=== PATIENT | female | born 1935 | race Caucasian/White ===

== ENCOUNTER → 2020-07-12 14:34 | Outpatient (BNVA) | payer MEDICARE, SELFPAY | PROVIDERS: PCP Internal Medicine; Visit Provider Internal Medicine Cardiovascular Disease | DX: I25.10 Atherosclerotic heart disease of native coronary artery without angina pectoris (principal); I10 Essential (primary) hypertension | CPT/HCPCS: 93005; 99212 ==

== ENCOUNTER 2020-07-19 11:39 | Outpatient (REF) | payer MEDICARE, SELFPAY ==
[2020-07-19 14:01] LABS: MANUAL DIFF FLAG NO
[2020-07-19 14:13] LABS: Basophils Absolute Auto 0.1 X10*3/uL (0.0-0.2); Eosinophils Absolute Auto 0.2 X10*3/uL (0.0-0.4); Eosinophils Percent Auto 1.7 % (0-4); Hematocrit 40.7 % (37-47); Hemoglobin 13.5 g/dl (12.0-16.0); Imm Gran Abs Auto 0.04 X10*3/uL (0.00-0.03); Imm Gran Pct Auto 0.4 % (0.0-0.4); Lymphocytes Absolute Auto 1.4 X10*3/uL (1.2-4.9); Lymphocytes Percent Auto 13.2 % (20-40); Mean Corpuscular HGB Conc 33.2 g/dl (31.0-35.0); Mean Corpuscular Hemoglobin 30.5 pg (27.0-33.0); Mean Corpuscular Volume 91.9 fL (80-98); Mean Platelet Volume 11.9 fL (9.4-12.3); Monocytes Absolute Auto 0.7 X10*3/uL (0.1-1.2); Monocytes Percent Auto 6.7 % (2-11); Platelet Count 185 X10*3/uL (160-400); Red Blood Count 4.43 X10*6/uL (4.20-5.50); White Blood Count 10.4 X10*3/uL (4.8-10.8)
[2020-07-19 14:36] LABS: Alanine Aminotransferase 18 U/L (0-31); Albumin Level 4.4 g/dL (3.5-5.0); Alkaline Phosphatase 71 U/L (39-117); Anion Gap 13 (12-20); Aspartate Amino Transferase 22 U/L (5-31); Blood Urea Nitrogen 21 mg/dL (9-16); Calcium 9.2 mg/dL (8.4-10.2); Carbon Dioxide 28 mmol/L (22-29); Chloride 104 mmol/L (96-108); Cholesterol 111 mg/dL; Estimated Glomerular Filt Rate > 60; Glucose Fasting 76 mg/dL (60-99); HDL Cholesterol 41 mg/dL; LDL Cholesterol Calculated 55 mg/dl; Sodium 141 mmol/L (135-145); Total Protein 6.7 g/dL (6.5-8.0); Triglycerides 77 mg/dL
[2020-07-19 14:59] LABS: Thyroid Stimulating Hormone 1.79 uIU/mL (0.32-4.0)
[2020-07-20 19:03] LABS: Vitamin B12 209 pg/mL (200-900)
== END 2020-07-19 11:40 | disposition home or self-care (01) ==
LOC: HO.HMGCLDS 11:39
PROVIDERS: PCP Internal Medicine; Visit Provider Internal Medicine
DX: Z00.01 Encounter for general adult medical examination with abnormal findings (principal); I12.9 Hypertensive chronic kidney disease with stage 1 through stage 4 chronic kidney disease, or unspecified chronic kidney disease; N18.9 Chronic kidney disease, unspecified; I25.84 Coronary atherosclerosis due to calcified coronary lesion; M17.0 Bilateral primary osteoarthritis of knee
CPT/HCPCS: 36415; 80053; 80061; 82607; 84443; 85025

== ENCOUNTER 2020-08-30 15:32 | Outpatient (REF) | payer MEDICARE, SELFPAY ==
--- NOTE | ~2020-08-30 | MM_ITS ---
EXAMINATION: MM DIAGNOSTIC DIGITAL BREAST TOMOSYNTHESIS, BILATERAL US DIAGNOSTIC ULTRASOUND BREAST, LEFT CLINICAL INFORMATION: 84-year-old with palpable fullness anterior left breast. Prior mammography used ago, suspected purged. COMPARISON: None (current exam represents new baseline). TECHNIQUE: Digital breast tomosynthesis is performed in both the craniocaudal and mediolateral oblique views along with computer-aided detection (CAD). Synthesized 2D images are generated from the tomosynthesis. Ultrasound left breast is targeted to the anterior breasts. Additional imaging also performed left axilla. Grayscale imaging and color Doppler are performed. FINDINGS: There are scattered areas of fibroglandular density (ACR BI-RADS breast composition Category b). The left breast has an irregular spiculated mass retroareolar region approximately 2 cm in size with associated nipple retraction. There are a few coarse and fine calcifications in the lesion. There is no lymphadenopathy. The remainder the left breast is unremarkable. The right breast shows no significant mass or architectural abnormality or abnormal calcifications. The axilla and skin contours are unremarkable. Ultrasound left breast demonstrates a strongly hypoechoic irregular shaped mass retroareolar region measuring approximately 2.2 cm in size. There is posterior acoustic shadowing. This corresponds to the lesion on mammography. Additional imaging left axilla demonstrates no lymphadenopathy. Results are discussed with the patient at time of visit. Ultrasound-guided core sampling left breast lesion is recommended. Results and recommendation are called to medical review specialist (Shelli) for Dr. Loving, on 08/30/2020. MM/MM tomosynthesis diagnostic BI IMPRESSION: 1. Left: Irregular retroareolar mass approximately 2 cm. 2. Right: No mammographic evidence of malignancy. ASSESSMENT: BI-RADS 5: Highly Suggestive of Malignancy RECOMMENDATION: Ultrasound-guided core biopsy left breast. This patient's information was entered into a reminder system with a target due date for their next mammogram.
== END 2020-08-30 15:33 | disposition home or self-care (01) ==
LOC: HO.MAMMO 15:32
PROVIDERS: Visit Provider Internal Medicine
DX: N63.42 Unspecified lump in left breast, subareolar (principal)
CPT/HCPCS: 76642; 77062; 77066

== ENCOUNTER → 2020-09-05 10:38 | Outpatient (BNVA) | payer MEDICARE, SELFPAY | PROVIDERS: PCP Internal Medicine; Visit Provider Surgery | DX: N63.20 Unspecified lump in the left breast, unspecified quadrant (principal) | CPT/HCPCS: 99202 ==

== ENCOUNTER 2020-09-06 07:52 | Outpatient (REF) | payer MEDICARE, SELFPAY ==
--- NOTE | ~2020-09-06 | MM_ITS ---
EXAMINATION: ULTRASOUND GUIDED CORE BIOPSY BREAST, LEFT POST PROCEDURE DIGITAL MAMMOGRAM, LEFT CLINICAL INFORMATION: 84-year-old with suspicious irregular hypoechoic mass with shadowing retroareolar left breast. COMPARISON: Mammography and left breast ultrasound 08/30/2020. FINDINGS: Proper informed consent is obtained from the patient after discussion of the procedure, potential risks and complications, and alternatives. Patient was given an opportunity for questions. The patient appeared to understand. The patient consented to the procedure and signed the consent form. GUIDANCE: Ultrasound-guided; aseptic technique. LESION: Irregular spiculated mass with posterior shadowing, retroareolar left breast 2.2 cm. APPROACH: Oblique lateral medial. ANESTHESIA: 19 mL 1% lidocaine. DERMATOTOMY: Single skin flaquita dermatotomy performed. NEEDLE: 14-gauge Achieve core biopsy device with 13.5-gauge co-axial guide needle. CORES: 6. CLIP: HydroMARK; shape: open coil. POST PROCEDURE UNILATERAL DIGITAL MAMMOGRAM: The post biopsy mammogram is performed in separate room using separate digital mammography equipment from the biopsy procedure. CC and ML views are obtained. There are scattered areas of fibroglandular density (breast composition category: b). The clip marker is in position. No gross hematoma. The patient tolerated the procedure well. No immediate complications. Home instructions reviewed with the patient. Final pathology results are pending. MM/MM diagnostic mammo unilat LT IMPRESSION: 1. Status post ultrasound-guided core biopsy left breast. 2. Clip placed: HydroMARK; shape: open coil. 3. Pathology pending. An addendum report will be issued.
== END 2020-09-06 07:53 | disposition home or self-care (01) ==
LOC: HO.MAMMO 07:52
PROVIDERS: Visit Provider Surgery
DX: N63.20 Unspecified lump in the left breast, unspecified quadrant (principal); R92.8 Other abnormal and inconclusive findings on diagnostic imaging of breast
CPT/HCPCS: 19083; 77065; 88305; 88341; 88342; 88360

== ENCOUNTER → 2020-09-12 09:46 | Outpatient (BNVA) | payer MEDICARE, SELFPAY | PROVIDERS: PCP Internal Medicine; Visit Provider Surgery | DX: C50.912 Malignant neoplasm of unspecified site of left female breast (principal) | CPT/HCPCS: 99212 ==

== ENCOUNTER 2020-10-02 07:00 | Day surgery (SDC) | payer MEDICARE, SELFPAY ==
--- NOTE | 2020-09-28 11:53 | P.CONAN_ITS ---
Documented by User: Belinda Ricardo 09/28/20 12:12 HPI - Anesthesia Eval Consult details Narrative: 84yo F for Left Breast Lumpectomy, Needle Loc, Sentinal Node Per routine cardiol OV 06/2020, stable CAD. OK to discontinue plavix, but pt requested to remain on it. Will hold for surgery. PMFSH Active Problems Active Problems: All Active Problems (Updated 09/26/20 @ 15:29 by Ilsa Hernandez) Abnormal ultrasound of breast (Acute) Breast mass, left (Acute) Carcinoma of left breast (Acute) Coronary artery disease (Acute) Hypertension (Acute) Past Medical History Medical History (Updated 10/02/20 @ 08:53 by Lorie Naylor) Arthritis Coronary artery disease COVID-19 vaccine administered Elevated cholesterol Hypertension Increased bilirubin level On anticoagulant therapy Pectus carinatum Surgical History Surgical History H/O colonoscopy History of right cataract surgery Hx of cardiac catheterization Social History Social History Are you a primary early breastfeeding care specialist to a significant other at home: No Do you presently have visiting nurse or other home services: No Alcohol intake: never Smoking Status: Never smoker Use of substances other than those prescribed or required for medical reasons: No Have you been hit, kicked, punched, or otherwise hurt by someone within the past year? If so, by whom?: No Are you DNR?: No Advance Directives Information Provided: No Recently lost weight without trying: No Eating poorly because of decreased appetite: No Nutrition Risks: Surgical patient >75years Poor oral hygiene: No Meds Allergies Allergy/AdvReac Type Severity Reaction Status Date / Time No Known Allergies Allergy Unverified 02/10/20 15:48 [No Known Allergies*] Home Medications Medication Instructions Recorded Confirmed Last Taken Type aspirin 81 mg tablet,delayed 81 mg PO DAILY 07/12/20 10/02/20 09/29/20 History release isosorbide mononitrate 60 mg 60 mg PO DAILY 07/12/20 10/02/20 10/02/20 History tablet,extended release 24 hr metoprolol succinate 25 mg 25 mg PO DAILY 07/12/20 10/02/20 10/02/20 History tablet,extended release 24 hr Exam Exam Date and Time: September 28, 2020 1153 Height,Weight and Vital Signs: Height 5 ft 5 in Weight 54.431 kg Pertinent Lab Results Pertinent Lab Results: Laboratory Tests 07/19/20 07/19/20 11:45 11:45 WBC 10.4 Hgb 13.5 Hct 40.7 Plt Count 185 Sodium 141 Potassium 4.0 Chloride 104 Carbon Dioxide 28 BUN 21 H Creatinine 0.87 Narrative Narrative: EKG 06/2020 Sinus bradycardia 54/min, nonspecific ST T changes, QTc 426 msec. Assessment and Plan Assessment Anesthesia Assessment: Chart Reviewed Documented by User: Lorie Naylor 10/02/20 08:54 [facility] Past Medical History Medical History (Updated 10/02/20 @ 08:53 by Lorie Naylor) Arthritis Coronary artery disease COVID-19 vaccine administered Elevated cholesterol Hypertension Increased bilirubin level On anticoagulant therapy Pectus carinatum Family History Family history of problems with anesthesia: No Surgical History Surgical History H/O colonoscopy History of right cataract surgery Hx of cardiac catheterization History of Problems with Anesthesia: No Social History Social History Are you a primary early breastfeeding care specialist to a significant other at home: No Do you presently have visiting nurse or other home services: No Alcohol intake: never Smoking Status: Never smoker Use of substances other than those prescribed or required for medical reasons: No Have you been hit, kicked, punched, or otherwise hurt by someone within the past year? If so, by whom?: No Are you DNR?: No Advance Directives Information Provided: No Recently lost weight without trying: No Eating poorly because of decreased appetite: No Nutrition Risks: Surgical patient >75years Poor oral hygiene: No Meds Allergies Allergy/AdvReac Type Severity Reaction Status Date / Time No Known Allergies Allergy Unverified 02/10/20 15:48 [No Known Allergies*] Home Medications Medication Instructions Recorded Confirmed Last Taken Type aspirin 81 mg tablet,delayed 81 mg PO DAILY 07/12/20 10/02/20 09/29/20 History release isosorbide mononitrate 60 mg 60 mg PO DAILY 07/12/20 10/02/20 10/02/20 History tablet,extended release 24 hr metoprolol succinate 25 mg 25 mg PO DAILY 07/12/20 10/02/20 10/02/20 History tablet,extended release 24 hr Exam Height,Weight and Vital Signs: Vital Signs Temp Pulse Resp BP Pulse Ox 10/02/20 07:37 97.8 F 57 16 153/62 H 97 Airway Mallampati Class: II TM Dist: >3cm Neck ROM: Full Heart: RRR Lungs: CTAB Assessment and Plan Assessment Anesthesia Assessment: Anesthesia Plan Discussed and Chart Reviewed Final Anesthetic Review NPO: Yes ASA Class: III Final Preanesthetic Review: No Changes in Pt Med Stat, Meds/Allgs Chart Reviewed, Consent Obtained/Reviewed and Anes Risks/Benef Reviewed Patient Risk: Intermediate Procedure Risk: Low Assessment/Block/Sedation in SS: Assess/Block/Sedation-SS Anesthetic Plan Anesthetic Plan: GA Disposition: Standard PACU
[2020-10-02] VITALS (9 sets, daily range): BP systolic 109–153; BP diastolic 42–89; PULSE 47–57; RESP 12–18; TEMP 36.3–36.6; O2SAT 95–97
--- NOTE | ~2020-10-02 | MM_ITS ---
EXAMINATION: MM MAMMOGRAM GUIDED NEEDLE LOCALIZATION BREAST, LEFT MM NEEDLE LOCALIZATION SPECIMEN FROM THE LEFT BREAST CLINICAL INFORMATION: Recent diagnosis metaplastic carcinoma anterior left breast. COMPARISON: 08/30/2020, 09/06/2020; ultrasound left breast for 12/12/2020, ultrasound-guided core biopsy 09/06/2020. TECHNIQUE NEEDLE LOC: Proper informed consent is obtained from the patient after discussion of the procedure, potential risks and complications, and alternatives including declining the procedure today. Patient was given an opportunity for questions. The patient appeared to understand. The patient consented to the procedure and signed the consent form. GUIDANCE: Digital mammography. APPROACH: Mediolateral. Bracket lesion superior, inferior, and posterior as discussed with surgeon last week. Total 3 needles from medial approach. TARGET: Mass anterior left breast with biopsy clip marker. ANESTHESIA: lidocaine 1%: 15 mL (divided among 3 sites). LOCALIZATION MARKER: Watson MammaLok x 3, each 7.5 cm length. The skin is prepped and local anesthesia administered. The needles are positioned and position assessed with mammography. The wires are hooked into position. Huddy needle protector placed. The patient tolerated the procedure well and had no immediate complication. Following the procedure, 4% lidocaine ointment was administered to the left areola and covered with Tegaderm in anticipation of nuclear lymphoscintigraphy injection for sentinel lymph node mapping. Post procedure findings discussed with chief medical technologist (Belinda) for Dr. Yan and also discussed with licensed nuclear operator (Estelle Gilbert) on 10/02/2020. TECHNIQUE SPECIMEN RADIOGRAPH: Imaging of the excised specimen is performed using digital mammography in 2 views. FINDINGS SPECIMEN RADIOGRAPH: The specimen shows the distal 3 needles and hook wires are delivered intact. Proximal needles sectioned in the OR. The biopsy clip marker and the spiculated mass is seen in the specimen. There is a nodular density at the periphery of the specimen consistent with the excised nipple. Results were called to Dr. Garrett Yan in the operating room at the time of imaging. MM/MM needle loc LT IMPRESSION: 1. Status post left breast needle localization with wire hooked into position. 2. Post operative specimen radiograph obtained.
--- NOTE | ~2020-10-02 | NM_ITS ---
EXAMINATION: NM LYMPH SCINTIGRAPHY CLINICAL INFORMATION: Carcinoma left breast. COMPARISON: None TECHNIQUE: Following explaining left breast sentinel node procedure, benefits and risk, a written consent was obtained by Dr. Castro. 4% lidocaine cream was applied around the left breast areola for half an hour. The area was then cleaned with gauze and subsequently with alcohol prep. 0.5 mCi of 99m technetium Lymphoseek was injected in 4 quadrants around the left breast areola, and imaging was obtained approximately 30 minutes later. FINDINGS: There is adequate amount of isotope activity seen surrounding the left breast areola. There is punctate activity seen in the left anterior axilla and left lateral breast on the lateral view suspicious for 2 small lymph nodes. NM/NM sentinel node w imaging IMPRESSION: Solitary lymph node in the left anterior axilla and solid lymph node in the left lateral breast or lateral thoracic wall on left breast lymphoscintigraphy.
[2020-10-02] MEDS: Lactated Ringers 1,000 ML 100 ML IVCONT (07:51)
--- NOTE | 2020-10-02 11:35 | MHC.SHP ---
Pre-Procedural Eval Section A The patient is an INPATIENT: No Changes since office visit: Yes Patient answered all questions; No Cold of Flu in the past 2 weeks, No New Medical Problems and No Changes in Medication The History & Physical has been completed within 30 days and I have reviewed it.: Yes Section B Chief Complaint: Carcinoma of left breast Allergies: Allergies Allergy/AdvReac Type Severity Reaction Status Date / Time No Known Allergies Allergy Unverified 02/10/20 15:48 [No Known Allergies*] Plan Diagnosis/Plan: Unchanged I have reviewed the history and physical and performed a pertinent physical examination on my patient. No changes have occurred unless specified.
--- NOTE | 2020-10-02 13:58 | P.OP_ITS ---
Operative Note Operative Note Date of Service: 10/02/20 Narrative: Preoperative diagnosis: Metaplastic carcinoma left breast Postoperative diagnosis: Same Procedure: Left breast lumpectomy with sentinel node biopsy left axilla Surgeon: Garrett Yan MD [employer] Superintendent: PAIGE Moctezuma Anesthesia: General LMA Indications for procedure: 84-year-old female patient presenting with a palpable mass noted in the breast in April increasing in size over the next several months. Patient underwent her 1st mammogram which indicated a spiculated mass suggestive of a left breast carcinoma. On examination, patient patient has a palpable mass in the subareolar location with invasion of the underlying skin of the nipple measuring approximately 5 cm. Subsequent core biopsy sound guidance revealed a metaplastic carcinoma of the left breast Operative findings: Mass left breast including left nipple, single sentinel node, several slightly enlarged lymph nodes all removed. Specimen: 1. Left breast lump 2. Left sentinel node 3. Additional axillary contents 4. Posterior margin Estimated blood loss: 10 mls Complications: None Procedure details: Patient was brought to the OR placed in a supine position. After administering general anesthesia the patient's left breast was prepped with ChloraPrep and draped in a sterile fashion. A surgical time-out was called and consent confirmed. Patient received preoperative antibiotics and Venodyne boots were in place. Local anesthesia consisting of 0.25% Sensorcaine with epinephrine was then infiltrated around the left nipple cyst. An elliptical incision was then created with a scalpel to include the nipple-areolar complex. This was carried out through subcutaneous tissue. Superior inferior skin flaps were then created. Using the previously placed localizing needles as a guide of the posterior superior and inferior margins a core of tissue was then next excised to include localizing needle. The specimen sent to pathology for further examination. Posterior margin was felt to be close therefore an ad ditional core of tissue in the posterior margin to include the dural fascia was mood in the specimen. Attention was then directed to the axilla. The gamma probe was used to identify the area of increased counts. A curvilinear incision was then made directly over this area. Dissection was continued down past the clavipectoral fascia into the axillary and apartment. Using the gamma probe to direct dissection a enlarged node was removed. This was found to have 740 counts.. This was sent as sentinel node 1. Several-in all palpable lymph nodes were removed. No other radioactive nodes could be identified. These nodes were sent as additional axillary contents. Both incisions were irrigated with saline solution and suctioned dry. Wounds were checked for hemostasis. Deep breast tissue and pectoral fascia was reapproximated using interrupted 3-0 Polysorb sutures. Superficial breast tissue and dermis were then reapproximated using interrupted 3-0 Polysorb sutures. Skin was then closed using a running subcuticular 4-0 Polysorb suture. Deep clavipectoral fascia was closed using interrupted 3-0 Polysorb sutures. Dermis was reapproximated using interrupted 3-0 Polysorb sutures and axillary skin was closed using a running subcuticular 4 0 Polysorb suture. Steri-Strips 4 x 4 gauze and Tegaderm were then applied. The patient tolerated the procedure well. Sponge, instrument, needle counts reported as correct. Patient was transferred to PACU in stable condition.
== END 2020-10-02 16:04 | disposition home or self-care (01) ==
PROVIDERS: PCP Internal Medicine; Visit Provider Surgery
PROC: (CPT 19301; principal; 2020-10-02 11:00)
PROC: (CPT 19301; 2020-10-02 11:00)
PROC: (CPT 19301; 2020-10-02 11:00)
DX: C50.912 Malignant neoplasm of unspecified site of left female breast (principal); I10 Essential (primary) hypertension; E80.7 Disorder of bilirubin metabolism, unspecified; I25.10 Atherosclerotic heart disease of native coronary artery without angina pectoris; Z79.82 Long term (current) use of aspirin; Z79.899 Other long term (current) drug therapy; Z79.01 Long term (current) use of anticoagulants
CPT/HCPCS: 19301; 38525; 19281; 78195; 88305; 88307; 88329; 88341; 88342; 88360; A4648; A9520; J0690; J2405; J3010

== ENCOUNTER → 2020-10-10 14:27 | Outpatient (BNVA) | payer MEDICARE, SELFPAY | PROVIDERS: PCP Internal Medicine; Visit Provider Surgery | DX: C50.919 Malignant neoplasm of unspecified site of unspecified female breast (principal) | CPT/HCPCS: 99212 ==

== ENCOUNTER → 2020-11-03 14:18 | Outpatient (BNV) | payer MEDICARE, SELFPAY | PROVIDERS: PCP Internal Medicine; Referring Provider Internal Medicine Medical Oncology; Visit Provider Internal Medicine | DX: C50.912 Malignant neoplasm of unspecified site of left female breast (principal); J90 Pleural effusion, not elsewhere classified; R59.0 Localized enlarged lymph nodes | CPT/HCPCS: 99204; 99212; 99213; 99214 ==

== ENCOUNTER → 2020-11-09 14:12 | Outpatient (BNVA) | payer MEDICARE, SELFPAY | PROVIDERS: PCP Internal Medicine; Visit Provider Surgery | DX: C50.919 Malignant neoplasm of unspecified site of unspecified female breast (principal) | CPT/HCPCS: 99212 ==

== ENCOUNTER 2020-11-20 13:30 | Emergency (ER) | payer MEDICARE, SELFPAY ==
--- NOTE | ~2020-11-20 | CT_ITS ---
EXAMINATION: CT HEAD WITHOUT CONTRAST CLINICAL INFORMATION: Fall. COMPARISON: None. TECHNIQUE: Contiguous axial imaging was performed from the skull base to vertex without intravenous administration of contrast. This CT examination was performed using dose optimization techniques as appropriate, variously including the following: *Automated exposure control *Adjustment of mA and/or kV according to patient size (this includes techniques or standardized protocols for targeted exams where dose is matched to indication/reason for exam; i.e. extremities or head) *Use of iterative reconstruction technique DLP: 690 mGy-cm. FINDINGS: There is no evidence of an extra-axial collection. There is no evidence of intra-axial or extra-axial hemorrhage. There is age-related prominence of the ventricles and extra-axial CSF spaces. There is mild nonspecific periventricular white matter disease. There are old bilateral basal ganglia lacunar infarcts. No mass, mass effect or acute infarct is seen. No skull fracture is seen. The visualized paranasal sinuses, mastoid air cells and middle ears are clear. There are degenerative changes at the left temporomandibular joint. CT/CT head/brain wo con IMPRESSION: No acute findings.
--- NOTE | ~2020-11-20 | CT_ITS ---
EXAMINATION: CT CERVICAL SPINE WITHOUT CONTRAST CLINICAL INFORMATION: Fall. COMPARISON: None. TECHNIQUE: Axial images through the cervical spine without contrast. Sagittal and coronal reconstructions on the technologist workstation were performed. Patient dose 244 mGy-cm. This CT examination was performed using dose optimization techniques as appropriate, variously including the following: *Automated exposure control *Adjustment of mA and/or kV according to patient size (this includes techniques or standardized protocols for targeted exams where dose is matched to indication/reason for exam; i.e. extremities or head) *Use of iterative reconstruction technique DLP: 244 mGy-cm. FINDINGS: Bone alignment is normal. No fracture or dislocation is seen. There is multilevel degenerative spondylosis and degenerative disc disease, greatest at C5-C6 and C6-C7. There is bilateral multilevel facet arthritis, greatest at C3-C4 and C4-C5 on the left. There are degenerative changes at the C1 dens articulation. Prevertebral soft tissues are normal. The lung apices are clear. CT/CT cervical spine wo con IMPRESSION: Degenerative changes. No fracture or dislocation seen.
--- NOTE | ~2020-11-20 | CT_ITS ---
EXAMINATION: CT FACIAL BONES WITHOUT CONTRAST CLINICAL INFORMATION: Fall. No separation. COMPARISON: Head CT obtained the day TECHNIQUE: Axial images through the facial bones without contrast. Sagittal and coronal reconstructions on the technologist workstation were performed. This CT examination was performed using dose optimization techniques as appropriate, variously including the following: *Automated exposure control *Adjustment of mA and/or kV according to patient size (this includes techniques or standardized protocols for targeted exams where dose is matched to indication/reason for exam; i.e. extremities or head) *Use of iterative reconstruction technique DLP: 244 mGy-cm FINDINGS: No fracture or dislocation is seen. Paranasal sinuses are well aerated and clear. Mastoid air cells are well aerated and clear. There is arthritis at the left temporomandibular joint. The right temporal joint is normal appearing. The orbits are normal appearing. There is bilateral carotid calcification. CT/CT facial bones wo con IMPRESSION: No facial bone fracture.
[2020-11-20 13:47] VITALS: BP 130/60; BP 84/51; PULSE 60; PULSE 96; RESP 18; TEMP 36.7; O2SAT 96; O2SAT 98
--- NOTE | 2020-11-20 14:25 | ED_ITS ---
HPI - General Adult General Chief complaint: Fall Stated complaint: FALL W/ABRASSION TO FACE,ON THINNERS Time Seen by Provider: 11/20/20 16:06 Source: patient Mode of arrival: ambulatory Limitations: no limitations History of Present Illness HPI narrative: patient brought to the ED for fall. Patient states she was walking in her house and she tripped over her cat small playhouse/condo and fell onto her face. Patient denies having any headache, dizziness, chest pain, shortness of breath, or abdominal pain before falling. Once again patient states she fell because she tripped over her cat small playhouse/chondral. Patient denies any loss of consciousness. Patient is on and blood thinners. Patient's 1st chemo began this month. Patient denies pain in extremities, chest, abdomen, hips, neck, or head. Patient states slight facial discomfort. Related Data Home Medications Medication Instructions Recorded Confirmed aspirin 81 mg tablet,delayed 81 mg PO DAILY 07/12/20 11/09/20 release isosorbide mononitrate 60 mg 60 mg PO DAILY 07/12/20 11/09/20 tablet,extended release 24 hr metoprolol succinate 25 mg 25 mg PO DAILY 07/12/20 11/09/20 tablet,extended release 24 hr Previous Rx's Medication Instructions Recorded atorvastatin 80 mg tablet 80 mg PO BEDTIME #90 tab 07/05/20 amlodipine 10 mg tablet 10 mg PO DAILY #90 tab 09/14/20 cholecalciferol (vitamin D3) 50 50 mcg PO DAILY #90 cap 09/15/20 mcg (2,000 unit) capsule clopidogrel 75 mg tablet 75 mg PO DAILY #90 tab 09/27/20 dexamethasone 2 mg PO BID #30 tab 11/07/20 ondansetron HCl [Zofran] 4 mg PO Q6H #30 tab 11/08/20 Allergies Allergy/AdvReac Type Severity Reaction Status Date / Time No Known Allergies Allergy Unverified 02/10/20 15:48 [No Known Allergies*] Review of Systems Review of Systems: Yes all other systems are reviewed and are negative Constitutional: Constitutional: Reports as per HPI and Reports no additional constitutional complaints Eyes: Eyes: Reports as per HPI and Reports no additional eye complaints ENT: Reports system reviewed and no additional complaints, except as documented, Reports as per HPI and Reports nose pain ( Abrasion on bridge of nose) Cardiovascular: Cardiovascular: Reports as per HPI and Reports no additional cardiovascular complaints Respiratory: Respiratory: Reports as per HPI and Reports no additional respiratory complaints Gastrointestinal: Gastrointestinal: Reports as per HPI and Reports no additional gastrointestinal complaints Genitourinary: Genitourinary: Reports no additional female genitourinary complaints and Reports as per HPI Musculoskeletal: Musculoskeletal: Reports no additional musculoskeletal complaints and Reports as per HPI Neurologic: Reports system reviewed and no additional complaints, except as documented and Reports as per HPI Psychiatric: Psychiatric: Reports no additional psychiatric complaints and Reports as per HPI [facility] Past Medical History Medical History (Updated 11/20/20 @ 18:04 by NUSRAT Hills) Arthritis Coronary artery disease COVID-19 vaccine administered Elevated cholesterol Hypertension Increased bilirubin level On anticoagulant therapy Pectus carinatum Surgical History (Updated 11/03/20 @ 15:20 by Mily Urbina MD) H/O colonoscopy History of lumpectomy of left breast History of right cataract surgery Hx of cardiac catheterization Social History Social History (Updated 11/03/20 @ 14:41 by Darline Paula) Are you a primary physician locums urgent care to a significant other at home: No Do you presently have visiting nurse or other home services: No Alcohol intake: never Patient Tobacco Use Status: Never used Tobacco Use of substances other than those prescribed or required for medical reasons: No Advance Directives: No Advance Directives Information Provided: No Physical Exam Vital Signs: Vital Signs: Last Vital Signs Temp 97.0 F 11/20/20 17:47 Pulse 84 11/20/20 17:47 Resp 18 11/20/20 17:47 BP 131/63 11/20/20 17:47 Pulse Ox 96 11/20/20 17:47 Body Mass Index 20.0 Const: General: cooperative, healthy appearing, comfortable, no acute distress, well developed, alert, awake and Physically active Orientation/consciousness: patient oriented x3 HENMT: Other: nares negative for deformity or tenderness. Negative for bleeding from nares. Head: Yes normal to inspection, Yes No palpable skull fracture present, Yes normocephalic and Yes abrasion (nasal bridge) Eyes: General: appearance normal, both eyes and all related structures Neck: Neck: Yes normal visual inspection, Yes full ROM, Yes no lymphadenopathy, Yes no meningeal signs, Yes trachea midline, Yes supple and No tender Chest: Chest palpation & inspection: normal inspection of the chest and normal palpation of entire chest wall Resp: Effort & Inspection: normal respiratory effort and able to speak in complete sentences Auscultation: clear to auscultation bilaterally Cardio: Jugular venous distension: no JVD Heart sounds: S1 normal heart sound present and S2 normal heart sound present GI: Inspection: Yes normal to inspection and No abdominal wall ecchymosis Palpation (GI): Soft to palpation, not firm, nontender, no guarding and not rigid : General: No CVA tenderness and Yes no CVA tenderness Back/Spine/Pelvis: Back: no CVA tenderness, No CVA tenderness and No back tenderness Skin: General skin exam: no rashes or lesions noted and elasticity normal Neuro: General: patient oriented x3, gait normal, no meningeal signs and CN's II-XI intact bilaterally Extrem: Other: Patient has complete range of motion of all extremities. Negative for any hip tenderness General: Yes normal to inspection and Yes full ROM Psych: Appearance: grossly normal, well kempt and not disheveled Course Course Course Narrative: history physical exam indicate mechanical fall. No need for labs. Patient initial blood pressure was low. Patient is very skinny and initial cough was too big. Will get repeat blood pressure Reevaluation(s) Reevaluation #1: Vital signs improved. Images negative for any fractures. Tdap ordered. SPOKE WITH PATIENT AND HER SON WHO REQUESTS AT LEAST IV FLUIDS. PATIENT'S & SON STATES SHE RECENTLY HAD CHEMO AND FEEL TIRED AND WOULD JUST LIKE SOME IV FLUIDS TO MAKE HER FEEL BETTER. NO LABS INDICATED Time: 16:24 Reevaluation #2: PATIENT RE-EVALUATED AND FEELS BETTER AFTER IV FLUIDS. Time: 17:59 Medical Decision Making [facility] Narrative Medical decision making narrative: FALL Discharge Plan Discharge Clinical Impression: Abrasion, Head injury Patient Disposition: Home, Self-Care Instructions: Head Injury (ED), Abrasion (ED) Additional Instructions: RETURN TO THE ED IMMEDIATELY FOR ANY DIZZINESS, SEVERE HEADACHE, VOMITING, CHEST PAIN, SHORTNESS OF BREATH, BLOODY URINE, BLOOD IN STOOL, NECK PAIN, OR ANY OTHER CONCERNING SYMPTOMS. Prescriptions: No Action atorvastatin 80 mg tablet 80 mg PO BEDTIME Qty: 90 RF: 0 amlodipine 10 mg tablet 10 mg PO DAILY Qty: 90 RF: 3 cholecalciferol (vitamin D3) 50 mcg (2,000 unit) capsule 50 mcg PO DAILY Qty: 90 RF: 3 clopidogrel 75 mg tablet 75 mg PO DAILY Qty: 90 RF: 1 dexamethasone 2 mg Tablet 2 mg PO BID Qty: 30 RF: 1 ondansetron HCl [Zofran] 4 mg Tablet 4 mg PO Q6H Qty: 30 RF: 3 aspirin 81 mg tablet,delayed release (DR/EC) 81 mg PO DAILY RF: 0 metoprolol succinate 25 mg tablet extended release 24 hr 25 mg PO DAILY RF: 0 isosorbide mononitrate 60 mg tablet extended release 24 hr 60 mg PO DAILY RF: 0 Referrals: Gale Loving MD [Primary Care Provider] - 2 days ( MECHANICAL FALL. NO FRACTURES) Interventions: ED Discharge Assessment Last Done: 11/20/20 18:32 Discharge Date/Time: 11/20/20 18:35 Print Language: [place]
[2020-11-20 15:01] VITALS: BP 109/52
[2020-11-20 15:52] VITALS: BP 109/52; PULSE 78
[2020-11-20] MEDS: Diphth,Pertus(ACell),Tet Adult 0.5 ML SYRINGE IM (17:01)
[2020-11-20] MEDS: 0.9 % Sodium Chloride 1,000 ML 999 ML IV (17:03)
[2020-11-20 17:47] VITALS: BP 131/63; PULSE 84; RESP 18; TEMP 36.1; O2SAT 96
== END 2020-11-20 18:35 | disposition home or self-care (01) ==
PROVIDERS: Emergency Provider Internal Medicine; PCP Internal Medicine
DX: S00.81XA Abrasion of other part of head, initial encounter (principal); I10 Essential (primary) hypertension; I25.10 Atherosclerotic heart disease of native coronary artery without angina pectoris; Z79.01 Long term (current) use of anticoagulants; Z79.82 Long term (current) use of aspirin; Z79.899 Other long term (current) drug therapy; W01.0XXA Fall on same level from slipping, tripping and stumbling without subsequent striking against object, initial encounter; Y93.01 Activity, walking, marching and hiking; Y92.099 Unspecified place in other non-institutional residence as the place of occurrence of the external cause; Y99.9 Unspecified external cause status
CPT/HCPCS: 70450; 70486; 72125; 90471; 90715; 96360; 99284

== ENCOUNTER 2020-11-28 15:19 | Emergency (ER) | payer MEDICARE, SELFPAY ==
[2020-11-28] VITALS (13 sets, daily range): BP systolic 86–130; BP diastolic 39–80; PULSE 61–99; RESP 16–22; TEMP 36.4–36.6; O2SAT 94–100
--- NOTE | ~2020-11-28 | XR_ITS ---
EXAMINATION: XR CHEST CLINICAL INFORMATION: Hypotension COMPARISON: Chest x-ray December 21, 2018 TECHNIQUE: Frontal portable view of the chest was obtained. 3:57 PM FINDINGS: Asymmetric elevation of right diaphragm above the left. This is chronic unchanged since prior chest x-ray 2019. There is no acute abnormality of the chest. Lungs are clear. No pulmonary vascular congestion. There is no pleural effusion. The heart size is normal. The cardiac and mediastinal contours are normal. There are calcifications of the thoracic aorta. There are multilevel degenerative changes of dorsal spine. XR/XR chest 1V IMPRESSION: No acute abnormality of chest.
--- NOTE | ~2020-11-28 | CT_ITS ---
EXAMINATION: CT ANGIOGRAM ABDOMEN AND PELVIS WITH AND WITHOUT CONTRAST CLINICAL INFORMATION: GI bleeding, active COMPARISON: None TECHNIQUE: Multiple axial images were obtained through the abdomen and pelvis before and after the administration of 100 mL of Omnipaque 350 intravenous contrast. Multiplanar reformatted images in coronal and sagittal orientations were submitted. This CT examination was performed using dose optimization techniques as appropriate, variously including the following: *Automated exposure control *Adjustment of mA and/or kV according to patient size (this includes techniques or standardized protocols for targeted exams where dose is matched to indication/reason for exam; i.e. extremities or head) *Use of iterative reconstruction technique DLP: 1373 mGy-cm FINDINGS: Vascular: The contrast bolus is relatively dilute within the systemic arterial system, limiting assessment for stenoses. Marked atherosclerotic disease is present in the abdominal aorta without significant aneurysmal dilatation. Moderate to severe stenoses are suspected at the origins of the celiac axis and SMA due to mixed calcific and fibrofatty atheromatous disease. No appreciable vessel occlusion. There is significant atherosclerotic disease within the splenic artery. [place] is patent. There is marked atherosclerotic disease in the common iliac arteries without appreciable flow limiting stenoses. Iliac arteries and proximal femoral arteries are patent. The portal venous system is patent. Nonvascular: LUNG BASES: Minimal dependent atelectasis. There is nonuniform wall thickening in the distal esophagus which is of uncertain etiology. A 1.2 cm mural nodule is possible, best seen on image 10/89 series 5. There is a small hiatal hernia. LIVER, GALLBLADDER, BILIARY TREE: The liver is normal in size, shape, and attenuation. There is mild dilatation of the common bile duct (1 cm). No appreciable intrahepatic biliary ductal dilatation The gallbladder is unremarkable with no evidence of radiopaque gallstones, gallbladder wall thickening, or obvious pericholecystic inflammatory changes. PANCREAS: There is mild fat stranding around the pancreatic head. The remainder of the pancreas is normal appearance without significant central canal stranding or abnormal pancreatic attenuation. SPLEEN: Unremarkable. ADRENAL GLANDS: Normal. KIDNEYS AND URETERS: There is mild atrophy of the right kidney with cortical thinning at the upper pole anterior cortex. A fused calculi are present in the right lower pole, largest of which measures 6 mm in diameter with a density of 600 Hounsfield units, situated 5.8 cm deep to the skin surface at the right posterior mid axillary line. The left kidney is normal in size and contour without nephrolithiasis or hydronephrosis. Ureters are normal in course and caliber. BLADDER: Normal. GASTROINTESTINAL TRACT: As noted above, there is a small hiatal hernia. Stomach, small bowel, and colon are normal in caliber. Subtle fat stranding is seen and pancreatic head. There is a small 1.1 cm duodenal diverticulum near the ampulla of Vater at the second portion of the duodenum. This contains small radiodense foci, possibly foci of contrast material. Oral contrast material is present within the stomach. There is wall thickening and mucosal hyperemia in the distal descending, sigmoid colon, and rectum with surrounding fat stranding. Marked diverticulosis is also present in this region. Some changes appear most pronounced around a large 2 cm diverticulum at the sigmoid colon as seen on image 66/92 of series 6. No sites of active bleeding are identified. There is mild generalized haziness of the mesenteric fat, suggesting a degree of generalized mesenteric edema. Appendix is normal ABDOMINAL WALL: No significant hernia is appreciated. LYMPHOVASCULAR STRUCTURES: Multiple enlarged retroperitoneal lymph nodes are identified, most notably in the aortocaval and periaortic positions, such as the 1 cm (short axis) aortocaval node on image 38/92 of series 9 and the. 1 cm periaortic nodes at the level of the left renal hilum (image 33/92 of series 9) and the 9 mm para-aortic node just proximal to the bifurcation on image 44/92 of series 9. Multiple smaller intrapelvic lymph nodes are identified. PELVIC VISCERA: The uterus and adnexa are unremarkable. OSSEOUS STRUCTURES: There is sigmoid curvature in the lumbar spine with marked degenerative disc disease at the left half at the L1-L2 and L2-L3 levels. Marked facet arthropathy is present in the lower lumbar spine. No acute fracture CT/CT angio abdomen pelvis IMPRESSION: 1. No site of active contrast extravasation is identified on these images. 2. Inflammatory fat stranding in the distal descending colon, sigmoid colon, and rectum, most pronounced around a diverticulum, potentially due to diverticulitis with extensive surrounding colonic inflammation or, alternatively, other causes of inflammatory/infectious proctocolitis. No evidence of perforation or abscess. 3. Extensive atherosclerotic disease in the abdominal aorta and its branch vessels with significant stenoses at the SMA and celiac axis. Arterial assessment is somewhat limited on these images due to bolus timing. 4. Mild retroperitoneal adenopathy, likely reactive in nature. 5. Subtle fat stranding around the duodenum and pancreatic head. This may be related to the generalized mesenteric edema, though correlation with serum amylase lipase is advised to exclude mild pancreatitis. 6. Nodular wall thickening in the distal esophagus. Consider follow-up endoscopy or barium swallow on a nonemergent basis to exclude a mural lesion. Small hiatal hernia is also noted. 7. Mild right renal atrophy with nonobstructing right lower pole calculi.
--- NOTE | 2020-11-28 15:42 | ED.GIBLEED ---
HPI - GI Bleed General Chief complaint: GI Bleed Stated complaint: SEE STATED Time Seen by Provider: 11/28/20 15:28 Source: patient and family ( son) Mode of arrival: wheelchair Limitations: no limitations History of Present Illness HPI Narrative: 85-year-old female came in from the Oncology Department for massive GI bleed and syncopal episode with hypotension. Patient was transferred from the oncology department, patient initially had 2 coats of nonbloody watery diarrhea then patient had syncopal episode witnessed by the staff up in the Oncology Department, then the diarrhea started to turn into bright red blood and blood clots. Patient was transferred to the emergency department for resuscitation. Patient initially looking pale, hypotensive, with massive right red blood and blood clots in the rectal area, patient had 3 IV axis inserted with IV fluid, 2 units of type O negative was ordered. The case was discussed with Dr. Child from GI who recommended to send the patient to [facility] for intervention immobilization. the case was discussed with from intervention Radiology at [facility] who recommended CT CT angiogram of the abdomen and pelvis to determine if the patient still bleeding or not. Patient has been accepted by to intermediate care unit. Related Data Home Medications Medication Instructions Recorded Confirmed aspirin 81 mg tablet,delayed 81 mg PO DAILY 07/12/20 11/28/20 release isosorbide mononitrate 60 mg 60 mg PO DAILY 07/12/20 11/28/20 tablet,extended release 24 hr metoprolol succinate 25 mg 25 mg PO DAILY 07/12/20 11/28/20 tablet,extended release 24 hr ondansetron HCl [Zofran] 4 mg PO Q6H PRN 11/28/20 11/28/20 Previous Rx's Medication Instructions Recorded atorvastatin 80 mg tablet 80 mg PO BEDTIME #90 tab 07/05/20 amlodipine 10 mg tablet 10 mg PO DAILY #90 tab 09/14/20 cholecalciferol (vitamin D3) 50 50 mcg PO DAILY #90 cap 09/15/20 mcg (2,000 unit) capsule clopidogrel 75 mg tablet 75 mg PO DAILY #90 tab 09/27/20 Allergies Allergy/AdvReac Type Severity Reaction Status Date / Time No Known Allergies Allergy Unverified 02/10/20 15:48 [No Known Allergies*] Review of Systems Review of Systems: All other systems are reviewed and are negative Constitutional: Reports as per HPI and Reports no additional constitutional complaints Eyes: Reports as per HPI and Reports no additional eye complaints Reports system reviewed and no additional complaints, except as documented Cardiovascular: Reports as per HPI and Reports no additional cardiovascular complaints Respiratory: Reports as per HPI and Reports no additional respiratory complaints Gastrointestinal: Reports as per HPI and Reports no additional gastrointestinal complaints Genitourinary: Reports no additional female genitourinary complaints Musculoskeletal: Reports no additional musculoskeletal complaints Skin/Breast: Reports system reviewed and no additional complaints, except as docu Psychiatric: Reports no additional psychiatric complaints Endocrine: Reports no additional endocrine complaints Hematologic/Lymphatic: Reports no additional hematologic/lymphatic complaints Allergic/Immunologic: Reports no additional allergic/immunologic complaints Reports system reviewed and no additional complaints, except as documented and Reports Abnormal speech present [facility] Past Medical History Medical History Arthritis Coronary artery disease COVID-19 vaccine administered Elevated cholesterol Hypertension Increased bilirubin level On anticoagulant therapy Pectus carinatum Surgical History H/O colonoscopy History of lumpectomy of left breast History of right cataract surgery Hx of cardiac catheterization Social History Social History Are you a primary rn homecare to a significant other at home: No Do you presently have visiting nurse or other home services: No Alcohol intake: never Patient Tobacco Use Status: Never used Tobacco Advance Directives: No Advance Directives Information Provided: No Physical Exam Vital Signs: Vital Signs: Last Vital Signs Temp 97.8 F 11/28/20 16:56 Pulse 61 11/28/20 16:56 Resp 16 11/28/20 16:56 BP 110/53 L 11/28/20 16:56 Pulse Ox 99 11/28/20 16:56 Body Mass Index 20.0 vital signs have been reviewed as appeared to be correct. Blood pressure Is low. Heart rate normal. Respiration rate normal. Temperature normal. Oxygen saturation normal. Appearance: Alert., oriented appear pale. Head: Normal external exam. Normocephalic. Atraumatic. No Graham signs noted. No raccoon eyes noted Eyes: PERRLA. EOMI. Conjunctiva and sclera normal. Eyelids normal. ENT: TM's Normal. Pharynx normal. Uvula midline. Moist mucous membranes. No trismus noted. No drooling noted. No muffled voice noted. Neck: Normal inspection. Neck supple. FROM. No adenopathy. Thyroid Normal. No meningeal signs. No neck mass noted. CVS: Normal heart rate and rhythm. Heart sound normal. No murmurs noted. Pulses normal throughout. Respiratory: No respiratory distress. Painless inspiration. Breath sounds normal. No wheezes/rales/rhonchi noted. Chest nontender. No accessory muscle usage noted or decreased air movement noted. Abdomen: Soft and nontender. Bowel sounds normal in all 4 quadrants. No distention noted. No organomegaly noted. No visible injury noted. Rectal exam: Bright red blood/ blood clots pouring out the rectum. Back: No CVA tenderness. Full range of motion noted. Skin: Skin warm and dry. Normal skin color. Normal skin turgor. No rashes/lesions/lacerations noted. Extremities: No lower extremity edema. Extremities exhibit normal range of motion. Extremities nontender. Neuro: Oriented X 3. No motor deficit. No sensory deficit. Reflexes normal. Course Course Course Narrative: Assessment and plan. 85-year-old female came in from the oncology unit for hypotension, syncope, active GI bleed. 1. Case discussed with Dr. cisneros from GI patient to be transferred to [facility] for vascular immobilization. 2. Patient required total of 4 units of RBCs ( 2 units of type O-negative, and 2 units of patient crossmatch ). 3. will get CT angio of the abdomen and pelvis before transferring to [facility]. MDM - GI Bleed Lab Data Result diagrams: 11/28/20 15:39 11/28/20 15:39 Labs: Lab Results 11/28/20 11/28/20 11/28/20 Range/Units 15:39 15:39 15:39 WBC 20.8 H (4.8-10.8) X10*3/uL RBC 2.86 L D (4.20-5.50) X10*6/uL Hgb 8.7 L D (12.0-16.0) g/dl Hct 25.7 L D (37-47) % MCV 89.9 (80-98) fL MCH 30.4 (27.0-33.0) pg MCHC 33.9 (31.0-35.0) g/dl RDW 13.5 (11.0-16.0) % Plt Count 222 (160-400) X10*3/uL MPV 11.1 (9.4-12.3) fL Immature Gran % (Auto) 3.1 H (0.0-0.4) % Neut % (Auto) 82.9 H (45-73) % Lymph % (Auto) 5.7 L (20-40) % Gregory % (Auto) 7.9 (2-11) % Eos % (Auto) 0.0 (0-4) % Baso % (Auto) 0.4 (0-2) % Lymph # (Auto) 1.2 (1.2-4.9) X10*3/uL Gregory # (Auto) 1.7 H (0.1-1.2) X10*3/uL Eos # (Auto) 0.0 (0.0-0.4) X10*3/uL Baso # (Auto) 0.1 (0.0-0.2) X10*3/uL Abs Immat Gran (auto) 0.64 H (0.00-0.03) X10*3/uL Absolute Neuts (auto) 17.3 H (2.0-8.3) X10*3/uL Absolute Nucleated RBC 0.000 (0.0-0.012) X10*3/uL Nucleated RBC % (auto) 0.0 (0.0-0.2) /100WBC Smear Tech's Comments VERIFIED PT (9.9-13.0) SEC INR (0.9-1.1) APTT (24.1-38.0) SEC Sodium 137 (135-145) mmol/L Potassium 2.9 L (3.3-5.1) mmol/L Chloride 97 (96-108) mmol/L Carbon Dioxide 30 H (22-29) mmol/L Anion Gap 13 (12-20) BUN 11 (9-16) mg/dL Creatinine 0.83 (0.5-1.4) mg/dL Estim Creat Clear Calc 44.1 Estimated GFR > 60 Random Glucose 137 H (60-115) mg/dL Calcium 7.3 L D (8.4-10.2) mg/dL Total Bilirubin 1.7 H (0.0-1.0) mg/dL Direct Bilirubin 1.0 H (0.0-0.5) mg/dL AST 21 (5-31) U/L ALT 9 (0-31) U/L Alkaline Phosphatase 61 (39-117) U/L B-Natriuretic Peptide (<100) pg/mL Total Protein 4.0 L D (6.5-8.0) g/dL Albumin 2.4 L (3.5-5.0) g/dL Lipase 12 (8-78) U/L COVID-19 (DEE) (Negative) COVID-19 Clin Com Blood Type O Positive Antibody Screen NEGATIVE Crossmatch See Detail 11/28/20 11/28/20 11/28/20 Range/Units 15:39 15:39 15:39 WBC (4.8-10.8) X10*3/uL RBC (4.20-5.50) X10*6/uL Hgb (12.0-16.0) g/dl Hct (37-47) % MCV (80-98) fL MCH (27.0-33.0) pg MCHC (31.0-35.0) g/dl RDW (11.0-16.0) % Plt Count (160-400) X10*3/uL MPV (9.4-12.3) fL Immature Gran % (Auto) (0.0-0.4) % Neut % (Auto) (45-73) % Lymph % (Auto) (20-40) % Gregory % (Auto) (2-11) % Eos % (Auto) (0-4) % Baso % (Auto) (0-2) % Lymph # (Auto) (1.2-4.9) X10*3/uL Gregory # (Auto) (0.1-1.2) X10*3/uL Eos # (Auto) (0.0-0.4) X10*3/uL Baso # (Auto) (0.0-0.2) X10*3/uL Abs Immat Gran (auto) (0.00-0.03) X10*3/uL Absolute Neuts (auto) (2.0-8.3) X10*3/uL Absolute Nucleated RBC (0.0-0.012) X10*3/uL Nucleated RBC % (auto) (0.0-0.2) /100WBC Smear Tech's Comments PT 19.4 H (9.9-13.0) SEC INR 1.7 H (0.9-1.1) APTT 28.6 (24.1-38.0) SEC Sodium (135-145) mmol/L Potassium (3.3-5.1) mmol/L Chloride (96-108) mmol/L Carbon Dioxide (22-29) mmol/L Anion Gap (12-20) BUN (9-16) mg/dL Creatinine (0.5-1.4) mg/dL Estim Creat Clear Calc Estimated GFR Random Glucose (60-115) mg/dL Calcium (8.4-10.2) mg/dL Total Bilirubin (0.0-1.0) mg/dL Direct Bilirubin (0.0-0.5) mg/dL AST (5-31) U/L ALT (0-31) U/L Alkaline Phosphatase (39-117) U/L B-Natriuretic Peptide 325 H (<100) pg/mL Total Protein (6.5-8.0) g/dL Albumin (3.5-5.0) g/dL Lipase (8-78) U/L COVID-19 (DEE) Negative (Negative) COVID-19 Clin Com See Note Blood Type Antibody Screen Crossmatch Critical Care Time Critical Care Time Critical Care Time: Yes Total Critical Care Time: 60 Attestation: I spent 60 minutes providing critical care service to the patient, this including time spent at the bedside to evaluate the patient, reassess the patient, monitoring vital signs, review labs, and radiographic studies, counseling the patient/family, discussing the case with consultants, and transfer the patient. Discharge Plan Discharge Clinical Impression: Acute GI bleeding Hypotension Qualifiers: Hypotension type: unspecified hypotension type Qualified Code(s): I95.9 - Hypotension, unspecified Patient Disposition: [facility] Transfer Details: intermediate unit Prescriptions: No Action atorvastatin 80 mg tablet 80 mg PO BEDTIME Qty: 90 RF: 0 amlodipine 10 mg tablet 10 mg PO DAILY Qty: 90 RF: 3 cholecalciferol (vitamin D3) 50 mcg (2,000 unit) capsule 50 mcg PO DAILY Qty: 90 RF: 3 clopidogrel 75 mg tablet 75 mg PO DAILY Qty: 90 RF: 1 ondansetron HCl [Zofran] 4 mg tablet 4 mg PO Q6H PRN (Reason: Nausea And Vomiting) RF: 0 aspirin 81 mg tablet,delayed release (DR/EC) 81 mg PO DAILY RF: 0 metoprolol succinate 25 mg tablet extended release 24 hr 25 mg PO DAILY RF: 0 isosorbide mononitrate 60 mg tablet extended release 24 hr 60 mg PO DAILY RF: 0 Interventions: Acute Care Transfer Worksheet (ED) Last Done: 11/28/20 17:30 Discharge Date/Time: 11/28/20 16:59
[2020-11-28 15:53] LABS: INTERNATIONAL NORM RATIO 1.7 (0.9-1.1); Prothrombin Time 19.4 SEC (9.9-13.0)
[2020-11-28 15:54] LABS: Basophils Absolute Auto 0.1 X10*3/uL (0.0-0.2); Basophils Percent Auto 0.4 % (0-2); Hematocrit 25.7 % (37-47); Hemoglobin 8.7 g/dl (12.0-16.0); Imm Gran Abs Auto 0.64 X10*3/uL (0.00-0.03); Imm Gran Pct Auto 3.1 % (0.0-0.4); Lymphocytes Absolute Auto 1.2 X10*3/uL (1.2-4.9); Lymphocytes Percent Auto 5.7 % (20-40); MANUAL DIFF FLAG SCAN; Mean Corpuscular HGB Conc 33.9 g/dl (31.0-35.0); Mean Corpuscular Hemoglobin 30.4 pg (27.0-33.0); Mean Corpuscular Volume 89.9 fL (80-98); Mean Platelet Volume 11.1 fL (9.4-12.3); Monocytes Absolute Auto 1.7 X10*3/uL (0.1-1.2); Monocytes Percent Auto 7.9 % (2-11); Neutrophils Absolute Auto 17.3 X10*3/uL (2.0-8.3); Neutrophils Percent Auto 82.9 % (45-73); Platelet Count 222 X10*3/uL (160-400); Red Blood Count 2.86 X10*6/uL (4.20-5.50); Red Cell Distribution Width 13.5 % (11.0-16.0); SCAN SMEAR FLAG 1; White Blood Count 20.8 X10*3/uL (4.8-10.8)
[2020-11-28 15:55] LABS: Partial Thromboplastin Time 28.6 SEC (24.1-38.0)
[2020-11-28] MEDS: 0.9 % Sodium Chloride 1,000 ML 999 ML IV (16:00)
[2020-11-28] MEDS: 0.9 % Sodium Chloride 1,000 ML 999 ML IVCONT (16:00)
--- NOTE | 2020-11-28 16:00 | PC.NURSE ---
Patient presents to ED from oncology. Patient went in for blood work. Found to have K 2.5, given 20MEQ in oncology. Bloody diarrhea started apprx 1 hr ago in oncology Bleeding uncontrolled, constant diarrhea. Denies abdominal pain, nausea, vomiting. On arrival to ED, patient pale, nuero intact, ao4, profuse bleeding from rectum. IV in right forearm 22guage placed by oncology.1 IV placed by ER staff 18 gauge left A/C, another 20 gauge in left hand. 1 Normal saline bag given @1538, finished infusing at 1610. 2 units of uncrossed unmatched blood hung per MD order. Bp stabilizing after administration of 1 unit RBC, 110/51. 2nd unit finished at 1615. 2nd bolus started at 1616. Patient on cardiac catheterization technologist, BP circulating every 5 mins. Patient denies pain, n/v.
[2020-11-28 16:13] LABS: B Type Natriuretic Peptide 325 pg/mL (<100)
[2020-11-28 16:16] LABS: COVID-19 Test Negative (Negative); IDNOW Serial# 9DD0AD1C
[2020-11-28 16:18] LABS: Alanine Aminotransferase 9 U/L (0-31); Albumin Level 2.4 g/dL (3.5-5.0); Alkaline Phosphatase 61 U/L (39-117); Anion Gap 13 (12-20); Aspartate Amino Transferase 21 U/L (5-31); Bilirubin Total 1.7 mg/dL (0.0-1.0); Blood Urea Nitrogen 11 mg/dL (9-16); Calcium 7.3 mg/dL (8.4-10.2); Carbon Dioxide 30 mmol/L (22-29); Chloride 97 mmol/L (96-108); Creatinine Clr Calc Pharmacy 44.1; Estimated Glomerular Filt Rate > 60; Glucose Random 137 mg/dL (60-115); Lipase 12 U/L (8-78); Potassium 2.9 mmol/L (3.3-5.1); Sodium 137 mmol/L (135-145)
--- NOTE | 2020-11-28 16:31 | PC.NURSE ---
pt accepted [facility] daily 6b room 88b nurse-nurse [phone]
--- NOTE | 2020-11-28 16:32 | PHA.MEDREC ---
Pharmacy Consult ? Medication Reconciliation Pharmacy has completed the medication reconciliation based on the med list with patient.
[2020-11-28 16:38] LABS: SLIDE REVIEW VERIFIED
[2020-11-28] MEDS: iohexoL 350 MG/ML 100 ML INFUS..BTL IV (16:52)
--- NOTE | 2020-11-28 16:59 | PC.NURSE ---
Report given to EMS, care transffered
--- NOTE | 2020-11-29 15:03 | PC.NURSE ---
blood infusing upon transfer to [facility]
== END 2020-11-28 16:59 | disposition short-term general hospital (02) ==
PROVIDERS: Emergency Provider Emergency Medicine; PCP Internal Medicine
DX: K92.2 Gastrointestinal hemorrhage, unspecified (principal); I95.9 Hypotension, unspecified; I10 Essential (primary) hypertension; I25.10 Atherosclerotic heart disease of native coronary artery without angina pectoris; Z79.82 Long term (current) use of aspirin; Z79.899 Other long term (current) drug therapy; Z20.822 Contact with and (suspected) exposure to COVID-19
CPT/HCPCS: 36415; 36430; 71045; 74174; 80048; 80076; 83690; 83880; 85025; 85610; 85730; 86850; 86900; 86901; 86920; 86923; 87635; 93005; 96360; 96361; 99285; 99291; P9016; Q9967

== ENCOUNTER → 2020-12-26 14:15 | Outpatient (BNVA) | payer MEDICARE, SELFPAY | PROVIDERS: PCP Internal Medicine; Visit Provider Nurse Practitioner Family | DX: I25.10 Atherosclerotic heart disease of native coronary artery without angina pectoris (principal); I10 Essential (primary) hypertension | CPT/HCPCS: 99212 ==

== ENCOUNTER → 2021-02-01 14:14 | Outpatient (BNVA) | payer MEDICARE, SELFPAY | PROVIDERS: PCP Internal Medicine; Referring Provider Internal Medicine; Visit Provider Surgery | DX: C50.919 Malignant neoplasm of unspecified site of unspecified female breast (principal) | CPT/HCPCS: 99212 ==

== ENCOUNTER → 2021-04-04 13:20 | Outpatient (BNVA) | payer MEDICARE, SELFPAY | PROVIDERS: PCP Internal Medicine; Visit Provider Internal Medicine Cardiovascular Disease | DX: I25.10 Atherosclerotic heart disease of native coronary artery without angina pectoris (principal); I10 Essential (primary) hypertension | CPT/HCPCS: 99212 ==

== ENCOUNTER 2021-05-01 11:48 | Outpatient (REF) | payer MEDICARE, OTHER, SELFPAY ==
[2021-05-01 13:41] LABS: MANUAL DIFF FLAG NO
[2021-05-01 13:50] LABS: Basophils Absolute Auto 0.1 X10*3/uL (0.0-0.2); Basophils Percent Auto 1.2 % (0-2); Eosinophils Absolute Auto 0.1 X10*3/uL (0.0-0.4); Eosinophils Percent Auto 1.4 % (0-4); Hematocrit 39.9 % (37.0-47.0); Hemoglobin 12.9 g/dl (12.0-16.0); Imm Gran Abs Auto 0.02 X10*3/uL (0.00-0.03); Imm Gran Pct Auto 0.5 % (0.0-0.4); Lymphocytes Absolute Auto 0.8 X10*3/uL (1.2-4.9); Lymphocytes Percent Auto 18.3 % (20-40); Mean Corpuscular HGB Conc 32.3 g/dl (31.0-35.0); Mean Corpuscular Hemoglobin 29.8 pg (27.0-33.0); Mean Corpuscular Volume 92.1 fL (80.0-98.0); Mean Platelet Volume 11.6 fL (9.4-12.3); Monocytes Absolute Auto 0.4 X10*3/uL (0.1-1.2); Monocytes Percent Auto 8.3 % (2-11); Neutrophils Percent Auto 70.3 % (45-73); Platelet Count 154 X10*3/uL (160-400); Red Blood Count 4.33 X10*6/uL (4.20-5.50); Red Cell Distribution Width 15.8 % (11.0-16.0); White Blood Count 4.3 X10*3/uL (4.8-10.8)
[2021-05-01 14:24] LABS: Alanine Aminotransferase 17 U/L (0-31); Albumin Level 4.2 g/dL (3.5-5.0); Alkaline Phosphatase 55 U/L (39-117); Anion Gap 13 (12-20); Aspartate Amino Transferase 20 U/L (5-31); Bilirubin Total 2.1 mg/dL (0.0-1.0); Blood Urea Nitrogen 21 mg/dL (9-16); Calcium 9.6 mg/dL (8.4-10.2); Carbon Dioxide 26 mmol/L (22-29); Chloride 107 mmol/L (96-108); Cholesterol 105 mg/dL; Estimated Glomerular Filt Rate > 60; Glucose Fasting 90 mg/dL (60-99); HDL Cholesterol 33 mg/dL; LDL Cholesterol Calculated 57 mg/dl; Potassium 4.2 mmol/L (3.3-5.1); Sodium 142 mmol/L (135-145); Total Protein 6.3 g/dL (6.5-8.0); Triglycerides 78 mg/dL
[2021-05-01 14:51] LABS: Thyroid Stimulating Hormone 1.32 uIU/mL (0.32-4.0)
== END 2021-05-01 11:49 | disposition home or self-care (01) ==
LOC: HO.10HDL 11:48
PROVIDERS: Visit Provider Internal Medicine
DX: I12.9 Hypertensive chronic kidney disease with stage 1 through stage 4 chronic kidney disease, or unspecified chronic kidney disease (principal); N18.9 Chronic kidney disease, unspecified; I25.84 Coronary atherosclerosis due to calcified coronary lesion; K62.5 Hemorrhage of anus and rectum; R63.4 Abnormal weight loss
CPT/HCPCS: 36415; 80053; 80061; 84443; 85025

== ENCOUNTER → 2021-05-03 12:45 | Outpatient (BNVA) | payer MEDICARE, SELFPAY | PROVIDERS: PCP Internal Medicine; Visit Provider Surgery | DX: Z48.817 Encounter for surgical aftercare following surgery on the skin and subcutaneous tissue (principal); C50.912 Malignant neoplasm of unspecified site of left female breast; Z92.3 Personal history of irradiation | CPT/HCPCS: 99212 ==

== ENCOUNTER 2021-08-31 12:54 | Outpatient (REF) | payer MEDICARE, SELFPAY ==
--- NOTE | ~2021-08-31 | US_ITS ---
EXAMINATION: US SOFT TISSUE NECK CLINICAL INFORMATION: Posterior neck palpable abnormality. COMPARISON: None TECHNIQUE: The patient directs the piece meat trimmer to the left mid to lower neck region. FINDINGS: The piece meat trimmer outlines a wider than tall structure measuring 6 x 5 x 2 mm. This could represent a lymph node. If so, it is not pathologically enlarged. There is no suspicious fluid collection. No other finding in the region. US/US soft tiss head and/or neck IMPRESSION: Palpable abnormality may well represent a nonpathologically enlarged lymph node but other etiology of course cannot be excluded. There is no internal vascularity of this structure which is fairly well-circumscribed. Benign-appearing Correlation recommended clinically. If further evaluation is warranted, recommend postcontrast CT of the neck.
== END 2021-08-31 12:55 | disposition home or self-care (01) ==
LOC: HO.HMGCX 12:54
PROVIDERS: Visit Provider Internal Medicine
DX: R59.1 Generalized enlarged lymph nodes (principal); C50.919 Malignant neoplasm of unspecified site of unspecified female breast
CPT/HCPCS: 76536

== ENCOUNTER 2021-09-05 14:35 | Outpatient (REF) | payer MEDICARE, SELFPAY ==
--- NOTE | ~2021-09-05 | MM_ITS ---
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 COMPARISON: Mammography: 10/02/2020, 09/06/2020, 08/30/2020, ultrasound left breast 08/30/2020. TECHNIQUE: Digital breast tomosynthesis is performed in both the craniocaudal and mediolateral oblique views along with computer-aided detection (CAD). Synthesized 2D images are generated from the tomosynthesis. Additional views are provided: Right MLO, magnification left CC, magnification left ML. FINDINGS: There are scattered areas of fibroglandular density (ACR BI-RADS breast composition Category b). Left breast post therapy changes are present with reduced breast size, mild scarring, and diffuse smooth skin thickening with mild coarsening of the stromal markings. The right breast parenchymal pattern is similar to new baseline exam 08/30/2020. There is no interval mass or architectural abnormality or abnormal calcifications. The right axilla and skin contours are unremarkable. Results are provided to the patient at time of visit by the technologist. MM/MM tomosynthesis diagnostic BI IMPRESSION: -No mammographic evidence of malignancy. -Post therapy changes left breast. ASSESSMENT: BI-RADS 2: Benign RECOMMENDATION: Annual bilateral mammography. This patient's information was entered into a reminder system with a target due date for their next mammogram.
== END 2021-09-05 14:36 | disposition home or self-care (01) ==
LOC: HO.MAMMO 14:35
PROVIDERS: Visit Provider Surgery
DX: Z85.3 Personal history of malignant neoplasm of breast (principal)
CPT/HCPCS: 77062; 77066

== ENCOUNTER → 2021-11-20 11:07 | Outpatient (BNVA) | payer MEDICARE, SELFPAY | PROVIDERS: PCP Internal Medicine; Visit Provider Surgery | DX: C50.919 Malignant neoplasm of unspecified site of unspecified female breast (principal) | CPT/HCPCS: 99212 ==

== ENCOUNTER 2022-01-16 13:17 | Outpatient (REF) | payer MEDICARE, OTHER, SELFPAY ==
[2022-01-16 14:14] LABS: MANUAL DIFF FLAG NO
[2022-01-16 14:24] LABS: Basophils Absolute Auto 0.1 X10*3/uL (0.0-0.2); Basophils Percent Auto 1.2 % (0-2); Eosinophils Absolute Auto 0.1 X10*3/uL (0.0-0.4); Eosinophils Percent Auto 2.4 % (0-4); Hematocrit 44.5 % (37.0-47.0); Hemoglobin 14.8 g/dl (12.0-16.0); Imm Gran Abs Auto 0.01 X10*3/uL (0.00-0.03); Imm Gran Pct Auto 0.2 % (0.0-0.4); Lymphocytes Absolute Auto 0.8 X10*3/uL (1.2-4.9); Lymphocytes Percent Auto 16.3 % (20-40); Mean Corpuscular HGB Conc 33.3 g/dl (31.0-35.0); Mean Corpuscular Hemoglobin 31.5 pg (27.0-33.0); Mean Corpuscular Volume 94.7 fL (80.0-98.0); Monocytes Absolute Auto 0.5 X10*3/uL (0.1-1.2); Monocytes Percent Auto 9.7 % (2-11); Neutrophils Absolute Auto 3.5 x10*3/uL (2.0-8.3); Neutrophils Percent Auto 70.2 % (45-73); Platelet Count 126 X10*3/uL (160-400)
[2022-01-16 14:46] LABS: Alanine Aminotransferase 23 U/L (0-31); Albumin Level 4.1 g/dL (3.5-5.0); Alkaline Phosphatase 68 U/L (39-117); Anion Gap 14 (12-20); Aspartate Amino Transferase 24 U/L (5-31); Bilirubin Total 1.9 mg/dL (0.0-1.0); Blood Urea Nitrogen 28 mg/dL (9-16); Calcium 9.1 mg/dL (8.4-10.2); Carbon Dioxide 28 mmol/L (22-29); Chloride 107 mmol/L (96-108); Estimated Glomerular Filt Rate > 60; Glucose Random 68 mg/dL (60-115); Potassium 4.2 mmol/L (3.3-5.1); Sodium 145 mmol/L (135-145); Total Protein 6.3 g/dL (6.5-8.0)
== END 2022-01-16 13:18 | disposition home or self-care (01) ==
LOC: HO.10HDL 13:17
PROVIDERS: Visit Provider Internal Medicine
DX: Z00.00 Encounter for general adult medical examination without abnormal findings (principal); D69.49 Other primary thrombocytopenia; E78.00 Pure hypercholesterolemia, unspecified; I10 Essential (primary) hypertension; Z85.3 Personal history of malignant neoplasm of breast
CPT/HCPCS: 36415; 80053; 85025

== ENCOUNTER → 2022-06-13 11:38 | Outpatient (BNVA) | payer MEDICARE, SELFPAY | PROVIDERS: PCP Internal Medicine; Visit Provider Surgery | DX: C50.919 Malignant neoplasm of unspecified site of unspecified female breast (principal) | CPT/HCPCS: 99212 ==

== ENCOUNTER → 2022-07-03 13:14 | Outpatient (BNVA) | payer MEDICARE, SELFPAY | PROVIDERS: PCP Internal Medicine; Referring Provider Internal Medicine; Visit Provider Internal Medicine Cardiovascular Disease | DX: I25.10 Atherosclerotic heart disease of native coronary artery without angina pectoris (principal); I10 Essential (primary) hypertension | CPT/HCPCS: 93005; 99212 ==

== ENCOUNTER 2022-08-19 12:02 | Outpatient (REF) | payer MEDICARE, SELFPAY ==
[2022-08-19 13:40] LABS: MANUAL DIFF FLAG NO
[2022-08-19 14:01] LABS: Basophils Absolute Auto 0.1 X10*3/uL (0.0-0.2); Basophils Percent Auto 0.9 % (0-2); Eosinophils Absolute Auto 0.1 X10*3/uL (0.0-0.4); Eosinophils Percent Auto 1.7 % (0-4); Hematocrit 44.1 % (37.0-47.0); Hemoglobin 14.7 g/dl (12.0-16.0); Imm Gran Abs Auto 0.02 X10*3/uL (0.00-0.03); Imm Gran Pct Auto 0.4 % (0.0-0.4); Lymphocytes Absolute Auto 0.6 X10*3/uL (1.2-4.9); Lymphocytes Percent Auto 11.7 % (20-40); Mean Corpuscular HGB Conc 33.3 g/dl (31.0-35.0); Mean Corpuscular Hemoglobin 32.1 pg (27.0-33.0); Mean Corpuscular Volume 96.3 fL (80.0-98.0); Mean Platelet Volume 11.8 fL (9.4-12.3); Monocytes Absolute Auto 0.5 X10*3/uL (0.1-1.2); Neutrophils Absolute Auto 4.2 x10*3/uL (2.0-8.3); Neutrophils Percent Auto 76.3 % (45-73); Platelet Count 122 X10*3/uL (160-400); Red Blood Count 4.58 X10*6/uL (4.20-5.50); Red Cell Distribution Width 12.3 % (11.0-16.0); White Blood Count 5.5 X10*3/uL (4.8-10.8)
[2022-08-19 14:25] LABS: Alanine Aminotransferase 21 U/L (0-31); Alkaline Phosphatase 64 U/L (39-117); Anion Gap 13 (12-20); Aspartate Amino Transferase 26 U/L (5-31); Bilirubin Total 2.3 mg/dL (0.0-1.0); Blood Urea Nitrogen 33 mg/dL (9-16); Calcium 9.1 mg/dL (8.4-10.2); Carbon Dioxide 28 mmol/L (22-29); Chloride 106 mmol/L (96-108); Cholesterol 95 mg/dL; Estimated Glomerular Filt Rate > 60; Glucose Random 93 mg/dL (60-115); HDL Cholesterol 35 mg/dL; LDL Cholesterol Calculated 42 mg/dl; Potassium 4.1 mmol/L (3.3-5.1); Sodium 143 mmol/L (135-145); Total Protein 6.1 g/dL (6.5-8.0); Triglycerides 91 mg/dL
[2022-08-19 14:41] LABS: Vitamin D 25-OH Total 64.8 ng/mL (>30)
== END 2022-08-19 12:03 | disposition home or self-care (01) ==
LOC: HO.10HDL 12:02
PROVIDERS: Visit Provider Internal Medicine
DX: D69.6 Thrombocytopenia, unspecified (principal); E78.00 Pure hypercholesterolemia, unspecified; I10 Essential (primary) hypertension; M81.0 Age-related osteoporosis without current pathological fracture; Z85.3 Personal history of malignant neoplasm of breast
CPT/HCPCS: 36415; 80053; 80061; 82306; 84443; 85025

== ENCOUNTER 2022-09-11 12:52 | Outpatient (REF) | payer MEDICARE, SELFPAY ==
--- NOTE | ~2022-09-11 | MM_ITS ---
EXAMINATION: MM DIAGNOSTIC DIGITAL BREAST TOMOSYNTHESIS, BILATERAL CLINICAL INFORMATION: One-year follow up left breast cancer. COMPARISON: Mammography: 09/05/2021 and studies dating back to 08/30/2020. TECHNIQUE: Digital breast tomosynthesis is performed in both the craniocaudal and mediolateral oblique views along with computer-aided detection (CAD). Synthesized 2D images are generated from the tomosynthesis. Additional spot magnification views left breast in craniocaudal and 90 degree mediolateral views performed. FINDINGS: There are scattered areas of fibroglandular density (ACR BI-RADS breast composition Category b). There is a stable parenchymal pattern seen bilaterally. The left breast is smaller with postoperative change as well as skin thickening related to radiation therapy. No new abnormal dominant mass or suspicious grouping of microcalcifications identified. One year follow up examination is suggested. Results are provided to the patient at time of visit by the technologist. MM/MM tomosynthesis diagnostic BI IMPRESSION: There are no significant changes from prior study. ASSESSMENT: BI-RADS 2: Benign. RECOMMENDATION: Diagnostic mammography at time of next annual exam, due in 12 months. This patient's information was entered into a reminder system with a target due date for their next mammogram.
== END 2022-09-11 12:53 | disposition home or self-care (01) ==
LOC: HO.MAMMO 12:52
PROVIDERS: PCP Internal Medicine; Visit Provider Surgery
DX: Z85.3 Personal history of malignant neoplasm of breast (principal)
CPT/HCPCS: 77062; 77066

== ENCOUNTER 2023-01-14 10:43 | Outpatient (AMB) | payer MEDICARE, SELFPAY ==
--- NOTE | 2023-01-14 10:54 | A.OFFVIS_ITS ---
Intake Vital Signs 01/14/23 11:12 Height 5 ft 5 in Weight 116 lb BMI 19.3 BP 130/72 Blood Pressure Location Lt brachial Position Sitting Intake Visit Reasons: Breast exam, 7 month follow up Intake Note: Patient is seen in office for follow up breast exam. Pt c/o: denies any concerns or changes since last visit. Nurse Companion Required: No Tree Trimming Supervisor: Tree Trimming Supervisor Present Accompanied by: Self / Same As Patient Allergies No Known Allergies [No Known Allergies*] Allergy (Verified 01/14/23 10:54) Medication List - Last Reconciled 01/14/23 by Garrett Yan MD aspirin 81 mg PO DAILY 90 days atorvastatin 80 mg PO BEDTIME isosorbide mononitrate ER 60 mg PO QAM metoprolol succinate ER 25 mg PO DAILY 90 days HPI HPI Comments History of Present Illness Details 87-year-old female returning for a breast cancer follow-up examination. She initially presented on 09/05/2020 with a palpable breast mass in the left side noted approximately 1-2 weeks prior.? She denies a previous history of breast problems or breast surgery and never had a mammogram. Bilateral mammogram and ultrasound of left breast on 08/30/2020evealed an irregular left breast retroareolar mass corresponding to the palpable mass measuring approximately 2 cm.? The right breast revealed no mammographic evidence of malignancy.? This was regarded as highly suspicious of malignancy (BI-RADS 5) and ultrasound-guided core biopsy was recommended.? She underwent an ultrasound-guided core biopsy on 09/06/2020 at the [facility].? 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 She initially refused consultation with Medical Oncology therefore subsequently underwent lumpectomy with needle localization and sentinel node biopsy on 10/02/2020.? 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 ?She was evaluated by Dr. Lee and decision made to proceed with chemotherapy.? She underwent 1 cycle of Cytoxan/Taxotere on 11/14/2020 but then developed GI bleeding there for the chemotherapy was stopped. She completed radiation therapy noted a slight skin darkening but generally tolerated it well. She denies any ongoing chest symptoms. Her last mammogram dated 09/11/2022 revealed no significant changes from prior mammogram (BI-RADS 2). She reports feeling well and denies any new breast symptoms. [facility] Medical History Arthritis Coronary artery disease COVID-19 vaccine administered Elevated cholesterol Hypertension Increased bilirubin level On anticoagulant therapy Pectus carinatum Surgical History H/O colonoscopy History of lumpectomy of left breast History of right cataract surgery Hx of cardiac catheterization Family History Mother No problems noted. Father Prostate cancer Social History Household Members: None Housing: Apartment Are you a primary healthcare associate to a significant other at home: No Do you presently have visiting nurse or other home services: No Alcohol intake: never Patient Tobacco Use Status: Never used Tobacco service: No Current occupational status: retired Review of Systems Const Denies chills, Denies fever(s), Denies headache(s) and Denies poor appetite ENT Reports dizziness and Denies headache(s) Card Denies chest pain, Denies rapid heart rate, Denies palpitations and Denies slow heart rate Resp Denies chest congestion, Denies cough, Denies pain on inspiration and Denies wheezing GI Denies abdominal pain, Denies bloating, Denies change in stool character, Denies constipation, Denies diarrhea, Denies nausea, Denies vomiting and Denies hematemesis Denies nipple discharge Musc Reports back pain, Reports arthralgias, Reports joint swelling and Denies numbness Skin/Breast Reports breast swelling, Reports breast skin changes, Denies breast pain, Denies breast mass, Denies change in pigmentation, Denies nipple discharge, Denies erythema and Denies rash Neuro Reports dizziness, Denies headache(s) and Denies numbness Psych Denies anxiety and Denies depression Endo Denies palpitations David/Lymph Denies easy bleeding, Denies easy bruising and Denies lymphadenopathy Aller/Immun Denies wheezing Physical Exam Const General: comfortable and well developed Nutritional Appearance: well nourished Orientation/consciousness: patient oriented x3 Limitations: wheelchair Neck Neck: Yes no lymphadenopathy Chest Other: Left chest with pectus carinatum deformity; Left breast well-healed incision with removal of nipple. No new palpable mass, skin change, or palpable lymph nodes appreciated. No significant erythema identified. Right breast with no skin change, nipple discharge, palpable mass, or enlarged lymph nodes. Resp Effort & Inspection: normal respiratory effort, no cough and no respiratory distress Skin General skin exam: no rashes or lesions noted Neuro General: patient oriented x3 Extrem General: Yes no clubbing, cyanosis or edema Assessment & Plan Assessment & Plan (1) Triple negative malignant neoplasm of breast: Code(s): C50.919 - Malignant neoplasm of unspecified site of unspecified female breast (2) Metaplastic carcinoma of breast: Code(s): C50.919 - Malignant neoplasm of unspecified site of unspecified female breast Plan Patient returns for follow-up breast examination after left breast lumpectomy for a metaplastic carcinoma. Examination today revealed no new suspicious findings in either breast. She is due for a follow-up mammogram on August 2023. She will return approximately 6 months for follow-up examination. She is wel come to call sooner for any new concerns. Coding Level of Care Code Est Pt Level 3 (66997) Diagnoses Triple negative malignant neoplasm of breast C50.919 Metaplastic carcinoma of breast C50.919
[2023-01-14 11:12] VITALS: BP 130/72; BMI 19.3
== END 2023-01-14 11:19 | disposition home or self-care (01) ==
PROVIDERS: PCP Internal Medicine; Visit Provider Surgery
DX: C50.912 Malignant neoplasm of unspecified site of left female breast (principal)
CPT/HCPCS: 99213

== ENCOUNTER → 2023-01-14 10:43 | Outpatient (BNVA) | payer MEDICARE, SELFPAY | PROVIDERS: PCP Internal Medicine; Visit Provider Surgery | DX: C50.912 Malignant neoplasm of unspecified site of left female breast (principal) | CPT/HCPCS: 99212 ==

== ENCOUNTER 2023-06-22 15:28 | Inpatient (IN) | payer MEDICARE, OTHER, SELFPAY ==
[2023-06-22] VITALS (8 sets, daily range): BP systolic 140–164; BP diastolic 80–96; PULSE 90–108; RESP 16–26; TEMP 37.3–37.6; O2SAT 94–97; BMI 20.5
--- NOTE | ~2023-06-22 | CT_ITS ---
EXAMINATION: CT ANGIOGRAM OF THE CHEST WITH AND WITHOUT CONTRAST (CT PULMONARY ANGIOGRAM FOR PE) CLINICAL INFORMATION: Reason for Exam shortness of breath COMPARISON: Chest x-ray 06/22/2023 TECHNIQUE: Prior to contrast administration, noncontrast localization images were obtained. Subsequently, multidetector volumetric imaging was performed from the thoracic inlet to below the diaphragms following the administration of 80 mL Omnipaque 350 intravenous contrast. No contrast reaction reported Sagittal, coronal, and MIP oblique sagittal reformatted images were obtained on the CT workstation, uploaded to PACS, and reviewed. This CT examination was performed using dose optimization techniques as appropriate, variously including the following: *Automated exposure control *Adjustment of mA and/or kV according to patient size (this includes techniques or standardized protocols for targeted exams where dose is matched to indication/reason for exam; i.e. extremities or head) *Use of iterative reconstruction technique Total exam dose-length product 129 mGy-cm FINDINGS: QUALITY OF STUDY/CONTRAST BOLUS: Satisfactory. PULMONARY ARTERIES: No pulmonary emboli. THORACIC AORTA: No aneurysm. LUNG: There is a left lung compressive atelectasis from large left pleural effusion. No airspace disease seen in the left lung. There is moderate size right hilar irregular shaped mass right upper lobe with extension to the right lower lobe superior segment measuring 2.3 x 2.9 x 2.4 cm coronal image 61/8 and axial image 16/6. There is a right parahilar matted mass likely direct extension of the right upper lobe mass along the mediastinum to the hilum and parahilar regions. There is a 1.8 cm nodule right lower lobe and right infrahilar region axial image 27/6. There is 5 mm nodule right lower lobe superior segment adjacent to the major fissure. An irregular shaped 3.8 x 3.8 cm mass or loculated fluid is seen in the lingula axial image 26/6 There is mild lingular atelectasis. PLEURA: Large left pleural effusion is noted. There is mild diffuse thickening of lingular pleura. MEDIASTINUM: Heart size is normal. The great vessels are normal caliber. No pericardial effusion seen. Abnormal subcarinal, right parahilar and infrahilar matted lymphadenopathy or direct extension of tumor. No evidence of septal bowing or right heart strain. CORONARY ARTERY CALCIFICATION: Mild coronary artery calcification seen. CHEST WALL/AXILLA: A large right axillary 3.2 cm lymph node is noted.. OSSEOUS STRUCTURES: No aggressive lytic or sclerotic process seen. UPPER ABDOMEN: Julys liver, spleen appears unremarkable. Suspected upper retroperitoneal adenopathy. No reflux of contrast into the hepatic veins to suggest elevated right heart pressures. CT/CT angio chest PE protocol IMPRESSION: 1. No evidence of PE. 2. No evidence aortic dissection or aneurysm. 3. Large left pleural effusion with compressive atelectasis left lung. 4. There is a right hilar mass with extension to the right lower lobe superior segment. There is right parahilar, subcarinal and infrahilar matted lymphadenopathy or direct extension of tumor. 5. There are multiple nodules in the right lower lobe and right infrahilar region. 6. There is irregular shaped mass or loculated fluid in the lingula. 7. There is right axillary and upper retroperitoneal adenopathy. VTE: negative.
--- NOTE | ~2023-06-22 | US_ITS ---
PROCEDURE: Ultrasound-guided left thoracentesis History: Left pleural effusion Specimen: A sample of pleural fluid was sent for analysis Access: 5 [place] Yueh catheter Medications: 10 mL 1% lidocaine TECHNIQUE/FINDINGS Appropriate preprocedural clinical history and imaging studies were reviewed. The patient was brought to the department and placed in the seated position. Ultrasound images of the left thorax were obtained to localize a large pleural effusion. Permanent ultrasound images were saved. Risks and benefits and possible complications were discussed with the patient and consent form was signed. An area of the patient's left back was prepped and draped in usual sterile fashion. 10 mL of 1% lidocaine was used to obtain local anesthesia of the skin and deeper tissues. A standard small bore needle was introduced to sample pleural fluid and demonstrate a safe access route. A 5 [place] Yueh catheter was then used to access the pleural cavity. 1500 ml of yellow fluid was removed passively. The Catheter was then removed. A dressing was applied. A postprocedure chest x-ray will be performed and will be dictated separately. There were no immediate complications. The procedure was performed by Chad Lr PA-C and supervised by Dr. Humphries US/US thoracentesis Impression: Ultrasound-guided left thoracentesis
--- NOTE | ~2023-06-22 | XR_ITS ---
EXAMINATION: XR CHEST CLINICAL INFORMATION: Shortness of breath COMPARISON: 11/28/2020 TECHNIQUE: Frontal view of the chest was obtained. FINDINGS: Interval development of extensive consolidation of aspiration left base without volume loss. There is a consistent with pneumonia with a large parapneumonic effusion. Right lung clear. No other change. XR/XR chest 1V IMPRESSION: Left lower lobe pneumonia with parapneumonic effusion. Follow-up recommended to ensure complete resolution and to exclude any underlying persistent lesion.
--- NOTE | ~2023-06-22 | XR_ITS ---
EXAMINATION: XR CHEST CLINICAL INFORMATION: Status post left thoracentesis. COMPARISON: Ultrasound thoracentesis of 06/23/2023. CT anterior chest 06/22/2023, chest radiograph 06/22/2023. TECHNIQUE: Frontal view of the chest was obtained. FINDINGS: Patient rotation limits evaluation of the cardiomediastinal silhouette and lungs. Decreased moderate left pleural effusion with left basilar consolidation. No gross pneumothorax appreciated. XR/XR chest 1V IMPRESSION: Decreased moderate left pleural effusion with left basilar consolidation. No gross pneumothorax appreciated.
--- NOTE | 2023-06-22 15:50 | ECG_ITS ---
Test Reason : SOB Blood Pressure : / mmHG Vent. Rate : 097 BPM Atrial Rate : 000 BPM P-R Int : 000 ms QRS Dur : 098 ms QT Int : 344 ms P-R-T Axes : 000 -02 193 degrees QTc Int : [address] & T wave abnormality, consider inferolateral ischemia Abnormal ECG When compared with ECG of 28-NOV-2020 15:48, Atrial fibrillation has replaced Sinus rhythm T wave inversion now evident in Inferior leads T wave inversion now evident in Anterior leads QT has shortened Referred By: Lisette Rosenberg Electronically Signed By:WILFREDO CALDERON MD
--- NOTE | 2023-06-22 15:51 | PC.NURSE ---
Pt awake, alert and oriented. Breathing even but increased WOB noted. Pt able to speak in full sentences but does have some difficulty, pt reports SOB X3 weeks worsens with exertion and laying flat. Pt also reports bilat pedal edema, new 3 weeks ago. No hx of heart failure or afib per pt. LS assessed and are diminished on the left side, crackles noted bilat lower lobes. Pts pupils noted to be uneven, right pupil dilated, left pupil constricted. Pt reports no hx of eye problems, not baseline for her. Pt denies any pain, CP, recent illnesses. No neuro deficits noted.
--- NOTE | 2023-06-22 16:01 | PC.NURSE ---
Pt placed on bedside hospital monitor, atrial fib noted. Provider aware of pts condition at this time.
--- NOTE | 2023-06-22 16:13 | PC.NURSE ---
Son at the bedside, reports pupils are baseline for her.
[2023-06-22 16:14] LABS: MANUAL DIFF FLAG NO
[2023-06-22 16:17] LABS: Basophils Absolute Auto 0.1 X10*3/uL (0.0-0.2); Basophils Percent Auto 0.7 % (0-2); Eosinophils Absolute Auto 0.2 X10*3/uL (0.0-0.4); Eosinophils Percent Auto 1.9 % (0-4); Hematocrit 47.3 % (37.0-47.0); Hemoglobin 15.8 g/dl (12.0-16.0); Imm Gran Abs Auto 0.02 X10*3/uL (0.00-0.03); Imm Gran Pct Auto 0.2 % (0.0-0.4); Lymphocytes Absolute Auto 0.4 X10*3/uL (1.2-4.9); Lymphocytes Percent Auto 4.4 % (20-40); Mean Corpuscular HGB Conc 33.4 g/dl (31.0-35.0); Mean Corpuscular Hemoglobin 29.7 pg (27.0-33.0); Mean Corpuscular Volume 88.9 fL (80.0-98.0); Mean Platelet Volume 9.6 fL (9.4-12.3); Monocytes Absolute Auto 1.2 X10*3/uL (0.1-1.2); Monocytes Percent Auto 12.9 % (2-11); Neutrophils Absolute Auto 7.5 x10*3/uL (2.0-8.3); Neutrophils Percent Auto 79.9 % (45-73); Platelet Count 263 X10*3/uL (160-400); Red Blood Count 5.32 X10*6/uL (4.20-5.50); Red Cell Distribution Width 13.2 % (11.0-16.0); White Blood Count 9.4 X10*3/uL (4.8-10.8)
[2023-06-22 16:32] LABS: COVID-19 Test Negative (Negative); IDNOW Serial# 08D9AD1C
[2023-06-22 16:37] LABS: B Type Natriuretic Peptide 421 pg/mL (<100)
[2023-06-22 16:39] LABS: Troponin-I High Sensitivity 12.9 ng/L (<3.5-17.0)
[2023-06-22 16:42] LABS: Alanine Aminotransferase 17 U/L (0-31); Albumin Level 3.5 g/dL (3.5-5.0); Alkaline Phosphatase 70 U/L (39-117); Anion Gap 20 (12-20); Aspartate Amino Transferase 29 U/L (5-31); Bilirubin Direct 0.6 mg/dL (0.0-0.5); Bilirubin Total 1.5 mg/dL (0.0-1.0); Blood Urea Nitrogen 24 mg/dL (9-16); Calcium 9.7 mg/dL (8.4-10.2); Carbon Dioxide 26 mmol/L (22-29); Chloride 99 mmol/L (96-108); Creatinine Clr Calc Pharmacy 34.5; Estimated Glomerular Filt Rate 50; Glucose Random 98 mg/dL (60-115); Magnesium 2.3 mg/dL (1.6-2.6); Potassium 3.8 mmol/L (3.3-5.1); Sodium 141 mmol/L (135-145); Total Protein 6.5 g/dL (6.5-8.0)
[2023-06-22 16:52] LABS: INTERNATIONAL NORM RATIO 1.3 (0.9-1.1); Prothrombin Time 15.7 SEC (11.1-13.3)
--- NOTE | 2023-06-22 16:57 | ED.GENADULT ---
HPI - General Adult General Chief complaint: Dyspnea Stated complaint: cc of increased dyspnea on exertion x3 weeks Time Seen by Provider: 06/22/23 16:01 Source: patient, family (Patient's son), RN notes reviewed and old records reviewed Mode of arrival: EMS Limitations: no limitations History of Present Illness HPI narrative: 87-year-old female with past medical history significant for hypertension, breast cancer, hyperlipidemia presents for evaluation of shortness of breath Patient reports worsening shortness of breath for the last 3 weeks She also endorses leg swelling which she states she has never had in the past. Denies any history of congestive heart failure or atrial fibrillation She denies any pain anywhere Denies any headaches Related Data Previous Rx's Medication Instructions Recorded aspirin 81 mg tablet,delayed 81 mg PO DAILY 90 days #90 tabs 07/22/22 release atorvastatin 80 mg tablet 80 mg PO BEDTIME #90 tabs 10/15/22 isosorbide mononitrate 60 mg 60 mg PO QAM #90 tabs 01/10/23 tablet,extended release 24 hr metoprolol succinate 25 mg 25 mg PO DAILY 90 days #90 tabs 01/10/23 tablet,extended release 24 hr Allergies Allergy/AdvReac Type Severity Reaction Status Date / Time No Known Allergies Allergy Verified 03/11/23 14:03 [No Known Allergies*] Review of Systems Constitutional: Constitutional: Denies body ache(s), Denies chills and Reports weakness Cardiovascular: Cardiovascular: Denies chest pain, Denies rapid heart rate, Reports leg edema, Denies palpitations and Reports dyspnea Respiratory: Respiratory: Denies cough and Reports dyspnea Gastrointestinal: Gastrointestinal: Denies abdominal pain, Denies nausea and Denies vomiting Musculoskeletal: Musculoskeletal: Denies back pain Integumentary/Breasts: Skin/Breast: Denies rash Neurologic: Reports weakness Endocrine: Endocrine: Denies palpitations PMFSH Past Medical History Medical History Arthritis Coronary artery disease COVID-19 vaccine administered Elevated cholesterol Hypertension Increased bilirubin level On anticoagulant therapy Pectus carinatum Surgical History H/O colonoscopy History of lumpectomy of left breast History of right cataract surgery Hx of cardiac catheterization Family History Family History Mother No problems noted. Father Prostate cancer Social History Social History Household Members: None Housing: Apartment Are you a primary point of care technician to a significant other at home: No Do you presently have visiting nurse or other home services: No Alcohol intake: never Patient Tobacco Use Status: Never used Tobacco Smoked in Last 30 Days: No Use of substances other than those prescribed or required for medical reasons: No Advance Directives: Yes Advance Directives Information Provided: No Advance Directives on File: No service: No Current occupational status: retired Physical Exam ED Vital Signs: Vital Signs - 24 hr 06/22/23 15:40 06/22/23 15:46 06/22/23 17:08 Temperature 99.6 F Pulse Rate 100 104 H 93 Respiratory Rate 26 H 26 H 24 H Blood Pressure 162/96 H 162/96 H 140/86 H Pulse Oximetry 94 94 95 Oxygen Delivery Method Room Air Room Air Room Air 06/22/23 18:23 Temperature Pulse Rate 94 Respiratory Rate 24 H Blood Pressure 141/89 H Pulse Oximetry 94 Oxygen Delivery Method Room Air BMI result Body Mass Index 20.5 Const General: healthy appearing, comfortable, no acute distress, alert and awake Nutritional Appearance: well nourished Orientation/consciousness: patient oriented x3 HENMT Head: Yes normocephalic and Yes atraumatic Neck Neck: Yes full ROM Resp Other: Clear to auscultation but decreased in the left lower lung yi Effort & Inspection: normal respiratory effort, able to speak in complete sentences, no audible wheezes and not labored Auscultation: clear to auscultation bilaterally Cardio Other: One to 2+ bilateral nonpitting edema Rate: abnormal rate Rhythm: abnormal rhythm irregularly irregular GI Inspection: No distended Palpation (GI): Soft to palpation, not firm, nontender, no guarding and not rigid Auscultation: normoactive bowel sounds Skin General skin exam: elasticity normal Neuro General: patient oriented x3 Cranial nerves: Yes CN's II-XII intact bilaterally and Yes Bilaterally intact EOM present Cognition (Neuro): normal cognition Extrem Other: Moving all extremities well without any obvious deformities Course Reevaluation(s) Reevaluation #1: Patient's chest x-ray showed questionable pneumonia. Clinically the patient does not have pneumonia, she has no fever cough or white count. I ordered a CTA to rule out PE and get a better look at the lungs. The chest CT shows it is most likely fluid that has some compressive effect on the left lung. She has a large left pleural effusion. Plan to treat with Lasix. Given the patient's new onset AFib, new onset CHF with large left pleural effusion will discuss with hospitalist for admission and IV diuresis. Time: 19:06 Medications Administered Discontinued Medications Generic Name Dose Route Start Last Admin Trade Name Freq PRN Reason Stop Dose Admin Iohexol 65 ml 06/22/23 18:07 06/22/23 18:07 Iohexol 350 Mg/Ml 100 Ml Infus..Btl IV 06/22/23 18:08 65 ml ONCE ONE Administration Medical Decision Making Medical Decision Making [facility] Narrative: 87-year-old female presents for evaluation of shortness a breath for last 3 weeks. She appears to be in new onset CHF. Of she states that she has not actively undergoing any chemo or radiation treatment for her breast cancer. Plan for labs, chest x-ray, BNP. Consider CT angiography to rule out PE given her history of lung cancer and she is not anticoagulated. EKG shows atrial fibrillation with a rate of 97 beats minute. There are T-wave inversions in aVL and V4 through V6 which are new when compared to an EKG from 07/03/2022 Differential Diagnosis Differential Diagnoses: The differential diagnosis associated with the presentation includes Congestive heart failure Atrial fibrillation Dyspnea COVID-19 PE Pneumonia Admission/Observation Consideration of admission/observation: Escalation of care including admission/observation considered Lab Data [facility] Lab Attestation statement: I reviewed the patient's lab results. No leukocytosis or significant anemia. No significant electrolyte abnormalities. BNP is elevated to 421. Troponin is negative at 12.9. 06/22/23 16:09 06/22/23 16:09 Labs: Lab Results 06/22/23 06/22/23 Range/Units 16:09 18:15 WBC 9.4 (4.8-10.8) X10*3/uL RBC 5.32 (4.20-5.50) X10*6/uL Hgb 15.8 (12.0-16.0) g/dl Hct 47.3 H (37.0-47.0) % MCV 88.9 (80.0-98.0) fL MCH 29.7 (27.0-33.0) pg MCHC 33.4 (31.0-35.0) g/dl RDW 13.2 (11.0-16.0) % Plt Count 263 D (160-400) X10*3/uL MPV 9.6 (9.4-12.3) fL Immature Gran % (Auto) 0.2 (0.0-0.4) % Neut % (Auto) 79.9 H (45-73) % Lymph % (Auto) 4.4 L (20-40) % [place] % (Auto) 12.9 H (2-11) % Eos % (Auto) 1.9 (0-4) % Baso % (Auto) 0.7 (0-2) % Lymph # (Auto) 0.4 L (1.2-4.9) X10*3/uL [place] # (Auto) 1.2 (0.1-1.2) X10*3/uL Eos # (Auto) 0.2 (0.0-0.4) X10*3/uL Baso # (Auto) 0.1 (0.0-0.2) X10*3/uL Abs Immat Gran (auto) 0.02 (0.00-0.03) X10*3/uL Absolute Neuts (auto) 7.5 (2.0-8.3) x10*3/uL Absolute Nucleated RBC 0.000 (0.0-0.012) X10*3/uL Nucleated RBC % (auto) 0.0 (0.0-0.2) /100WBC PT 15.7 H (11.1-13.3) SEC INR 1.3 H (0.9-1.1) Sodium 141 (135-145) mmol/L Potassium 3.8 (3.3-5.1) mmol/L Chloride 99 (96-108) mmol/L Carbon Dioxide 26 (22-29) mmol/L Anion Gap 20 (12-20) BUN 24 H (9-16) mg/dL Creatinine 1.05 (0.5-1.4) mg/dL Estim Creat Clear Calc 34.5 Estimated GFR 50 Random Glucose 98 (60-115) mg/dL Lactic Acid 1.6 (0.5-2.0) mmol/L Calcium 9.7 (8.4-10.2) mg/dL Magnesium 2.3 (1.6-2.6) mg/dL Total Bilirubin 1.5 H (0.0-1.0) mg/dL Direct Bilirubin 0.6 H (0.0-0.5) mg/dL AST 29 (5-31) U/L ALT 17 (0-31) U/L Alkaline Phosphatase 70 (39-117) U/L Troponin I High Sens 12.9 (<3.5-17.0) ng/L B-Natriuretic Peptide 421 H (<100) pg/mL Total Protein 6.5 (6.5-8.0) g/dL Albumin 3.5 (3.5-5.0) g/dL COVID-19 (DEE) Negative (Negative) COVID-19 Clin Com See Note Independent Interpretation I performed an independent interpretation of an: Plain X-Ray (Left lower lobe patchy opacities) and CT Scan (Agree with Radiology interpretation) Radiology Impression Discussion of test interpretation with radiology: I have reviewed the radiologist's reading. (No evidence of PE. Large left pleural effusion) Discharge Plan Discharge Clinical Impression: New onset a-fib, Congestive heart failure Prescriptions: No Action aspirin 81 mg tablet,delayed release (DR/EC) 81 mg PO DAILY 90 Days Qty: 90 3RF atorvastatin 80 mg tablet 80 mg PO BEDTIME Qty: 90 3RF isosorbide mononitrate 60 mg tablet extended release 24 hr 60 mg PO QA Qty: 90 3RF metoprolol succinate 25 mg tablet extended release 24 hr 25 mg PO DAILY 90 Days Qty: 90 3RF
[2023-06-22] MEDS: iohexoL 350 MG/ML 100 ML INFUS..BTL 65 ML IV (18:07)
[2023-06-22 18:44] LABS: Lactic Acid 1.6 mmol/L (0.5-2.0)
--- NOTE | 2023-06-22 19:29 | PM.IMHP ---
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 Patient has a history of CAD with [employer]UFA[employer] of the left circumflex artery, but no history of CHF or heart arrhythmias. 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 Patient was then started on chemotherapy but only received 1 cycle before developing a GI bleed secondary to hemorrhoids and diverticulitis. Patient required multiple transfusions at that time and chemotherapy was stopped. Patient did receive radiation and, according to son who was at bedside, responded well to that therapy. Patient denies any significant pulmonary PMH, lifelong nonsmoker. Patient lives alone and uses a walker at baseline for ambulation. For the past 3 weeks patient has been experiencing increasing shortness of breath that is present at both rest and with exertion. Patient has had significant orthopnea, which is new, and she now has to elevate herself with 2 or more pillows when lying down. Bilateral ankle swelling is also new. Patient denies any pain anywhere, no chest pressure or palpitations. No fever, chills, nausea, vomiting, abdominal pain. In the ED pt was tachycardic up to 104, tachypneic up to 26, hypertensive up to 164/89, slightly elevated temperature of 99.6 degrees, and satting as low as 89% on RA. Labs were significant for BNP 421 otherwise largely unremarkable and around baseline for the patient. No leukocytosis. Stable H&H. Platelets WNL. No electrolyte abnormalities. Creatinine slightly elevated at 1.05. Lactic acid WNL. Total bilirubin chronically elevated at 1.5, at baseline. CTA of chest found no evidence of PE, aortic dissection or aneurysm. Did find large left pleural effusion with compressive atelectasis of the majority of left lung. Also found right hilar mass with extension to the right lower lobe, as well as right perihilar, subcarinal, and infrahilar matted lymphadenopathy or direct extension of the tumor. Also found irregularly shaped mass or loculated fluid in the lingula, multiple nodules in the right lower lobe and right infrahilar region, and right axillary and upper retroperitoneal adenopathy. EKG demonstrated atrial fibrillation with ST and T-wave abnormalities, but no significant ST elevations or depressions. Pt was treated with furosemide 20 mg IV push. Pt will be admitted to the hospital for treatment and further evaluation of acute hypoxic respiratory failure in the setting of large left pleural effusion likely secondary to metastasis to the lung. Review of Systems Review of Systems: Shortness of breath at rest and with exertion Orthopnea Cough Bilateral ankle swelling Denies fever, chills, nausea, vomiting, abdominal pain No chest pain/pressure, palpitations [facility] Medical History (Updated 06/22/23 @ 22:06 by NUSRAT Iqbal) Metaplastic carcinoma of breast Pectus carinatum Increased bilirubin level COVID-19 vaccine administered Arthritis On anticoagulant therapy Elevated cholesterol Hypertension Coronary artery disease Family History Mother No problems noted. Father Prostate cancer Surgical History History of lumpectomy of left breast History of right cataract surgery H/O colonoscopy Hx of cardiac catheterization Social History Household Members: None Housing: Apartment Are you a primary personal carer to a significant other at home: No Do you presently have visiting nurse or other home services: No Alcohol intake: never Patient Tobacco Use Status: Never used Tobacco Smoked in Last 30 Days: No Use of substances other than those prescribed or required for medical reasons: No Advance Directives: Yes Advance Directives Information Provided: No Advance Directives on File: No service: No Current occupational status: retired Meds Allergies Allergy/AdvReac Type Severity Reaction Status Date / Time No Known Allergies Allergy Verified 03/11/23 14:03 [No Known Allergies*] Physical Exam Vital Signs and Narrative: Vital Signs: Last Vital Signs Temp 99.6 F 06/22/23 15:46 Pulse 94 06/22/23 18:23 Resp 24 H 06/22/23 18:23 BP 141/89 H 06/22/23 18:23 Pulse Ox 94 06/22/23 18:23 O2 Del Method Room Air 06/22/23 18:23 BMI result Body Mass Index 20.5 Constitutional: Alert, thin, frail-looking, in no acute distress. Mental Status: Oriented to person, place and time. Eyes: Pupils are equal, round, and reactive to light. Ear, Nose, and Throat: Oropharynx clear, mucous membranes moist. Ears and nose without deformities. Trachea midline. Respiratory: Diminished lung sounds throughout left side, particularly lower lobe. Mild diaphoramic breathing. Cardiovascular: Irregularly irregular rhythm. No murmurs, rubs, or gallops. Gastrointestinal: Abdomen soft, non-tender, non-distended. Normal bowel sounds. Neurologic: Cranial nerves II-XII are grossly intact bilaterally. No focal neurological deficits. Moves all extremities spontaneously. Skin: Warm, dry. Musculoskeletal: No cyanosis or clubbing. Extremities: 1+ bilateral pitting edema of ankles. Psychiatric: Normal mood and affect. Results Labs 06/22/23 16:09 06/22/23 16:09 Labs: Laboratory Results - last 24 hr 06/22/23 06/22/23 16:09 18:15 MCV 88.9 MCH 29.7 MCHC 33.4 RDW 13.2 Plt Count 263 D MPV 9.6 Immature Gran % (Auto) 0.2 Neut % (Auto) 79.9 H Lymph % (Auto) 4.4 L [place] % (Auto) 12.9 H Eos % (Auto) 1.9 Baso % (Auto) 0.7 Lymph # (Auto) 0.4 L [place] # (Auto) 1.2 Eos # (Auto) 0.2 Baso # (Auto) 0.1 Abs Immat Gran (auto) 0.02 Absolute Neuts (auto) 7.5 Absolute Nucleated RBC 0.000 Nucleated RBC % (auto) 0.0 PT 15.7 H INR 1.3 H Anion Gap 20 Estim Creat Clear Calc 34.5 Estimated GFR 50 Random Glucose 98 Lactic Acid 1.6 Calcium 9.7 Magnesium 2.3 Total Bilirubin 1.5 H Direct Bilirubin 0.6 H AST 29 ALT 17 Alkaline Phosphatase 70 B-Natriuretic Peptide 421 H Total Protein 6.5 Albumin 3.5 COVID-19 (DEE) Negative COVID-19 Clin Com See Note Imaging Radiologist's Impressions: Impressions Chest X-Ray 06/22/23 16:26 IMPRESSION: Left lower lobe pneumonia with parapneumonic effusion. Follow-up recommended to ensure complete resolution and to exclude any underlying persistent lesion. Chest CTA 06/22/23 18:13 IMPRESSION: 1. No evidence of PE. 2. No evidence aortic dissection or aneurysm. 3. Large left pleural effusion with compressive atelectasis left lung. 4. There is a right hilar mass with extension to the right lower lobe superior segment. There is right parahilar, subcarinal and infrahilar matted lymphadenopathy or direct extension of tumor. 5. There are multiple nodules in the right lower lobe and right infrahilar region. 6. There is irregular shaped mass or loculated fluid in the lingula. 7. There is right axillary and upper retroperitoneal adenopathy. VTE: negative. 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 Pt will be admitted to the hospital for treatment and further evaluation of acute hypoxic respiratory failure in the setting of large left pleural effusion likely secondary to metastasis to the lung. Left pleural effusion Likely secondary to metastasis to lung, CHF or pneumonia less likely Patient with history of metaplastic left breast cancer s/p mastectomy and radiation in 2020 CTA found right mass with extension to the right lower lobe, right perihilar, subcarinal, and infrahilar matted lymphadenopathy, multiple nodules in the right lower lobe and right infrahilar region, right axillary and right retroperitoneal adenopathy, and irregular shaped mass or loculated fluid in the lingula Will consider thoracocentesis either through IR or thoracic surgery Oncology consult Acute hypoxic respiratory failure In setting of above Patient is satting as low as 88% on RA Titrate supplemental O2>92, wean as tolerated New onset AFib Likely secondary to left pleural effusion Will get echocardiogram Continue metoprolol WIll hold off on starting Eliquis d/t likely thoracocentesis on Friday Cardiology consult Monitor on telemetry Elevated BNP Likely secondary to large left pleural effusion, possibly new onset AFib No hx of CHF Will get echocardiogram Pt received Lasix IV in ED, will hold off on additional diuretics for now CAD/HLD Continue statin, isosorbide mononitrate Hold aspirin d/t likely thoracocentesis HLD Continue metoprolol Full Code Attending:?Dr. Tavera DVT Prophylaxis: Pneumatic boots d/t likely thoracocentesis tomorrow Pt will require a hospitalization of at least two nights for treatment of?acute hypoxic respiratory failure in the setting of left pleural effusion likely secondary to lung metastasis. Patient will require close monitoring of respiratory status, thoracocentesis, and specialist consultation. Quality Stroke Does the patient have a stroke diagnosis?: No VTE Prior VTE?: No VTE Risk Level:: Medical - moderate - high VTE Device Contraindication: N/A - Device Ordered VTE Drug Contraindication: Treatment Not Indicated
[2023-06-22] MEDS: Furosemide 20 MG/2 ML VIAL IVPUSH (19:30)
--- NOTE | 2023-06-22 20:41 | PC.NURSE ---
R. lung sounds cta. L. upper lobe cta, slightly dimished lower lobe. sats 94% on RA. pt able to get to bedside commode +1 assist. purewick provided and educated on use. son at bedside. nad. call campos within reach.
[2023-06-23 05:04] VITALS: BP 160/88; PULSE 95; RESP 19; TEMP 36.6; O2SAT 95
--- NOTE | 2023-06-23 07:00 | CA_ITS ---
Transthoracic Echocardiogram Patient (Last, First, Middle): Clara Jordan C Gender: Female Date of : 1935 Age: 87 Procedure Date: 06/23/2023 Procedure Type: Transthoracic Echocardiogram Location: S3E Height: 165.1 cm Weight: 55.79 kg BSA: 1.61 m2 Heart Rate: bpm BP: 160 / 88 mmHg Mechanical Assembly Technician: LANA Delatorre MD: Power SILVERIO Autos Disassembler: Jesus Epps MD Symptoms: Pleural effusion, ?CHF vs metastasis Study Quality: Fair ECG Rhythm: Atrial Fibrillation Conclusions: - 1. Low normal LV ejection fraction 50-55% 2. Moderately dilated left atrium 3. Frbt-rx-axnxycur mitral regurgitation 4. Upper limits of normal RV systolic pressure 5. Trivial pericardial effusion Findings Left Ventricle Normal left ventricular cavity size. There is mildly increased left ventricular wall thickness. The left ventricular systolic function is low normal. The visually estimated ejection fraction is between 50-55%. Diastolic function is indeterminate on the basis of available data. Atria The left atrium is moderately dilated. Interatrial shunt cannot be excluded. The right atrium is normal in size. Aortic Valve There is mild calcification of the aortic valve. There is mild thickening of the aortic valve. There is no aortic valve stenosis. There is no aortic valve regurgitation. Mitral Valve There is mild anterior and posterior mitral leaflet thickening. There is mild mitral annular calcification. There is mild to moderate mitral valve regurgitation. There is no mitral valve stenosis. Pulmonic Valve The pulmonic valve is likely normal. There is trace pulmonic valve regurgitation. Tricuspid Valve Normal tricuspid valve structure. There is mild tricuspid valve regurgitation. The right ventricular systolic pressure is 35 mmHg. Normal right atrial pressure. There is no evidence of pulmonary hypertension. Great Vessels The pulmonary artery was not well visualized. Venous The inferior vena cava is normal in size and collapses greater than 50% with inspiration. Pericardium/Pleural There is a trivial loculated pericardial effusion overlying the left ventricle. There is a large left sided pleural effusion. Measurements 2D Linear Measurements IVSd: 1.30 0.6-0.9/0.6-1.0 cm LVIDd: 2.87 3.9-5.3/4.2-5.9 cm LVIDd Index: 1.78 2.4-3.2/2.2-3.1 cm/m2 LVIDs: 2.41 2.0-3.6 cm LVPWd: 1.33 0.7-1.1 cm Ao Root: 2.30 2.1-3.5 cm LA Diam: 4.10 2.7-3.8/3.0-4.0 cm LAIDs Index: 2.55 1.5-2.3 cm/m2 LV Mass: 148.44 67-162/88-224 g LV Mass Index: 92.20 43-95/49-115 g/m2 LVOT Diam: 2.10 3.0+(-)1.3 cm Mitral Valve MV Pk E: 0.89 MV Decel Time: 209.00 E'Lateral: 8.27 E'Medial: 7.62 E/E' Med: 11.60 E/E' Lat: 10.70 PHT: 61.00 MVA PHT: 3.61 Decel Peach: 4.24 Aortic Valve AoV Pk Roscoe: 1.66 AoV Mn Roscoe: 1.09 AoV VTI: 0.28 AoV Pk Grad: 11.00 Aov Mn Grad: 6.00 CHIDI Cont.VTI: 2.15 LVOT LVOT Pk Roscoe: 1.09 LVOT Mn Roscoe: 0.77 LVOT VTI: 0.18 LVOT Pk Grad: 5.00 LVOT Mn Grad: 3.00 LVOT Diam: 2.10 LVOT Area: 3.46 Diastolic Function MV Pk E: 0.89 E'Medial: 7.62 E/E' Med: 11.60 E' Laterial: 8.27 E/E' Lat: 10.70 Tricuspid Valve TR Pk Roscoe: 2.81 TR Pk Grad: 32.00 RA Press: 3.00 RVSP: 35.00 Great Vessels Aorta Ao Root-2D: 2.30 2.0-3.7 cm Ao Asc: 3.00 2.1-3.4 cm Updated in Other Vendor System with Status of Final Jseus pEps MD electronically signed on 06/23/2023 12:36:38 PM with status of Final
--- NOTE | 2023-06-23 08:38 | P.CNHO_ITS ---
Subjective - Subjective Chief complaint: Shortness of breath and weakness Patient: known to practice within the last 3 years Consult date: 06/23/23 Primary Care Provider: Gale Loving MD Medical Summary: Diagnosis: Left breast cancer August 2020 Patient presented with palpable left breast mass in August 2020. No previous mammograms, bilateral mammography and ultrasound performed 08/30/2020 revealed irregular left breast retroareolar mass corresponding to palpable mass measuring 2 cm. Mammogram was read as BI-RADS 5 highly suspicious for malignancy. On exam, hard mass with worrisome features including in nipple retraction in fixation to the skin. Patient refused neoadjuvant chemotherapy. 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 Patient underwent lumpectomy with sentinel node biopsy on 10/02/2020, this revealed metaplastic carcinoma, grade 3, 2.8 cm, negative margins. Nipple smooth muscle involved by tumor, no epidermal involvement seen. MSBR Score 3, no lymphovascular invasion, margins negative. Two lymph nodes examined, both negative. Patient got 1 cycle of adjuvant chemotherapy with Taxotere/Cytoxan on 11/14/2020. Two weeks later she developed GI bleeding secondary to hemorrhoids and diverticulitis. At that time she was on aspirin and Plavix. Aspirin subsequently discontinued. HPI - Consult Narrative Reason for consult: Probable metastatic cancer Narrative: Clara Jordan is a 87 year old female known to Oncology because of history of left breast cancer that was diagnosed in 2020. Patient states that for the last several weeks she has been feeling poorly. She developed progressive shortness of breath, weight loss and weakness which prompted her to call for the ambulance. She has been living alone and uses walker for ambulation. In the last several days she has become bed-bound and developed orthopnea as well as swelling in her ankles. She denies any fever or chills. Besides breast cancer, she is history of coronary artery disease and diverticular bleeding. Workup in the emergency department revealed hypoxemia, CT angiogram revealed large left pleural effusion and a right hilar mass. She has been admitted further workup. 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 Father Prostate cancer Surgical History: Surgical History (Last Reviewed 06/23/23 @ 10:11 by Jesus Epps MD) H/O colonoscopy History of lumpectomy of left breast History of right cataract surgery Hx of cardiac catheterization Social History: Social History (Last Reviewed 06/23/23 @ 10:11 by Jesus Epps MD) Living Situation History: Household Members: None Housing: Apartment Are you a primary youth care specialist to a significant other at home: No Do you presently have visiting nurse or other home services: No Tobacco History: Patient Tobacco Use Status: Never used Tobacco Occupation Assessmet: service: No Current occupational status: retired Home Medications and Allergies Current Medications: Current Medications Acetaminophen (Acetaminophen 325 Mg Tablet) 650 mg PO Q6H PRN PRN Reason: Pain, Mild (Pain Scale 1-3) Benzonatate (Benzonatate 100 Mg Capsule) 100 mg PO TID PRN PRN Reason: Cough Docusate Sodium (Docusate Sodium 100 Mg Capsule) 100 mg PO DAILY PRN PRN Reason: Constipation Melatonin (Melatonin 3 Mg Tablet) 6 mg PO BEDTIME PRN PRN Reason: Insomnia Ondansetron HCl (Ondansetron Hcl 4 Mg/2 Ml Vial) 4 mg IVPUSH Q8H PRN PRN Reason: Nausea and Vomiting Sodium Chloride (0.9 % Sodium Chloride Flush 3 Ml Syringe) 3 ml IVFLUSH QSHIFT [facility] Allergies Allergy/AdvReac Type Severity Reaction Status Date / Time No Known Allergies Allergy Verified 03/11/23 14:03 [No Known Allergies*] Physical Exam Vital signs: Vital Signs Temp 97.9 F 06/23/23 05:04 Pulse 95 06/23/23 05:04 Resp 19 06/23/23 05:04 BP 160/88 H 06/23/23 05:04 Pulse Ox 95 06/23/23 05:04 O2 Del Method Room Air 06/23/23 05:04 Intake & Output 06/22/23 06/23/23 06/23/23 18:59 06:59 18:59 Other: Weight 55.9 kg Weight 55.9 kg - Constitutional Present: mild distress, thin, chronically ill appearing - Routine HEENT Exam Head: Present: normal inspection Eye: Absent: scleral icterus - Routine Neck Exam Absent: lymphadenopathy, thyromegaly - Routine Respiratory Exam Present: decreased breath sounds - Routine Cardiovascular Exam Cardiovascular: Present: S1, S2, tachycardia - Routine Abdominal Exam Present: soft - Routine Extremities Exam Absent: calf tenderness Hem/Onc Consult Result - Labs CBC & Chem 7: 06/22/23 16:09 06/22/23 16:09 Labs: Short CBC 06/22/23 Range/Units 16:09 WBC 9.4 (4.8-10.8) X10*3/uL Hgb 15.8 (12.0-16.0) g/dl Hct 47.3 H (37.0-47.0) % Plt Count 263 D (160-400) X10*3/uL BMP 06/22/23 16:09 Sodium 141 Potassium 3.8 Chloride 99 Carbon Dioxide 26 BUN 24 H Creatinine 1.05 Calcium 9.7 Liver Function 06/22/23 Range/Units 16:09 Total Bilirubin 1.5 H (0.0-1.0) mg/dL Direct Bilirubin 0.6 H (0.0-0.5) mg/dL AST 29 (5-31) U/L ALT 17 (0-31) U/L Alkaline Phosphatase 70 (39-117) U/L Albumin 3.5 (3.5-5.0) g/dL Assessment and Plan Patient Active problem list reviewed?: Yes (1) Pleural effusion, left Status: Acute Assessment and plan: 1. This is 87-year-old woman with left breast cancer diagnosed in August 2020. 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 Patient underwent left breast lumpectomy with sentinel node biopsy on 10/02/2020, this revealed metaplastic carcinoma, grade 3, 2.8 cm, negative margins. Nipple smooth muscle involved by tumor, no epidermal involvement, no lymphovascular invasion, margins negative. Two lymph nodes examined, both negative. Patient was unable to tolerate adjuvant chemotherapy. She now presents with large left pleural effusion with compressive atelectasis of left lung. Right hilar mass with extension to right lower lobe, right parahilar, subcarinal and infrahilar matted lymphadenopathy. Right axillary and upper retroperitoneal adenopathy. Possibilities here are primary metastatic lung cancer versus metastatic breast cancer. She will need therapeutic and diagnostic thoracentesis, patient would like to know diagnosis and further management. She has developed new onset atrial fibrillation, Cardiology input awaited. She is rather frail and overall prognosis is guarded. Further recommendations to follow. Thank you for the consult, will follow with you. - Time Spent With Patient Time Spent with Patient (in minutes): 20
[2023-06-23 09:01] LABS: Lactate Dehydrogenase 172 U/L (122-220)
[2023-06-23 09:19] LABS: Carcinoembryonic Antigen < 1.73 ng/mL
[2023-06-23] MEDS: 0.9 % Sodium Chloride Flush 3 ML SYRINGE IVFLUSH ×4 (09:22→20:31)
[2023-06-23 09:56] VITALS: BP 148/88; PULSE 95; RESP 18; TEMP 37.1; O2SAT 93
--- NOTE | 2023-06-23 10:06 | P.CONCA_ITS ---
History of Present Illness History of Present Illness Date of Service: 06/23/23 Consult reason: atrial fibrillation and other (Hypoxic respiratory failure, elevated BNP.) Chief complaint: left pleural effusion Narrative: I was consulted to see Clara in cardiology consultation today for hypoxemic respiratory failure. There is also elevated BNP. Patient has been having progressive shortness of breath over the last 3 weeks along with not able to sleep flat in bed and having ankle edema. She came to the hospital and was noted to be in hypoxemic respiratory failure had left-sided pleural effusion. Subsequent workup shows large left-sided pleural effusion along with a mass in the mediastinum in the right hilar region and the long. She is prior history of breast cancer which is metastatic. Suspicion is that this is malignant pleural effusion. She was given Lasix yesterday due to elevated BNP. She feels better on oxygen therapy. She has no prior history of congestive heart failure. She said she was very anxious when she came in but feels more relaxed now. She was also noted to be in new onset atrial fibrillation with rapid ventricular response. She denies any chest pain. Denies any lightheadedness, syncope. Review of Systems 2 Constitutional: Constitutional: Reports lethargy, Reports weakness and Reports weight loss Eyes: Eyes: Reports no additional eye complaints Cardiovascular: Cardiovascular: Denies chest pain, Reports pedal edema, Denies lightheadedness, Denies Loss of Consciousness, Denies palpitations, Reports dyspnea on exertion and Reports orthopnea Respiratory: Respiratory: Reports dyspnea on exertion Gastrointestinal: Gastrointestinal: Reports no additional gastrointestinal complaints Musculoskeletal: Musculoskeletal: Reports no additional musculoskeletal complaints Neurologic: Reports system reviewed and no additional complaints, except as documented and Reports weakness Psychiatric: Psychiatric: Reports no additional psychiatric complaints Endocrine: Endocrine: Reports no additional endocrine complaints and Denies palpitations PMF Past Medical History Medical History Metaplastic carcinoma of breast Pectus carinatum Increased bilirubin level COVID-19 vaccine administered Arthritis On anticoagulant therapy Elevated cholesterol Hypertension Coronary artery disease Family History Family History Mother No problems noted. Father Prostate cancer Surgical History Surgical History History of lumpectomy of left breast History of right cataract surgery H/O colonoscopy Hx of cardiac catheterization Social History Social History Household Members: None Housing: Apartment Are you a primary career education teacher to a significant other at home: No Do you presently have visiting nurse or other home services: No Alcohol intake: never Patient Tobacco Use Status: Never used Tobacco Smoked in Last 30 Days: No Use of substances other than those prescribed or required for medical reasons: No Advance Directives: Yes Advance Directives Information Provided: No Advance Directives on File: No Nutrition Risks: No Nutritional Risk service: No Current occupational status: retired [employer] Allergies Allergy/AdvReac Type Severity Reaction Status Date / Time No Known Allergies Allergy Verified 03/11/23 14:03 [No Known Allergies*] Active Medications: Current Medications Acetaminophen (Acetaminophen 325 Mg Tablet) 650 mg PO Q6H PRN PRN Reason: Pain, Mild (Pain Scale 1-3) Benzonatate (Benzonatate 100 Mg Capsule) 100 mg PO TID PRN PRN Reason: Cough Docusate Sodium (Docusate Sodium 100 Mg Capsule) 100 mg PO DAILY PRN PRN Reason: Constipation Melatonin (Melatonin 3 Mg Tablet) 6 mg PO BEDTIME PRN PRN Reason: Insomnia Ondansetron HCl (Ondansetron Hcl 4 Mg/2 Ml Vial) 4 mg IVPUSH Q8H PRN PRN Reason: Nausea and Vomiting Sodium Chloride (0.9 % Sodium Chloride Flush 3 Ml Syringe) [facility] Last Admin: 06/23/23 09:23 Dose: 3 ml Physical Exam 2 Vital Signs: Vital Signs: Last Vital Signs Temp 98.7 F 06/23/23 09:56 Pulse 95 06/23/23 09:56 Resp 18 06/23/23 09:56 BP 148/88 H 06/23/23 09:56 Pulse Ox 93 06/23/23 09:56 O2 Del Method Room Air 06/23/23 09:56 BMI result Body Mass Index 20.5 Const: General: cooperative, comfortable, no acute distress, alert, awake and anxious Nutritional Appearance: cachectic Orientation/consciousness: p atient oriented x3 Limitations: no limitations HEENT: Head: Yes normocephalic and Yes atraumatic Neck: Neck: Yes trachea midline, Yes supple and Yes no JVD Resp: Auscultation: no rales, no wheezes and breath sounds absent on th left (2/[address]) Percussion: dullness Mid: left and Lower: left Cardio: Jugular venous distension: no JVD Rhythm: abnormal rhythm irregularly irregular Heart sounds: S1 normal heart sound present, S2 normal heart sound present, no click, no gallops, no murmurs and no rubs GI: Auscultation: normal bowel sounds Skin: General skin exam: no rashes or lesions noted Neuro: General: patient oriented x3 and no focal motor deficits Extrem: General: No clubbing, No cyanosis and Yes pedal edema Objective Labs and Meds 06/22/23 16:09 06/22/23 16:09 Lab results: Laboratory Results - last 24 hr 06/22/23 06/22/23 06/23/23 16:09 18:15 08:21 WBC 9.4 RBC 5.32 Hgb 15.8 Hct 47.3 H MCV 88.9 MCH 29.7 MCHC 33.4 RDW 13.2 Plt Count 263 D MPV 9.6 Immature Gran % (Auto) 0.2 Neut % (Auto) 79.9 H Lymph % (Auto) 4.4 L Starr % (Auto) 12.9 H Eos % (Auto) 1.9 Baso % (Auto) 0.7 Lymph # (Auto) 0.4 L Starr # (Auto) 1.2 Eos # (Auto) 0.2 Baso # (Auto) 0.1 Abs Immat Gran (auto) 0.02 Absolute Neuts (auto) 7.5 Absolute Nucleated RBC 0.000 Nucleated RBC % (auto) 0.0 PT 15.7 H INR 1.3 H Sodium 141 Potassium 3.8 Chloride 99 Carbon Dioxide 26 Anion Gap 20 BUN 24 H Creatinine 1.05 Estim Creat Clear Calc 34.5 Estimated GFR 50 Random Glucose 98 Lactic Acid 1.6 Calcium 9.7 Magnesium 2.3 Total Bilirubin 1.5 H Direct Bilirubin 0.6 H AST 29 ALT 17 Alkaline Phosphatase 70 Lactate Dehydrogenase 172 Troponin I High Sens 12.9 B-Natriuretic Peptide 421 H Total Protein 6.5 Albumin 3.5 Carcinoembryonic Ag < 1.73 COVID-19 (DEE) Negative COVID-19 Clin Com See Note Imaging Radiologist's impression: Impressions Chest X-Ray 06/22/23 16:26 IMPRESSION: Left lower lobe pneumonia with parapneumonic effusion. Follow-up recommended to ensure complete resolution and to exclude any underlying persistent lesion. Chest CTA 06/22/23 18:13 IMPRESSION: 1. No evidence of PE. 2. No evidence aortic dissection or aneurysm. 3. Large left pleural effusion with compressive atelectasis left lung. 4. There is a right hilar mass with extension to the right lower lobe superior segment. There is right parahilar, subcarinal and infrahilar matted lymphadenopathy or direct extension of tumor. 5. There are multiple nodules in the right lower lobe and right infrahilar region. 6. There is irregular shaped mass or loculated fluid in the lingula. 7. There is right axillary and upper retroperitoneal adenopathy. VTE: negative. Assessment and Plan (1) Elevated brain natriuretic peptide (BNP) level: Status: Acute Elevated BNP most likely due to RV strain from significant pleural effusion and hypoxemia. Patient does appear to be in overt heart failure at this point time. Received IV Lasix. Continue to monitor for development of heart failure. Continue treat underlying condition which is a large left pleural effusion which appears to be most likely malignant. If patient has large malignant effusion as well as mediastinal mass consider hospice evaluation and comfort care. I do not think patient requires any overall diuretics at this point time unless she develops more progressive symptoms or signs of heart failure. Continue oxygen supplementation supportive care. (2) New onset a-fib: Status: Acute New onset atrial fibrillation also most likely due to hypoxemic respiratory failure and large pleural effusion. Can consider an echocardiogram to evaluate for cardiac structure and function. Continue metoprolol therapy for better rate control in the 60s to 80s range. Can start Toprol-XL 25 mg daily. In terms of oral anticoagulation therapy will depend on her long-term plan as to hospice care worse in his aggressive medical therapy. If no hospice therapy is planned consider oral anticoagulation with Eliquis. Will sign of the case at this point time. Thank you for allowing me to partake in her care Procedures Date of Service Date of Service: 06/23/23
--- NOTE | 2023-06-23 10:41 | P.PNIM_ITS ---
Subjective Subjective Date of Service: 06/23/23 Interval History: Still sob but better Physical Exam 2 Vital Signs: Vital Signs: Last Vital Signs Temp 98.7 F 06/23/23 09:56 Pulse 95 06/23/23 09:56 Resp 18 06/23/23 09:56 BP 148/88 H 06/23/23 09:56 Pulse Ox 93 06/23/23 09:56 O2 Del Method Room Air 06/23/23 09:56 BMI result Body Mass Index 20.5 Const: Other: Constitutional: Alert, thin, frail-looking, in no acute distress. HEENT: Thrush Respiratory: Diminished lung sounds throughout left side, particularly lower lobe. Mild diaphoramic breathing. Cardiovascular: Irregularly irregular rhythm. No murmurs, rubs, or gallops. Gastrointestinal: Abdomen soft, non-tender, non-distended. Normal bowel sounds. Neurologic: Cranial nerves II-XII are grossly intact bilaterally. No focal neurological deficits. Moves all extremities spontaneously. Skin: Warm, dry. Musculoskeletal: No cyanosis or clubbing. Extremities: 1+ bilateral pitting edema of ankles. Psychiatric: Normal mood and affect. Objective Data Active Medications Acetaminophen (Acetaminophen 325 Mg Tablet) 650 mg PO Q6H PRN PRN Reason: Pain, Mild (Pain Scale 1-3) Benzonatate (Benzonatate 100 Mg Capsule) 100 mg PO TID PRN PRN Reason: Cough Docusate Sodium (Docusate Sodium 100 Mg Capsule) 100 mg PO DAILY PRN PRN Reason: Constipation Melatonin (Melatonin 3 Mg Tablet) 6 mg PO BEDTIME PRN PRN Reason: Insomnia Ondansetron HCl (Ondansetron Hcl 4 Mg/2 Ml Vial) 4 mg IVPUSH Q8H PRN PRN Reason: Nausea and Vomiting Sodium Chloride (0.9 % Sodium Chloride Flush 3 Ml Syringe) 3 ml IVFLUSH QSHIFT [facility] Last Admin: 06/23/23 09:23 Dose: 3 ml Documented By: KERMIT Labs 06/22/23 16:09 06/22/23 16:09 Labs: Laboratory Results - last 24 hr 06/22/23 06/22/23 06/23/23 16:09 18:15 08:21 MCV 88.9 MCH 29.7 MCHC 33.4 RDW 13.2 Plt Count 263 D MPV 9.6 Immature Gran % (Auto) 0.2 Neut % (Auto) 79.9 H Lymph % (Auto) 4.4 L Morgan % (Auto) 12.9 H Eos % (Auto) 1.9 Baso % (Auto) 0.7 Lymph # (Auto) 0.4 L Morgan # (Auto) 1.2 Eos # (Auto) 0.2 Baso # (Auto) 0.1 Abs Immat Gran (auto) 0.02 Absolute Neuts (auto) 7.5 Absolute Nucleated RBC 0.000 Nucleated RBC % (auto) 0.0 PT 15.7 H INR 1.3 H Anion Gap 20 Estim Creat Clear Calc 34.5 Estimated GFR 50 Random Glucose 98 Lactic Acid 1.6 Calcium 9.7 Magnesium 2.3 Total Bilirubin 1.5 H Direct Bilirubin 0.6 H AST 29 ALT 17 Alkaline Phosphatase 70 Lactate Dehydrogenase 172 B-Natriuretic Peptide 421 H Total Protein 6.5 Albumin 3.5 Carcinoembryonic Ag < 1.73 COVID-19 (DEE) Negative COVID-19 Clin Com See Note Assessment and Plan (1) Elevated brain natriuretic peptide (BNP) level: Status: Acute (2) Pleural effusion, left: Status: Acute (3) Lung mass: Status: Acute Plan Pt is an 87-year-old female with a PMH significant for?HTN, metaplastic breast cancer s/p lumpectomy 08/2020, HLD, CAD, and hx of diverticulitis who presents to the ED with?increasing shortness of breath, cough, orthopnea, and swelling in ankles for the past 3 weeks. Pt will be admitted to the hospital for treatment and further evaluation of acute hypoxic respiratory failure in the setting of large left pleural effusion likely secondary to metastasis to the lung. Left pleural effusion, parapneumonic vs malignant effusion. given history of breast CA and pulmonoary mass -Thoracentesis for diagnosis and therapeutic -add Ceftriaxone for parapneumonic effusion Pulmonoary mass--likely malignant could be primary or mets -oncology consult, thoracentesis as above Acute hypoxic respiratory failure--likely related to above Titrate supplemental O2>92, wean as tolerated New onset AFib Likely secondary to left pleural effusion Will get echocardiogram Continue metoprolol WIll hold off anticoagulation until after procedure Cardiology consult Monitor on telemetry Elevated BNP Likely secondary to large left pleural effusion, possibly new onset AFib No hx of CHF Will get echocardiogram Pt received Lasix IV in ED, will hold off on additional diuretics for now CAD/HLD Continue statin, isosorbide mononitrate Hold aspirin d/t likely thoracocentesis HLD Continue metoprolol Mikld protein coloary malnutrition--ensure Thrush--Nystatin Full Code DVT Prophylaxis: Pneumatic boots d/t likely thoracocentesis tomorrow need for inpatient: work up for hypoxia related to pulmonary mass Quality Stroke Does the patient have a stroke diagnosis?: No VTE Prior VTE?: No VTE Risk Level:: Medical - moderate - high VTE Device Contraindication: N/A - Device Ordered VTE Drug Contraindication: Treatment Not Indicated
[2023-06-23 10:42] VITALS: BMI 19.3
--- NOTE | 2023-06-23 10:56 | PHA.MEDREC ---
Pharmacy Consult ? Medication Reconciliation Pharmacy has completed the medication reconciliation.
[2023-06-23 11:09] VITALS: BP 141/69; PULSE 101; RESP 18; TEMP 36.3; O2SAT 92
[2023-06-23] MEDS: Isosorbide Mononitrate 60 MG TAB.ER.24H PO (11:51)
[2023-06-23] MEDS: Metoprolol Succinate ER 25 MG TAB.ER.24H PO (11:52)
--- NOTE | 2023-06-23 12:19 | PC.NURSE ---
IV leaking from ED, attempted x [address], unable, Edu paged to see if she can help assist. made aware.
--- NOTE | 2023-06-23 12:30 | PC.NURSE ---
Will attempt IV US guided from [employer]'s
--- NOTE | 2023-06-23 13:38 | PC.NURSE ---
Plan to go to IR now, IR nurses to attempt to place IV.
--- NOTE | 2023-06-23 14:33 | PC.NURSE ---
Lab Spec collected in IR and sent to the lab.
[2023-06-23] MEDS: cefTRIAXone sodium 1 GM in 0.9 % Sodium Chloride 50 ML IV (14:50)
[2023-06-23] MEDS: Lidocaine HCl 1 % MPF 5 ML VIAL SUBCUT (14:53)
--- NOTE | 2023-06-23 14:54 | HO.WOUND ---
Wound Consult: Initial Attempted 87yr old?F admitted to [facility] on - See progress notes and H&P for detailed history.? Wound consult placed for buttock - arrival to bedside pt was off unit in procedure. Son at bedside reports he lives with his mother and is not aware of a wound but reports she is independent in her personal care. He reports he assists her to the bathroom but she remains independent with her own care. Will attempt consultation at future date and time.
--- NOTE | 2023-06-23 14:56 | PC.NURSE ---
Dressing CDI on Left Back
--- NOTE | 2023-06-23 14:59 | PM.EVENT ---
Event Note Date of Service: 06/23/23 Event Note: Procedure Note: US left thoracentesis Left pleural effusion, breast ca Large left effusion. 1500 ml serous fluid removed and sent for analysis Post CXR with no pneumothorax Chad SILVERIO Interventional Radiology Time Spent With Patient Time: Total time managing care of this patient today ____ minutes.
--- NOTE | 2023-06-23 15:16 | MHC.CM.PN ---
CM MET WITH PT AND SON, LEXII AT BEDSIDE PT LIVES ALONE AND IS INDEPENDENT WITH SELF CARE LEXII VISITS DAILY AND PROVIDES ASSISTANCE PRN PT HAS A WALKER AND ROLLATOR, SHE USES THE ROLLATOR PRIMARILY LEXII PROVIDED A COPY OF PTS HCP WHICH IS NOW ON FILE PCP: IVETTE GUALLPA DELIVERED DCP: HOME NO SERVICES SON TO TRANSPORT
[2023-06-23 15:21] LABS: MN% 93.6 %; PMN% 6.4 %; WBC Pleural Fluid 0.298 X10*3/uL
[2023-06-23 15:22] LABS: RBC Pleural Fluid < 0.002 X10*6/uL
[2023-06-23 15:23] LABS: BF Shift QC OK YES; Man Diluent Bkgrd OK YES
[2023-06-23 15:38] VITALS: BP 128/66; PULSE 78; RESP 16; TEMP 36.1; O2SAT 94
[2023-06-23] MEDS: Nystatin Oral Susp 500,000 UNIT/5 ML ORAL.SUSP 400000 UNIT PO ×2 (16:02→20:25)
[2023-06-23 19:35] VITALS: BP 161/74; PULSE 90; RESP 16; TEMP 36.3; O2SAT 93
[2023-06-23 19:45] LABS: pH Pleural Fluid 7.49
[2023-06-23 20:01] LABS: Albumin Pleural Fluid 2.7 GM/DL; Glucose Pleural Fluid 83 MG/DL; LDH Pleural Fluid 138 U/L; Total Protein Pleural Fluid 3.9 GM/DL
[2023-06-23] MEDS: Atorvastatin Calcium 80 MG TABLET PO (20:26)
[2023-06-23] MEDS: Acetaminophen 325 MG TABLET 650 MG PO (20:26)
[2023-06-24 03:51] VITALS: BP 139/68; PULSE 82; RESP 16; TEMP 36.1; O2SAT 93
[2023-06-24 07:28] VITALS: BP 145/80; PULSE 83; RESP 16; TEMP 36.4; O2SAT 93
[2023-06-24 08:30] LABS: Amylase Pleural Fluid 32
[2023-06-24] MEDS: Metoprolol Succinate ER 25 MG TAB.ER.24H PO (09:01)
[2023-06-24] MEDS: 0.9 % Sodium Chloride Flush 3 ML SYRINGE IVFLUSH ×3 (09:01→20:39)
[2023-06-24] MEDS: Isosorbide Mononitrate 60 MG TAB.ER.24H PO (09:01)
[2023-06-24] MEDS: Nystatin Oral Susp 500,000 UNIT/5 ML ORAL.SUSP 400000 UNIT PO ×4 (09:01→20:38)
--- NOTE | 2023-06-24 09:22 | PM.HEMONCPN ---
Medical Summary - Medical Summary Date of Service: 06/24/23 Chief complaint: Shortness of breath Primary Care Provider: Gale Loving MD Medical Summary: Diagnosis: Left breast cancer August 2020 Patient presented with palpable left breast mass in August 2020. No previous mammograms, bilateral mammography and ultrasound performed 08/30/2020 revealed irregular left breast retroareolar mass corresponding to palpable mass measuring 2 cm. Mammogram was read as BI-RADS 5 highly suspicious for malignancy. On exam, hard mass with worrisome features including in nipple retraction in fixation to the skin. Patient refused neoadjuvant chemotherapy. 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 Patient underwent lumpectomy with sentinel node biopsy on 10/02/2020, this revealed metaplastic carcinoma, grade 3, 2.8 cm, negative margins. Nipple smooth muscle involved by tumor, no epidermal involvement seen. MSBR Score 3, no lymphovascular invasion, margins negative. Two lymph nodes examined, both negative. Patient got 1 cycle of adjuvant chemotherapy with Taxotere/Cytoxan on 11/14/2020. Two weeks later she developed GI bleeding secondary to hemorrhoids and diverticulitis. At that time she was on aspirin and Plavix. Aspirin subsequently discontinued. Interval History Interval history: Clara Jordan is a 87 year old female known to Oncology because of history of left breast cancer that was diagnosed in 2020. Patient states that for the last several weeks she has been feeling poorly. She developed progressive shortness of breath, weight loss and weakness which prompted her to call for the ambulance. She has been living alone and uses walker for ambulation. In the last several days she has become bed-bound and developed orthopnea as well as swelling in her ankles. She denies any fever or chills. Besides breast cancer, she is history of coronary artery disease and diverticular bleeding. Workup in the emergency department revealed hypoxemia, CT angiogram revealed large left pleural effusion and a right hilar mass. She has been admitted further workup. She has had therapeutic and diagnostic thoracentesis yesterday. She feels better today. She offers no new complaints and wants to know when she can start chemotherapy. 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 Father Prostate cancer Surgical History: Surgical History (Last Reviewed 06/24/23 @ 11:40 by Negar Velez, PT) H/O colonoscopy History of lumpectomy of left breast History of right cataract surgery Hx of cardiac catheterization Social History: Social History (Last Reviewed 06/23/23 @ 10:11 by Jesus Epps MD) Living Situation History: Household Members: None Housing: Apartment Are you a primary overnight caregiver to a significant other at home: No Do you presently have visiting nurse or other home services: No Tobacco History: Patient Tobacco Use Status: Never used Tobacco Advance Directives: Advance Directives Date on File: 06/22/23 Occupation Assessmet: service: No Current occupational status: retired Home Medications and Allergies Current Medications: Current Medications Acetaminophen (Acetaminophen 325 Mg Tablet) 650 mg PO Q6H PRN PRN Reason: Pain, Mild (Pain Scale 1-3) Last Admin: 06/23/23 20:26 Dose: 650 mg Atorvastatin Calcium (Atorvastatin Calcium 80 Mg Tablet) 80 mg PO BEDTIME RADHA Last Admin: 06/23/23 20:26 Dose: 80 mg Benzonatate (Benzonatate 100 Mg Capsule) 100 mg PO TID PRN PRN Reason: Cough Docusate Sodium (Docusate Sodium 100 Mg Capsule) 100 mg PO DAILY PRN PRN Reason: Constipation Ceftriaxone Sodium 1 gm/ (Sodium Chloride) 50 mls @ 100 mls/hr IV Q24H RADHA Last Infusion: 06/23/23 15:25 Dose: Infused Isosorbide Mononitrate (Isosorbide Mononitrate 60 Mg Tab.Er.24h) 60 mg PO DAILY RADHA; Protocol Last Admin: 06/24/23 09:01 Dose: 60 mg Melatonin (Melatonin 3 Mg Tablet) 6 mg PO BEDTIME PRN PRN Reason: Insomnia Metoprolol Succinate (Metoprolol Succinate Er 25 Mg Tab.Er.24h) 25 mg PO DAILY RADHA; Protocol Last Admin: 06/24/23 09:01 Dose: 25 mg Nystatin (Nystatin Oral Susp 500,000 Unit/5 Ml Oral.Susp) 400,000 unit PO QID [facility]; Protocol Last Admin: 06/24/23 09:01 Dose: 400,000 unit Ondansetron HCl (Ondansetron Hcl 4 Mg/2 Ml Vial) 4 mg IVPUSH Q8H PRN PRN Reason: Nausea and Vomiting Sodium Chloride (0.9 % Sodium Chloride Flush 3 Ml Syringe) 3 ml IVFLUSH QSHIFT [facility] Last Admin: 06/24/23 09:01 Dose: 3 ml Home Medications Medication Instructions Recorded Confirmed Type acetaminophen 325 mg tablet 325 mg PO DAILY 06/23/23 06/23/23 History acetaminophen 325 mg tablet 650 mg PO BEDTIME 06/23/23 06/23/23 History Allergies Allergy/AdvReac Type Severity Reaction Status Date / Time No Known Allergies Allergy Verified 03/11/23 14:03 [No Known Allergies*] Exam Vital signs: Vital Signs Temp 97.6 F 06/24/23 07:28 Pulse 83 06/24/23 07:28 Resp 16 06/24/23 07:28 BP 145/80 H 06/24/23 07:28 Pulse Ox 93 06/24/23 07:28 O2 Del Method Room Air 06/24/23 07:28 Intake & Output 06/23/23 06/24/23 06/24/23 18:59 06:59 18:59 Intake Total 50 / 630 580 / 630 Balance 50 / 630 580 / 630 Intake: Intake, Oral Amount 580 / 580 Intake, IV Amount 50 / 50 cefTRIAXone sodium 1 gm In 0.9 50 / 50 % Sodium Chloride 50 ml @ 100 mls/hr IV Q24H [facility] Rx#: [id number] Other: Meal Refused No NPO Yes Dinner % Eaten 75% Number of Unmeasured Voids 2 Urine Bathroom Urine Color Yellow Weight 52.7 kg Weight in Grams 19986 Weight 52.7 kg BMI result Body Mass Index 19.3 - Constitutional Present: mild distress, thin, chronically ill appearing - Routine HEENT Exam Head: Present: normal inspection - Routine Respiratory Exam Present: decreased breath sounds - Routine Cardiovascular Exam Cardiovascular: Present: S1, S2, tachycardia - Routine Abdominal Exam Present: soft - Routine Extremities Exam Absent: calf tenderness Data - Labs CBC & Chem 7: 06/22/23 16:09 06/22/23 16:09 Labs: Laboratory Last Values WBC 9.4 X10*3/uL (4.8-10.8) 06/22/23 16:09 RBC 5.32 X10*6/uL (4.20-5.50) 06/22/23 16:09 Hgb 15.8 g/dl (12.0-16.0) 06/22/23 16:09 Hct 47.3 % (37.0-47.0) H 06/22/23 16:09 MCV 88.9 fL (80.0-98.0) 06/22/23 16:09 MCH 29.7 pg (27.0-33.0) 06/22/23 16:09 MCHC 33.4 g/dl (31.0-35.0) 06/22/23 16:09 RDW 13.2 % (11.0-16.0) 06/22/23 16:09 Plt Count 263 X10*3/uL (160-400) D 06/22/23 16:09 MPV 9.6 fL (9.4-12.3) 06/22/23 16:09 Immature Gran % (Auto) 0.2 % (0.0-0.4) 06/22/23 16:09 Neut % (Auto) 79.9 % (45-73) H 06/22/23 16:09 Lymph % (Auto) 4.4 % (20-40) L 06/22/23 16:09 Bates % (Auto) 12.9 % (2-11) H 06/22/23 16:09 Eos % (Auto) 1.9 % (0-4) 06/22/23 16:09 Baso % (Auto) 0.7 % (0-2) 06/22/23 16:09 Lymph # (Auto) 0.4 X10*3/uL (1.2-4.9) L 06/22/23 16:09 Bates # (Auto) 1.2 X10*3/uL (0.1-1.2) 06/22/23 16:09 Eos # (Auto) 0.2 X10*3/uL (0.0-0.4) 06/22/23 16:09 Baso # (Auto) 0.1 X10*3/uL (0.0-0.2) 06/22/23 16:09 Abs Immat Gran (auto) 0.02 X10*3/uL (0.00-0.03) 06/22/23 16:09 Absolute Neuts (auto) 7.5 x10*3/uL (2.0-8.3) 06/22/23 16:09 Absolute Nucleated RBC 0.000 X10*3/uL (0.0-0.012) 06/22/23 16:09 Nucleated RBC % (auto) 0.0 /100WBC (0.0-0.2) 06/22/23 16:09 PT 15.7 SEC (11.1-13.3) H 06/22/23 16:09 INR 1.3 (0.9-1.1) H 06/22/23 16:09 Sodium 141 mmol/L (135-145) 06/22/23 16:09 Potassium 3.8 mmol/L (3.3-5.1) 06/22/23 16:09 Chloride 99 mmol/L (96-108) 06/22/23 16:09 Carbon Dioxide 26 mmol/L (22-29) 06/22/23 16:09 Anion Gap 20 (12-20) 06/22/23 16:09 BUN 24 mg/dL (9-16) H 06/22/23 16:09 Creatinine 1.05 mg/dL (0.5-1.4) 06/22/23 16:09 Estim Creat Clear Calc 34.5 06/22/23 16:09 Estimated GFR 50 06/22/23 16:09 Random Glucose 98 mg/dL (60-115) 06/22/23 16:09 Lactic Acid 1.6 mmol/L (0.5-2.0) 06/22/23 18:15 Calcium 9.7 mg/dL (8.4-10.2) 06/22/23 16:09 Magnesium 2.3 mg/dL (1.6-2.6) 06/22/23 16:09 Total Bilirubin 1.5 mg/dL (0.0-1.0) H 06/22/23 16:09 Direct Bilirubin 0.6 mg/dL (0.0-0.5) H 06/22/23 16:09 AST 29 U/L (5-31) 06/22/23 16:09 ALT 17 U/L (0-31) 06/22/23 16:09 Alkaline Phosphatase 70 U/L (39-117) 06/22/23 16:09 Lactate Dehydrogenase 172 U/L (122-220) 06/23/23 08:21 Troponin I High Sens 12.9 ng/L (<3.5-17.0) 06/22/23 16:09 B-Natriuretic Peptide 421 pg/mL (<100) H 06/22/23 16:09 Total Protein 6.5 g/dL (6.5-8.0) 06/22/23 16:09 Albumin 3.5 g/dL (3.5-5.0) 06/22/23 16:09 Carcinoembryonic Ag < 1.73 ng/mL 06/23/23 08:21 Pleural pH 7.49 06/23/23 14:25 Pleural WBC 0.298 X10*3/uL 06/23/23 14:25 Pleural RBC < 0.002 X10*6/uL 06/23/23 14:25 Pleural Total Protein 3.9 GM/DL 06/23/23 14:25 Pleural Albumin 2.7 GM/DL 06/23/23 14:25 Pleural LDH 138 U/L 06/23/23 14:25 Pleural Glucose 83 MG/DL 06/23/23 14:25 Pleural Amylase 32 06/23/23 14:25 COVID-19 (DEE) Negative (Negative) 06/22/23 16:09 COVID-19 Clin Com See Note 06/22/23 16:09 - Imaging Radiologist's impression: ITS Impressions Chest X-Ray 06/22/23 16:26 IMPRESSION: Left lower lobe pneumonia with parapneumonic effusion. Follow-up recommended to ensure complete resolution and to exclude any underlying persistent lesion. Chest CTA 06/22/23 18:13 IMPRESSION: 1. No evidence of PE. 2. No evidence aortic dissection or aneurysm. 3. Large left pleural effusion with compressive atelectasis left lung. 4. There is a right hilar mass with extension to the right lower lobe superior segment. There is right parahilar, subcarinal and infrahilar matted lymphadenopathy or direct extension of tumor. 5. There are multiple nodules in the right lower lobe and right infrahilar region. 6. There is irregular shaped mass or loculated fluid in the lingula. 7. There is right axillary and upper retroperitoneal adenopathy. VTE: negative. Thoracentesis Ultrasound 06/23/23 14:25 Impression: Ultrasound-guided left thoracentesis Chest X-Ray 06/23/23 14:36 IMPRESSION: Decreased moderate left pleural effusion with left basilar consolidation. No gross pneumothorax appreciated. Assessment and Plan Patient Active problem list reviewed?: Yes (1) Pleural effusion, left Status: Acute Assessment and plan: 1. This is 87-year-old woman with left breast cancer diagnosed in August 2020. 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 Patient underwent left breast lumpectomy with sentinel node biopsy on 10/02/2020, this revealed metaplastic carcinoma, grade 3, 2.8 cm, negative margins. Nipple smooth muscle involved by tumor, no epidermal involvement, no lymphovascular invasion, margins negative. Two lymph nodes examined, both negative. Patient was unable to tolerate adjuvant chemotherapy. She now presents with large left pleural effusion with compressive atelectasis of left lung. Right hilar mass with extension to right lower lobe, right parahilar, subcarinal and infrahilar matted lymphadenopathy. Right axillary and upper retroperitoneal adenopathy. Possibilities here are primary metastatic lung cancer versus metastatic breast cancer. She underwent diagnostic and therapeutic left thoracentesis yesterday. Cytology report awaited. She was advised to follow-up next week in oncology clinic for discussion about further management. Thank you. - Time Spent With Patient Time Spent with Patient (in minutes): 10
--- NOTE | 2023-06-24 10:31 | HO.PM.IMPN ---
Subjective Subjective Date of Service: 06/24/23 <Nicole Joiner - Last Filed: 06/24/23 11:00> 06/24/23 <Antolin Kc MD - Last Filed: 06/24/23 11:21> Interval History: She is doing better today. Reports SOB has improved. Denies CP, fever, chills, abdominal pain. <Nicole Joiner - Last Filed: 06/24/23 11:00> Review of Systems Review of Systems: Yes all other systems are reviewed and are negative <Nicole Joiner - Last Filed: 06/24/23 11:00> Physical Exam Vital Signs: Vital Signs: Last Vital Signs Temp 97.6 F 06/24/23 07:28 Pulse 83 06/24/23 07:28 Resp 16 06/24/23 07:28 BP 145/80 H 06/24/23 07:28 Pulse Ox 93 06/24/23 07:28 O2 Del Method Room Air 06/24/23 07:28 BMI result Body Mass Index 19.3 <Nicole Joiner - Last Filed: 06/24/23 11:00> Constitutional: Alert, thin, frail-looking, in no acute distress. Respiratory: Clear to auscultation bilaterally Cardiovascular: Irregularly irregular rhythm. No murmurs, rubs, or gallops. Gastrointestinal: Abdomen soft, non-tender, non-distended. Normal bowel sounds. Skin: Warm, dry. Extremities: No edema Psychiatric: Normal mood and affect. <Nicole Joiner - Last Filed: 06/24/23 11:00> Objective Data Active Medications Acetaminophen (Acetaminophen 325 Mg Tablet) 650 mg PO Q6H PRN PRN Reason: Pain, Mild (Pain Scale 1-3) Last Admin: 06/23/23 20:26 Dose: 650 mg Documented By: KINGS Atorvastatin Calcium (Atorvastatin Calcium 80 Mg Tablet) 80 mg PO BEDTIME RADHA Last Admin: 06/23/23 20:26 Dose: 80 mg Documented By: KINGS Benzonatate (Benzonatate 100 Mg Capsule) 100 mg PO TID PRN PRN Reason: Cough Docusate Sodium (Docusate Sodium 100 Mg Capsule) 100 mg PO DAILY PRN PRN Reason: Constipation Ceftriaxone Sodium 1 gm/ (Sodium Chloride) 50 mls @ 100 mls/hr IV Q24H [facility] Last Infusion: 06/23/23 15:25 Dose: Infused Documented By: LEVAR Isosorbide Mononitrate (Isosorbide Mononitrate 60 Mg Tab.Er.24h) 60 mg PO DAILY [facility]; Protocol Last Admin: 06/24/23 09:01 Dose: 60 mg Documented By: LEVAR Melatonin (Melatonin 3 Mg Tablet) 6 mg PO BEDTIME PRN PRN Reason: Insomnia Metoprolol Succinate (Metoprolol Succinate Er 25 Mg Tab.Er.24h) 25 mg PO DAILY [facility]; Protocol Last Admin: 06/24/23 09:01 Dose: 25 mg Documented By: LEVAR Nystatin (Nystatin Oral Susp 500,000 Unit/5 Ml Oral.Susp) 400,000 unit PO QID [facility]; Protocol Last Admin: 06/24/23 09:01 Dose: 400,000 unit Documented By: LEVAR Ondansetron HCl (Ondansetron Hcl 4 Mg/2 Ml Vial) 4 mg IVPUSH Q8H PRN PRN Reason: Nausea and Vomiting Sodium Chloride (0.9 % Sodium Chloride Flush 3 Ml Syringe) 3 ml IVFLUSH QSHIFT [facility] Last Admin: 06/24/23 09:01 Dose: 3 ml Documented By: LEVAR <Nicole Joiner - Last Filed: 06/24/23 11:00> Labs CBC & Chem 7: 06/22/23 16:09 06/22/23 16:09 <Nicole Joiner - Last Filed: 06/24/23 11:00> Labs: Laboratory Results - last 24 hr 06/23/23 14:25 Pleural pH 7.49 Pleural WBC 0.298 Pleural RBC < 0.002 Pleural Total Protein 3.9 Pleural Albumin 2.7 Pleural LDH 138 Pleural Glucose 83 Pleural Amylase 32 <Nicole Joiner - Last Filed: 06/24/23 11:00> Microbiology Microbiology Results: Microbiology 06/23/23 14:25 Gram Stain - Final Thoracentesis Fluid 06/22/23 18:17 Blood Culture - Preliminary Blood - Venous No growth after 24 hours. 06/22/23 17:24 Blood Culture - Preliminary Blood - Venous No growth after 24 hours. <Nicole Joiner - Last Filed: 06/24/23 11:00> Assessment and Plan (1) Elevated brain natriuretic peptide (BNP) level: Status: Acute <Nicole Joiner - Last Filed: 06/24/23 11:00> (2) Pleural effusion, left: Status: Acute <Nicole Joiner - Last Filed: 06/24/23 11:00> (3) Lung mass: Status: Acute <Nicole Joiner - Last Filed: 06/24/23 11:00> Assessment and Plan: Pt is an 87-year-old female with a PMH significant for?HTN, metaplastic breast cancer s/p lumpectomy 08/2020, HLD, CAD, and hx of diverticulitis who presents to the ED with?increasing shortness of breath, cough, orthopnea, and swelling in ankles for the past 3 weeks. Pt will be admitted to the hospital for treatment and further evaluation of acute hypoxic respiratory failure in the setting of large left pleural effusion likely secondary to metastasis to the lung s/p thoracentesis performed on 06/24/23. Left pleural effusion, parapneumonic vs malignant effusion given history of breast CA and pulmonoary mass s/p thoracentesis 06/24 - Pleural fluid analysis not infectious; likely due to malignancy as above. - Continue Ceftriaxone for parapneumonic effusion Pulmonoary mass--likely malignant could be primary or mets - Oncology following Acute hypoxic respiratory failure--likely related to above - Patient at 93% on room air today, no acute respiratory distress. New onset AFib - Likely secondary to left pleural effusion - Cardiology recommended metoprolol 25mg QD; recommends against anticoagulation with Eliquis if hospice is planned - Echo showed EF of 50-55%, mild/mod mitral regurgitation, and trivial pericardial effusion - Monitor on telemetry Elevated BNP - Likely secondary to large left pleural effusion, possibly new onset AFib - No acute HF on echocardiogram - Monitor patient for symptoms CAD/HLD - Continue statin, isosorbide mononitrate - Restart aspirin post thoracentesis HLD - Continue metoprolol Mild protein malnutrition - ensure Thrush - Nystatin Full Code DVT Prophylaxis: Begin SC heparin need for inpatient: work up for hypoxia related to pulmonary mass <Nicole Joiner - Last Filed: 06/24/23 11:00> Pt is an 87-year-old female with a PMH significant for?HTN, metaplastic breast cancer s/p lumpectomy 08/2020, HLD, CAD, and hx of diverticulitis who presents to the ED with?increasing shortness of breath, cough, orthopnea, and swelling in ankles for the past 3 weeks. Pt will be admitted to the hospital for treatment and further evaluation of acute hypoxic respiratory failure in the setting of large left pleural effusion likely secondary to metastasis to the lung s/p thoracentesis performed on 06/24/23. Left pleural effusion, parapneumonic vs malignant effusion given history of breast CA and pulmonoary mass s/p thoracentesis 06/23 - Pleural fluid analysis doesn't appear infectious; likely due to malignancy as above. - Continue Ceftriaxone for parapneumonic effusion Pulmonoary mass--likely malignant could be primary or mets from breast ca - Oncology to come up with a management options Acute hypoxic respiratory failure--likely related to above - Patient at 93% on room air today, no acute respiratory distress. New onset AFib - Likely secondary to left pleural effusion - Cardiology recommended metoprolol 25mg QD; recommends against anticoagulation with Eliquis if hospice is planned - Echo showed EF of 50-55%, mild/mod mitral regurgitation, and trivial pericardial effusion - Monitor on telemetry Elevated BNP - Likely secondary to large left pleural effusion, possibly new onset AFib - No acute HF on echocardiogram - Monitor patient for symptoms CAD/HLD - Continue statin, isosorbide mononitrate - Restart aspirin post thoracentesis HLD - Continue metoprolol Mild protein malnutrition - ensure Thrush - Nystatin Full Code DVT Prophylaxis: Begin SC heparin need for inpatient: work up for hypoxia related to pulmonary mass PT eval for disposition <Antolin Kc MD - Last Filed: 06/24/23 11:21> Quality Stroke Does the patient have a stroke diagnosis?: No <Nicole Joiner - Last Filed: 06/24/23 11:00> VTE Prior VTE?: No <Nicole Joiner - Last Filed: 06/24/23 11:00> VTE Risk Level:: Medical - moderate - high <Nicole Joiner - Last Filed: 06/24/23 11:00> VTE Device Contraindication: N/A - Device Ordered <Nicole Joiner - Last Filed: 06/24/23 11:00> VTE Drug Contraindication: Treatment Not Indicated <Nicole Joiner - Last Filed: 06/24/23 11:00>
[2023-06-24] MEDS: Heparin Sodium,Porcine 5,000 UNIT/ML VIAL 5000 UNIT SUBCUT (11:18)
[2023-06-24] MEDS: Aspirin Enteric Coated 81 MG TABLET.DR PO (11:28)
--- NOTE | 2023-06-24 11:37 | HO.WOUND ---
Wound Consult: Initial 87yr old?F admitted to [facility] on 06/22/23 - See progress notes and H&P for detailed history.? Wound consult placed for Buttock wound POA.? Patient agreeable to assessment and photo documentation.? Patient reports she fell asleep in her recliner chair approximately two weeks ago with a hot pack on her abdomen but was sitting on the remote for the electric heating pad and did not realize the pressure until she awoke from her nap. The wound presents with pressure injury indications along with friction and moisture. Of note the patient wears a brief she reports at all times and she was not agreeable to its removal. She was provided education on the brief adding to wound development as she is in bed and moisture and heat trapping - she reports understanding but refused removal. The wound bed is likely partial thickness however there is adherent slough to the wound bed therefore depth can not be appreciated and wound bed tissue observed - tropical dressing will aid in autolytic debridement and inpatient will continue to follow. Sacrum Etiology: ??Unstageable Pressure Injury Present on Admission Measurements: 3.5cm x 1.5cm x 0.2cm Wound Bed: moist adherent yellow pale slough Drainage / Odor: small amount of serosang noted on patient brief Edges: ? irregular and macerated Ashley wound: Bright red, pink, hyperpigmented tissue slow to andrei, macerated and moist - with evidence of friction - ? No Induration, Fluctuance noted Pain: pt reports pain Goals of Treatment: ? Off Load Pressure and Triad to aid in autolytic debridement and foam dressing to protect from moisture and friction Recommendations: 1. Turn and Reposition every 2 hours and as needed for patient comfort.? Use pillows or wedges to support off loading positions. 2. Off Load all bony prominences with use of pillows and heel boots if needed.? Apply Preventative foams where needed. ? 3. Monitor for incontinence and moisture control, use barrier creams when needed for prevention and treatment. 4. Provide adequate and supplemental nutrition.? 5. Order low air loss mattress. 6. When applicable maintain blood glucose levels per Providers order. 7. Sacrum - Discontinue Brief Use - Off Load Pressure with use of pillows - Cleanse with PH balance spray or wipes, pat dry. ?Apply thin layer of Triad to wound bed. Do not remove all of paste between applications as this may cause further skin damage.? Cover with foam dressing to aid in off loading and protection from friction. Change every other day and PRN. Re-consult wound care Nurse for wound deterioration or wound changes.
[2023-06-24 11:39] VITALS: BP 145/80; PULSE 83; O2SAT 93
[2023-06-24] MEDS: cefTRIAXone sodium 1 GM in 0.9 % Sodium Chloride 50 ML IV (14:02)
[2023-06-24 16:00] VITALS: BP 153/82; PULSE 93; RESP 18; TEMP 36.6; O2SAT 100
--- NOTE | 2023-06-24 17:47 | PM.EVENT ---
Event Note Date of Service: 06/24/23 Event Note: The patient wishes to undergo treatment if the pulmonary mass turns out to be malignant. Additionally, we have discussed the risk of stroke with atrial fibrillation (AFib) and the benefit of anticoagulation to reduce the risk of stroke. We further discussed that the bleeding risk will increase with anticoagulation. She stated that she has a history of diverticular bleeding in the past, and notwithstanding that, she wishes to give anticoagulation a trial. She will thus start on Eliquis 2.5 mg twice daily, given her tiny body frame Time Spent With Patient Time: Total time managing care of this patient today ____ minutes.
[2023-06-24 19:39] VITALS: BP 132/75; PULSE 98; RESP 17; TEMP 36.2; O2SAT 95
[2023-06-24] MEDS: Atorvastatin Calcium 80 MG TABLET PO (20:39)
[2023-06-24] MEDS: Apixaban 2.5 MG TABLET PO (20:39)
[2023-06-25 03:28] VITALS: BP 136/85; PULSE 80; RESP 17; TEMP 36.2; O2SAT 93
--- NOTE | 2023-06-25 06:53 | W.MHC.F2F ---
Service Date Service Date: 06/25/23 Encounter Date of encounter: 06/25/23 Reasons for Services Signs and symptoms assessed: weakness from hospialization Reason for physical therapy: home safety and mobility, therapeutic exercises and energy conservation Homebound: Leaving the home is medically contraindicated at this time without the asist of a device and/or another person due th the listed conditions above and below. Reason homebound: unsteady gait / fall risk and fall risk related to blood pressure changes Homebound supporting statement: homebound due to weakness from hospitalization, concern for new cancer and therefore needs the assistance of another person Certification: Based on the above findings, I certify that this patient is confined to the home and needs intermittent senior living care, physical therapy and/or speech therapy, or continues to need occupational therapy. The patient is under my care, and I have initiated the establishment of the plan of care. The patient will be followed by a physician who will periodically review the plan of care. Time Spent With Patient Time: Total time managing care of this patient today ____ minutes.
[2023-06-25 07:43] VITALS: BP 126/66; PULSE 84; RESP 17; TEMP 36.9; O2SAT 92
[2023-06-25] MEDS: Metoprolol Succinate ER 25 MG TAB.ER.24H PO (08:58)
[2023-06-25] MEDS: Apixaban 2.5 MG TABLET PO (08:58)
[2023-06-25] MEDS: Aspirin Enteric Coated 81 MG TABLET.DR PO (08:59)
[2023-06-25] MEDS: Isosorbide Mononitrate 60 MG TAB.ER.24H PO (08:59)
[2023-06-25] MEDS: Nystatin Oral Susp 500,000 UNIT/5 ML ORAL.SUSP 400000 UNIT PO (08:59)
[2023-06-25] MEDS: 0.9 % Sodium Chloride Flush 3 ML SYRINGE IVFLUSH (09:03)
--- NOTE | 2023-06-25 09:54 | P.DS_ITS ---
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 Patient was then started on chemotherapy but only received 1 cycle before developing a GI bleed secondary to hemorrhoids and diverticulitis. Patient required multiple transfusions at that time and chemotherapy was stopped. Patient did receive radiation and, according to son who was at bedside, responded well to that therapy. In the ED pt was tachycardic up to 104, tachypneic up to 26, hypertensive up to 164/89, slightly elevated temperature of 99.6 degrees, and satting as low as 89% on RA. Labs were significant for BNP 421 otherwise largely unremarkable and around baseline for the patient. No leukocytosis. Stable H&H. Platelets WNL. No electrolyte abnormalities. Creatinine slightly elevated at 1.05. Lactic acid WNL. Total bilirubin chronically elevated at 1.5, at baseline. CTA was significant for a large left pleural effusion with compressive atelectasis of the majority of left lung. Also found right hilar mass with extension to the right lower lobe, as well as right perihilar, subcarinal, and infrahilar matted lymphadenopathy or direct extension of the tumor. Also found irregularly shaped mass or loculated fluid in the lingula, multiple nodules in the right lower lobe and right infrahilar region, and right axillary and upper retroperitoneal adenopathy. EKG demonstrated atrial fibrillation with ST and T-wave abnormalities, but no significant ST elevations or depressions. In ED she was treated with furosemide 20 mg IV push and she was admitted to the hospital for treatment and further evaluation of acute hypoxic respiratory failure in the setting of large left pleural effusion likely secondary to metastasis to the lung. On 06/23/23 patient was evaluated by oncology (Dr. Urbina) who agree with pursuing thoracentesis which patient underwent on 06/23/23 by IR. 1500ml of fluid were drained from L. lung space and sent for analysis. She was also started on Ceftriaxone for parapneumonic effusion and post-procedural CXR showed decreased moderate left pleural effusion with left basilar consolidation. No gross pneumothorax appreciated.reinflation. Cardiology (Dr. Epps) evalutated patient on 06/23/23 and concluded elevated BNP was most likely due to RV strain from significant pleural effusion and hypoxemia and that patient did not appear to be in overt HF at time of evaluation without need for overall diuretics. Additionally, Dr. Epps reported that new onset Afib was also most likely due to hypoxemic respiratory failure and large pleural effusion. Her echocardiogram showed a low normal LV ejection fraction 50-55%, a moderately dilated left atri um, [id number] mitral regurgitation, normal RV systolic pressure, and a trivial pericardial effusion. She was recommended to start metoprolol ER 25mg QD for rate control. Ultimately, as patient elects to pursue further management of likely-malignant mass, and notwithstanding her history of diverticular bleeding in the past, patient elected to begin Eliquis 2.5 mg BID for anticoagulation in the setting of Afib on 06/24/23. She was also seen by PT on 06/24/23 who recommend patient be discharged with services. Pt has been scheduled for outpatient evaluation with Dr. Urbina on 06/30/2023. She is found to be stable at this time. She will be discharged today on metoprolol ER 25mg, Eliquis 2.5mg BID, Nystatin oral supsension 400k u QID for 4 additional days (7 days total of anti-candidal treatment) and Ceftin 500mg BID for 4 additional days (7 days total of antibiotic treatment) with plans for home services. CAD/HLD - Continue statin, isosorbide mononitrate - Continue aspirin HLD - Continue metoprolol Mild protein malnutrition - ensure <Nicole Joiner - Last Filed: 06/25/23 10:45> Status at Discharge Functional status at discharge: uses cane/walker <Nicole Joiner - Last Filed: 06/25/23 10:45> Overall status at discharge: patient is back to baseline <Nicole Joiner - Last Filed: 06/25/23 10:45> Time Attestation Discharge coordination time: Greater than 30 minutes <Nicole Joiner - Last Filed: 06/25/23 10:45> Quality: Safe Use of Opioids Does Pt have an Active Cancer Diagnosis on the Problem List?: Yes <Nicole Joiner - Last Filed: 06/25/23 10:45> Opioid Measure Date for CMS Report: 05/26/23 <Nicole Joiner - Last Filed: 06/25/23 10:45> 05/26/23 <Antolin Kc MD - Last Filed: 06/25/23 12:10> Opioid Measure Time for [facility] Report: 10:44 <Nicole Joiner - Last Filed: 06/25/23 10:45> 12:03 <Antolin Kc MD - Last Filed: 06/25/23 12:10> Quality: Stroke Does the patient have a stroke diagnosis?: No <Nicole Joiner - Last Filed: 06/25/23 10:45> Physical Exam Vital Signs: Vital Signs: Last Vital Signs Temp 98.5 F 06/25/23 07:43 Pulse 84 06/25/23 07:43 Resp 17 06/25/23 07:43 BP 126/66 06/25/23 07:43 Pulse Ox 92 06/25/23 07:43 O2 Del Method Room Air 06/25/23 07:43 BMI result Body Mass Index 19.3 <Nicole Joiner - Last Filed: 06/25/23 10:45> Constitutional: Alert, in no acute distress. Respiratory: Clear to auscultation bilaterally Cardiovascular: Irregularly irregular rhythm. No murmurs, rubs, or gallops. Skin: Warm, dry. Extremities: No edema Psychiatric: Normal mood and affect. <Nicole Sandersmandi - Last Filed: 06/25/23 10:45> DS: Data Data Completed and Pending Pending studies at discharge: Pending at discharge 06/23/23 14:25 Cytology [PTH] Stat <Nicole Mcconnellliza - Last Filed: 06/25/23 10:45> Labs on day of discharge: Preliminary micro results at discharge 06/23/23 14:25 Anaerobic Culture - Preliminary Thoracentesis Fluid No growth to date. 06/22/23 18:17 Blood Culture - Preliminary Blood - Venous No growth after 48 hours. 06/22/23 17:24 Blood Culture - Preliminary Blood - Venous No growth after 48 hours. <Nicole Sandersmandi - Last Filed: 06/25/23 10:45> Discharge Plan Discharge Anticipated Discharge Date/Time: 06/25/23 10:37 <Nicole Mcconnellliza - Last Filed: 06/25/23 10:45> Patient Disposition: Home Health Service <Nicole Sandersmandi - Last Filed: 06/25/23 10:45> Discharge Diagnosis: Left pleural effusion with lung mass and new onset atrial fibrillation <Nicole Brewstert Marilynmandi - Last Filed: 06/25/23 10:45> Left pleural effusion with lung mass and new onset atrial fibrillation <Antolin Mlapah, MD - Last Filed: 06/25/23 12:10> Referrals: Gale Loving MD [Primary Care Provider] - 1 Week <Nicole Joiner - Last Filed: 06/25/23 10:45> Discharge Medications: New Eliquis 2.5 mg Tablet 2.5 mg PO BID Qty: 60 0RF cefuroxime axetil 500 mg tablet 500 mg PO BID 7 Days Qty: 8 0RF Continued aspirin 81 mg tablet,delayed release (DR/EC) 81 mg PO DAILY 90 Days Qty: 90 3RF atorvastatin 80 mg tablet 80 mg PO BEDTIME Qty: 90 3RF isosorbide mononitrate 60 mg tablet extended release 24 hr 60 mg PO QAM Qty: 90 3RF metoprolol succinate 25 mg tablet extended release 24 hr 25 mg PO DAILY 90 Days Qty: 90 3RF acetaminophen 325 mg Tablet 650 mg PO BEDTIME acetaminophen 325 mg Tablet 325 mg PO DAILY <Nicole Joiner - Last Filed: 06/25/23 10:45> Discharge Orders: Discharge Order (Routine); Ordered 06/25/23 Ordered By: Antolin Kc <Nicole Joiner - Last Filed: 06/25/23 10:45> Diet: Advance to usual diet <Nicole Joiner - Last Filed: 06/25/23 10:45> Advance to usual diet <Antolin Kc MD - Last Filed: 06/25/23 12:10> Activity on Discharge: As tolerated <Nicole Joiner - Last Filed: 06/25/23 10:45> As tolerated <Antolin Kc MD - Last Filed: 06/25/23 12:10> Stand Alone Forms: Patient Portal Discharge page <Nicole Joiner - Last Filed: 06/25/23 10:45> Care Plan Goals: Recover from respiratory failure from pleural effusion. Follow up with oncologist outpatient for lung mass. Manage new onset atrial fibrillation <Nicole Joiner - Last Filed: 06/25/23 10:45> Health Concerns: Lung mass Atrial fibrillation <Nicole Joiner - Last Filed: 06/25/23 10:45> Plan of Treatment: Follow up with oncologist on outpatient basis for further management of lung mass. Continue metoprolol 25mg daily and Eliquis 2.5mg twice a day for atrial fibrillation. Follow up with your primary care provider in about 1 week. Finish taking antibiotics (Cefuroxime) for possible PNA, 500 mg twice daily for 4 more days <Nicole Joiner - Last Filed: 06/25/23 10:45> Assessment: As above <Nicole Joiner - Last Filed: 06/25/23 10:45>
[2023-06-25 11:59] LABS: CA 27.29 16 U/mL (<38)
--- NOTE | 2023-06-25 12:19 | MHC.CM.PN ---
IMM 06/23/23 Patient is discharged to home. Home services were ordered by . The patient declined the home services offered by [facility]. Her son will provide transportation home.
--- NOTE | 2023-06-25 14:27 | P.CDIM_ITS ---
PROVIDER RESPONSE TEXT: To clarify, the appropriate diagnosis supported by the clinical indicators: Pressure Injury unstageable sacrum QUERY TEXT: PHYSICIAN'S DOCUMENTATION REQUEST Date of Query: 06/25/2023 09:35 AM EST Patient Name: Clara Jordan Admit Date: 06/23/2023 Dear Antolin Kc, A review of the medical record indicates additional documentation may be needed. Please review below and update the documentation accordingly. Clinical Indicators: Wound care notes - Unstageable pressure injury sacrum Fluctuance noted Foam dressing Based on the above, could you please provide further information regarding the ulcer/wound/injury: Pressure Injury unstageable sacrum Other Other (explain) Clinically unable to determine (explain) Thank you, Vesna Davis, CCS, CDIS Use of terms such as suspected, likely, concern for, or probable (associated with a specific diagnosi s that is being evaluated, monitored, or treated as if it exists) are acceptable and can be coded in the inpatient se tting, when documented at the time of discharge. Please use your independent medical judgment in providing your response. THIS QUERY IS PART OF THE PERMANENT MEDICAL RECORD
== END 2023-06-25 14:07 | disposition home health service (06) | DRG 180 ==
LOC: HO.ED 17:11 → HO.EDOVER 21:33 → HO.S3 06-23 09:38
PROVIDERS: Emergency Medicine; Internal Medicine; Physician Assistant; Physician Assistant Surgical; Admitting Provider Student in an Organized Health Care Education/Training Program; Emergency Provider Internal Medicine; PCP Internal Medicine; Visit Provider Internal Medicine
DX: C78.01 Secondary malignant neoplasm of right lung (principal); J96.01 Acute respiratory failure with hypoxia; B37.0 Candidal stomatitis; J98.11 Atelectasis; J91.0 Malignant pleural effusion; E44.1 Mild protein-calorie malnutrition; Z68.1 Body mass index [BMI] 19.9 or less, adult; I25.10 Atherosclerotic heart disease of native coronary artery without angina pectoris; I34.0 Nonrheumatic mitral (valve) insufficiency; I48.91 Unspecified atrial fibrillation; L89.150 Pressure ulcer of sacral region, unstageable; C50.912 Malignant neoplasm of unspecified site of left female breast; E78.5 Hyperlipidemia, unspecified; Z20.822 Contact with and (suspected) exposure to COVID-19; Z79.82 Long term (current) use of aspirin; Z79.899 Other long term (current) drug therapy
CPT/HCPCS: 32555; 36415; 71045; 71275; 80048; 80076; 82042; 82150; 82378; 82945; 83605; 83615; 83735; 83880; 83986; 84157; 84484; 85025; 85610; 86300; 87040; 87070; 87073; 87205; 87635; 88112; 88305; 88342; 89051; 93005; 93306; 97162; 99285; J0696; J1644; J1940; Q9957; Q9967

== ENCOUNTER 2023-06-22 21:23 | Outpatient (BNV) | payer MEDICARE, SELFPAY | END 2023-06-23 07:00 | PROVIDERS: Admitting Provider Student in an Organized Health Care Education/Training Program; Emergency Provider Internal Medicine; PCP Internal Medicine; Visit Provider Internal Medicine Cardiovascular Disease | DX: I48.91 Unspecified atrial fibrillation (principal) | CPT/HCPCS: 93306 ==

== ENCOUNTER 2023-06-22 21:23 | Outpatient (BNV) | payer MEDICARE, SELFPAY | END 2023-06-23 14:05 | PROVIDERS: Admitting Provider Student in an Organized Health Care Education/Training Program; Emergency Provider Internal Medicine; PCP Internal Medicine; Visit Provider Student in an Organized Health Care Education/Training Program | DX: J90 Pleural effusion, not elsewhere classified (principal) | CPT/HCPCS: 32555 ==

== ENCOUNTER → 2023-06-22 21:23 | Outpatient (BNV) | payer MEDICARE, SELFPAY | PROVIDERS: Admitting Provider Student in an Organized Health Care Education/Training Program; Emergency Provider Internal Medicine; PCP Internal Medicine; Visit Provider Internal Medicine Cardiovascular Disease | DX: I48.91 Unspecified atrial fibrillation (principal); R79.89 Other specified abnormal findings of blood chemistry | CPT/HCPCS: 93010; 99222 ==

== ENCOUNTER → 2023-06-22 21:23 | Outpatient (BNV) | payer MEDICARE, SELFPAY | PROVIDERS: Admitting Provider Student in an Organized Health Care Education/Training Program; Emergency Provider Internal Medicine; PCP Internal Medicine; Visit Provider Internal Medicine | DX: J90 Pleural effusion, not elsewhere classified (principal) | CPT/HCPCS: 99222; 99231 ==

== ENCOUNTER → 2023-06-22 21:23 | Outpatient (BNV) | payer MEDICARE, SELFPAY | PROVIDERS: Admitting Provider Student in an Organized Health Care Education/Training Program; Emergency Provider Internal Medicine; PCP Internal Medicine; Visit Provider Internal Medicine | DX: I48.91 Unspecified atrial fibrillation (principal); J96.01 Acute respiratory failure with hypoxia; J90 Pleural effusion, not elsewhere classified; R91.8 Other nonspecific abnormal finding of lung field | CPT/HCPCS: 99223; 99232; 99239; G0180 ==

== ENCOUNTER 2023-07-04 09:06 | Outpatient (REF) | payer MEDICARE, SELFPAY ==
--- NOTE | ~2023-07-04 | US_ITS ---
PROCEDURE: US GUIDED AXILLARY LYMPH NODE BIOPSY, RIGHT SIDE. CLINICAL INFORMATION: Patient has history of left breast CA treated with conservation therapy. Now presenting with bony metastasis to left ribs, pulmonary metastases, and po metastases, presumably from left breast CA. Biopsying right axillary lymph node for confirmation of histology. COMPARISON: Correlation made with CT angiogram chest performed 06/22/2023 PROCEDURAL DETAILS: The details of the procedure, as well as the risks, benefits, and alternatives to the procedure were explained to the patient in detail and all of her questions were answered, after which written informed consent was obtained. Site and side were confirmed. Prior to the procedure, sonography revealed a pathologically enlarged centrally necrotic right axillary lymph node, measuring approximately 2.5 x 3.5 x 3.3 cm, with cortex measuring up to 9 mm thick, and robust vascular flow to the cortex which was not necrotic. A time-out was performed, the lesion intended for biopsy was targeted, and the skin of the right axilla was then marked, prepped and draped in the usual sterile fashion. Using sonographic guidance, sterile technique, and 1% lidocaine without epinephrine for local anesthesia, multiple core biopsies were obtained through the nonnecrotic edge of the node with a 14G spring loaded [employer] (formerly [employer]era core biopsy device. There was real-time confirmation of appropriate needle passage. Sampling was documented. At the completion of tissue sampling, a single butterfly-shaped metallic clip was deposited at the biopsy site. There was no evidence of immediate complication. No evidence of hematoma. No significant bleeding. SPECIMEN: 4 well formed core samples were obtained; one was sent for flow cytometry. DIGITAL POST-PROCEDURE MAMMOGRAPHY: Not performed. US/US biopsy lymph node IMPRESSION: 1. No immediate complication from ultrasound-guided percutaneous biopsy of pathologic partially necrotic right axillary lymph node. 2. Ultrasound was used to localize and guide marker clip placement. 3. Postprocedure mammogram was not performed, due to the location of the biopsied lymph node. Biopsy clip appears well-positioned sonographically. 4. Final pathology results are pending. A separate report with final recommendations will be issued once these results are made available.
--- NOTE | ~2023-07-04 | US_ITS ---
PROCEDURE: US GUIDED AXILLARY LYMPH NODE BIOPSY, RIGHT SIDE. CLINICAL INFORMATION: Patient has history of left breast CA treated with conservation therapy. Now presenting with bony metastasis to left ribs, pulmonary metastases, and po metastases, presumably from left breast CA. Biopsying right axillary lymph node for confirmation of histology. COMPARISON: Correlation made with CT angiogram chest performed 06/22/2023 PROCEDURAL DETAILS: The details of the procedure, as well as the risks, benefits, and alternatives to the procedure were explained to the patient in detail and all of her questions were answered, after which written informed consent was obtained. Site and side were confirmed. Prior to the procedure, sonography revealed a pathologically enlarged centrally necrotic right axillary lymph node, measuring approximately 2.5 x 3.5 x 3.3 cm, with cortex measuring up to 9 mm thick, and robust vascular flow to the cortex which was not necrotic. A time-out was performed, the lesion intended for biopsy was targeted, and the skin of the right axilla was then marked, prepped and draped in the usual sterile fashion. Using sonographic guidance, sterile technique, and 1% lidocaine without epinephrine for local anesthesia, multiple core biopsies were obtained through the nonnecrotic edge of the node with a 14G spring loaded [employer] core biopsy device. There was real-time confirmation of appropriate needle passage. Sampling was documented. At the completion of tissue sampling, a single butterfly-shaped metallic clip was deposited at the biopsy site. There was no evidence of immediate complication. No evidence of hematoma. No significant bleeding. SPECIMEN: 4 well formed core samples were obtained; one was sent for flow cytometry. DIGITAL POST-PROCEDURE MAMMOGRAPHY: Not performed. US/US breast RT limited mamm only IMPRESSION: 1. No immediate complication from ultrasound-guided percutaneous biopsy of pathologic partially necrotic right axillary lymph node. 2. Ultrasound was used to localize and guide marker clip placement. 3. Postprocedure mammogram was not performed, due to the location of the biopsied lymph node. Biopsy clip appears well-positioned sonographically. 4. Final pathology results are pending. A separate report with final recommendations will be issued once these results are made available.
[2023-07-04] MEDS: Sodium Bicarbonate 8.4% 50 MEQ/50 ML VIAL SUBCUT (11:14)
[2023-07-04] MEDS: Lidocaine HCl 1 % 20 ML VIAL 9 ML SUBCUT (11:17)
== END 2023-07-04 09:07 | disposition home or self-care (01) ==
LOC: HO.MAMMO 09:06
PROVIDERS: Radiology Diagnostic Radiology; PCP Internal Medicine; Visit Provider Internal Medicine
DX: C50.912 Malignant neoplasm of unspecified site of left female breast (principal); C77.3 Secondary and unspecified malignant neoplasm of axilla and upper limb lymph nodes
CPT/HCPCS: 36415; 38505; 76642; 76942; 88184; 88185; 88300; 88305; 88341; 88342; 88360; A4648; C1894

== ENCOUNTER → 2023-07-04 09:10 | Outpatient (BNV) | payer MEDICARE, SELFPAY | PROVIDERS: PCP Internal Medicine; Visit Provider Radiology Diagnostic Radiology | DX: R59.0 Localized enlarged lymph nodes (principal); C50.912 Malignant neoplasm of unspecified site of left female breast | CPT/HCPCS: 38505; 76642; 76942 ==

== ENCOUNTER 2023-07-16 19:41 | Inpatient (IN) | payer MEDICARE, SELFPAY ==
--- NOTE | ~2023-07-16 | XR_ITS ---
EXAMINATION: XR BILATERAL HIPS WITH AP PELVIS CLINICAL INFORMATION: Pain. COMPARISON: None available. TECHNIQUE: AP view of the pelvis and single views of each hip were obtained. FINDINGS: The bony structures are osteopenic. The joint spaces are fairly well maintained for patient age. No fracture seen. There is lower lumbar disc degenerative change. The soft tissues are unremarkable. XR/XR hip BI w PEL1V IMPRESSION: Osteopenia. No fracture or dislocation. Lower lumbar disc degenerative change.
--- NOTE | ~2023-07-16 | XR_ITS ---
EXAMINATION: RIGHT TIBIA AND FIBULA AND RIGHT FOOT CLINICAL INFORMATION: Leg gave out COMPARISON: None TECHNIQUE: 2 views right tib-fib, 3 views right foot FINDINGS: There is generalized osteopenia. Degenerative changes are present in the knee joint as well as the visualized ankle joint. Degenerative changes are also present at the metatarsal phalangeal joints and interphalangeal joints. No fractures or bony destructive lesions are seen. XR/XR tibia fibula RT 2V IMPRESSION: Degenerative changes as described above. No evidence of an acute osseous injury.
--- NOTE | ~2023-07-16 | US_ITS ---
History: Breast cancer. Pleural effusion. Dyspnea Procedure performed: Ultrasound-guided left thoracentesis Psychiatric Nurse Practitioner: Nat Francis MD FSIR Anesthesia: 8 mL 1% lidocaine Specimen: 800 mL of serosanguinous fluid from the left chest. Drain: 5 Chinese Yueh catheter Estimated blood loss: Minimal Complications: None Procedure in detail: Informed and written consent was obtained and placed in the chart. Ultrasound of the left chest showed a moderate size loculated effusion. The overlying skin on the left side was prepped and draped. 1% lidocaine was injected under ultrasound guidance to the pleural surface. A small incision was made in the skin with a #11 blade. Through the incision and under ultrasound guidance with permanent recordings and direct visualization of needle entry into the pleural space, a 5 Chinese Yueh catheter was advanced into the left pleural space. The needle was removed. The catheter was connected to suction yielding 600 mL of serosanguinous fluid. We repeated the drainage at a location superolateral to the initial drainage as there was extensive loculation and we wanted to obtain more fluid. An additional 200 mL of serosanguineous fluid was removed. A sterile dressing was applied. Subsequent chest x-ray showed no evidence of a pneumothorax. Summary: Successful ultrasound-guided left thoracentesis. Extensive loculation noted limiting complete drainage.
--- NOTE | ~2023-07-16 | XR_ITS ---
EXAMINATION: LEFT TIB-FIB AND LEFT FOOT CLINICAL INFORMATION: Fall COMPARISON: Left knee 02/03/2020 TECHNIQUE: 2 views left tib-fib, 3 views left foot FINDINGS: There is generalized osteopenia. Severe tricompartmental degenerative changes are seen in the knee, most markedly in the medial compartment with severe narrowing and osteophytes. A definite fracture is not visualized. Degenerative changes are present in the ankle joint. There are flexion deformities present involving the toes. Degenerative changes are present at the interphalangeal joints and the metatarsophalangeal joints. A definite fracture is not seen. XR/XR foot LT 2V IMPRESSION: No evidence of an acute osseous injury. Degenerative changes as described above.
--- NOTE | ~2023-07-16 | XR_ITS ---
EXAMINATION: XR CHEST CLINICAL INFORMATION: post left thoracentesis COMPARISON: Chest x-ray July 16, 2023 TECHNIQUE: Frontal portable view of the chest was obtained. 1415 hours FINDINGS: Continued left dense lung bases due to consolidation/atelectasis and left pleural effusion. There is decreased volume of left pleural effusion and improving aeration at the left lung base compared to prior study. The right lung remains normally aerated. No pulmonary vascular congestion. There is no pneumothorax. XR/XR chest 1V IMPRESSION: Improving aeration at left lung base with decreased volume of left pleural effusion. There is no pneumothorax.
--- NOTE | ~2023-07-16 | XR_ITS ---
EXAMINATION: RIGHT TIBIA AND FIBULA AND RIGHT FOOT CLINICAL INFORMATION: Leg gave out COMPARISON: None TECHNIQUE: 2 views right tib-fib, 3 views right foot FINDINGS: There is generalized osteopenia. Degenerative changes are present in the knee joint as well as the visualized ankle joint. Degenerative changes are also present at the metatarsal phalangeal joints and interphalangeal joints. No fractures or bony destructive lesions are seen. XR/XR foot RT 2V IMPRESSION: Degenerative changes as described above. No evidence of an acute osseous injury.
--- NOTE | ~2023-07-16 | XR_ITS ---
EXAMINATION: LEFT TIB-FIB AND LEFT FOOT CLINICAL INFORMATION: Fall COMPARISON: Left knee 02/03/2020 TECHNIQUE: 2 views left tib-fib, 3 views left foot FINDINGS: There is generalized osteopenia. Severe tricompartmental degenerative changes are seen in the knee, most markedly in the medial compartment with severe narrowing and osteophytes. A definite fracture is not visualized. Degenerative changes are present in the ankle joint. There are flexion deformities present involving the toes. Degenerative changes are present at the interphalangeal joints and the metatarsophalangeal joints. A definite fracture is not seen. XR/XR tibia fibula LT 2V IMPRESSION: No evidence of an acute osseous injury. Degenerative changes as described above.
--- NOTE | ~2023-07-16 | XR_ITS ---
EXAMINATION: XR CHEST CLINICAL INFORMATION: Fluid overload. COMPARISON: 06/23/2023. TECHNIQUE: Frontal view of the chest was obtained. FINDINGS: The patient is rotated. The cardiomediastinal silhouette is grossly stable. There is a left mid to lower lung field opacity with layering component. There is a nodular right perihilar opacity similar to previous. The bony structures are osteopenic. The soft tissues are unremarkable. XR/XR chest 1V IMPRESSION: 1. Left mid to lower lung field opacity with layering component likely representing a combination of pleural effusion and atelectasis. 2. Nodular right perihilar opacity similar to previous.
[2023-07-16 19:50] VITALS: BP 130/80; BP 133/83; PULSE 93; PULSE 95; RESP 16; O2SAT 92; O2SAT 94; BMI 19.2
--- NOTE | 2023-07-16 19:57 | PC.NURSE ---
Patient admitted after falling off chair at home. Patient resting comfortably on stretcher at this time. L eye of patient is almost pin point, with minimally accomodation noted. R eye normal pupil size. Both patient and son state eye has been like that for years
--- NOTE | 2023-07-16 20:06 | ECG_ITS ---
Test Reason : WEAKNESS Blood Pressure : / mmHG Vent. Rate : 086 BPM Atrial Rate : 000 BPM P-R Int : 000 ms QRS Dur : 106 ms QT Int : 376 ms P-R-T Axes : 000 004 172 degrees QTc Int : 449 ms Atrial fibrillation Minimal voltage criteria for LVH, may be normal variant ( [employer] product ) Septal infarct , age undetermined ST & T wave abnormality, consider lateral ischemia Abnormal ECG When compared with ECG of 22-JUN-2023 15:57, Septal infarct is now Present Non-specific change in ST segment in Anterior leads Referred By: Generic ED Physician Electronically Signed By:WILFREDO CALDERON MD
[2023-07-16 20:31] LABS: MANUAL DIFF FLAG NO
[2023-07-16 20:33] LABS: Basophils Absolute Auto 0.1 X10*3/uL (0.0-0.2); Basophils Percent Auto 0.5 % (0-2); Eosinophils Absolute Auto 0.2 X10*3/uL (0.0-0.4); Eosinophils Percent Auto 2.3 % (0-4); Hematocrit 44.8 % (37.0-47.0); Hemoglobin 15.4 g/dl (12.0-16.0); Imm Gran Abs Auto 0.06 X10*3/uL (0.00-0.03); Imm Gran Pct Auto 0.6 % (0.0-0.4); Lymphocytes Absolute Auto 0.4 X10*3/uL (1.2-4.9); Lymphocytes Percent Auto 4.2 % (20-40); Mean Corpuscular HGB Conc 34.4 g/dl (31.0-35.0); Mean Corpuscular Hemoglobin 29.8 pg (27.0-33.0); Mean Corpuscular Volume 86.8 fL (80.0-98.0); Mean Platelet Volume 9.9 fL (9.4-12.3); Monocytes Absolute Auto 1.2 X10*3/uL (0.1-1.2); Monocytes Percent Auto 11.3 % (2-11); Neutrophils Absolute Auto 8.4 x10*3/uL (2.0-8.3); Neutrophils Percent Auto 81.1 % (45-73); Platelet Count 195 X10*3/uL (160-400); Red Blood Count 5.16 X10*6/uL (4.20-5.50); Red Cell Distribution Width 15.3 % (11.0-16.0); White Blood Count 10.4 X10*3/uL (4.8-10.8)
[2023-07-16 21:00] LABS: B Type Natriuretic Peptide 405 pg/mL (<100)
[2023-07-16 21:05] LABS: Alanine Aminotransferase 33 U/L (0-31); Alkaline Phosphatase 88 U/L (39-117); Anion Gap 14 (12-20); Aspartate Amino Transferase 45 U/L (5-31); Bilirubin Total 2.5 mg/dL (0.0-1.0); Blood Urea Nitrogen 22 mg/dL (9-16); Calcium 9.4 mg/dL (8.4-10.2); Carbon Dioxide 32 mmol/L (22-29); Chloride 97 mmol/L (96-108); Creatinine Clr Calc Pharmacy 44.1; Estimated Glomerular Filt Rate > 60; Glucose Random 112 mg/dL (60-115); Magnesium 2.4 mg/dL (1.6-2.6); Potassium 2.9 mmol/L (3.3-5.1); Sodium 140 mmol/L (135-145); Total Protein 5.4 g/dL (6.5-8.0)
[2023-07-16 21:06] LABS: Troponin-I High Sensitivity 12.4 ng/L (<3.5-17.0)
[2023-07-16] MEDS: Potassium Chloride Packet 20 MEQ PACKET 40 MEQ PO (21:16)
[2023-07-16] MEDS: Potassium Chloride/H20 10 MEQ/100 ML PIGGYBACK 100 MEQ IV ×2 (21:33→23:06)
--- NOTE | 2023-07-16 21:38 | PC.NURSE ---
Patient and son informed K level low & replacement had been ordered. IV placed, PO K given, during IV placement patient threw up most of injested liquid, proivder made aware, additional IV and PO K ordered.
--- NOTE | 2023-07-16 21:46 | PC.NURSE ---
C-collar can be removed per provider. Removed with [employer].
[2023-07-16] MEDS: Potassium Chloride Packet 20 MEQ PACKET PO (22:21)
[2023-07-16] MEDS: ondansetron HCL 4 MG/2 ML VIAL IVPUSH (22:21)
[2023-07-16 22:24] VITALS: BP 148/91; PULSE 96; RESP 25; O2SAT 92
[2023-07-16 22:29] VITALS: TEMP 36.9
--- NOTE | 2023-07-16 22:49 | PC.NURSE ---
Patient changed with assistance of Shana Arciniega, Purewick placed, premiedcated with Zofran per mar, small open area on coccyx noted meplex applied.
[2023-07-17] VITALS (10 sets, daily range): BP systolic 114–136; BP diastolic 53–86; PULSE 70–96; RESP 16–26; TEMP 36–36.8; O2SAT 94–100; BMI 18.9
--- NOTE | 2023-07-17 01:29 | ED.GENADULT ---
HPI - General Adult General Chief complaint: Weakness Stated complaint: DIZZINESS WEAKNESS BREAST CA Time Seen by Provider: 07/16/23 20:10 Source: patient Mode of arrival: ambulatory Limitations: no limitations History of Present Illness HPI narrative: 87-year-old female history of left and right breast cancer, hypertension, AFib, heart failure, lung mass, presents to ED for falling episode. Son states he was helping patient get up from wheelchair to her walker and then patient states her leg gave out. Son and patient states patient did not fall to the ground. He gradually brought patient down to sit on her buttock. Patient denies having any chest pain, dizziness, nausea, vomiting before feeling like her legs were given out. Patient denies having any loss of consciousness or hitting head. Son states patient is supposed to start physical therapy next week due to patient's lower extremity being weak due to not walking much. Primary care provider realize patient needed physical therapy. Patient has not started physical therapy. Son states this has happened before. Patient presently is asymptomatic. Patient denies any chest pain, shortness of breath, headache, dizziness, or pain in extremities. Son did states patient is foot and legs were in awkward position when they give out. Related Data Previous Rx's Medication Instructions Recorded atorvastatin 80 mg tablet 80 mg PO BEDTIME #90 tabs 10/15/22 isosorbide mononitrate 60 mg 60 mg PO QAM #90 tabs 01/10/23 tablet,extended release 24 hr metoprolol succinate 25 mg 25 mg PO DAILY 90 days #90 tabs 01/10/23 tablet,extended release 24 hr apixaban 2.5 mg tablet (Eliquis) 2.5 mg PO BID #60 tabs 06/25/23 aspirin 81 mg tablet,delayed 81 mg PO DAILY #90 tabs 07/16/23 release Allergies Allergy/AdvReac Type Severity Reaction Status Date / Time No Known Allergies Allergy Verified 03/11/23 14:03 [No Known Allergies*] Review of Systems Review of Systems: Almost fall. Legs gave out. Yes all other systems are reviewed and are negative [facility] Past Medical History Medical History Metaplastic carcinoma of breast Pectus carinatum Increased bilirubin level COVID-19 vaccine administered Arthritis On anticoagulant therapy Elevated cholesterol Hypertension Coronary artery disease Surgical History History of lumpectomy of left breast History of right cataract surgery H/O colonoscopy Hx of cardiac catheterization Family History Family History Mother No problems noted. Father Prostate cancer Social History Social History Household Members: None Housing: Apartment Are you a primary lpn care manager to a significant other at home: No Do you presently have visiting nurse or other home services: Yes Alcohol intake: never Patient Tobacco Use Status: Never used Tobacco Use of substances other than those prescribed or required for medical reasons: No Have you been hit, kicked, punched, or otherwise hurt by someone within the past year? If so, by whom?: No Do you feel safe in your current relationship?: No Current Relationship Advance Directives Date on File: 06/22/23 Do you have thoughts of harming others: None Do you have a plan to hurt others: No Plan Do you have the means to hurt others: No service: No Current occupational status: retired Physical Exam ED Vital Signs: Vital Signs - 24 hr 07/16/23 19:50 07/16/23 22:24 07/16/23 22:29 Temperature 98.4 F Pulse Rate 95 96 Respiratory Rate 16 25 H Blood Pressure 133/83 148/91 H Pulse Oximetry 94 92 Oxygen Delivery Method Nasal Cannula Room Air 07/17/23 00:24 Temperature Pulse Rate 89 Respiratory Rate 20 Blood Pressure 124/79 Pulse Oximetry 95 Oxygen Delivery Method Room Air BMI result Body Mass Index 19.2 Const General: cooperative, healthy appearing, comfortable, no acute distress, well developed, alert, awake and Physically active Orientation/consciousness: oriented to person, oriented to place, oriented to time and patient oriented x3 HENMT Head: Yes normal to inspection, Yes No palpable skull fracture present, Yes normocephalic, Yes atraumatic and No abrasion Ears: hearing grossly normal bilaterally, external ears normal, TM's normal bilaterally, TM normal on the right, TM normal on the left, mastoids normal and no periauricular adenopathy Eyes General: appearance normal, both eyes and all related structures Visual Yi: normal visual yi by confrontation Alignment and Position: alignment normal Periorbital: periorbital findings normal Conjunctivae: conjunctivae normal Sclerae: sclerae normal Corneas: corneas normal Pupils: Equal, round and reactive pupils present Neck Neck: Yes normal visual inspection, Yes full ROM, Yes no lymphadenopathy, Yes no meningeal signs, Yes trachea midline, Yes supple, No anterior neck swelling and No tender Chest Chest palpation & inspection: normal inspection of the chest and normal palpation of entire chest wall Chest/axillae images: 1. Deformity with patient states she had since . Negative for any tenderness ecchymosis, or erythema. Negative for rash Resp Effort & Inspection: normal respiratory effort and able to speak in complete sentences Cardio Jugular venous distension: no JVD Heart sounds: S1 normal heart sound present and S2 normal heart sound present GI Inspection: Yes normal to inspection Palpation (GI): not firm, nontender, no guarding and not rigid General: Yes no CVA tenderness Back/Spine/Pelvis Back: no CVA tenderness and No back tenderness Skin General skin exam: no rashes or lesions noted, elasticity normal and turgor normal Neuro General: oriented to person, oriented to place, oriented to time, patient oriented x3, tone normal, moves all extremities, Normal light touch and pain sensation, no meningeal signs, no focal motor deficits, CN's II-XI intact bilaterally and normal sensation to monofilament Cranial nerves: Yes Equal, round and reactive pupils present Extrem Other: Negative for lower extremity swelling, calf pain, or tenderness. General: Yes normal to inspection and Yes full ROM Upper/lower leg/hip images: 1. Ecchymosis which son states is chronic. Negative for tenderness on palpation or deformity. Patient has complete range of motion of extremity. Motor neurovascular exam intact 2. Ecchymosis which son states is chronic. Negative for tenderness on palpation or deformity. Patient has complete range of motion of extremity. Motor neurovascular exam intact Psych Appearance: grossly normal, well kempt and not disheveled Medications Administered Discontinued Medications Generic Name Dose Route Start Last Admin Trade Name Freq PRN Reason Stop Dose Admin Acetaminophen 650 mg 07/17/23 02:20 07/18/23 20:56 Acetaminophen 325 Mg Tablet PO 650 mg Q6H PRN Administration Pain, Mild (Pain Scale 1-3) Apixaban 2.5 mg 07/18/23 21:00 07/19/23 08:45 Apixaban 2.5 Mg Tablet PO 2.5 mg BID RADHA Administration Aspirin 81 mg 07/19/23 09:00 07/19/23 08:45 Aspirin Enteric Coated 81 Mg Tablet.Dr PO 81 mg DAILY RADHA Administration Atorvastatin Calcium 80 mg 07/17/23 21:00 07/18/23 20:26 Atorvastatin Calcium 80 Mg Tablet PO 80 mg BEDTIME RADHA Administration Potassium Chloride 10 meq in 100 mls @ 100 mls/hr 07/16/23 21:03 07/16/23 22:54 Potassium Chloride/H20 IV 07/16/23 22:02 Infused ONCE ONE Infusion Potassium Chloride 10 meq in 100 mls @ 100 mls/hr 07/16/23 21:59 07/18/23 06:57 Potassium Chloride/H20 IV 07/16/23 22:58 Infused ONCE ONE Infusion Isosorbide Mononitrate 60 mg 07/17/23 09:00 07/19/23 08:45 Isosorbide Mononitrate 60 Mg Tab.Er.24h PO 60 mg DAILY RADHA Administration Protocol Lidocaine HCl 10 ml 07/17/23 14:09 07/17/23 14:10 Lidocaine Hcl 1 % Mpf 5 Ml Vial SUBCUT 07/17/23 14:10 10 ml ONCE ONE Administration Metoprolol Succinate 25 mg 07/17/23 09:00 07/19/23 08:45 Metoprolol Succinate Er 25 Mg Tab.Er.24h PO 25 mg DAILY [facility] Administration Protocol Ondansetron HCl 4 mg 07/16/23 21:59 07/16/23 22:21 Ondansetron Hcl 4 Mg/2 Ml Vial IVPUSH 07/16/23 22:00 4 mg ONCE ONE Administration Potassium Chloride 40 meq 07/16/23 21:03 07/16/23 21:16 Potassium Chloride Packet 20 Meq Packet PO 07/16/23 21:04 40 meq ONCE ONE Administration Potassium Chloride 20 meq 07/16/23 21:59 07/16/23 22:21 Potassium Chloride Packet 20 Meq Packet PO 07/16/23 22:00 20 meq ONCE ONE Administration Sodium Chloride 3 ml 07/17/23 08:00 07/19/23 08:45 0.9 % Sodium Chloride Flush 3 Ml Syringe IVFLUSH 3 ml QSHIFT RADHA Administration Medical Decision Making Medical Decision Making MDM Narrative: 87-year-old female history of hypertension, breast cancer, and possible lung cancer presents to ED for almost falling. Patient's was being helped by son from wheelchair to the walker patient states her legs gave out. Patient did not fall to the ground. Son was holding her and gradually brought her to sit onto her buttock on the ground. Patient denied having any dizziness, chest pain, shortness of breath, abdominal pain before legs giving out. Son states patient has chronic lower extremity weakness and her primary care provider recommend heard start physical therapy to strengthen her legs. Physical therapy starts next week. Son states this has happened before. Patient presently asymptomatic. Neuro exam intact. Cervical brace removed. Negative for signs of head trauma or cervical spine tenderness. Patient found to be hypokalemic. Patient initially given 40 mEq oral potassium with patient vomited out. So patient was given another potassium 20 oral and 20 IV. Patient's O2 saturation dropped to 92% on room air although patient not any distress. Patient was placed on 2 L were back up to 96. No obvious wheezing and lungs. BNP 400. Lower extremity x-ray is normal. Chest x-ray shows wet read shows worsening pleural effusion from last x-ray. Case discussed with Dr. Tavera HOspitalist for admission for possible Interventional thoracentesis. she will see patient to see if lasix is needed EKG rate control. Repeat troponin and potassium pending. No need for head CT cervical spine CT. No signs of trauma or stroke. 1:51 a, shows shows opacity/pleural effussion. 2 08a,: Case discussed with Dr. Tavera who saw patient who recommends holding Lasix due to patient being hypokalemic. She agreed chest x-ray of pleural effusion is worse and patient should be admitted. Differential Diagnosis Differential Diagnoses: The differential diagnosis associated with the presentation includes (Pneumonia, pleural effusion, CHF, NH, electrolyte abnormality, lower extremity fractures) Admission/Observation Consideration of admission/observation: Escalation of care including admission/observation considered Consult Healthcare Provider Management of the patient was discussed with: Hospitalist (Dr. Tavera) Lab Data MDM Lab Attestation statement: I reviewed the patient's lab results. 07/18/23 08:49 07/18/23 08:49 Labs: Lab Results 07/16/23 07/17/23 Range/Units 20:27 01:53 WBC 10.4 (4.8-10.8) X10*3/uL RBC 5.16 (4.20-5.50) X10*6/uL Hgb 15.4 (12.0-16.0) g/dl Hct 44.8 (37.0-47.0) % MCV 86.8 (80.0-98.0) fL MCH 29.8 (27.0-33.0) pg MCHC 34.4 (31.0-35.0) g/dl RDW 15.3 (11.0-16.0) % Plt Count 195 (160-400) X10*3/uL MPV 9.9 (9.4-12.3) fL Immature Gran % (Auto) 0.6 H (0.0-0.4) % Neut % (Auto) 81.1 H (45-73) % Lymph % (Auto) 4.2 L (20-40) % [place] % (Auto) 11.3 H (2-11) % Eos % (Auto) 2.3 (0-4) % Baso % (Auto) 0.5 (0-2) % Lymph # (Auto) 0.4 L (1.2-4.9) X10*3/uL [place] # (Auto) 1.2 (0.1-1.2) X10*3/uL Eos # (Auto) 0.2 (0.0-0.4) X10*3/uL Baso # (Auto) 0.1 (0.0-0.2) X10*3/uL Abs Immat Gran (auto) 0.06 H (0.00-0.03) X10*3/uL Absolute Neuts (auto) 8.4 H (2.0-8.3) x10*3/uL Absolute Nucleated RBC 0.000 (0.0-0.012) X10*3/uL Nucleated RBC % (auto) 0.0 (0.0-0.2) /100WBC PT 21.6 H D (11.1-13.3) SEC INR 1.8 H (0.9-1.1) APTT 39.4 H (26.0-36.8) SEC Sodium 140 (135-145) mmol/L Potassium 2.9 L* 4.7 D (3.3-5.1) mmol/L Chloride 97 (96-108) mmol/L Carbon Dioxide 32 H (22-29) mmol/L Anion Gap 14 (12-20) BUN 22 H (9-16) mg/dL Creatinine 0.77 (0.5-1.4) mg/dL Estim Creat Clear Calc 44.1 Estimated GFR > 60 Random Glucose 112 (60-115) mg/dL Calcium 9.4 (8.4-10.2) mg/dL Magnesium 2.4 (1.6-2.6) mg/dL Total Bilirubin 2.5 H (0.0-1.0) mg/dL AST 45 H (5-31) U/L ALT 33 H (0-31) U/L Alkaline Phosphatase 88 (39-117) U/L Troponin I High Sens 12.4 8.5 (<3.5-17.0) ng/L B-Natriuretic Peptide 405 H (<100) pg/mL Total Protein 5.4 L (6.5-8.0) g/dL Albumin 3.0 L (3.5-5.0) g/dL Independent Interpretation I performed an independent interpretation of an: EKG (Afib.) and Plain X-Ray Radiology Impression Discussion of test interpretation with radiology: I have reviewed the radiologist's reading. Critical Care Time Critical Care Time Critical Care Time: Yes Total Critical Care Time: 60 Attestation: Hypokalemia, pleural effusion, EKG potassium ordered. Patient placed on oxygen labs x-ray ordered. Lasix held as recommended by hospitalist Discharge Plan Discharge Clinical Impression: Pleural effusion, Acute hypokalemia Patient Disposition: Admitted As Inpatient Interventions: Admission Worksheet (ED) Last Done: 07/17/23 19:46 Discharge Date/Time: 07/17/23 20:27
[2023-07-17 02:05] LABS: INTERNATIONAL NORM RATIO 1.8 (0.9-1.1); Prothrombin Time 21.6 SEC (11.1-13.3)
[2023-07-17 02:08] LABS: Partial Thromboplastin Time 39.4 SEC (26.0-36.8)
[2023-07-17 02:11] LABS: Potassium 4.7 mmol/L (3.3-5.1)
[2023-07-17 02:21] LABS: Troponin-I High Sensitivity 8.5 ng/L (<3.5-17.0)
--- NOTE | 2023-07-17 03:08 | PC.NURSE ---
Assumed care pt at 2315. Pt alert and oriented. k infused and labs redrawn. VSS, IV line intact and patent. Plan is for pt to be admitted. Son at bedside and aware of plan.
--- NOTE | 2023-07-17 05:12 | P.HPHOSP_ITS ---
History of Present Illness Date of Service: 07/17/23 Attending physician on admission: Monster Kiran Chief Complaint: Weakness Nikki Elizabeth is a very pleasant 87 years old woman with past medical history significant for metastatic left breast cancer, right hilar mass atrial fibrillation on Eliquis + aspirin, hyperlipidemia and lung mass presents to the emergency department after falling. HPI was also provided by patient's son who was at bedside. According to son he was helping the patient to stand up and she became weak and a sister heard to sit on the floor. The patient denied significant shortness on breath, however, lately she does have some breathing difficulty with exertion and while talking. She did not report any chest pain, palpitations, dizziness or cough. There is no fever or chills reported. No gastrointestinal or genitourinary symptoms reported. Patient has been scheduled to have her 1st chemotherapy today. Patient follows with Dr. Urbina from Oncology Service. In the ED, she was found to have normal vital signs. She was started on supplemental oxygen via nasal cannula -2 L/min. Blood workup showed no leukocytosis. Potassium was found to be 2.9 and after supplementation increased to 4.7. Renal function is adequate. CO2 and BNP is elevated. CXR showed left mid to lower lung field opacity with layering component likely representing a combination of pleural effusion atelectasis. It also showed nodular right perihilar opacity similar to previous. Hips, legs and foot x-rays showed no fractures. ED tx: KCl 40 mEq p.o., KCl 20 mEq p.o., Zofran 4 mg IV, KCL 20 mEq IV. Review of Systems 2 Review of Systems: All 12 systems were reviewed and normal except as noted in HPI. [facility] Medical History Metaplastic carcinoma of breast Pectus carinatum Increased bilirubin level COVID-19 vaccine administered Arthritis On anticoagulant therapy Elevated cholesterol Hypertension Coronary artery disease Family History Mother No problems noted. Father Prostate cancer Surgical History History of lumpectomy of left breast History of right cataract surgery H/O colonoscopy Hx of cardiac catheterization Social History Household Members: None Housing: Apartment Are you a primary managed care director to a significant other at home: No Do you presently have visiting nurse or other home services: No Alcohol intake: never Patient Tobacco Use Status: Never used Tobacco Smoked in Last 30 Days: No Use of substances other than those prescribed or required for medical reasons: No Advance Directives: Yes Advance Directives on File: Yes Advance Directives Date on File: 06/22/23 service: No Current occupational status: retired Meds Allergies Allergy/AdvReac Type Severity Reaction Status Date / Time No Known Allergies Allergy Verified 03/11/23 14:03 [No Known Allergies*] Active Medications: Current Medications Acetaminophen (Acetaminophen 325 Mg Tablet) 650 mg PO Q6H PRN PRN Reason: Pain, Mild (Pain Scale 1-3) Sodium Chloride (0.9 % Sodium Chloride Flush 3 Ml Syringe) 3 ml IVFLUSH [facility] Home Medications Medication Instructions Recorded Confirmed Last Taken Type acetaminophen 325 mg tablet 650 mg PO BEDTIME 06/23/23 06/30/23 Unknown History Physical Exam 2 Vital Signs and Narrative: Vital Signs: Last Vital Signs Temp 98.0 F 07/17/23 02:15 Pulse 96 07/17/23 02:15 Resp 17 07/17/23 02:15 BP 116/62 07/17/23 02:15 Pulse Ox 97 07/17/23 02:15 O2 Del Method Room Air 07/17/23 02:15 Oxygen Flow Rate 2 07/16/23 19:50 BMI result Body Mass Index 19.2 Constitutional - Awake and Alert, No apparent distress. Chronically ill. HEENT - PERRL, EOMI Heart - S1S2, RRR, No edema Lungs - Normal lung expansion, Normal respiratory effort, No respiratory distress, Tachypnea. Decreased breath sounds at left base. Right lung is clear. Abdomen - NT / ND; +BS; No rebound or guarding - No CVA tenderness Extremities - no calf tenderness bilaterally, no swelling Musculoskeletal - Normal inspection, normal ROM Skin - Warm/Dry Neurological - Alert & oriented x3. No gross focal weakness. Normal speech. Normal behavior. Psychological - Appropriate affect Results Labs 07/16/23 20:27 07/17/23 01:53 Labs: Laboratory Results - last 24 hr 07/16/23 07/17/23 20:27 01:53 MCV 86.8 MCH 29.8 MCHC 34.4 RDW 15.3 Plt Count 195 MPV 9.9 Immature Gran % (Auto) 0.6 H Neut % (Auto) 81.1 H Lymph % (Auto) 4.2 L [place] % (Auto) 11.3 H Eos % (Auto) 2.3 Baso % (Auto) 0.5 Lymph # (Auto) 0.4 L [place] # (Auto) 1.2 Eos # (Auto) 0.2 Baso # (Auto) 0.1 Abs Immat Gran (auto) 0.06 H Absolute Neuts (auto) 8.4 H Absolute Nucleated RBC 0.000 Nucleated RBC % (auto) 0.0 PT 21.6 H D INR 1.8 H APTT 39.4 H Anion Gap 14 Estim Creat Clear Calc 44.1 Estimated GFR > 60 Random Glucose 112 Calcium 9.4 Magnesium 2.4 Total Bilirubin 2.5 H AST 45 H ALT 33 H Alkaline Phosphatase 88 Troponin I High Sens 12.4 8.5 B-Natriuretic Peptide 405 H Total Protein 5.4 L Albumin 3.0 L Imaging Radiologist's Impressions: Impressions Chest X-Ray 07/16/23 23:57 IMPRESSION: 1. Left mid to lower lung field opacity with layering component likely representing a combination of pleural effusion and atelectasis. 2. Nodular right perihilar opacity similar to previous. Foot X-Ray 07/16/23 23:57 IMPRESSION: No evidence of an acute osseous injury. Degenerative changes as described above. Foot X-Ray 07/16/23 23:57 IMPRESSION: Degenerative changes as described above. No evidence of an acute osseous injury. Hip/Pelvis X-Ray 07/16/23 23:57 IMPRESSION: Osteopenia. No fracture or dislocation. Lower lumbar disc degenerative change. Tibia/Fibula X-Ray 07/16/23 23:57 IMPRESSION: No evidence of an acute osseous injury. Degenerative changes as described above. Tibia/Fibula X-Ray 07/16/23 23:57 IMPRESSION: Degenerative changes as described above. No evidence of an acute osseous injury. Assessment and Plan (1) Acute hypokalemia: Status: Acute (2) Pleural effusion: Status: Acute (3) Lung mass: Status: Acute (4) Breast mass, left: Qualifiers: Breast mass location: unspecified quadrant Qualified Code(s): N63.20 - Unspecified lump in the left breast, unspecified quadrant Status: Acute (5) Atrial fibrillation: Qualifiers: Atrial fibrillation type: unspecified chronic Qualified Code(s): I48.20 - Chronic atrial fibrillation, unspecified Status: Acute (6) Hypertension: Qualifiers: Hypertension type: essential hypertension Qualified Code(s): I10 - Essential (primary) hypertension Status: Acute Plan Nikki Elizabeth is a very pleasant 87 years old woman with past medical history significant for metastatic left breast cancer admitted with: * Left pleural effusion, recurrent likely malignant. Admit to hospitalist service. Telemetry. Pulse oximetry. Continue supplemental oxygen to keep oxygen saturation above 90%. IR consult for thoracentesis. Hold aspirin and Eliquis. Oncology consult (pt was scheduled to get her first chemotherapy today. * Hypokalemia likely secondary to elevated CO2. Hypokalemia resolved. Possible chronic respiratory failure, dehydration. Will obtain venous blood gas. Continue to monitor K level. * Right hilar mass. Followed by oncology. * Hyperlipidemia. Continue atorvastatin. * Hypertension. Continue metoprolol. * Protein caloric malnutrition. BMI 19.2 kg/m2. Dietary consult. DVT prophylaxis: On Eliquis and aspirin (on hold for possible procedure), SCDs. Code status: DNR DNI. Patient will need hospitalization for at least 2 midnight for left pleural effusion treatment with supplemental oxygen and thoracentesis by IR service. Quality Stroke Does the patient have a stroke diagnosis?: No VTE Prior VTE?: No VTE Risk Level:: Medical - moderate - high VTE Device Contraindication: N/A - Device Ordered VTE Drug Contraindication: Treatment Not Indicated
--- NOTE | 2023-07-17 05:57 | PC.NURSE ---
Bladder scan 239ml at 05:57am.
--- NOTE | 2023-07-17 06:09 | PC.NURSE ---
PT bladder scan due to limited amount of output. 239ml scanned.
[2023-07-17 08:14] LABS: MANUAL DIFF FLAG NO
[2023-07-17 08:22] LABS: Basophils Absolute Auto 0.1 X10*3/uL (0.0-0.2); Basophils Percent Auto 0.5 % (0-2); Eosinophils Absolute Auto 0.2 X10*3/uL (0.0-0.4); Eosinophils Percent Auto 2.4 % (0-4); Hematocrit 44.5 % (37.0-47.0); Hemoglobin 14.9 g/dl (12.0-16.0); Imm Gran Abs Auto 0.07 X10*3/uL (0.00-0.03); Imm Gran Pct Auto 0.7 % (0.0-0.4); Lymphocytes Absolute Auto 0.5 X10*3/uL (1.2-4.9); Lymphocytes Percent Auto 4.7 % (20-40); Mean Corpuscular HGB Conc 33.5 g/dl (31.0-35.0); Mean Corpuscular Volume 89.7 fL (80.0-98.0); Mean Platelet Volume 9.7 fL (9.4-12.3); Monocytes Absolute Auto 1.2 X10*3/uL (0.1-1.2); Monocytes Percent Auto 11.6 % (2-11); Neutrophils Absolute Auto 8.2 x10*3/uL (2.0-8.3); Neutrophils Percent Auto 80.1 % (45-73); Platelet Count 182 X10*3/uL (160-400); Red Blood Count 4.96 X10*6/uL (4.20-5.50); Red Cell Distribution Width 15.5 % (11.0-16.0); Venous Blood Gas Refer to POC result; White Blood Count 10.2 X10*3/uL (4.8-10.8)
[2023-07-17 08:23] LABS: VBG Base Excess 9.7 mmol/L; VBG HCO3 35 mmol/L (22-26); VBG pCO2 51 mmHg; VBG pH 7.44 (7.32-7.43); VBG pO2 36 mmHg
[2023-07-17 08:31] LABS: Anion Gap 14 (12-20); Blood Urea Nitrogen 19 mg/dL (9-16); Calcium 8.8 mg/dL (8.4-10.2); Carbon Dioxide 30 mmol/L (22-29); Chloride 98 mmol/L (96-108); Creatinine Clr Calc Pharmacy 45.3; Estimated Glomerular Filt Rate > 60; Glucose Random 100 mg/dL (60-115); Potassium 4.1 mmol/L (3.3-5.1); Sodium 138 mmol/L (135-145)
[2023-07-17] MEDS: Isosorbide Mononitrate 60 MG TAB.ER.24H PO (09:14)
--- NOTE | 2023-07-17 09:14 | PHA.MEDREC ---
Pharmacy Consult ? Medication Reconciliation Pharmacy has completed the medication reconciliation.
[2023-07-17] MEDS: Metoprolol Succinate ER 25 MG TAB.ER.24H PO (09:15)
[2023-07-17] MEDS: 0.9 % Sodium Chloride Flush 3 ML SYRINGE IVFLUSH ×3 (09:15→21:17)
--- NOTE | 2023-07-17 09:26 | MHC.CM.PN ---
IMM 07/17/23, Pt lives alone, and said that her son is with her a lot of the time. HCP is on file: Jhony, and confirmed. She does not have home care, but said she has signed up for it. For med equip, she has a walker and is getting a shower bench. She has been a pt of [facility], her son will transport home upon DC. PCP: Gale Loving. CM to follow and assist with DC plan.
--- NOTE | 2023-07-17 12:57 | PM.EVENT ---
Event Note Date of Service: 07/17/23 Event Note: Seen and evaluated this morning Denies any fever or chills pending Thoracentesis wean down O2 as tolerated Time Spent With Patient Time: Total time managing care of this patient today ____ minutes.
--- NOTE | 2023-07-17 13:02 | MHC.CLN ---
NUTRITION CONSULT FOR MALNUTRITION. REVIEW OF WEIGHT HX SHOWS STABLE WEIGHT X ONE YEAR. PATIENT WITH METASTATIC BREAST CANCER. RECOMMEND LIBERALIZE DIET FROM CARDIAC TO REGULAR. LIBERALIZED DIET DUE TO ADVANCED AGE AND TO PROMOTE INTAKE. COMPLETE RISK ASSESSMENT TO FOLLOW UPON ADMISSION TO UNIT.
--- NOTE | 2023-07-17 13:22 | PC.NURSE ---
patient taken to IR for procedure
[2023-07-17] MEDS: Lidocaine HCl 1 % MPF 5 ML VIAL 10 ML SUBCUT (14:10)
--- NOTE | 2023-07-17 16:06 | MHC.EDTECH ---
THIS PCT ASSUMED CARE OF PATIENT AT 1500 ,VITALS TAKEN ,PATIENT BELONINGS LIST DONE ,PATIENT WAS INCONIENT OF URINE ,CARE GIVEN BY THIS PCT AND RN HARSH ,PATIENT REQUESTED TO WEAR HER OWN PULLS UP RN PIYUSH .
--- NOTE | 2023-07-17 17:14 | PC.NURSE ---
family remains at bedside, patient offering no complaints. per IR patient tolerated procedure well. 900cc drained - mostly serosangenous. patient has been placed on 2L nasal cannula, respirations even and unlabored.
--- NOTE | 2023-07-17 17:43 | P.CNHO_ITS ---
Subjective - Subjective Chief complaint: Consult for: 1. History of breast cancer. 2. Pleural effusion. Patient: new to practice Consult date: 07/17/23 Requesting Physician: Consult for: 1. History of breast cancer. 2. Pleural effusion. Primary Care Provider: Gale Loving MD Medical Summary: DIAGNOSIS: 1. BREAST CANCER. 2. PLEURAL EFFUSION. HPI - Consult Narrative Reason for consult: Consult for: 1. Pleural effusion. 2. History of breast cancer. Narrative: Clara Jordan is a 87 year old lady, presents to the ED S/P a fall. According to son he was helping the patient to stand up and she became weak and sat on the floor. She denied significant shortness on breath, however, lately she does have some breathing difficulty with exertion and while talking. She did not report any chest pain, palpitations, dizziness or cough. There is no fever or chills reported. No gastrointestinal or genitourinary symptoms reported. Patient was scheduled to have her 1st chemotherapy today. Patient follows with Dr. Urbina from Oncology Service. In the ED, she was found to have normal vital signs. She was started on supplemental oxygen via nasal cannula -2 L/min. Blood workup showed no leukocytosis. Potassium was found to be 2.9 and after supplementation increased to 4.7. Renal function is adequate. CO2 and BNP is elevated. CXR showed left mid to lower lung field opacity with layering component likely representing a combination of pleural effusion atelectasis. It also showed nodular right perihilar opacity similar to previous. Hips, legs and foot x-rays showed no fractures. ED tx: KCl 40 mEq p.o., KCl 20 mEq p.o., Zofran 4 mg IV, KCL 20 mEq IV. Past medical history significant for: 1. Metastatic left breast cancer, right hilar mass: Patient presented with palpable left breast mass in August 2020. No previous mammograms, bilateral mammography and ultrasound performed 08/30/2020 revealed irregular left breast retroareolar mass corresponding to palpable mass measuring 2 cm. Mammogram was read as BI-RADS 5 highly suspicious for malignancy. On exam, hard mass with worrisome features including in nipple retraction in fixation to the skin. Patient refused neoadjuvant chemotherapy. 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 Patient underwent lumpectomy with sentinel node biopsy on 10/02/2020, this revealed metaplastic carcinoma, grade 3, 2.8 cm, negative margins. Nipple smooth muscle involved by tumor, no epidermal involvement seen. MSBR Score 3, no lymphovascular invasion, margins negative. Two lymph nodes examined, both negative. Patient recieved 1 cycle of adjuvant chemotherapy with Taxotere/Cytoxan on 11/14/2020. Two weeks later she developed GI bleeding secondary to hemorrhoids and diverticulitis. At that time she was on aspirin and Plavix. Aspirin subsequently discontinued. 2. Atrial fibrillation on Eliquis + aspirin, hyperlipidemia and lung mass Review of Systems 2 Review of Systems: All 12 systems were reviewed and normal except as noted in HPI. [facility] Medical History: Metaplastic carcinoma of breast Pectus carinatum Increased bilirubin level COVID-19 vaccine administered Arthritis On anticoagulant therapy Elevated cholesterol Hypertension Coronary artery disease Surgical History: History of lumpectomy of left breast History of right cataract surgery Family History: Mother No problems noted. Father Prostate cancer Review of Systems - Constitutional Reports system reviewed and no additional complaints, except as documented, Reports frequent falls, Reports weakness, Reports weight loss, Denies fever(s), Denies weight gain - Eyes Reports system reviewed and no additional complaints, except as documented - ENT Reports system reviewed and no additional complaints, except as documented - Cardiovascular Reports system reviewed and no additional complaints, except as documented - Respiratory Reports no additional respiratory complaints, Reports dyspnea, Reports dyspnea on exertion - Gastrointestinal Reports system reviewed and no additional complaints, except as documented - Genitourinary Reports no additional female genitourinary complaints - Musculoskeletal Reports system reviewed and no additional complaints, except as documented - Integumentary/Breasts Skin/Breast: Reports no additional skin complaints - Neurologic Reports system reviewed and no additional complaints, except as documented - Psychiatric Reports system reviewed and no additional complaints, except as documented - Endocrine Reports no additional endocrine complaints - Hematologic/Lymphatic Reports system reviewed and no additional complaints, except as documented - Allergic/Immunologic Reports system reviewed and no additional complaints, except as documented Oncology Screenings - ECOG Performance Status ECOG Performance Status: 2 [facility] Medical History: Medical History (Last Reviewed 07/18/23 @ 09:38 by Negar Velez, PT) Arthritis Coronary artery disease COVID-19 vaccine administered Elevated cholesterol Hypertension Increased bilirubin level Metaplastic carcinoma of breast On anticoagulant therapy Pectus carinatum Functional capacity: wheelchair bound Patient : No Family History: Family History (Last Reviewed 06/23/23 @ 10:11 by Jesus Epps MD) Mother No problems noted. Father Prostate cancer Surgical History: Surgical History (Last Reviewed 07/18/23 @ 09:38 by Negar Velez PT) H/O colonoscopy History of lumpectomy of left breast History of right cataract surgery Hx of cardiac catheterization Social History: Social History (Last Reviewed 06/23/23 @ 10:11 by Jesus Epps MD) Living Situation History: Household Members: None Housing: Apartment Are you a primary direct care supervisor to a significant other at home: No Do you presently have visiting nurse or other home services: Yes Alcohol History Details: 1. How often do you have a drink containing alcohol?: a. Never Tobacco History: Patient Tobacco Use Status: Never used Tobacco Substance Use History: Use of substances other than those prescribed or required for medical reasons : No Domestic Abuse History: Have you been hit, kicked, punched, or otherwise hurt by someone within the past year? If so, by whom?: No Do you feel safe in your current relationship?: No Current Relationship Advance Directives: Advance Directives Date on File: 06/22/23 Homicidal Assessment: Do you have thoughts of harming others: None Do you have a plan to hurt others: No Plan Do you have the means to hurt others: No Occupation Assessmet: service: No Current occupational status: retired Home Medications and Allergies Current Medications: Current Medications Acetaminophen (Acetaminophen 325 Mg Tablet) 650 mg PO Q6H PRN PRN Reason: Pain, Mild (Pain Scale 1-3) Atorvastatin Calcium (Atorvastatin Calcium 80 Mg Tablet) 80 mg PO BEDTIME [facility] Isosorbide Mononitrate (Isosorbide Mononitrate 60 Mg Tab.Er.24h) 60 mg PO DAILY [facility]; Protocol Last Admin: 07/17/23 09:14 Dose: 60 mg Metoprolol Succinate (Metoprolol Succinate Er 25 Mg Tab.Er.24h) 25 mg PO DAILY [facility]; Protocol Last Admin: 07/17/23 09:15 Dose: 25 mg Sodium Chloride (0.9 % Sodium Chloride Flush 3 Ml Syringe) 3 ml IVFLUSH QSHIFT RADHA Last Admin: 07/17/23 09:15 Dose: 3 ml Allergies Allergy/AdvReac Type Severity Reaction Status Date / Time No Known Allergies Allergy Verified 03/11/23 14:03 [No Known Allergies*] Physical Exam Vital signs: Vital Signs Temp 97.7 F 07/17/23 15:50 Pulse 85 07/17/23 15:50 Resp 16 07/17/23 15:50 BP 125/73 07/17/23 15:50 Pulse Ox 98 07/17/23 15:50 O2 Del Method Nasal Cannula 07/17/23 15:50 O2 Flow Rate 2 07/17/23 15:50 Intake & Output 07/16/23 07/17/23 07/17/23 18:59 06:59 18:59 Intake Total 100 / 100 Balance 100 / 100 Intake: Intake, IV Amount 100 / 100 Potassium Chloride/H20 10 meq 100 / 100 In 100 ml @ 100 mls/hr IV ONCE ONE Rx#:[id number] Other: Number of Incontinent Voids 1 Weight 52.4 kg Weight 52.4 kg - Routine HEENT Exam Head: Present: normal inspection, normocephalic ENT: Present: mucous membranes moist - Routine Neck Exam Present: supple - Routine Respiratory Exam Present: decreased breath sounds, CTAB - Routine Cardiovascular Exam Cardiovascular: Present: S1, S2 - Routine Abdominal Exam Present: nontender - Routine Extremities Exam Present: nontender - Routine Skin Exam Present: intact - Routine Neurological Exam Present: alert, normal speech - Detailed Neurological Exam: Coma Scale Eye Opening: Spontaneous (4) Verbal Response: Oriented (5) Hem/Onc Consult Result - Labs CBC & Chem 7: 07/18/23 08:49 07/18/23 08:49 Labs: Short CBC 07/16/23 07/17/23 Range/Units 20:27 08:08 WBC 10.4 10.2 (4.8-10.8) X10*3/uL Hgb 15.4 14.9 (12.0-16.0) g/dl Hct 44.8 44.5 (37.0-47.0) % Plt Count 195 182 (160-400) X10*3/uL BMP 07/16/23 07/17/23 07/17/23 20:27 01:53 08:08 Sodium 140 138 Potassium 2.9 L* 4.7 D 4.1 Chloride 97 98 Carbon Dioxide 32 H 30 H BUN 22 H 19 H Creatinine 0.77 0.75 Calcium 9.4 8.8 D Liver Function 07/16/23 Range/Units 20:27 Total Bilirubin 2.5 H (0.0-1.0) mg/dL AST 45 H (5-31) U/L ALT 33 H (0-31) U/L Alkaline Phosphatase 88 (39-117) U/L Albumin 3.0 L (3.5-5.0) g/dL Assessment and Plan Patient Active problem list reviewed?: Yes (1) Carcinoma of left breast Status: Acute Assessment and plan: This is 87-year-old woman with left breast cancer diagnosed in August 2020. Stage pT2 N0 metaplastic carcinoma, ER/TX/HER2 negative. Patient underwent left breast lumpectomy with sentinel node biopsy on 10/02/2020, this revealed metaplastic carcinoma, grade 3, 2.8 cm, negative margins. Nipple smooth muscle involved by tumor, no epidermal involvement seen. Score 3, no lymphovascular invasion, margins negative. Two lymph nodes examined, both negative. Patient received 1 cycle of chemotherapy, Taxotere/Cytoxan on 11/14/2020. Unfortunately 2 weeks after treatment she developed severe lower GI bleeding secondary to diverticular disease and being on aspirin as well as Plavix. Aspirin has since been discontinued. She wanted to defer any further chemotherapy. She completed adjuvant radiation therapy. She recently developed a new left pleural effusion and right hilar mass. [place] [facility] [place] with complaints of shortness of breath. CEA and CA 27-29 not elevated. LDH normal at 172. CT of the chest from 06/22/2023 revealed: 1. No evidence of PE. 2. No evidence aortic dissection or aneurysm. 3. Large left pleural effusion with compressive atelectasis left lung. 4. There is a right hilar mass with extension to the right lower lobe superior segment. There is right parahilar, subcarinal and infrahilar matted lymphadenopathy or direct extension of tumor. 5. There are multiple nodules in the right lower lobe and right infrahilar region. 6. There is irregular shaped mass or loculated fluid in the lingula. 7. There is right axillary and upper retroperitoneal adenopathy. Pleural fluid cytology was negative for malignant cells. Patient wanted to pursue diagnosis and treatment. Ultrasound guided right axillary lymph node biopsy was done on 07/04: This revealed metastatic breast carcinoma. She has triple negative breast cancer. Patient was actually scheduled to begin albumin bound paclitaxel treatment today. However she was admitted today, after a fall with worsening shortness of breath. She was noted to have worsening left pleural effusion. She underwent ultrasound-guided thoracentesis today. Procedure note: The catheter was connected to suction yielding 600 mL of serosanguinous fluid. We repeated the drainage at a location superolateral to the initial drainage as there was extensive loculation and we wanted to obtain more fluid. An additional 200 mL of serosanguineous fluid was removed. The patient did feel more comfortable afterwards. PLAN: To continue to monitor her condition. She will be discharged to home once stable. Will arrange for chemotherapy with Abraxane, as an outpatient next week. Thank you for the consult, CC: Addendum: She was restarted on aspirin and Eliquis as he breathing improved and she was able to ambulate on room air with no dyspnea. . She has Frailty and Physical deconditioning and deemed High risk for falling as she was evaluated by PT. - Time Spent With Patient Time Spent with Patient (in minutes): 30
[2023-07-17 18:44] LABS: Appearance Urine Cloudy; Color Urine Dark Yellow; Glucose Urine UA Negative (Negative); Leukocyte Esterase Urine Trace (Negative); Nitrite Urine Negative (Negative); Specific Gravity - Urine 1.025 (1.005-1.025); UMIC TRIGGER UACC YES; Urine Blood Small (1+) (Negative); Urine Ketones Trace mg/dL (Negative); Urine Protein 300 (3+) mg/dL (Neg-Trace)
[2023-07-17 19:05] LABS: Bacteria Urine Trace (None Seen); WBC Urine 0-5 /HPF (0-5)
[2023-07-17] MEDS: Atorvastatin Calcium 80 MG TABLET PO (21:17)
[2023-07-17] MEDS: Acetaminophen 325 MG TABLET 650 MG PO (22:01)
[2023-07-18] VITALS (8 sets, daily range): BP systolic 120–130; BP diastolic 59–74; PULSE 69–93; RESP 18–20; TEMP 36–36.9; O2SAT 93–98; BMI 18.9
--- NOTE | 2023-07-18 01:54 | HO.SKINPHOTO ---
Location: left buttock Category: pressure injury/skin tear Stage: II Length: Width: Depth: cm
--- NOTE | 2023-07-18 05:45 | PC.NURSE ---
Patient admitted to s4 from the ED in the evening at 20:40 s/p fall at home. Imaging was negative for any acute issues. Pt is A&Ox4 though forgetful and easily distracted, requiring redirection during assessments questions. Afib with BBB on tele 70-80's. Patient denies sob and chest pain. Pt is s/p left chest thoracentesis in the ED earlier today. Bandaids to this site have old dried staining and are dry and intact. Pt's breathing is even and unlabored without distress on 2L nc with active order. Pt has continuous spo2 monitoring in place per order, sats maintained >95%. C/o mild pain in her back related to positioning, for which prn tylenol was given with +effect. Patient has scattered bruising to her extremities that is soft to palpation. Pt also has skin tears vs. open pressure injuries on her left buttock/coccyx region that she and her son report are from her heating pad controller that she was sleeping on at home prior to admission. Patient refused any form of barrier cream as well as refused offered purewick to assist with incontinence-related moisture control and optimal wound healing. Secure wound photo uploaded to pt chart and a wound care consult was placed. In-room camera and high falls safety measures remain in place. Call campos within reach and educated on use.
[2023-07-18] MEDS: 0.9 % Sodium Chloride Flush 3 ML SYRINGE IVFLUSH ×2 (08:25→20:26)
[2023-07-18] MEDS: Metoprolol Succinate ER 25 MG TAB.ER.24H PO (08:25)
[2023-07-18] MEDS: Isosorbide Mononitrate 60 MG TAB.ER.24H PO (08:25)
[2023-07-18 09:22] LABS: Hematocrit 46.3 % (37.0-47.0); Hemoglobin 15.1 g/dl (12.0-16.0); Mean Corpuscular HGB Conc 32.6 g/dl (31.0-35.0); Mean Corpuscular Hemoglobin 29.9 pg (27.0-33.0); Mean Corpuscular Volume 91.7 fL (80.0-98.0); Platelet Count 173 X10*3/uL (160-400); Red Blood Count 5.05 X10*6/uL (4.20-5.50); Red Cell Distribution Width 15.9 % (11.0-16.0); White Blood Count 9.1 X10*3/uL (4.8-10.8)
[2023-07-18 09:35] LABS: Anion Gap 17 (12-20); Blood Urea Nitrogen 19 mg/dL (9-16); Calcium 9.3 mg/dL (8.4-10.2); Carbon Dioxide 28 mmol/L (22-29); Chloride 100 mmol/L (96-108); Creatinine Clr Calc Pharmacy 45.8; Estimated Glomerular Filt Rate > 60; Glucose Random 78 mg/dL (60-115); Potassium 4.5 mmol/L (3.3-5.1); Sodium 140 mmol/L (135-145)
--- NOTE | 2023-07-18 12:20 | MHC.CLN ---
NUTRITION DIET=REGULAR. TAKES ENSURE AT HOME IN SIPS THROUGHOUT THE DAY. ADDING ENSURE MAX PROTEIN BID. PROVIDES 300 KCALS, 60 G PROTEIN. QUALIFIES MODERATELY MALNOURISHED IN THE CONTEXT OF CHRONIC ILLNESS. REGULAR DIET AND SUPPLEMENT APPROPRIATE. SKIN WITH STAGE II TO LEFT BUTTOCKS. PATIENT ATTRIBUTES AREA TO HEATING PAD. REPORTS THAT ATE BREAKFAST TODAY BUT DID NOT EAT LUNCH. FOLLOW FOR PO INTAKE AND SKIN INTEGRITY. SEE CLINICAL NUTRITION ASSESSMENT 07/18/23.
--- NOTE | 2023-07-18 14:33 | HO.PM.IMPN ---
Subjective Subjective Date of Service: 07/18/23 Interval History: Seen and evaluated this morning and afternoon feels better overall potassium corrected participated with PT weaned off O2 Review of Systems Review of Systems: Yes all other systems are reviewed and are negative Physical Exam Vital Signs: Vital Signs: Last Vital Signs Temp 97.0 F 07/18/23 11:54 Pulse 81 07/18/23 12:42 Resp 20 07/18/23 11:54 BP 127/62 07/18/23 12:42 Pulse Ox 96 07/18/23 12:42 O2 Del Method Room Air 07/18/23 11:54 O2 Flow Rate 2 07/18/23 07:58 Oxygen Flow Rate 2 07/16/23 19:50 BMI result Body Mass Index 18.9 Const: Other: Constitutional : Awake, interactive, frail looking, not in distress Neck : Normal inspection, Supple, chest wall mass left side Cardiovascular : RRR, no JVP, no lower extremity edema Respiratory : good bilateral air entry, no crackles, wheezes or rhonchi Gastrointestinal: soft, lax, Normal bowel sounds, Non tender Skin : Warm, Dry Neurological : Alert & oriented x3, No focal deficit Objective Data Active Medications Acetaminophen (Acetaminophen 325 Mg Tablet) 650 mg PO Q6H PRN PRN Reason: Pain, Mild (Pain Scale 1-3) Last Admin: 07/17/23 22:01 Dose: 650 mg Documented By: ABDELRAHMAN Atorvastatin Calcium (Atorvastatin Calcium 80 Mg Tablet) 80 mg PO BEDTIME [facility] Last Admin: 07/17/23 21:17 Dose: 80 mg Documented By: ABDELRAHMAN Isosorbide Mononitrate (Isosorbide Mononitrate 60 Mg Tab.Er.24h) 60 mg PO DAILY [facility]; Protocol Last Admin: 07/18/23 08:25 Dose: 60 mg Documented By: INEZ Metoprolol Succinate (Metoprolol Succinate Er 25 Mg Tab.Er.24h) 25 mg PO DAILY [facility]; Protocol Last Admin: 07/18/23 08:25 Dose: 25 mg Documented By: INEZ Sodium Chloride (0.9 % Sodium Chloride Flush 3 Ml Syringe) [address] [facility] Last Admin: 07/18/23 08:25 Dose: 3 ml Documented By: INEZ Labs 07/18/23 08:49 07/18/23 08:49 Labs: Laboratory Results - last 24 hr 07/17/23 07/18/23 18:37 08:49 MCV 91.7 MCH 29.9 MCHC 32.6 RDW 15.9 Plt Count 173 MPV 10.0 Absolute Nucleated RBC 0.000 Nucleated RBC % (auto) 0.0 Anion Gap 17 Estim Creat Clear Calc 45.8 Estimated GFR > 60 Random Glucose 78 Calcium 9.3 Urine Color Dark Yellow Urine Appearance Cloudy Urine pH 6.0 Ur Specific [place] 1.025 Urine Protein 300 (3+) H Urine Glucose (UA) Negative Urine Ketones Trace Urine Blood Small (1+) H Urine Nitrite Negative Ur Leukocyte Esterase Trace H Urine RBC 3-5 H Urine WBC 0-5 Ur Squamous Epith Cells 11-20 Urine Bacteria Trace Hyaline Casts 6-10 Assessment and Plan (1) Physical deconditioning: Status: Acute (2) Pleural effusion: Status: Acute Plan Nikki Elizabeth is a very pleasant 87 years old woman with past medical history significant for metastatic left breast cancer admitted with: # Left pleural effusion, recurrent likely malignant 2/2 breast CA IR did thoracentesis removing 800ml restart aspirin and Eliquis. Oncology input appreciated, schedule first dose next week # Frailty, Physical deconditioning High risk for falling PT rec STR # Hypokalemia , acute resolved # Right hilar mass. Followed by oncology. # Hyperlipidemia. Continue atorvastatin. # Hypertension. Continue metoprolol. # Protein caloric malnutrition. BMI 19.2 kg/m2. Dietary consult. DVT prophylaxis: On Eliquis and aspirin (on hold for possible procedure), SCDs. Code status: DNR DNI. Patient will need hospitalization overnight pending safe discharge to SNF facility Quality Stroke Does the patient have a stroke diagnosis?: No VTE Prior VTE?: No VTE Risk Level:: Medical - moderate - high VTE Device Contraindication: N/A - Device Ordered VTE Drug Contraindication: Treatment Not Indicated
--- NOTE | 2023-07-18 14:40 | MHC.CM.NN ---
Pt has agreed, after MD spoke with her and her son, to go to STR. referrals out.
--- NOTE | 2023-07-18 16:20 | MHC.CM.PN ---
Pt was accepted at [facility] for STR, and the plan is for her to go on 07/19/23. Pt and family aware and accepting of plan.
[2023-07-18] MEDS: Apixaban 2.5 MG TABLET PO (20:26)
[2023-07-18] MEDS: Atorvastatin Calcium 80 MG TABLET PO (20:26)
[2023-07-18] MEDS: Acetaminophen 325 MG TABLET 650 MG PO (20:56)
[2023-07-19 03:51] VITALS: BP 132/75; PULSE 86; RESP 18; TEMP 36; O2SAT 93
[2023-07-19 07:04] VITALS: BP 122/73; PULSE 82; RESP 18; TEMP 36.1; O2SAT 96
[2023-07-19] MEDS: Metoprolol Succinate ER 25 MG TAB.ER.24H PO (08:45)
[2023-07-19] MEDS: 0.9 % Sodium Chloride Flush 3 ML SYRINGE IVFLUSH (08:45)
[2023-07-19] MEDS: Apixaban 2.5 MG TABLET PO (08:45)
[2023-07-19] MEDS: Aspirin Enteric Coated 81 MG TABLET.DR PO (08:45)
[2023-07-19] MEDS: Isosorbide Mononitrate 60 MG TAB.ER.24H PO (08:45)
--- NOTE | 2023-07-19 09:33 | MHC.CM.PN ---
Addendum entered by Luana Hernandez 07/19/23 11:41: DCS SENT TO [facility] VIA [id number] Original Note: PT IS SET UP TO DC TO [facility] TODAY AT 1200 HOURS VIA [facility]OSE[facility] CHRISTIANSON CM MET WITH PT WHO IS AGREEABLE TO DC TIME AND PLAN SHE REPORTS SHE HAS ALREADY CONTACTED HER SON TO PROVIDE UPDATES
--- NOTE | 2023-07-19 11:13 | PM.DS ---
DS: Providers Provider Date of Service: 07/19/23 Date of admission: 07/17/23 02:20 Primary care physician: Gale Loving MD Consults: 07/17/23 05:19 Consult to Hematology / Oncology Routine Consulting Provider: Corey Barrios Reason for consultation: Breast CA Has provider been notified: No 07/18/23 05:44 Consult to Wound Care Routine Reason for consultation: pressure injury/skin tears to buttocks; see RN note for full details DS: Diagnosis Discharge Diagnosis (1) Physical deconditioning: Status: Acute (2) Pleural effusion: Status: Acute DS: Summary Hospital Course Hospital Course: Admission note HPI Nikki Elizabeth is a very pleasant 87 years old woman with past medical history significant for metastatic left breast cancer, right hilar mass atrial fibrillation on Eliquis + aspirin, hyperlipidemia and lung mass presents to the emergency department after falling. HPI was also provided by patient's son who was at bedside. According to son he was helping the patient to stand up and she became weak and a sister heard to sit on the floor. The patient denied significant shortness on breath, however, lately she does have some breathing difficulty with exertion and while talking. She did not report any chest pain, palpitations, dizziness or cough. There is no fever or chills reported. No gastrointestinal or genitourinary symptoms reported. Patient has been scheduled to have her 1st chemotherapy today. Patient follows with Dr. Urbina from Oncology Service. In the ED, she was found to have normal vital signs. She was started on supplemental oxygen via nasal cannula -2 L/min. Blood workup showed no leukocytosis. Potassium was found to be 2.9 and after supplementation increased to 4.7. Renal function is adequate. CO2 and BNP is elevated. CXR showed left mid to lower lung field opacity with layering component likely representing a combination of pleural effusion atelectasis. It also showed nodular right perihilar opacity similar to previous. Hips, legs and foot x-rays showed no fractures. Hospital course Admitted for difficulties breathing secondary to recurrent Left pleural effusion which is likely malignant related to her history of breast CA. IR did thoracentesis removing 800ml of fluids. She was restarted on aspirin and Eliquis as he breathing improved and she was able to ambulate on room air with no dyspnea. Oncology evaluated the patient and input appreciated as they rescheduled first dose next week. She has Frailty and Physical deconditioning and deemed High risk for falling as she was evaluated by PT. Increase physical activity as tolerated Follow with dr Barrios as outpatient as scheduled Time Attestation Discharge coordination time: Greater than 30 minutes Quality: Safe Use of Opioids Does Pt have an Active Cancer Diagnosis on the Problem List?: No Quality: Stroke Does the patient have a stroke diagnosis?: No Physical Exam Vital Signs: Vital Signs: Last Vital Signs Temp 96.9 F 07/19/23 07:04 Pulse 82 07/19/23 07:04 Resp 18 07/19/23 07:04 BP 122/73 07/19/23 07:04 Pulse Ox 96 07/19/23 07:04 O2 Del Method Room Air 07/19/23 07:04 O2 Flow Rate 2 07/18/23 07:58 Oxygen Flow Rate 2 07/16/23 19:50 BMI result Body Mass Index 18.9 Const: Other: Constitutional : Awake, interactive, frail looking, not in distress Neck : Normal inspection, Supple, chest wall mass left side Cardiovascular : RRR, no JVP, no lower extremity edema Respiratory : good bilateral air entry, no crackles, wheezes or rhonchi Gastrointestinal: soft, lax, Normal bowel sounds, Non tender Skin : Warm, Dry Neurological : Alert & oriented x3, No focal deficit DS: Data Data Completed and Pending Completed studies during hospitalization [Text1]: Procedures Drainage of Left Pleural Cavity, Percutaneous Approach (06/22/23) Imaging Chest x-ray: Radiologist's impression: ITS Impressions Chest X-Ray 07/16/23 23:57 IMPRESSION: 1. Left mid to lower lung field opacity with layering component likely representing a combination of pleural effusion and atelectasis. 2. Nodular right perihilar opacity similar to previous. Foot X-Ray 07/16/23 23:57 IMPRESSION: No evidence of an acute osseous injury. Degenerative changes as described above. Foot X-Ray 07/16/23 23:57 IMPRESSION: Degenerative changes as described above. No evidence of an acute osseous injury. Hip/Pelvis X-Ray 07/16/23 23:57 IMPRESSION: Osteopenia. No fracture or dislocation. Lower lumbar disc degenerative change. Tibia/Fibula X-Ray 07/16/23 23:57 IMPRESSION: No evidence of an acute osseous injury. Degenerative changes as described above. Tibia/Fibula X-Ray 07/16/23 23:57 IMPRESSION: Degenerative changes as described above. No evidence of an acute osseous injury. Discharge Plan Discharge Anticipated Discharge Date/Time: 07/19/23 11:08 Patient Disposition: Xfer SNF Discharge Diagnosis: Pleural effusion Physical deconditioning Referrals: [facility] [Outside] Gale Loving MD [Primary Care Provider] - 1 Week Discharge Medications: Continued atorvastatin 80 mg tablet 80 mg PO BEDTIME Qty: 90 3RF isosorbide mononitrate 60 mg tablet extended release 24 hr 60 mg PO QAM Qty: 90 3RF metoprolol succinate 25 mg tablet extended release 24 hr 25 mg PO DAILY 90 Days Qty: 90 3RF aspirin 81 mg tablet,delayed release (DR/EC) 81 mg PO DAILY Qty: 90 0RF Rx Instructions: PLEASE CALL [phone] TO SCHEDULE AN APPT FOR 2023 SO WE CAN CONTINUE TO REFILL THIS MED. Eliquis 2.5 mg Tablet 2.5 mg PO BID Qty: 60 0RF Discharge Orders: Discharge Order (Routine); Ordered 07/19/23 Ordered By: Sherrie Fernandez Diet: Advance to usual diet Activity on Discharge: As tolerated Stand Alone Forms: Patient Portal Discharge page Care Plan Goals: Read below Health Concerns: Read below Plan of Treatment: Read below Assessment: Increase physical activity as tolerated Follow with dr Barrios as outpatient as scheduled
[2023-07-19 11:14] VITALS: BP 110/67; PULSE 98; RESP 20; TEMP 37.1; O2SAT 93
--- NOTE | 2023-07-21 09:47 | P.CDIM_ITS ---
PROVIDER RESPONSE TEXT: To clarify, the appropriate diagnosis supported by the clinical indicators: Pressure injury left buttock Stage 2 QUERY TEXT: PHYSICIAN'S DOCUMENTATION REQUEST Date of Query: 07/18/2023 08:46 AM EST Patient Name: Clara Jordan Admit Date: 07/17/2023 Dear Sherrie Fernandez, A review of the medical record indicates additional documentation may be needed. Please review below and update the documentation accordingly. Clinical Indicators: Wound care notes - Pressure injury left buttock stage 2 Foam Based on the above, could you please provide further information regarding the ulcer/wound/injury: Pressure injury left buttock Stage 2 Other Other (explain) Clinically unable to determine (explain) Thank you, Vesna Davis, CCS, CDIS Use of terms such as suspected, likely, concern for, or probable (associated with a specific diagnosi s that is being evaluated, monitored, or treated as if it exists) are acceptable and can be coded in the inpatient se tting, when documented at the time of discharge. Please use your independent medical judgment in providing your response. THIS QUERY IS PART OF THE PERMANENT MEDICAL RECORD
--- NOTE | 2023-07-21 09:47 | P.CDIM_ITS ---
PROVIDER RESPONSE TEXT: To clarify, the appropriate diagnosis supported by the clinical indicators: Moderate QUERY TEXT: PHYSICIAN'S DOCUMENTATION REQUEST Date of Query: 07/18/2023 07:55 AM EST Patient Name: Clara Jordan Admit Date: 07/17/2023 Dear Sherrie Fernandez, A review of the medical record indicates additional documentation may be needed. Please review below and update the documentation accordingly. Documentation includes the diagnosis of malnutrition. H&P: Plan: Protein calorie malnutrition BMI 18.9kg/m2 51.6kg If possible, please provide additional specificity regarding the severity of the malnutrition using t he above information: Mild Moderate Severe Other (explain) Clinically unable to determine (explain) Thank you, Vesna Davis, CCS, CDIS Use of terms such as suspected, likely, concern for, or probable (associated with a specific diagnosi s that is being evaluated, monitored, or treated as if it exists) are acceptable and can be coded in the inpatient se tting, when documented at the time of discharge. Please use your independent medical judgment in providing your response. THIS QUERY IS PART OF THE PERMANENT MEDICAL RECORD
--- NOTE | 2023-07-21 09:47 | P.CDIM_ITS ---
PROVIDER RESPONSE TEXT: To clarify, the appropriate diagnosis supported by the clinical indicators: Diastolic: acute on chronic QUERY TEXT: PHYSICIAN'S DOCUMENTATION REQUEST Date of Query: 07/18/2023 12:56 PM EST Patient Name: Clara Jordan Admit Date: 07/17/2023 Dear Sherrie Fernandez, A review of the medical record indicates additional documentation may be needed. Please review below and update the documentation accordingly. Clinical Indicators: PMH: Congestive heart failure Difficulty breathing while talking and with exertion. BNP 405 H History of echo performed Home medication: Metoprolol 25mg PO daily Please provide further specificity regarding the most likely type and acuity of CHF you are evaluatin g, treating, or monitoring. Systolic Please specify if Acute, Chronic, or Acute on chronic, or Unable to determine Diastolic Please specify if Acute, Chronic, or Acute on chronic, or Unable to determine Combined Systolic/Diastolic Please specify if Acute, Chronic, or Acute on chronic, or Unable to determine Other (explain) Clinically unable to determine (explain) Thank you, Vesna Davis, CCS, CDIS Use of terms such as suspected, likely, concern for, or probable (associated with a specific diagnosi s that is being evaluated, monitored, or treated as if it exists) are acceptable and can be coded in the inpatient se tting, when documented at the time of discharge. Please use your independent medical judgment in providing your response. THIS QUERY IS PART OF THE PERMANENT MEDICAL RECORD
== END 2023-07-19 12:23 | disposition skilled nursing facility (03) | DRG 597 ==
LOC: HO.ED 07-17 02:09 → HO.EDOVER 07-17 02:26 → HO.IMC 07-17 19:26
PROVIDERS: Physician Assistant; Admitting Provider Internal Medicine; Emergency Provider Internal Medicine; PCP Internal Medicine; Visit Provider Student in an Organized Health Care Education/Training Program
DX: C50.912 Malignant neoplasm of unspecified site of left female breast (principal); I50.33 Acute on chronic diastolic (congestive) heart failure; E44.0 Moderate protein-calorie malnutrition; Z68.1 Body mass index [BMI] 19.9 or less, adult; I48.20 Chronic atrial fibrillation, unspecified; J91.0 Malignant pleural effusion; J98.11 Atelectasis; Z17.1 Estrogen receptor negative status [ER-]; E87.6 Hypokalemia; Z66 Do not resuscitate; R91.1 Solitary pulmonary nodule; E86.0 Dehydration; I11.0 Hypertensive heart disease with heart failure; Q67.7 Pectus carinatum; E78.5 Hyperlipidemia, unspecified; I25.10 Atherosclerotic heart disease of native coronary artery without angina pectoris; L89.322 Pressure ulcer of left buttock, stage 2; Z79.01 Long term (current) use of anticoagulants; Z79.82 Long term (current) use of aspirin; Z79.899 Other long term (current) drug therapy
CPT/HCPCS: 32555; 36415; 71045; 73521; 73590; 73620; 80048; 80053; 81001; 82803; 83735; 83880; 84132; 84484; 85025; 85027; 85610; 85730; 93005; 97116; 97162; 99285; J2405; J3480

== ENCOUNTER → 2023-07-16 20:06 | Outpatient (BNV) | payer MEDICARE, SELFPAY | PROVIDERS: Admitting Provider Internal Medicine; Emergency Provider Internal Medicine; Visit Provider Internal Medicine Cardiovascular Disease | DX: I48.91 Unspecified atrial fibrillation (principal); R94.31 Abnormal electrocardiogram [ECG] [EKG] | CPT/HCPCS: 93010 ==

== ENCOUNTER 2023-07-17 02:20 | Outpatient (BNV) | payer MEDICARE, SELFPAY | END 2023-07-17 13:00 | PROVIDERS: Admitting Provider Internal Medicine; Emergency Provider Internal Medicine; PCP Internal Medicine; Visit Provider Radiology Vascular & Interventional Radiology | DX: J90 Pleural effusion, not elsewhere classified (principal) | CPT/HCPCS: 32555 ==

== ENCOUNTER → 2023-07-17 02:20 | Outpatient (BNV) | payer MEDICARE, SELFPAY | PROVIDERS: Admitting Provider Internal Medicine; Emergency Provider Internal Medicine; Visit Provider Internal Medicine | DX: J90 Pleural effusion, not elsewhere classified (principal); R53.81 Other malaise; I48.20 Chronic atrial fibrillation, unspecified; N63.20 Unspecified lump in the left breast, unspecified quadrant | CPT/HCPCS: 99223; 99232; 99238; 99499 ==

== ENCOUNTER → 2023-07-17 02:20 | Outpatient (BNV) | payer MEDICARE, SELFPAY | PROVIDERS: Admitting Provider Internal Medicine; Emergency Provider Internal Medicine; PCP Internal Medicine; Visit Provider Internal Medicine Medical Oncology | DX: C50.912 Malignant neoplasm of unspecified site of left female breast (principal); J90 Pleural effusion, not elsewhere classified; R91.8 Other nonspecific abnormal finding of lung field | CPT/HCPCS: 99222 ==

== ENCOUNTER 2023-07-24 15:47 | Inpatient (IN) | payer MEDICARE, SELFPAY ==
--- NOTE | ~2023-07-24 | XR_ITS ---
EXAMINATION: XR CHEST CLINICAL INFORMATION: Shortness of breath. COMPARISON: Chest radiograph dated 07/17/2023 Chest radiograph dated 07/16/2023. TECHNIQUE: 2 views of the chest were obtained. FINDINGS: The trachea is in normal anatomic position. Heart size appears similar to the prior examinations. There is calcific atherosclerotic disease of the aorta. There is a nodular right perihilar opacity, similar to the prior study. There is a left lower lobe opacity with a layering left pleural effusion, similar to that seen on the 07/16/2023 chest radiograph. No acute osseous abnormality. XR/XR chest 2V IMPRESSION: There is a left lower lobe opacity with a layering left pleural effusion, similar to that seen on the 07/16/2023 chest radiograph. Right hilar opacity, similar to the prior studies.
[2023-07-24 16:01] VITALS: BP 116/72; PULSE 98; O2SAT 98
--- NOTE | 2023-07-24 16:06 | ECG_ITS ---
Test Reason : SOB Blood Pressure : / mmHG Vent. Rate : 100 BPM Atrial Rate : 000 BPM P-R Int : 000 ms QRS Dur : 096 ms QT Int : 338 ms P-R-T Axes : 000 015 161 degrees QTc Int : 436 ms Atrial fibrillation Septal infarct (cited on or before 16-JUL-2023) Abnormal ECG When compared with ECG of 16-JUL-2023 20:39, No significant changes seen Referred By: Kimberley Muro Electronically Signed By:DEE DEE PONCE
--- NOTE | 2023-07-24 16:11 | ED_ITS ---
HPI - SOB/Dyspnea General Chief Complaint: Dyspnea Stated Complaint: SOB from SNF Time Seen by Provider: 07/24/23 16:01 Source: patient and EMS Mode of arrival: EMS Limitations: no limitations History of Present Illness HPI Narrative: Patient is an 87-year-old female who presents emergency department via EMS coming from a retirement facility, [facility], for evaluation of shortness of breath. When asked patient states she is here because she ?needs fluid removed from my lung?. When asked she states she has been feeling increasingly more short of breath over the past week. Per EMS O2 saturation was in the low 90s on room air with increased work of breathing, she was placed on 2 L via nasal cannula and reports no significant improvement in breathing. She denies any pain, lower extremity edema, recent cold-like symptoms. Denies abdominal pain, nausea, vomiting, genitourinary symptoms. Reviewed most from facility; do not resuscitate, okay to intubate/transfer to hospital Related Data Home Medications Medication Instructions Recorded Confirmed acetaminophen 325 mg tablet 650 mg PO Q4H PRN pain or fever 07/24/23 07/24/23 aspirin 81 mg chewable tablet 81 mg PO DAILY 07/24/23 07/24/23 bisacodyl 10 mg rectal suppository 10 mg MI DAILY PRN Constipation 07/24/23 07/24/23 magnesium hydroxide 400 mg/5 mL 30 ml PO BEDTIME PRN Constipation 07/24/23 07/24/23 oral suspension (Milk of Magnesia) polyethylene glycol 3350 17 17 g PO DAILY PRN Constipation 07/24/23 07/24/23 gram/dose oral powder (Miralax) sodium phosphates 19 gram-7 118 ml MI DAILY PRN Constipation 07/24/23 07/24/23 gram/118 mL enema (Fleet Enema) Previous Rx's Medication Instructions Recorded atorvastatin 80 mg tablet 80 mg PO BEDTIME #90 tabs 10/15/22 isosorbide mononitrate 60 mg 60 mg PO QAM #90 tabs 01/10/23 tablet,extended release 24 hr metoprolol succinate 25 mg 25 mg PO DAILY 90 days #90 tabs 01/10/23 tablet,extended release 24 hr apixaban 2.5 mg tablet (Eliquis) 2.5 mg PO BID #60 tabs 06/25/23 Allergies Allergy/AdvReac Type Severity Reaction Status Date / Time No Known Allergies Allergy Verified 03/11/23 14:03 [No Known Allergies*] Review of Systems 2 Review of Systems: Yes all other systems are reviewed and are negative [facility] Past Medical History Attestation statement: The following information was validated with the patient. Source: old records reviewed Medical History Metaplastic carcinoma of breast Pectus carinatum Increased bilirubin level COVID-19 vaccine administered Arthritis On anticoagulant therapy Elevated cholesterol Hypertension Coronary artery disease Surgical History History of lumpectomy of left breast History of right cataract surgery H/O colonoscopy Hx of cardiac catheterization Family History Family History Mother No problems noted. Father Prostate cancer Social History Social History Household Members: None Housing: Apartment Are you a primary child care lead teacher to a significant other at home: No Do you presently have visiting nurse or other home services: Yes (once a week) Alcohol intake: never Patient Tobacco Use Status: Never used Tobacco Advance Directives Date on File: 06/26/23 service: No Current occupational status: retired Physical Exam 2 Vital Signs: Vital Signs: Last Vital Signs Temp 99.3 F 07/24/23 23:45 Pulse 108 H 07/24/23 23:45 Resp 20 07/24/23 23:45 BP 111/70 07/24/23 23:45 Pulse Ox 95 07/24/23 23:45 O2 Del Method Room Air 07/24/23 23:45 BMI result Body Mass Index 18.9 Appearance: Alert.?Oriented to person, place and time. No acute distress.?Normal affect. Eyes: Pupils equal, round and reactive to light.? ENT: Pharynx normal.?? Neck: Normal inspection.? Neck supple.?? CVS: Heart sounds normal. Normal heart rate and rhythm.? Pulses normal.?? Respiratory: No respiratory distress.? Lung sounds with rales bilaterally, diminished bases Abdomen: Soft and non-tender. Normoactive bowel sounds. ? Skin: Skin warm and dry.? Normal skin color.? Extremities: No lower extremity edema.? No calf ttp? Neuro: Moves all extremities spontaneously. Sensation intact bilaterally. No focal neuro deficits. Course Reevaluation(s) Reevaluation #1: Patient is COVID-19 positive, influenza/RSV is negative. BNP 836 which is increased when compared to prior levels likely secondary to malignant effusion; personally interpreted chest x-ray which reveals a left pleural effusion which appears increased in size when compared to prior CXR from 07/17/2023. No leukocytosis or anemia. Spoke with hospitalist, Dr. Castle who accepts patient for admission to medicine service Time: 19:12 Medications Administered Generic Name Dose Route Start Last Admin Trade Name Freq PRN Reason Stop Dose Admin Acetaminophen 650 mg 07/24/23 19:34 07/24/23 23:00 Acetaminophen 325 Mg Tablet PO 650 mg Q6H PRN Administration Pain, Mild (Pain Scale 1-3) Atorvastatin Calcium 80 mg 07/24/23 21:00 07/24/23 22:59 Atorvastatin Calcium 80 Mg Tablet PO Not Given BEDTIME RADHA Sodium Chloride 3 ml 07/25/23 00:00 07/25/23 00:30 0.9 % Sodium Chloride Flush 3 Ml Syringe IVFLUSH Not Given QSHIFT [facility] Medical Decision Making Medical Decision Making [facility] Narrative: Patient is an 87-year-old female with past medical history of metastatic left breast cancer, right hilar mass, atrial fibrillation on Eliquis, hypertension, hyperlipidemia, CHF with LVEF 50-55%, recent L thoracentesis 07/17/2023 (800mL serosanguineous fluid). Lungs with Rales bilaterally diminished at the bases. Patient presented initially tachycardic, afebrile with oral temperature, I suspect the tachycardia secondary to increased work of breathing with tachypnea, in the setting of recent CHF exacerbation with pleural effusion requiring thoracentesis anticipate this is most likely the etiology for her symptoms. However, will obtain blood cultures and lactic acid pending remainder of workup. Will obtain CBC to evaluate for leukocytosis/ anemia, CMP and lipase to evaluate for abnormal electrolytes /abnormal renal function/ abnormal hepatic/biliary function, EKG and troponin to evaluate for ischemia/ACS. BNP, Chest x-ray to evaluate for consolidation/ infiltrate/ mass/ pulmonary congestion and Urinalysis. Differential Diagnosis Differential Diagnoses: The differential diagnosis associated with the presentation includes (See narrative above) Admission/Observation Consideration of admission/observation: Escalation of care including admission/observation considered (See course narrative) Consult Healthcare Provider Management of the patient was discussed with: Hospitalist (See course narrative) Lab Data MDM Lab Attestation statement: I reviewed the patient's lab results. (See course narrative) 07/24/23 17:05 07/24/23 17:05 Labs: Lab Results 07/24/23 Range/Units 17:05 WBC 10.1 (4.8-10.8) X10*3/uL RBC 4.30 (4.20-5.50) X10*6/uL Hgb 12.9 (12.0-16.0) g/dl Hct 38.9 (37.0-47.0) % MCV 90.5 (80.0-98.0) fL MCH 30.0 (27.0-33.0) pg MCHC 33.2 (31.0-35.0) g/dl RDW 17.9 H (11.0-16.0) % Plt Count 207 (160-400) X10*3/uL MPV 10.1 (9.4-12.3) fL Immature Gran % (Auto) 0.5 H (0.0-0.4) % Neut % (Auto) 81.5 H (45-73) % Lymph % (Auto) 3.0 L (20-40) % Gooding % (Auto) 14.1 H (2-11) % Eos % (Auto) 0.4 (0-4) % Baso % (Auto) 0.5 (0-2) % Lymph # (Auto) 0.3 L (1.2-4.9) X10*3/uL Gooding # (Auto) 1.4 H (0.1-1.2) X10*3/uL Eos # (Auto) 0.0 (0.0-0.4) X10*3/uL Baso # (Auto) 0.1 (0.0-0.2) X10*3/uL Abs Immat Gran (auto) 0.05 H (0.00-0.03) X10*3/uL Absolute Neuts (auto) 8.2 (2.0-8.3) x10*3/uL Absolute Nucleated RBC 0.000 (0.0-0.012) X10*3/uL Nucleated RBC % (auto) 0.0 (0.0-0.2) /100WBC PT 28.0 H D (11.1-13.3) SEC INR 2.3 H (0.9-1.1) Sodium 143 (135-145) mmol/L Potassium 3.4 D (3.3-5.1) mmol/L Chloride 104 (96-108) mmol/L Carbon Dioxide 29 (22-29) mmol/L Anion Gap 13 (12-20) BUN 32 H (9-16) mg/dL Creatinine 0.68 (0.5-1.4) mg/dL Estim Creat Clear Calc 49.1 Estimated GFR > 60 Random Glucose 119 H (60-115) mg/dL Lactic Acid 1.8 (0.5-2.0) mmol/L Calcium 8.7 D (8.4-10.2) mg/dL Magnesium 2.2 (1.6-2.6) mg/dL Total Bilirubin 3.8 H (0.0-1.0) mg/dL AST 41 H (5-31) U/L ALT 33 H (0-31) U/L Alkaline Phosphatase 92 (39-117) U/L Troponin I High Sens 7.1 (<3.5-17.0) ng/L B-Natriuretic Peptide 836 H (<100) pg/mL Total Protein 5.4 L (6.5-8.0) g/dL Albumin 2.9 L (3.5-5.0) g/dL Influenza Type A (PCR) NEGATIVE (Negative) Influenza Type B (PCR) NEGATIVE (Negative) RSV RNA Qual (PCR) NEGATIVE (Negative) SARS-CoV-2 RNA (RT-PCR) POSITIVE A (Negative) Independent Interpretation I performed an independent interpretation of an: EKG and Plain X-Ray (See course narrative) Radiology Impression Discussion of test interpretation with radiology: I have reviewed the radiologist's reading. Radiologist Impression: XR/XR chest 2V IMPRESSION: There is a left lower lobe opacity with a layering left pleural effusion, similar to that seen on the 07/16/2023 chest radiograph. Right hilar opacity, similar to the prior studies. Independent Historian Clinical information obtained from an independent historian. History obtained from or confirmed by: Other (Son present who confirms history) External Record Review External record reviewed: Inpatient record Critical Care Time Critical Care Time Critical Care Time: Yes Total Critical Care Time: 40 Attestation: I personally attest to this critical care time spent taking care of the patient exclusive of all other billable procedures was approximately 40 minutes including initial evaluation of patient, ordering tests, x-ray interpretation, EKG interpretation, medical consultation, documentation, re-evaluation. Discharge Plan Discharge Clinical Impression: Pleural effusion, COVID-19 Patient Disposition: Admitted As Inpatient Interventions: Admission Worksheet (ED) Last Done: 07/24/23 21:27 Discharge Date/Time: 07/24/23 22:00
[2023-07-24 16:59] VITALS: BP 101/68; PULSE 103; RESP 26; TEMP 37.7; O2SAT 92; BMI 18.9
[2023-07-24 17:17] LABS: MANUAL DIFF FLAG NO
[2023-07-24 17:20] LABS: Basophils Absolute Auto 0.1 X10*3/uL (0.0-0.2); Basophils Percent Auto 0.5 % (0-2); Eosinophils Percent Auto 0.4 % (0-4); Hematocrit 38.9 % (37.0-47.0); Hemoglobin 12.9 g/dl (12.0-16.0); Imm Gran Abs Auto 0.05 X10*3/uL (0.00-0.03); Imm Gran Pct Auto 0.5 % (0.0-0.4); Lymphocytes Absolute Auto 0.3 X10*3/uL (1.2-4.9); Mean Corpuscular HGB Conc 33.2 g/dl (31.0-35.0); Mean Corpuscular Volume 90.5 fL (80.0-98.0); Mean Platelet Volume 10.1 fL (9.4-12.3); Monocytes Absolute Auto 1.4 X10*3/uL (0.1-1.2); Monocytes Percent Auto 14.1 % (2-11); Neutrophils Absolute Auto 8.2 x10*3/uL (2.0-8.3); Neutrophils Percent Auto 81.5 % (45-73); Platelet Count 207 X10*3/uL (160-400); Red Cell Distribution Width 17.9 % (11.0-16.0); White Blood Count 10.1 X10*3/uL (4.8-10.8)
[2023-07-24 17:27] LABS: INTERNATIONAL NORM RATIO 2.3 (0.9-1.1)
[2023-07-24 17:33] LABS: Lactic Acid 1.8 mmol/L (0.5-2.0)
[2023-07-24 17:39] LABS: Alanine Aminotransferase 33 U/L (0-31); Albumin Level 2.9 g/dL (3.5-5.0); Alkaline Phosphatase 92 U/L (39-117); Anion Gap 13 (12-20); Aspartate Amino Transferase 41 U/L (5-31); Bilirubin Total 3.8 mg/dL (0.0-1.0); Blood Urea Nitrogen 32 mg/dL (9-16); Calcium 8.7 mg/dL (8.4-10.2); Carbon Dioxide 29 mmol/L (22-29); Chloride 104 mmol/L (96-108); Creatinine Clr Calc Pharmacy 49.1; Estimated Glomerular Filt Rate > 60; Glucose Random 119 mg/dL (60-115); Magnesium 2.2 mg/dL (1.6-2.6); Potassium 3.4 mmol/L (3.3-5.1); Sodium 143 mmol/L (135-145); Total Protein 5.4 g/dL (6.5-8.0)
[2023-07-24 17:46] LABS: Troponin-I High Sensitivity 7.1 ng/L (<3.5-17.0)
[2023-07-24 17:54] LABS: B Type Natriuretic Peptide 836 pg/mL (<100)
[2023-07-24 18:08] LABS: Influenza A PCR NEGATIVE (Negative); Influenza B PCR NEGATIVE (Negative); Resp Syncy Virus RNA Qual PCR NEGATIVE (Negative); SARS COV2 PCR INHOUSE POSITIVE (Negative)
--- NOTE | 2023-07-24 19:42 | PM.IMHP ---
History of Present Illness Date of Service: 07/24/23 Chief Complaint: Dyspnea This is a 87-year-old female with pertinent history of metastatic left breast carcinoma, atrial fibrillation on Eliquis, mixed hyperlipidemia, essential hypertension who presents to the emergency department for evaluation of dyspnea. Patient is coming from [facility] as she was found to be dyspneic. History also obtained from son at bedside. Patient states she has had difficulty breathing for a couple of days. Also has had dry cough. No fever, chills, chest pain, palpitations, abdominal pain, changes in urinary or bowel habits. Of note, patient was recently admitted on 07/17 with recurrent left pleural effusion and discharged on 07/19/23 after undergoing thoracentesis, 800 cc fluid was removed by IR. Patient states she feels like there is fluid buildup back in her lungs. No orthopnea or paroxysmal nocturnal dyspnea. As per EMS, patient was found to be dyspneic and placed on 2 L supplemental oxygen. In the emergency department, imaging with left-sided pleural effusion. Patient tested positive for COVID-19. She was satting 92 % on room air Review of Systems Constitutional: Constitutional: Reports weakness Cardiovascular: Cardiovascular: Reports dyspnea on exertion Respiratory: Respiratory: Reports cough and Reports dyspnea on exertion Gastrointestinal: Gastrointestinal: Reports no additional gastrointestinal complaints Genitourinary: Genitourinary: Reports no additional female genitourinary complaints Neurologic: Reports weakness [facility] Medical History Metaplastic carcinoma of breast Pectus carinatum Increased bilirubin level COVID-19 vaccine administered Arthritis On anticoagulant therapy Elevated cholesterol Hypertension Coronary artery disease Family History Mother No problems noted. Father Prostate cancer Surgical History History of lumpectomy of left breast History of right cataract surgery H/O colonoscopy Hx of cardiac catheterization Social History Household Members: None Housing: Apartment Are you a primary children's zoo caretaker to a significant other at home: No Do you presently have visiting nurse or other home services: Yes Alcohol intake: never Patient Tobacco Use Status: Never used Tobacco Advance Directives: Yes Advance Directives on File: Yes Advance Directives Date on File: 06/26/23 service: No Current occupational status: retired Meds Allergies Allergy/AdvReac Type Severity Reaction Status Date / Time No Known Allergies Allergy Verified 03/11/23 14:03 [No Known Allergies*] Active Medications: Current Medications Acetaminophen (Acetaminophen 325 Mg Tablet) 650 mg PO Q6H PRN PRN Reason: Pain, Mild (Pain Scale 1-3) Melatonin (Melatonin 3 Mg Tablet) 6 mg PO BEDTIME PRN PRN Reason: Insomnia Ondansetron HCl (Ondansetron Hcl 4 Mg/2 Ml Vial) 4 mg IVPUSH Q8H PRN PRN Reason: Nausea and Vomiting Sodium Chloride (0.9 % Sodium Chloride Flush 3 Ml Syringe) 3 ml [facility]USH [facility] Medications Medication Instructions Recorded Confirmed Last Taken Type acetaminophen 325 mg tablet 650 mg PO Q4H PRN pain or fever 07/24/23 07/24/23 Unknown History aspirin 81 mg chewable tablet 81 mg PO DAILY 07/24/23 07/24/23 Unknown History bisacodyl 10 mg rectal suppository 10 mg [place] DAILY PRN Constipation 07/24/23 07/24/23 Unknown History magnesium hydroxide 400 mg/5 mL 30 ml PO BEDTIME PRN Constipation 07/24/23 07/24/23 Unknown History oral suspension (Milk of Magnesia) polyethylene glycol 3350 17 17 g PO DAILY PRN Constipation 07/24/23 07/24/23 Unknown History gram/dose oral powder (Miralax) sodium phosphates 19 gram-7 118 ml [place] DAILY PRN Constipation 07/24/23 07/24/23 Unknown History gram/118 mL enema (Fleet Enema) Physical Exam Vital Signs and Narrative: Vital Signs: Last Vital Signs Temp 100 F 07/24/23 16:59 Pulse 103 H 07/24/23 16:59 Resp 26 H 07/24/23 16:59 BP 101/68 07/24/23 16:59 Pulse Ox 92 07/24/23 16:59 O2 Del Method Room Air 07/24/23 16:59 BMI result Body Mass Index 18.9 Elderly female lying in bed in mild distress Neck supple, no JVD Irregularly irregular, S1-S2 heard Bilateral crackles with decreased left sounds at bases, tachypnea present Abdomen soft nontender, no guarding, no rigidity Patient is awake, alert and oriented to self, place, time and person ; no focal motor deficit Psych: Normal mood No pedal edema Results Labs 07/24/23 17:05 07/24/23 17:05 Labs: Laboratory Results - last 24 hr 07/24/23 17:05 MCV 90.5 MCH 30.0 MCHC 33.2 RDW 17.9 H Plt Count 207 MPV 10.1 Immature Gran % (Auto) 0.5 H Neut % (Auto) 81.5 H Lymph % (Auto) 3.0 L Borden % (Auto) 14.1 H Eos % (Auto) 0.4 Baso % (Auto) 0.5 Lymph # (Auto) 0.3 L Borden # (Auto) 1.4 H Eos # (Auto) 0.0 Baso # (Auto) 0.1 Abs Immat Gran (auto) 0.05 H Absolute Neuts (auto) 8.2 Absolute Nucleated RBC 0.000 Nucleated RBC % (auto) 0.0 PT 28.0 H D INR 2.3 H Anion Gap 13 Estim Creat Clear Calc 49.1 Estimated GFR > 60 Random Glucose 119 H Lactic Acid 1.8 Calcium 8.7 D Magnesium 2.2 Total Bilirubin 3.8 H AST 41 H ALT 33 H Alkaline Phosphatase 92 Troponin I High Sens 7.1 B-Natriuretic Peptide 836 H Total Protein 5.4 L Albumin 2.9 L Influenza Type A (PCR) NEGATIVE Influenza Type B (PCR) NEGATIVE RSV RNA Qual (PCR) NEGATIVE SARS-CoV-2 RNA (RT-PCR) POSITIVE A Imaging Radiologist's Impressions: Impressions Chest X-Ray 07/24/23 17:46 IMPRESSION: There is a left lower lobe opacity with a layering left pleural effusion, similar to that seen on the 07/16/2023 chest radiograph. Right hilar opacity, similar to the prior studies. Assessment and Plan (1) Recurrent left pleural effusion: Status: Acute Plan This is a 87-year-old female with pertinent history of metastatic left breast carcinoma, atrial fibrillation on Eliquis, mixed hyperlipidemia, essential hypertension who presents to the emergency department for evaluation of dyspnea. #. Acute respiratory distress due to recurrent left-sided pleural effusion, likely malignant in the setting of metastatic left breast carcinoma: Will admit patient and continue to monitor oxygen saturation/respiratory status. Consulting thoracic surgery for recurrent left-sided pleural effusion. Holding aspirin and Eliquis. #. COVID-19 infection: Currently not requiring supplemental oxygen, defer Decadron. Continue isolation precautions. No concern for bacterial superinfection and no indication for antibiotics #. Mixed hyperlipidemia: On statin #. Paroxysmal atrial fibrillation: On beta-jasiel. Hold anticoagulation as above #. Right hilar mass: Outpatient Oncology follow-up #. Essential hypertension: On metoprolol #. Protein calorie malnutrition: Nutrition consult DVT prophylaxis: SCDs. Hold Eliquis for possible thoracentesis Do not resuscitate. MOLST form present on admission Admit as inpatient and will require two night minimum hospital stay for treatment of recurrent left pleural effusion (as above), which is not possible in a lesser acute setting. Specialist consult pending Quality Stroke Does the patient have a stroke diagnosis?: No VTE Prior VTE?: No VTE Risk Level:: Medical - moderate - high VTE Device Contraindication: N/A - Device Ordered VTE Drug Contraindication: Treatment Not Indicated
[2023-07-24 20:23] VITALS: TEMP 37.4
--- NOTE | 2023-07-24 20:29 | PHA.MEDREC ---
Pharmacy Consult ? Medication Reconciliation Pharmacy has completed the medication reconciliation. Confirmed medication with list sent from facilty ([facility])
[2023-07-24 21:22] VITALS: BP 133/70; PULSE 102; RESP 17; O2SAT 95
[2023-07-24 22:16] VITALS: BP 143/67; PULSE 112; RESP 20; TEMP 36.9; O2SAT 90
[2023-07-24] MEDS: Acetaminophen 325 MG TABLET 650 MG PO (23:00)
[2023-07-24] MEDS: 0.9 % Sodium Chloride Flush 3 ML SYRINGE IVFLUSH (23:04)
[2023-07-24 23:45] VITALS: BP 111/70; PULSE 108; RESP 20; TEMP 37.4; O2SAT 95
[2023-07-25] VITALS (7 sets, daily range): BP systolic 96–141; BP diastolic 57–87; PULSE 84–110; RESP 16–20; TEMP 36.4–36.9; O2SAT 93–96; BMI 18.9
[2023-07-25 07:25] LABS: INTERNATIONAL NORM RATIO 2.1 (0.9-1.1); Prothrombin Time 25.8 SEC (11.1-13.3)
[2023-07-25 07:27] LABS: Basophils Absolute Auto 0.1 X10*3/uL (0.0-0.2); Basophils Percent Auto 0.4 % (0-2); Eosinophils Absolute Auto 0.2 X10*3/uL (0.0-0.4); Eosinophils Percent Auto 1.4 % (0-4); Hematocrit 39.9 % (37.0-47.0); Hemoglobin 13.3 g/dl (12.0-16.0); Imm Gran Abs Auto 0.04 X10*3/uL (0.00-0.03); Imm Gran Pct Auto 0.3 % (0.0-0.4); Lymphocytes Absolute Auto 0.4 X10*3/uL (1.2-4.9); Lymphocytes Percent Auto 3.5 % (20-40); MANUAL DIFF FLAG SCAN; Mean Corpuscular HGB Conc 33.3 g/dl (31.0-35.0); Mean Corpuscular Hemoglobin 30.5 pg (27.0-33.0); Mean Corpuscular Volume 91.5 fL (80.0-98.0); Mean Platelet Volume 10.3 fL (9.4-12.3); Monocytes Absolute Auto 1.6 X10*3/uL (0.1-1.2); Neutrophils Absolute Auto 9.2 x10*3/uL (2.0-8.3); Neutrophils Percent Auto 80.4 % (45-73); Platelet Count 188 X10*3/uL (160-400); Red Blood Count 4.36 X10*6/uL (4.20-5.50); Red Cell Distribution Width 17.7 % (11.0-16.0); SCAN SMEAR FLAG 1; White Blood Count 11.5 X10*3/uL (4.8-10.8)
[2023-07-25 07:37] LABS: Anion Gap 16 (12-20); Blood Urea Nitrogen 31 mg/dL (9-16); Calcium 8.8 mg/dL (8.4-10.2); Carbon Dioxide 23 mmol/L (22-29); Chloride 107 mmol/L (96-108); Creatinine Clr Calc Pharmacy 52.2; Estimated Glomerular Filt Rate > 60; Glucose Random 92 mg/dL (60-115); Lactate Dehydrogenase 317 U/L (122-220); Potassium 3.4 mmol/L (3.3-5.1); Sodium 143 mmol/L (135-145)
[2023-07-25 07:46] LABS: SLIDE REVIEW VERIFIED
[2023-07-25] MEDS: 0.9 % Sodium Chloride Flush 3 ML SYRINGE IVFLUSH ×3 (09:12→19:34)
--- NOTE | 2023-07-25 10:45 | HO.THORCONS ---
History of Present Illness Consult details Consult date: 07/25/23 Narrative: Patient is an unfortunate 87-year-old female with plethora of medical problems including metastatic breast cancer who has had respiratory issues from a pleural effusion in the past who now presents with acute respiratory symptoms/recurrence of symptoms and chest x-ray demonstrates a small left pleural effusion and left lung infiltrate but no obvious massive pleural effusion. Chart was reviewed and patient evaluated PMFSH Past Medical History Medical History Metaplastic carcinoma of breast Pectus carinatum Increased bilirubin level COVID-19 vaccine administered Arthritis On anticoagulant therapy Elevated cholesterol Hypertension Coronary artery disease Family History Family History Mother No problems noted. Father Prostate cancer Surgical History Surgical History History of lumpectomy of left breast History of right cataract surgery H/O colonoscopy Hx of cardiac catheterization Social History Social History Household Members: None Housing: Apartment Are you a primary health care marketing specialist to a significant other at home: No Do you presently have visiting nurse or other home services: Yes (once a week) Alcohol intake: never Patient Tobacco Use Status: Never used Tobacco Advance Directives Date on File: 06/26/23 service: No Current occupational status: retired Meds Allergies Allergy/AdvReac Type Severity Reaction Status Date / Time No Known Allergies Allergy Verified 03/11/23 14:03 [No Known Allergies*] Active Medications: Current Medications Acetaminophen (Acetaminophen 325 Mg Tablet) 650 mg PO Q6H PRN PRN Reason: Pain, Mild (Pain Scale 1-3) Last Admin: 07/24/23 23:00 Dose: 650 mg Atorvastatin Calcium (Atorvastatin Calcium 80 Mg Tablet) 80 mg PO BEDTIME RADHA Last Admin: 07/24/23 22:59 Dose: Not Given Bisacodyl (Bisacodyl 10 Mg Supp.Rect) 10 mg [place] DAILY PRN PRN Reason: Constipation Isosorbide Mononitrate (Isosorbide Mononitrate 60 Mg Tab.Er.24h) 60 mg PO DAILY RADHA; Protocol Last Admin: 07/25/23 09:14 Dose: Not Given Magnesium Hydroxide (Milk Of Magnesia 30 Ml Oral.Susp) 30 ml PO BEDTIME PRN PRN Reason: Constipation Melatonin (Melatonin 3 Mg Tablet) 6 mg PO BEDTIME PRN PRN Reason: Insomnia Metoprolol Succinate (Metoprolol Succinate Er 25 Mg Tab.Er.24h) 25 mg PO DAILY [facility]; Protocol Last Admin: 07/25/23 09:14 Dose: Not Given Ondansetron HCl (Ondansetron Hcl 4 Mg/2 Ml Vial) 4 mg IVPUSH Q8H PRN PRN Reason: Nausea and Vomiting Polyethylene Glycol (Polyethylene Glycol 3350 17 Gm Powd.Pack) 17 gm PO DAILY PRN PRN Reason: Constipation Sodium Biphosphate/Sodium Phosphate (Sodium Phosphate,Converse-Dibasic 133 Ml Enema) 118 ml [place] DAILY PRN PRN Reason: Constipation Sodium Chloride (0.9 % Sodium Chloride Flush 3 Ml Syringe) 3 ml IVFLUSH QSHIFT [facility] Last Admin: 07/25/23 09:12 Dose: 3 ml Home Medications Medication Instructions Recorded Confirmed Last Taken Type acetaminophen 325 mg tablet 650 mg PO Q4H PRN pain or fever 07/24/23 07/24/23 Unknown History aspirin 81 mg chewable tablet 81 mg PO DAILY 07/24/23 07/24/23 Unknown History bisacodyl 10 mg rectal suppository 10 mg OR DAILY PRN Constipation 07/24/23 07/24/23 Unknown History magnesium hydroxide 400 mg/5 mL 30 ml PO BEDTIME PRN Constipation 07/24/23 07/24/23 Unknown History oral suspension (Milk of Magnesia) polyethylene glycol 3350 17 17 g PO DAILY PRN Constipation 07/24/23 07/24/23 Unknown History gram/dose oral powder (Miralax) sodium phosphates 19 gram-7 118 ml [place] DAILY PRN Constipation 07/24/23 07/24/23 Unknown History gram/118 mL enema (Fleet Enema) Physical Exam Vital Signs: Vital Signs: Last Vital Signs Temp 97.8 F 07/25/23 10:00 Pulse 84 07/25/23 10:00 Resp 18 07/25/23 10:00 BP 118/67 07/25/23 10:00 Pulse Ox 96 07/25/23 10:00 O2 Del Method Room Air 07/25/23 10:00 BMI result Body Mass Index 18.9 Const: Other: Very elderly frail thin female. Chest: Other: Diminished breath sounds left side. GI: Other: Abdomen soft. Results Labs 07/25/23 06:55 07/25/23 06:55 Labs: Abnormal lab results 07/24/23 07/25/23 Range/Units 17:05 06:55 WBC 11.5 H (4.8-10.8) X10*3/uL RDW 17.9 H 17.7 H (11.0-16.0) % Immature Gran % (Auto) 0.5 H (0.0-0.4) % Neut % (Auto) 81.5 H 80.4 H (45-73) % Lymph % (Auto) 3.0 L 3.5 L (20-40) % Converse % (Auto) 14.1 H 14.0 H (2-11) % Lymph # (Auto) 0.3 L 0.4 L (1.2-4.9) X10*3/uL Converse # (Auto) 1.4 H 1.6 H (0.1-1.2) X10*3/uL Abs Immat Gran (auto) 0.05 H 0.04 H (0.00-0.03) X10*3/uL Absolute Neuts (auto) 9.2 H (2.0-8.3) x10*3/uL PT 28.0 H D 25.8 H (11.1-13.3) SEC INR 2.3 H 2.1 H (0.9-1.1) BUN 32 H 31 H (9-16) mg/dL Random Glucose 119 H (60-115) mg/dL Total Bilirubin 3.8 H (0.0-1.0) mg/dL AST 41 H (5-31) U/L ALT 33 H (0-31) U/L Lactate Dehydrogenase 317 H (122-220) U/L B-Natriuretic Peptide 836 H (<100) pg/mL Total Protein 5.4 L (6.5-8.0) g/dL Albumin 2.9 L (3.5-5.0) g/dL SARS-CoV-2 RNA (RT-PCR) POSITIVE A (Negative) Short CBC 07/24/23 07/25/23 Range/Units 17:05 06:55 WBC 10.1 11.5 H (4.8-10.8) X10*3/uL Hgb 12.9 13.3 (12.0-16.0) g/dl Hct 38.9 39.9 (37.0-47.0) % Plt Count 207 188 (160-400) X10*3/uL BMP 07/24/23 07/25/23 17:05 06:55 Sodium 143 143 Potassium 3.4 D 3.4 Chloride 104 107 Carbon Dioxide 29 23 BUN 32 H 31 H Creatinine 0.68 0.64 Calcium 8.7 D 8.8 Liver Function 07/24/23 Range/Units 17:05 Total Bilirubin 3.8 H (0.0-1.0) mg/dL AST 41 H (5-31) U/L ALT 33 H (0-31) U/L Alkaline Phosphatase 92 (39-117) U/L Albumin 2.9 L (3.5-5.0) g/dL All other labs normal. Assessment and Plan (1) COVID-19: Status: Acute (2) Physical deconditioning: Status: Acute (3) Pleural effusion: Status: Acute Plan At present, patient does not have a massive left pleural effusion requiring any intervention. The pathology reports were reviewed and there is no evidence of positive cytology for malignancy although the patient does have advanced breast cancer. At present, would treat the patient symptomatically as well as periodic chest x-rays to assess effusion does recur. If it does, therapeutic options would include serial thoracentesis, many chest tube with sclerosis, or palliative care. Will follow-up p.r.n.. Procedures Date of Service Date of Service: 07/25/23
--- NOTE | 2023-07-25 11:30 | MHC.CM.PN ---
Addendum entered by Vilma Mills 07/25/23 12:29: CM heard back from [facility], pt is not a bed hold there, she can return if they have a bed when she is ready, it will require a new [facility] auth, and she will need a PT eval. Original Note: IMM 07/24/33, Pt came to hosp from [facility] where she was for STR. She lives in her own apt. and her son, Jesus Alberto / HCP assists her with what she needs. PCP is Gale Lomeli. DC plan is for pt. to return to [facility] to complete her STR. CM will follow and assist with DC plan.
--- NOTE | 2023-07-25 13:28 | P.PNIM_ITS ---
Subjective Subjective Date of Service: 07/25/23 Interval History: f/u on sob, covid 19, pleural effusion, her breathing is comfortable Physical Exam 2 Vital Signs: Vital Signs: Last Vital Signs Temp 98.5 F 07/25/23 12:11 Pulse 100 07/25/23 12:11 Resp 16 07/25/23 12:11 BP 141/87 H 07/25/23 12:11 Pulse Ox 96 07/25/23 12:11 O2 Del Method Room Air 07/25/23 12:11 BMI result Body Mass Index 18.9 Elderly female lying in bed in mild distress Neck supple, no JVD Irregularly irregular, S1-S2 heard rales at lung bases, normal respiatory effort Abdomen soft nontender, no guarding, no rigidity Patient is awake, alert and oriented to self, place, time and person ; no focal motor deficit Psych: Normal mood No pedal edema Objective Data Active Medications Acetaminophen (Acetaminophen 325 Mg Tablet) 650 mg PO Q6H PRN PRN Reason: Pain, Mild (Pain Scale 1-3) Last Admin: 07/24/23 23:00 Dose: 650 mg Atorvastatin Calcium (Atorvastatin Calcium 80 Mg Tablet) 80 mg PO BEDTIME RADHA Last Admin: 07/24/23 22:59 Dose: Not Given Documented By: ABDI Non-Admin Reason: NPO Bisacodyl (Bisacodyl 10 Mg Supp.Rect) 10 mg [place] DAILY PRN PRN Reason: Constipation Isosorbide Mononitrate (Isosorbide Mononitrate 60 Mg Tab.Er.24h) 60 mg PO DAILY RADHA; Protocol Last Admin: 07/25/23 09:14 Dose: Not Given Documented By: FELIPA Non-Admin Reason: NPO Magnesium Hydroxide (Milk Of Magnesia 30 Ml Oral.Susp) 30 ml PO BEDTIME PRN PRN Reason: Constipation Melatonin (Melatonin 3 Mg Tablet) 6 mg PO BEDTIME PRN PRN Reason: Insomnia Metoprolol Succinate (Metoprolol Succinate Er 25 Mg Tab.Er.24h) 25 mg PO DAILY [facility]; Protocol Last Admin: 07/25/23 09:14 Dose: Not Given Documented By: FELIPA Non-Admin Reason: NPO Ondansetron HCl (Ondansetron Hcl 4 Mg/2 Ml Vial) 4 mg IVPUSH Q8H PRN PRN Reason: Nausea and Vomiting Polyethylene Glycol (Polyethylene Glycol 3350 17 Gm Powd.Pack) 17 gm PO DAILY PRN PRN Reason: Constipation Sodium Biphosphate/Sodium Phosphate (Sodium Phosphate,Mathews-Dibasic 133 Ml Enema) 118 ml [place] DAILY PRN PRN Reason: Constipation Sodium Chloride (0.9 % Sodium Chloride Flush 3 Ml Syringe) 3 ml IVFLUSH QSHIFT [facility] Last Admin: 07/25/23 00:30 Dose: Not Given Documented By: ABDI Non-Admin Reason: Previously Administered Labs 07/25/23 06:55 07/25/23 06:55 Labs: Laboratory Results - last 24 hr 07/24/23 07/25/23 17:05 06:55 MCV 90.5 91.5 MCH 30.0 30.5 MCHC 33.2 33.3 RDW 17.9 H 17.7 H Plt Count 207 188 MPV 10.1 10.3 Immature Gran % (Auto) 0.5 H 0.3 Neut % (Auto) 81.5 H 80.4 H Lymph % (Auto) 3.0 L 3.5 L Mathews % (Auto) 14.1 H 14.0 H Eos % (Auto) 0.4 1.4 Baso % (Auto) 0.5 0.4 Lymph # (Auto) 0.3 L 0.4 L Mathews # (Auto) 1.4 H 1.6 H Eos # (Auto) 0.0 0.2 Baso # (Auto) 0.1 0.1 Abs Immat Gran (auto) 0.05 H 0.04 H Absolute Neuts (auto) 8.2 9.2 H Absolute Nucleated RBC 0.000 0.000 Nucleated RBC % (auto) 0.0 0.0 Smear Tech's Comments VERIFIED PT 28.0 H D 25.8 H INR 2.3 H 2.1 H Anion Gap 13 16 Estim Creat Clear Calc 49.1 52.2 Estimated GFR > 60 > 60 Random Glucose 119 H 92 Lactic Acid 1.8 Calcium 8.7 D 8.8 Magnesium 2.2 Total Bilirubin 3.8 H AST 41 H ALT 33 H Alkaline Phosphatase 92 Lactate Dehydrogenase 317 H Troponin I High Sens 7.1 B-Natriuretic Peptide 836 H Total Protein 5.4 L Albumin 2.9 L Influenza Type A (PCR) NEGATIVE Influenza Type B (PCR) NEGATIVE RSV RNA Qual (PCR) NEGATIVE SARS-CoV-2 RNA (RT-PCR) POSITIVE A Assessment and Plan (1) Physical deconditioning: Status: Acute (2) Pleural effusion: Status: Acute Plan 87-year-old female with pertinent history of metastatic left breast carcinoma, atrial fibrillation on Eliquis, mixed hyperlipidemia, essential hypertension who presents to the emergency department for evaluation of dyspnea. Acute respiratory distress due to recurrent left-sided pleural effusion, likely malignant in the setting of metastatic left breast carcinoma She has normal oxygen saturation on room air and visibly has no respiratory distress. This has been evaluated by thoracic surgery and recommend no intervention at this time but rather surveillance CXR, prio cytology has not shown malignant cell but the possibility still exist in light of breast cancer COVID-19 infection: Currently not requiring supplemental oxygen, defer Decadron. Continue isolation precautions. No concern for bacterial superinfection and no indication for antibiotics Mixed hyperlipidemia: On statin Paroxysmal atrial fibrillation: On beta-jasiel. resume eliquis since no thoracentesis is planed Right hilar mass: Outpatient Oncology follow-up Essential hypertension: On metoprolol Protein calorie malnutrition: Nutrition consult DVT prophylaxis: SCDs. resume Eliquis Do not resuscitate. MOLST form present on admission need for inpatient: SOB d/t to covid, effusion Quality Stroke Does the patient have a stroke diagnosis?: No VTE Prior VTE?: No VTE Risk Level:: Medical - moderate - high VTE Device Contraindication: N/A - Device Ordered VTE Drug Contraindication: Treatment Not Indicated
--- NOTE | 2023-07-25 13:29 | MHC.CLN ---
RE: CONSULT PT IS MODERATELY MALNOURISHED PT WITH MILDLY DEPLETED SUBCUTANEOUS FAT AND MUSCLE MASS WITH BMI 18.9 AND CHRONIC POOR PO INTAKE RECENTLY WITH PREVIOUS ADMISSION 07/18 DIET RX: REGULAR-APPROPRIATE PT DOES TAKE ENSURE AT HOME RECOMMEND ADDING ENSURE BID TO PROVIDE 700KCALS, 40G PROTEIN MONITOR PO INTAKE AND ENCOURAGE SUPPLEMENT SEE ALSO FULL CLINICAL NUTRITION ASSESSMENT
[2023-07-25] MEDS: Acetaminophen 325 MG TABLET 650 MG PO (19:34)
[2023-07-25] MEDS: Apixaban 2.5 MG TABLET PO (19:34)
[2023-07-25] MEDS: Atorvastatin Calcium 80 MG TABLET PO (19:34)
[2023-07-25] MEDS: Melatonin 3 MG TABLET 6 MG PO (19:34)
[2023-07-26 03:19] VITALS: BP 123/68; PULSE 99; RESP 20; TEMP 36.3; O2SAT 93
[2023-07-26 08:00] VITALS: BP 127/70; PULSE 105; RESP 20; TEMP 36.1; O2SAT 94
[2023-07-26] MEDS: Apixaban 2.5 MG TABLET PO ×2 (10:18→20:05)
[2023-07-26] MEDS: Isosorbide Mononitrate 60 MG TAB.ER.24H PO (10:18)
[2023-07-26] MEDS: Metoprolol Succinate ER 25 MG TAB.ER.24H PO (10:19)
--- NOTE | 2023-07-26 11:41 | PM.DS ---
DS: Providers Provider Date of Service: 07/26/23 Date of admission: 07/24/23 19:34 Primary care physician: Gale Loving MD Consults: 07/24/23 19:41 Consult to Thoracic Surgery Routine Consulting Provider: Esau Xiao Reason for consultation: recurrent plueral effusion DS: Diagnosis Discharge Diagnosis (1) Physical deconditioning: Status: Acute (2) Pleural effusion: Status: Acute DS: Summary Hospital Course Hospital Course: admission hpi Chief Complaint: Dyspnea This is a 87-year-old female with pertinent history of metastatic left breast carcinoma, atrial fibrillation on Eliquis, mixed hyperlipidemia, essential hypertension who presents to the emergency department for evaluation of dyspnea. Patient is coming from [facility] as she was found to be dyspneic. History also obtained from son at bedside. Patient states she has had difficulty breathing for a couple of days. Also has had dry cough. No fever, chills, chest pain, palpitations, abdominal pain, changes in urinary or bowel habits. Of note, patient was recently admitted on 07/17 with recurrent left pleural effusion and discharged on 07/19/23 after undergoing thoracentesis, 800 cc fluid was removed by IR. Patient states she feels like there is fluid buildup back in her lungs. No orthopnea or paroxysmal nocturnal dyspnea. As per EMS, patient was found to be dyspneic and placed on 2 L supplemental oxygen. In the emergency department, imaging with left-sided pleural effusion. Patient tested positive for COVID-19. She was satting 92 % on room air hospital course: The patient, previously diagnosed with metastatic left breast cancer and recurrent pleural effusion suspected to be cancer-related, presented with shortness of breath and tested positive for COVID-19. Chest X-ray revealed a left lower lobe opacity accompanied by layering left pleural effusion, consistent with previous findings from July 16, 2023. Additionally, a right hilar opacity was noted, similar to previous assessments. Despite normal oxygen levels, absence of fever, and initially normal white blood cell count which later elevated to 11, thoracic surgery evaluation found no need for thoracentesis or further intervention. The patient's breathing is comfortable, and she will be discharged. Time Attestation Discharge coordination time: Greater than 30 minutes Quality: Safe Use of Opioids Does Pt have an Active Cancer Diagnosis on the Problem List?: Yes Opioid Measure Date for [facility] Report: 06/26/23 Opioid Measure Time for [facility] Report: 11:41 Quality: Stroke Does the patient have a stroke diagnosis?: No Physical Exam Vital Signs: Vital Signs: Last Vital Signs Temp 97.0 F 07/26/23 08:00 Pulse 105 H 07/26/23 08:00 Resp 20 07/26/23 08:00 BP 127/70 07/26/23 08:00 Pulse Ox 94 07/26/23 08:00 O2 Del Method Room Air 07/26/23 08:00 BMI result Body Mass Index 18.9 General: AO X 3, no acute distress Resp: CTA bilateral CVS: S1,S2,RRR GI: +BS, NT, no distention Skin: No rash Neuro: motor grossly intact Psych: appropriate affect DS: Data Data Completed and Pending Completed studies during hospitalization [Text1]: Procedures Drainage of Left Pleural Cavity, Percutaneous Approach (07/17/23) Labs on day of discharge: Preliminary micro results at discharge 07/24/23 19:45 Blood Culture - Preliminary Blood - Venous No growth after 24 hours. 07/24/23 17:05 Blood Culture - Preliminary Blood - Venous No growth after 24 hours. Discharge Plan Discharge Anticipated Discharge Date/Time: 07/26/23 11:38 Patient Disposition: Home, Self-Care Discharge Diagnosis: Shortness of breath, covid and Pleural effusion Referrals: Gale Loving MD [Primary Care Provider] - 1 Week Discharge Medications: Continued atorvastatin 80 mg tablet 80 mg PO BEDTIME Qty: 90 3RF isosorbide mononitrate 60 mg tablet extended release 24 hr 60 mg PO QAM Qty: 90 3RF metoprolol succinate 25 mg tablet extended release 24 hr 25 mg PO DAILY 90 Days Qty: 90 3RF acetaminophen 325 mg Tablet 650 mg PO Q4H PRN (Reason: pain or fever) magnesium hydroxide [Milk of Magnesia] 400 mg/5 mL Suspension 30 ml PO BEDTIME PRN (Reason: Constipation) bisacodyl 10 mg Suppository 10 mg [place] DAILY PRN (Reason: Constipation) Fleet Enema 19-7 gram/118 mL Enema 118 ml [place] DAILY PRN (Reason: Constipation) polyethylene glycol 3350 [Miralax] 17 gram/dose Powder 17 g PO DAILY PRN (Reason: Constipation) aspirin 81 mg Tablet,Chewable 81 mg PO DAILY Eliquis 2.5 mg Tablet 2.5 mg PO BID Qty: 60 0RF Discharge Orders: Discharge Order (Routine); Ordered 07/26/23 Ordered By: Antolin Kc Diet: Advance to usual diet Activity on Discharge: As tolerated Stand Alone Forms: Patient Portal Discharge page Care Plan Goals: recovery from shortness of breath, covid and pleural effusion Health Concerns: recurrent pleural effusion covid 19 Plan of Treatment: Resume all prior treatment, follow up with PCP and thoracic surgery on outpatient basis Assessment: see above
[2023-07-26 12:00] VITALS: BP 136/72; PULSE 103; RESP 20; TEMP 37; O2SAT 93
[2023-07-26 12:30] LABS: Hematocrit 40.1 % (37.0-47.0); Hemoglobin 13.1 g/dl (12.0-16.0); Mean Corpuscular HGB Conc 32.7 g/dl (31.0-35.0); Mean Corpuscular Hemoglobin 29.8 pg (27.0-33.0); Mean Corpuscular Volume 91.3 fL (80.0-98.0); Mean Platelet Volume 10.2 fL (9.4-12.3); Platelet Count 217 X10*3/uL (160-400); Red Blood Count 4.39 X10*6/uL (4.20-5.50); Red Cell Distribution Width 18.4 % (11.0-16.0); White Blood Count 9.8 X10*3/uL (4.8-10.8)
--- NOTE | 2023-07-26 15:05 | HO.PM.IMPN ---
Subjective Subjective Date of Service: 07/26/23 Interval History: No sob, gen weakness, Physical Exam Vital Signs: Vital Signs: Last Vital Signs Temp 98.6 F 07/26/23 12:00 Pulse 103 H 07/26/23 12:00 Resp 20 07/26/23 12:00 BP 136/72 07/26/23 12:00 Pulse Ox 93 07/26/23 12:00 O2 Del Method Room Air 07/26/23 12:00 BMI result Body Mass Index 18.9 General: AO X 3, no acute distress Resp: CTA bilateral CVS: S1,S2,RRR GI: +BS, NT, no distention Skin: No rash Neuro: motor grossly intact Psych: appropriate affect Objective Data Active Medications Acetaminophen (Acetaminophen 325 Mg Tablet) 650 mg PO Q6H PRN PRN Reason: Pain, Mild (Pain Scale 1-3) Last Admin: 07/25/23 19:34 Dose: 650 mg Documented By: SHAUN Apixaban (Apixaban 2.5 Mg Tablet) 2.5 mg PO BID [facility] Last Admin: 07/26/23 10:18 Dose: 2.5 mg Documented By: GUILLERMO Atorvastatin Calcium (Atorvastatin Calcium 80 Mg Tablet) 80 mg PO BEDTIME RADHA Last Admin: 07/25/23 19:34 Dose: 80 mg Documented By: SHAUN Bisacodyl (Bisacodyl 10 Mg Supp.Rect) 10 mg [place] DAILY PRN PRN Reason: Constipation Isosorbide Mononitrate (Isosorbide Mononitrate 60 Mg Tab.Er.24h) 60 mg PO DAILY [facility]; Protocol Last Admin: 07/26/23 10:18 Dose: 60 mg Documented By: GUILLERMO Magnesium Hydroxide (Milk Of Magnesia 30 Ml Oral.Susp) 30 ml PO BEDTIME PRN PRN Reason: Constipation Melatonin (Melatonin 3 Mg Tablet) 6 mg PO BEDTIME PRN PRN Reason: Insomnia Last Admin: 07/25/23 19:34 Dose: 6 mg Documented By: SHAUN Metoprolol Succinate (Metoprolol Succinate Er 25 Mg Tab.Er.24h) 25 mg PO DAILY [facility]; Protocol Last Admin: 07/26/23 10:19 Dose: 25 mg Documented By: GUILLERMO Ondansetron HCl (Ondansetron Hcl 4 Mg/2 Ml Vial) 4 mg IVPUSH Q8H PRN PRN Reason: Nausea and Vomiting Polyethylene Glycol (Polyethylene Glycol 3350 17 Gm Powd.Pack) 17 gm PO DAILY PRN PRN Reason: Constipation Sodium Biphosphate/Sodium Phosphate (Sodium Phosphate,[place]-Dibasic 133 Ml Enema) 118 ml [place] DAILY PRN PRN Reason: Constipation Sodium Chloride (0.9 % Sodium Chloride Flush 3 Ml Syringe) 3 ml IVFLUSH QSHIFT [facility] Last Admin: 07/25/23 19:34 Dose: 3 ml Documented By: SHAUN Labs 07/26/23 12:21 07/25/23 06:55 Labs: Laboratory Results - last 24 hr 07/26/23 12:21 MCV 91.3 MCH 29.8 MCHC 32.7 RDW 18.4 H Plt Count 217 MPV 10.2 Absolute Nucleated RBC 0.000 Nucleated RBC % (auto) 0.0 Microbiology Microbiology Results: Microbiology 07/24/23 19:45 Blood Culture - Preliminary Blood - Venous No growth after 24 hours. 07/24/23 17:05 Blood Culture - Preliminary Blood - Venous No growth after 24 hours. Assessment and Plan (1) Physical deconditioning: Status: Acute (2) Pleural effusion: Status: Acute Plan 87-year-old female with pertinent history of metastatic left breast carcinoma, atrial fibrillation on Eliquis, mixed hyperlipidemia, essential hypertension who presents to the emergency department for evaluation of dyspnea. Acute respiratory distress due to recurrent left-sided pleural effusion, likely malignant in the setting of metastatic left breast carcinoma She has normal oxygen saturation on room air and visibly has no respiratory distress. This has been evaluated by thoracic surgery and recommend no intervention at this time but rather surveillance CXR, prio cytology has not shown malignant cell but the possibility still exist in light of breast cancer COVID-19 infection: Currently not requiring supplemental oxygen, defer Decadron. Continue isolation precautions. No concern for bacterial superinfection and no indication for antibiotics Mixed hyperlipidemia: On statin Paroxysmal atrial fibrillation: On beta-jasiel. resume eliquis since no thoracentesis is planed Right hilar mass: Outpatient Oncology follow-up Essential hypertension: On metoprolol Protein calorie malnutrition: Nutrition consult DVT prophylaxis: SCDs. resume Eliquis Do not resuscitate. MOLST form present on admission need for inpatient: SOB d/t to covid, effusion and awaiting rehab. PT is recommending STR Quality Stroke Does the patient have a stroke diagnosis?: No VTE Prior VTE?: No VTE Risk Level:: Medical - moderate - high VTE Device Contraindication: N/A - Device Ordered VTE Drug Contraindication: Treatment Not Indicated
[2023-07-26] MEDS: 0.9 % Sodium Chloride Flush 3 ML SYRINGE IVFLUSH ×2 (15:35→20:05)
[2023-07-26 16:00] VITALS: BP 124/65; PULSE 100; RESP 16; TEMP 36.4; O2SAT 93
--- NOTE | 2023-07-26 16:22 | MHC.CM.PN ---
PT MEDICALLY CLEARED TO DC TODAY HOWEVER PT IS RECOMMENDING PT RETURN TO STR AND [facility] DOES NOT HAVE A BED BROAD REFERRAL PLACED BASED ON PTS INSURANCE AND COVID + STATUS, NO BED OFFERS AT THIS TIME CM MET WITH PTS SON WHO STATES HE FEELS SHE NEEDS TO RETURN TO REHAB. [facility] IS THE PREFERRED SNF
[2023-07-26] MEDS: Acetaminophen 325 MG TABLET 650 MG PO (18:16)
[2023-07-26 20:00] VITALS: BP 108/69; PULSE 100; RESP 20; TEMP 37.5; O2SAT 95
[2023-07-26] MEDS: Atorvastatin Calcium 80 MG TABLET PO (20:05)
[2023-07-26] MEDS: Melatonin 3 MG TABLET 6 MG PO (20:05)
[2023-07-26 23:22] VITALS: BP 101/58; PULSE 83; RESP 20; TEMP 37.2; O2SAT 92
[2023-07-27 08:00] VITALS: BP 166/87; PULSE 100; RESP 16; TEMP 36.1; O2SAT 91
[2023-07-27] MEDS: Isosorbide Mononitrate 60 MG TAB.ER.24H PO (08:41)
[2023-07-27] MEDS: Metoprolol Succinate ER 25 MG TAB.ER.24H PO (08:41)
[2023-07-27] MEDS: 0.9 % Sodium Chloride Flush 3 ML SYRINGE IVFLUSH ×3 (08:41→20:07)
[2023-07-27] MEDS: Apixaban 2.5 MG TABLET PO ×2 (08:41→20:07)
--- NOTE | 2023-07-27 10:20 | P.PNIM_ITS ---
Subjective Subjective Date of Service: 07/27/23 Interval History: Doing ok, no sob, gen weakness Physical Exam 2 Vital Signs: Vital Signs: Last Vital Signs Temp 97.0 F 07/27/23 08:00 Pulse 100 07/27/23 08:00 Resp 16 07/27/23 08:00 BP 166/87 H 07/27/23 08:00 Pulse Ox 91 L 07/27/23 08:00 O2 Del Method Room Air 07/27/23 08:00 BMI result Body Mass Index 18.9 General: AO X 3, no acute distress Resp: CTA bilateral CVS: S1,S2,RRR GI: +BS, NT, no distention Skin: No rash Neuro: motor grossly intact Psych: appropriate affect Objective Data Active Medications Acetaminophen (Acetaminophen 325 Mg Tablet) 650 mg PO Q6H PRN PRN Reason: Pain, Mild (Pain Scale 1-3) Last Admin: 07/26/23 18:16 Dose: 650 mg Documented By: GUILLERMO Apixaban (Apixaban 2.5 Mg Tablet) 2.5 mg PO BID [facility] Last Admin: 07/27/23 08:41 Dose: 2.5 mg Documented By: FRANNY Atorvastatin Calcium (Atorvastatin Calcium 80 Mg Tablet) 80 mg PO BEDTIME [facility] Last Admin: 07/26/23 20:05 Dose: 80 mg Documented By: SHAUN Bisacodyl (Bisacodyl 10 Mg Supp.Rect) 10 mg [place] DAILY PRN PRN Reason: Constipation Isosorbide Mononitrate (Isosorbide Mononitrate 60 Mg Tab.Er.24h) 60 mg PO DAILY [facility]; Protocol Last Admin: 07/27/23 08:41 Dose: 60 mg Documented By: FRANNY Magnesium Hydroxide (Milk Of Magnesia 30 Ml Oral.Susp) 30 ml PO BEDTIME PRN PRN Reason: Constipation Melatonin (Melatonin 3 Mg Tablet) 6 mg PO BEDTIME PRN PRN Reason: Insomnia Last Admin: 07/26/23 20:05 Dose: 6 mg Documented By: SHAUN Metoprolol Succinate (Metoprolol Succinate Er 25 Mg Tab.Er.24h) 25 mg PO DAILY [facility]; Protocol Last Admin: 07/27/23 08:41 Dose: 25 mg Documented By: FRANNY Ondansetron HCl (Ondansetron Hcl 4 Mg/2 Ml Vial) 4 mg IVPUSH Q8H PRN PRN Reason: Nausea and Vomiting Polyethylene Glycol (Polyethylene Glycol 3350 17 Gm Powd.Pack) 17 gm PO DAILY PRN PRN Reason: Constipation Sodium Biphosphate/Sodium Phosphate (Sodium Phosphate,[place]-Dibasic 133 Ml Enema) 118 ml [place] DAILY PRN PRN Reason: Constipation Sodium Chloride (0.9 % Sodium Chloride Flush 3 Ml Syringe) 3 ml IVFLUSH QSHIFT RADHA Last Admin: 07/27/23 08:41 Dose: 3 ml Documented By: BROB Labs 07/26/23 12:21 07/25/23 06:55 Labs: Laboratory Results - last 24 hr 07/26/23 12:21 MCV 91.3 MCH 29.8 MCHC 32.7 RDW 18.4 H Plt Count 217 MPV 10.2 Absolute Nucleated RBC 0.000 Nucleated RBC % (auto) 0.0 Microbiology Microbiology Results: Microbiology 07/24/23 19:45 Blood Culture - Preliminary Blood - Venous No growth after 48 hours. 07/24/23 17:05 Blood Culture - Preliminary Blood - Venous No growth after 48 hours. Assessment and Plan (1) Physical deconditioning: Status: Acute (2) Pleural effusion: Status: Deleted Plan 87-year-old female with pertinent history of metastatic left breast carcinoma, atrial fibrillation on Eliquis, mixed hyperlipidemia, essential hypertension who presents to the emergency department for evaluation of dyspnea. Acute respiratory distress due to recurrent left-sided pleural effusion, likely malignant in the setting of metastatic left breast carcinoma She has normal oxygen saturation on room air and has no respiratory distress. She has been evaluated by thoracic surgery and recommend no intervention at this time but rather surveillance CXR, prior cytology has not shown malignant cell but the possibility still exist in light of breast cancer COVID-19 infection: Currently not requiring supplemental oxygen, defer Decadron. Continue isolation precautions. No concern for bacterial superinfection and no indication for antibiotics Mixed hyperlipidemia: On statin Paroxysmal atrial fibrillation: On beta-jasiel. resume eliquis since no thoracentesis is planed Right hilar mass: Outpatient Oncology follow-up Essential hypertension: On metoprolol Protein calorie malnutrition: Nutrition consult DVT prophylaxis: SCDs. resume Eliquis Do not resuscitate. MOLST form present on admission need for inpatient: awaiting rehab placement. PT is recommending STR Quality Stroke Does the patient have a stroke diagnosis?: No VTE Prior VTE?: No VTE Risk Level:: Medical - moderate - high VTE Device Contraindication: N/A - Device Ordered VTE Drug Contraindication: Treatment Not Indicated
[2023-07-27 11:22] VITALS: BP 99/58; PULSE 104; RESP 20; TEMP 36.9; O2SAT 93
[2023-07-27 15:58] VITALS: BP 113/59; PULSE 87; RESP 18; TEMP 36.3; O2SAT 93
[2023-07-27 20:00] VITALS: BP 111/62; PULSE 94; RESP 20; TEMP 36.6; O2SAT 94
[2023-07-27] MEDS: Atorvastatin Calcium 80 MG TABLET PO (20:07)
[2023-07-27] MEDS: Melatonin 3 MG TABLET 6 MG PO (20:07)
[2023-07-27] MEDS: Acetaminophen 325 MG TABLET 650 MG PO (20:08)
[2023-07-27 23:12] VITALS: BP 114/67; PULSE 98; RESP 20; TEMP 36.3; O2SAT 93
[2023-07-28] VITALS (7 sets, daily range): BP systolic 107–135; BP diastolic 57–82; PULSE 77–93; RESP 16–20; TEMP 36.2–37.3; O2SAT 92–94
[2023-07-28] MEDS: Apixaban 2.5 MG TABLET PO ×2 (09:51→21:35)
[2023-07-28] MEDS: Metoprolol Succinate ER 25 MG TAB.ER.24H PO (09:51)
[2023-07-28] MEDS: 0.9 % Sodium Chloride Flush 3 ML SYRINGE IVFLUSH ×3 (09:51→21:35)
[2023-07-28] MEDS: Isosorbide Mononitrate 60 MG TAB.ER.24H PO (09:51)
--- NOTE | 2023-07-28 10:50 | P.PNIM_ITS ---
Subjective Subjective Date of Service: 07/28/23 Interval History: f/u weakness, assymptomatic covid Physical Exam 2 Vital Signs: Vital Signs: Last Vital Signs Temp 97.2 F 07/28/23 08:00 Pulse 83 07/28/23 08:00 Resp 20 07/28/23 08:00 BP 135/75 07/28/23 08:00 Pulse Ox 93 07/28/23 08:00 O2 Del Method Room Air 07/28/23 08:00 BMI result Body Mass Index 18.9 General: AO X 3, no acute distress Resp: CTA bilateral CVS: S1,S2,RRR GI: +BS, NT, no distention Skin: No rash Neuro: motor grossly intact Psych: appropriate affect Objective Data Active Medications Acetaminophen (Acetaminophen 325 Mg Tablet) 650 mg PO Q6H PRN PRN Reason: Pain, Mild (Pain Scale 1-3) Last Admin: 07/27/23 20:08 Dose: 650 mg Documented By: LAVINIA Apixaban (Apixaban 2.5 Mg Tablet) 2.5 mg PO BID [facility] Last Admin: 07/28/23 09:51 Dose: 2.5 mg Documented By: ELLY Atorvastatin Calcium (Atorvastatin Calcium 80 Mg Tablet) 80 mg PO BEDTIME RADHA Last Admin: 07/27/23 20:07 Dose: 80 mg Documented By: LAVINIA Bisacodyl (Bisacodyl 10 Mg Supp.Rect) 10 mg [place] DAILY PRN PRN Reason: Constipation Isosorbide Mononitrate (Isosorbide Mononitrate 60 Mg Tab.Er.24h) 60 mg PO DAILY [facility]; Protocol Last Admin: 07/28/23 09:51 Dose: 60 mg Documented By: ELLY Magnesium Hydroxide (Milk Of Magnesia 30 Ml Oral.Susp) 30 ml PO BEDTIME PRN PRN Reason: Constipation Melatonin (Melatonin 3 Mg Tablet) 6 mg PO BEDTIME PRN PRN Reason: Insomnia Last Admin: 07/27/23 20:07 Dose: 6 mg Documented By: LAVINIA Metoprolol Succinate (Metoprolol Succinate Er 25 Mg Tab.Er.24h) 25 mg PO DAILY RADHA; Protocol Last Admin: 07/28/23 09:51 Dose: 25 mg Documented By: ELLY Ondansetron HCl (Ondansetron Hcl 4 Mg/2 Ml Vial) 4 mg IVPUSH Q8H PRN PRN Reason: Nausea and Vomiting Polyethylene Glycol (Polyethylene Glycol 3350 17 Gm Powd.Pack) 17 gm PO DAILY PRN PRN Reason: Constipation Sodium Biphosphate/Sodium Phosphate (Sodium Phosphate,[place]-Dibasic 133 Ml Enema) 118 ml [place] DAILY PRN PRN Reason: Constipation Sodium Chloride (0.9 % Sodium Chloride Flush 3 Ml Syringe) 3 ml IVFLUSH QSHIFT [facility] Last Admin: 07/28/23 09:51 Dose: 3 ml Documented By: SIDNEY Labs 07/26/23 12:21 07/25/23 06:55 Assessment and Plan (1) Pleural effusion: Status: Acute (2) Recurrent left pleural effusion: Status: Acute (3) Physical deconditioning: Status: Acute (4) Congestive heart failure: Status: Acute Plan 87-year-old female with pertinent history of metastatic left breast carcinoma, atrial fibrillation on Eliquis, mixed hyperlipidemia, essential hypertension who presents to the emergency department for evaluation of dyspnea. Acute respiratory distress due to recurrent left-sided pleural effusion, likely malignant in the setting of metastatic left breast carcinoma She has normal oxygen saturation on room air and has no respiratory distress. She has been evaluated by thoracic surgery and recommend no intervention at this time but rather surveillance CXR, prior cytology has not shown malignant cell but the possibility still exist in light of breast cancer COVID-19 infection: Currently not requiring supplemental oxygen, defer Decadron. Continue isolation precautions. No concern for bacterial superinfection and no indication for antibiotics. repeat covid Mixed hyperlipidemia: On statin Paroxysmal atrial fibrillation: On beta-jasiel. continue eliquis since no thoracentesis is planed Right hilar mass: Outpatient Oncology follow-up Essential hypertension: On metoprolol Protein calorie malnutrition: Nutrition consult DVT prophylaxis: SCDs. resume Eliquis Do not resuscitate. MOLST form present on admission need for inpatient: awaiting rehab placement. PT is recommending STR Quality Stroke Does the patient have a stroke diagnosis?: No VTE Prior VTE?: No VTE Risk Level:: Medical - moderate - high VTE Device Contraindication: N/A - Device Ordered VTE Drug Contraindication: Treatment Not Indicated
--- NOTE | 2023-07-28 10:58 | MHC.CLN ---
F/U PT IS MODERATELY MALNOURISHED SEE FULL CLINICAL NUTRITION ASSESSMENT DATED 07/25/23 PO INTAKE 25-50% DIET RX: REGULAR-APPROPRIATE PT RECEIVING ENSURE BID TO PROVIDE 700KCALS, 40G PROTEIN MONITOR PO INTAKE AND ENCOURAGE SUPPLEMENT
--- NOTE | 2023-07-28 11:30 | MHC.CM.PN ---
EMR REVIEWED, PER HOSPITALIST PT MEDICALLY CLEARED FOR DC HOWEVER PT CAME FROM STR AT [facility] HOWEVER THEY DO NOT HAVE A BED FOR 2 MORE DAYS, REFERRAL EXPANDED HOWEVER PT IS COVID+ AND THAT IS A HUGE BARRIER, PT HAS REQUESTED A RAPID COVID TO BE DONE IF NEGATIVE PT MAY HAVE BED OFFERS, CM WILL CONT TO FOLLOW.
[2023-07-28 13:56] LABS: COVID-19 Test Positive (Negative); IDNOW Serial# 152EDE1D
[2023-07-28] MEDS: Melatonin 3 MG TABLET 6 MG PO (21:35)
[2023-07-28] MEDS: Atorvastatin Calcium 80 MG TABLET PO (21:35)
[2023-07-28] MEDS: Acetaminophen 325 MG TABLET 650 MG PO (21:35)
[2023-07-29] VITALS (8 sets, daily range): BP systolic 103–140; BP diastolic 56–72; PULSE 80–90; RESP 15–18; TEMP 36.2–37; O2SAT 92–95
[2023-07-29] MEDS: 0.9 % Sodium Chloride Flush 3 ML SYRINGE IVFLUSH ×2 (08:53→17:02)
[2023-07-29] MEDS: Metoprolol Succinate ER 25 MG TAB.ER.24H PO (08:54)
[2023-07-29] MEDS: Isosorbide Mononitrate 60 MG TAB.ER.24H PO (08:54)
[2023-07-29] MEDS: Apixaban 2.5 MG TABLET PO ×2 (08:54→21:08)
--- NOTE | 2023-07-29 09:26 | MHC.CM.PN ---
CM STILL AWAITING BED OFFER, REFERRAL EXAPANDED, [facility] FOLLOWING HOWEVER NO BED AVAILABLE UNTIL TOMORROW 07/29, CM WILL CONT TO FOLLOW REFERRALS AND DC NEEDS.
--- NOTE | 2023-07-29 10:17 | P.CDIM_ITS ---
PROVIDER RESPONSE TEXT: To clarify, the appropriate diagnosis supported by the clinical indicators: Moderate QUERY TEXT: PHYSICIAN'S DOCUMENTATION REQUEST Date of Query: 07/29/2023 08:33 AM EST Patient Name: Clara Jordan Admit Date: 07/25/2023 Dear Antolin Kc, A review of the medical record indicates additional documentation may be needed. Please review below and update the documentation accordingly. Clinical indicators: Progress notes: Protein calorie malnutrition Clinical nutrition notes 07/24 - Moderately malnourished with BMI 18.9 Prolong catabolic illness Mildly depleted subcutaneous fat and muscle mass. Adding Ensure BMI to provide 700KCALS/40G protein. If possible, please provide additional specificity regarding the severity of the malnutrition using t he above information: Mild Moderate Severe Other (explain) Clinically unable to determine (explain) Thank you, Vesna Davis, CCS, CDIS Use of terms such as suspected, likely, concern for, or probable (associated with a specific diagnosi s that is being evaluated, monitored, or treated as if it exists) are acceptable and can be coded in the inpatient se tting, when documented at the time of discharge. Please use your independent medical judgment in providing your response. THIS QUERY IS PART OF THE PERMANENT MEDICAL RECORD
--- NOTE | 2023-07-29 10:19 | HO.PM.IMPN ---
Subjective Subjective Date of Service: 07/29/23 Interval History: f/u weakness, assymptomatic covid, Awaiting for rehab bed Physical Exam Vital Signs: Vital Signs: Last Vital Signs Temp 98.4 F 07/29/23 07:36 Pulse 87 07/29/23 07:36 Resp 16 07/29/23 07:36 BP 138/72 07/29/23 07:36 Pulse Ox 95 07/29/23 07:36 O2 Del Method Room Air 07/29/23 07:36 BMI result Body Mass Index 18.9 General: AO X 3, no acute distress Resp: CTA bilateral CVS: S1,S2,RRR GI: +BS, NT, no distention Skin: No rash Neuro: motor grossly intact Psych: appropriate affect Objective Data Active Medications Acetaminophen (Acetaminophen 325 Mg Tablet) 650 mg PO Q6H PRN PRN Reason: Pain, Mild (Pain Scale 1-3) Last Admin: 07/28/23 21:35 Dose: 650 mg Documented By: LAVINIA Apixaban (Apixaban 2.5 Mg Tablet) 2.5 mg PO BID [facility] Last Admin: 07/29/23 08:54 Dose: 2.5 mg Documented By: BOBBI Atorvastatin Calcium (Atorvastatin Calcium 80 Mg Tablet) 80 mg PO BEDTIME RADHA Last Admin: 07/28/23 21:35 Dose: 80 mg Documented By: LAVINIA Bisacodyl (Bisacodyl 10 Mg Supp.Rect) 10 mg AR DAILY PRN PRN Reason: Constipation Isosorbide Mononitrate (Isosorbide Mononitrate 60 Mg Tab.Er.24h) 60 mg PO DAILY [facility]; Protocol Last Admin: 07/29/23 08:54 Dose: 60 mg Documented By: BOBBI Magnesium Hydroxide (Milk Of Magnesia 30 Ml Oral.Susp) 30 ml PO BEDTIME PRN PRN Reason: Constipation Melatonin (Melatonin 3 Mg Tablet) 6 mg PO BEDTIME PRN PRN Reason: Insomnia Last Admin: 07/28/23 21:35 Dose: 6 mg Documented By: LAVINIA Metoprolol Succinate (Metoprolol Succinate Er 25 Mg Tab.Er.24h) 25 mg PO DAILY [facility]; Protocol Last Admin: 07/29/23 08:54 Dose: 25 mg Documented By: BOBBI Ondansetron HCl (Ondansetron Hcl 4 Mg/2 Ml Vial) 4 mg IVPUSH Q8H PRN PRN Reason: Nausea and Vomiting Polyethylene Glycol (Polyethylene Glycol 3350 17 Gm Powd.Pack) 17 gm PO DAILY PRN PRN Reason: Constipation Sodium Biphosphate/Sodium Phosphate (Sodium Phosphate,[place]-Dibasic 133 Ml Enema) 118 ml AR DAILY PRN PRN Reason: Constipation Sodium Chloride (0.9 % Sodium Chloride Flush 3 Ml Syringe) 3 ml IVFLUSH QSHIFT RADHA Last Admin: 07/29/23 08:53 Dose: 3 ml Documented By: CANDIAC Labs 07/26/23 12:21 07/25/23 06:55 Labs: Laboratory Results - last 24 hr 07/28/23 13:30 COVID-19 (DEE) Positive A COVID-19 Clin Com See Note Assessment and Plan (1) Pleural effusion: Status: Acute (2) Recurrent left pleural effusion: Status: Acute (3) Physical deconditioning: Status: Acute (4) Congestive heart failure: Status: Acute Plan 87-year-old female with pertinent history of metastatic left breast carcinoma, atrial fibrillation on Eliquis, mixed hyperlipidemia, essential hypertension who presents to the emergency department for evaluation of dyspnea. Acute respiratory distress due to recurrent left-sided pleural effusion, likely malignant in the setting of metastatic left breast carcinoma She has normal oxygen saturation on room air and has no respiratory distress. She has been evaluated by thoracic surgery and recommend no intervention at this time but rather surveillance CXR, prior cytology has not shown malignant cell but the possibility still exist in light of breast cancer COVID-19 infection: Currently not requiring supplemental oxygen, defer Decadron. Continue isolation precautions. No concern for bacterial superinfection and no indication for antibiotics. repeat covid Mixed hyperlipidemia: On statin Paroxysmal atrial fibrillation: On beta-jasiel. continue eliquis since no thoracentesis is planed Right hilar mass: Outpatient Oncology follow-up Essential hypertension: On metoprolol Protein calorie malnutrition: Nutrition consult DVT prophylaxis: SCDs. resume Eliquis Do not resuscitate. MOLST form present on admission need for inpatient: awaiting rehab placement. PT is recommending STR Quality Stroke Does the patient have a stroke diagnosis?: No VTE Prior VTE?: No VTE Risk Level:: Medical - moderate - high VTE Device Contraindication: N/A - Device Ordered VTE Drug Contraindication: Treatment Not Indicated
[2023-07-29 15:00] LABS: COVID-19 Test Positive (Negative); IDNOW Serial# 152EDE1D
[2023-07-29] MEDS: Acetaminophen 325 MG TABLET 650 MG PO (15:06)
[2023-07-29] MEDS: Atorvastatin Calcium 80 MG TABLET PO (21:08)
[2023-07-30] MEDS: 0.9 % Sodium Chloride Flush 3 ML SYRINGE IVFLUSH ×2 (01:24→09:08)
[2023-07-30 03:40] VITALS: BP 129/61; PULSE 94; RESP 18; TEMP 36.8; O2SAT 93
[2023-07-30 07:48] VITALS: BP 121/73; PULSE 103; RESP 20; TEMP 37.2; O2SAT 95
[2023-07-30] MEDS: Apixaban 2.5 MG TABLET PO (09:08)
[2023-07-30] MEDS: Isosorbide Mononitrate 60 MG TAB.ER.24H PO (09:08)
[2023-07-30] MEDS: Metoprolol Succinate ER 25 MG TAB.ER.24H PO (09:08)
[2023-07-30 10:36] VITALS: BP 121/73; PULSE 103; O2SAT 95
--- NOTE | 2023-07-30 11:23 | P.DS_ITS ---
DS: Providers Provider Date of Service: 07/30/23 Date of admission: 07/24/23 19:34 Primary care physician: Gale Loving MD Consults: 07/24/23 19:41 Consult to Thoracic Surgery Routine Consulting Provider: Esau Xiao Reason for consultation: recurrent plueral effusion DS: Diagnosis Discharge Diagnosis (1) Pleural effusion: Status: Acute (2) Recurrent left pleural effusion: Status: Acute (3) Physical deconditioning: Status: Acute (4) Congestive heart failure: Status: Acute (5) COVID-19: Status: Acute DS: Summary Hospital Course Hospital Course: admission hpi Chief Complaint: Dyspnea This is a 87-year-old female with pertinent history of metastatic left breast carcinoma, atrial fibrillation on Eliquis, mixed hyperlipidemia, essential hypertension who presents to the emergency department for evaluation of dyspnea. Patient is coming from [facility] as she was found to be dyspneic. History also obtained from son at bedside. Patient states she has had difficulty breathing for a couple of days. Also has had dry cough. No fever, chills, chest pain, palpitations, abdominal pain, changes in urinary or bowel habits. Of note, patient was recently admitted on 07/17 with recurrent left pleural effusion and discharged on 07/19/23 after undergoing thoracentesis, 800 cc fluid was removed by IR. Patient states she feels like there is fluid buildup back in her lungs. No orthopnea or paroxysmal nocturnal dyspnea. As per EMS, patient was found to be dyspneic and placed on 2 L supplemental oxygen. In the emergency department, imaging with left-sided pleural effusion. Patient tested positive for COVID-19. She was satting 92 % on room air hospital course: The patient, previously diagnosed with metastatic left breast cancer and recurrent pleural effusion suspected to be cancer-related, presented with shortness of breath and tested positive for COVID-19. Chest X-ray revealed a left lower lobe opacity accompanied by layering left pleural effusion, consistent with previous findings from July 16, 2023. Additionally, a right hilar opacity was noted, similar to previous assessments. Despite normal oxygen levels, absence of fever, and initially normal white blood cell count which later elevated to 11, thoracic surgery evaluation found no need for thoracentesis or further intervention. The patient's breathing is comfortable, and she will be discharged to SNF as she was noted to have physical deconditioning requiring PT evaluation who recommended SNF placement. Time Attestation Discharge Coordination Time: discharge time of ____ minutes Quality: Safe Use of Opioids Does Pt have an Active Cancer Diagnosis on the Problem List?: No Quality: Stroke Does the patient have a stroke diagnosis?: No Physical Exam Vital Signs: Vital Signs: Last Vital Signs Temp 98.9 F 07/30/23 07:48 Pulse 103 H 07/30/23 10:36 Resp 20 07/30/23 07:48 BP 121/73 07/30/23 10:36 Pulse Ox 95 07/30/23 10:36 O2 Del Method Room Air 07/30/23 07:48 BMI result Body Mass Index 18.9 Const: Other: Constitutional : Awake, interactive, frail looking, not in distress Neck : Normal inspection, Supple, chest wall mass left side Cardiovascular : RRR, no JVP, no lower extremity edema Respiratory : fair bilateral air entry, decrease at left base, no crackles, wheezes or rhonchi Gastrointestinal: soft, lax, Normal bowel sounds, Non tender Skin : Warm, Dry Neurological : Alert & oriented x3, No focal deficit DS: Data Data Completed and Pending Completed studies during hospitalization [Text1]: Procedures Drainage of Left Pleural Cavity, Percutaneous Approach (07/17/23) Labs on day of discharge: Laboratory Results - last 24 hr 07/29/23 13:40 COVID-19 (DEE) Positive A COVID-19 Clin Com See Note Imaging Chest x-ray: Radiologist's impression: ITS Impressions Chest X-Ray 07/24/23 17:46 IMPRESSION: There is a left lower lobe opacity with a layering left pleural effusion, similar to that seen on the 07/16/2023 chest radiograph. Right hilar opacity, similar to the prior studies. Discharge Plan Discharge Anticipated Discharge Date/Time: 07/26/23 11:38 Patient Disposition: Xfer SNF Discharge Diagnosis: Shortness of breath, covid and Pleural effusion Referrals: [facility] [place] [Outside] - 1 Week Gale Loving MD [Primary Care Provider] - 1 Week Discharge Medications: Continued atorvastatin 80 mg tablet 80 mg PO BEDTIME Qty: 90 3RF isosorbide mononitrate 60 mg tablet extended release 24 hr 60 mg PO QAM Qty: 90 3RF metoprolol succinate 25 mg tablet extended release 24 hr 25 mg PO DAILY 90 Days Qty: 90 3RF acetaminophen 325 mg Tablet 650 mg PO Q4H PRN (Reason: pain or fever) magnesium hydroxide [Milk of Magnesia] 400 mg/5 mL Suspension 30 ml PO BEDTIME PRN (Reason: Constipation) bisacodyl 10 mg Suppository 10 mg CA DAILY PRN (Reason: Constipation) Fleet Enema 19-7 gram/118 mL Enema 118 ml CA DAILY PRN (Reason: Constipation) polyethylene glycol 3350 [Miralax] 17 gram/dose Powder 17 g PO DAILY PRN (Reason: Constipation) aspirin 81 mg Tablet,Chewable 81 mg PO DAILY Eliquis 2.5 mg Tablet 2.5 mg PO BID Qty: 60 0RF Discharge Orders: Discharge Order (Routine); Ordered 07/30/23 Ordered By: Sherrie Fernandez Diet: Advance to usual diet Activity on Discharge: As tolerated Stand Alone Forms: Patient Portal Discharge page Care Plan Goals: recovery from shortness of breath, covid and pleural effusion Health Concerns: recurrent pleural effusion covid 19 Plan of Treatment: Resume all prior treatment, follow up with PCP and thoracic surgery on outpatient basis Assessment: see above Discharge Date/Time: 07/30/23 15:10
[2023-07-30 11:44] VITALS: BP 129/71; PULSE 95; RESP 20; TEMP 37; O2SAT 93
--- NOTE | 2023-07-30 11:45 | MHC.CLN ---
F/U PO INTAKE 50% DIET RX: REGULAR-APPROPRIATE PT RECEIVING ENSURE BID TO PROVIDE 700KCALS, 40G PROTEIN FRAGILE SKIN-SUPPLEMENT WILL PROMOTE WOUND HEALING MONITOR PO INTAKE AND ENCOURAGE SUPPLEMENT
--- NOTE | 2023-07-30 12:25 | MHC.CM.PN ---
Second IMM, Pt has been medically cleared for DC. She will go via ambulance today to [facility].
[2023-07-30] MEDS: Acetaminophen 325 MG TABLET 650 MG PO (13:02)
== END 2023-07-30 15:10 | disposition skilled nursing facility (03) | DRG 597 ==
LOC: HO.ED 17:22 → HO.EDOVER 19:47 → HO.IMC 20:32
PROVIDERS: Internal Medicine; Nurse Practitioner Family; Admitting Provider Student in an Organized Health Care Education/Training Program; Emergency Provider Emergency Medicine Emergency Medical Services; PCP Internal Medicine; Visit Provider Student in an Organized Health Care Education/Training Program
DX: C50.912 Malignant neoplasm of unspecified site of left female breast (principal); U07.1 COVID-19; J91.0 Malignant pleural effusion; E44.0 Moderate protein-calorie malnutrition; Z68.1 Body mass index [BMI] 19.9 or less, adult; I25.10 Atherosclerotic heart disease of native coronary artery without angina pectoris; R06.03 Acute respiratory distress; I11.0 Hypertensive heart disease with heart failure; I50.9 Heart failure, unspecified; E78.2 Mixed hyperlipidemia; I48.0 Paroxysmal atrial fibrillation; Z66 Do not resuscitate; Z79.01 Long term (current) use of anticoagulants; Z79.82 Long term (current) use of aspirin; Z79.899 Other long term (current) drug therapy
CPT/HCPCS: 0241U; 36415; 71046; 80048; 80053; 83605; 83615; 83735; 83880; 84484; 85025; 85027; 85610; 87040; 87635; 93005; 97110; 97116; 97162; 99285

== ENCOUNTER → 2023-07-24 16:06 | Outpatient (BNV) | payer MEDICARE, SELFPAY | PROVIDERS: Admitting Provider Student in an Organized Health Care Education/Training Program; Emergency Provider Emergency Medicine Emergency Medical Services; PCP Internal Medicine; Visit Provider Internal Medicine | DX: R94.31 Abnormal electrocardiogram [ECG] [EKG] (principal) | CPT/HCPCS: 93010 ==

== ENCOUNTER → 2023-07-24 19:34 | Outpatient (BNV) | payer MEDICARE, SELFPAY | PROVIDERS: Admitting Provider Student in an Organized Health Care Education/Training Program; Emergency Provider Emergency Medicine Emergency Medical Services; Visit Provider Student in an Organized Health Care Education/Training Program | DX: R53.81 Other malaise (principal); J90 Pleural effusion, not elsewhere classified | CPT/HCPCS: 99222; 99232; 99238; 99499 ==

== ENCOUNTER → 2023-07-24 19:34 | Outpatient (BNV) | payer MEDICARE, SELFPAY | PROVIDERS: Admitting Provider Student in an Organized Health Care Education/Training Program; Emergency Provider Emergency Medicine Emergency Medical Services; Visit Provider Surgery | DX: U07.1 COVID-19 (principal); R53.81 Other malaise; J90 Pleural effusion, not elsewhere classified | CPT/HCPCS: 99222 ==

== ENCOUNTER 2023-08-08 04:08 | Inpatient (IN) | payer MEDICARE, SELFPAY ==
[2023-08-08] VITALS (8 sets, daily range): BP systolic 96–144; BP diastolic 49–81; PULSE 80–133; RESP 14–48; TEMP 36.4–37.7; O2SAT 88–99; BMI 19.5
--- NOTE | 2023-08-08 | ECG_ITS ---
Test Reason : TACHYCARDIA Blood Pressure : / mmHG Vent. Rate : 123 BPM Atrial Rate : 000 BPM P-R Int : 000 ms QRS Dur : 092 ms QT Int : 322 ms P-R-T Axes : 000 -05 170 degrees QTc Int : 460 ms Atrial fibrillation with rapid ventricular response Minimal voltage criteria for LVH, may be normal variant ( [place] product ) Anterior infarct (cited on or before 16-JUL-2023) ST & T wave abnormality, consider lateral ischemia Abnormal ECG When compared with ECG of 24-JUL-2023 17:22, Questionable change in initial forces of Septal leads Nonspecific T wave abnormality now evident in Inferior leads Referred By: Lisette Rosenberg Electronically Signed By:WILFREDO CALDERON MD
--- NOTE | ~2023-08-08 | XR_ITS ---
EXAMINATION: XR CHEST CLINICAL INFORMATION: Dyspnea COMPARISON: 07/24/2023 TECHNIQUE: Frontal view of the chest was obtained. FINDINGS: The current findings are similar to those seen on 07/24/2023. Lungs are hypoinflated. There is a persistent nodular opacity in the right suprahilar area. Also, there is persistent masslike opacity in the medial aspect of the left lung. The left lower lobe is opacified from atelectasis and/or consolidation. Moderate pleural effusion is present. No pneumothorax. Cardiac silhouette is suboptimally evaluated due to the hypoinflation and basilar opacity. No evidence of pulmonary edema. Old healed fractures of right lateral fifth, sixth and seventh ribs. XR/XR chest 1V IMPRESSION: No significant change in pulmonary abnormalities or left pleural effusion compared to 07/24/2023.
--- NOTE | ~2023-08-08 | CT_ITS ---
EXAMINATION: CT CHEST WITHOUT CONTRAST CLINICAL INFORMATION: Recurrent effusion COMPARISON: Chest CT from 06/22/2023 and recent chest radiographs. TECHNIQUE: Multidetector volumetric CT imaging of the chest was done. Axial MIP volume rendering provided. Sagittal and coronal reformatted images were obtained. This CT examination was performed using dose optimization techniques as appropriate, variously including the following: *Automated exposure control *Adjustment of mA and/or kV according to patient size (this includes techniques or standardized protocols for targeted exams where dose is matched to indication/reason for exam; i.e. extremities or head) *Use of iterative reconstruction technique DLP: 183 mGy-cm FINDINGS: LUNGS AND PLEURA: Mucus/secretions along the left lateral wall of the trachea. Mild pulmonary emphysema. Nonspecific 0.4 cm subpleural nodule at the lateral right lung apex was 0.3 cm on 06/22/2023 (image 59, series 5). 1.3 cm pleural-based nodule of the superior segment right lower lobe projecting along the posterior surface of the major fissure was 0.6 cm on prior exam (image 1:15, series 5). A mass in the suprahilar region of the right lung projects anterior and posterior to the major fissure and the main component of the lesion is approximately 2.8 cm transverse, compared to 2.6 cm on 06/14/2023. The nodule in the central aspect of the right lower lobe is 1.8 cm transverse, previously 1.7 cm (image 215, series 5). There is mild heterogeneity of the lungs and mild peripheral septal thickening consistent with mild interstitial edema. The small right pleural effusion is new since 06/22/2023. Moderate left pleural effusion is present. The pleural effusion is overall smaller compared to the chest CT of 06/22/2023. However, there is increased amount of loculated fluid tracking along the major fissure to the apex. No pneumothorax. Chronic moderate compressive atelectasis of left lower lobe. Mild compressive atelectasis in dependent aspect of left upper lobe. The mass in the anterior left upper lobe involving pleura and infiltrating into anterior mediastinum has lobulated border. It is not optimally evaluated on this noncontrast examination. On the axial images, the mass measures up to approximately 6 cm maximum transverse and approximately 5 cm maximum AP dimension, compared to approximately 4.5 x 4 cm if measured at a similar level on the prior exam. A satellite nodule in the anterior left upper lobe is 1.2 cm (image 24, series 5). The mildly increased irregular opacity in the anteromedial left lung apex probably represents combination of pleural-based tumor and atelectatic changes. There appears to be increased nodular tissue thickening along pleura posterior to the left lower lobe. These observations, along with the right lung findings, indicate overall worsening of neoplastic disease. CARDIOVASCULAR: Cardiomegaly. Atherosclerotic calcification of thoracic aorta without aneurysm. Coronary artery calcifications are present. No pericardial effusion. Mitral valve annulus is calcified. MEDIASTINUM AND LOWER NECK: The esophagus and thyroid gland are grossly unremarkable. LYMPHATICS: 2.3 x 3.9 cm lymph node of the right axilla (2.3 x 3.[address] exam). No internal mammary lymphadenopathy. The evaluation for hilar or mediastinal lymphadenopathy is limited on this noncontrast examination. UPPER ABDOMEN: Unremarkable. SKELETAL AND CHEST WALL: There are lytic changes of left anterior second, third, fourth and fifth ribs and associated soft tissue thickening around destroyed ribs consistent with metastatic disease. Mild worsening destructive changes of the anterior left second rib compared to 06/14/2023. Dextroscoliosis of thoracic spine and multilevel osteophyte formation of the degenerated spine. CT/CT chest wo IV con IMPRESSION: Mild interstitial pulmonary edema, new small right pleural effusion and moderate left pleural effusion which has a loculated appearance. Although left pleural effusion is overall decreased in size compared to prior chest CT from 06/14/2023, there is increased loculated fluid along the left major fissure. There is overall worsening of the neoplastic disease as manifest by enlargement of some of the nodules, enlargement of the mass involving pleura and mediastinum in the anterior left upper lobe, and increased pleural-based opacities in the left hemithorax. Also, mild worsening of some of the rib destructive changes from metastatic disease.
--- NOTE | ~2023-08-08 | XR_ITS ---
EXAMINATION: XR CHEST CLINICAL INFORMATION: Status post thoracentesis COMPARISON: CT chest 08/08/2023 Chest radiograph 08/08/2023 TECHNIQUE: Frontal view of the chest was obtained. FINDINGS: Moderate blunting of left costophrenic sulcus is noted. A left basilar thoracostomy pigtail catheter is noted. No pneumothoraces visualized. Left base airspace opacification is present. Partial visualization is made of the right upper lung zone pulmonary nodules visualized to better advantage the comparison CT. Visualized bony vasculature demonstrates diffuse indistinctness. Diffuse osteopenia. XR/XR chest 1V IMPRESSION: *Moderate left pleural effusion decreased in size compared with 08/08/2023. No pneumothoraces. Left basilar thoracostomy tube in situ. *Partial visualization of the right upper lung zone pulmonary nodules suspicious for neoplasm visualized to better advantage on the comparison study CT of 08/08/2023. *Mild pulmonary vascular congestion.
--- NOTE | ~2023-08-08 | US_ITS ---
PROCEDURE: Ultrasound-guided chest tube placement, left HISTORY: Left loculated pleural effusion. SPECIMEN: A specimen was appropriately labeled and sent to the laboratory as requested ACCESS: 5 fr Yueh needle/catheter MEDICATIONS: 10 mL 1% lidocaine TECHNIQUE/FINDINGS Appropriate preprocedural clinical history and imaging studies were reviewed. The patient was brought to the department and placed in the right lateral decubitus position. Ultrasound images of the left thorax were obtained to localize a very loculated moderate pleural effusion. Permanent ultrasound images were saved. The risks and benefits and possible complications were discussed with the patient and her son and consent form was signed. An area of the patient's left back was prepped and draped in the usual sterile fashion. 10 mL of 1% lidocaine was used to obtain local anesthesia of the skin and deeper tissues. A 25 gauge hypodermic needle was introduced to sample pleural fluid and demonstrate a safe access route. A 5 [place] Yueh catheter was then used to access the pleural cavity. A 0.035 guidewire was then placed through the catheter and into the chest. The access site was then dilated. A 10 fr locking catheter was then advanced over the wire and into the left pleural space. The wire was removed and the catheter was secured to the skin with a single suture and a sterile dressing was applied over the site. The catheter was then connected to a close chest drainage system. The patient tolerated the procedure well. There were no immediate complications US/US drain thoracentesis IMPRESSION: Ultrasound-guided left chest tube placement yielding yellow fluid. This procedures performed by Chad Lr PA-C and supervised by Dr. Benavides.
--- NOTE | ~2023-08-08 | XR_ITS ---
EXAMINATION: XR CHEST CLINICAL INFORMATION: Follow-up left pleural effusion. COMPARISON: Chest radiograph 08/09/2023. TECHNIQUE: Frontal view of the chest was obtained. FINDINGS: The heart is enlarged. A left-sided pleural effusion/pleural thickening persists. There is obscuration of the left hemidiaphragm possibly secondary to atelectasis or effusion. A drainage catheter is present in the left upper quadrant possibly in the posterior pleural space but please correlate clinically. There is no evidence of CHF. The right lung is essentially clear. XR/XR chest 1V IMPRESSION: Persistent left-sided pleural effusion/pleural thickening. A drainage catheter is present in the left upper quadrant possibly in the posterior pleural space but please correlate clinically.
--- NOTE | ~2023-08-08 | CT_ITS ---
EXAMINATION: CT HEAD WITHOUT CONTRAST CLINICAL INFORMATION: Altered mental status. COMPARISON: None available. TECHNIQUE: Contiguous axial imaging was performed from the skull base to vertex without intravenous contrast. Sagittal and coronal reformatted images also obtained. This CT examination was performed using dose optimization techniques as appropriate, variously including the following: *Automated exposure control *Adjustment of mA and/or kV according to patient size (this includes techniques or standardized protocols for targeted exams where dose is matched to indication/reason for exam; i.e. extremities or head) *Use of iterative reconstruction technique DLP: 552 mGy-cm FINDINGS: There is cerebral volume loss with prominence of the lateral and the third ventricles. The cortical sulci are widened appropriately. The fourth ventricle and basal cisterns are normally outlined. 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 There is no acute territorial defect, hemorrhage or midline shift. The extra-axial structures are unremarkable. Calvarium: Intact. Maxillofacial sinuses and mastoids: There are inferior frontal and ethmoid sinus opacities. CT/CT head/brain wo IV con IMPRESSION: 1. No acute territorial infarction, hemorrhage or space-occupying lesion. 2. There is cerebral volume loss with prominence of the lateral and third ventricles. 3. 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
--- NOTE | 2023-08-08 04:20 | PC.NURSE ---
ems noticed pupil not equal. provider made aware and head ct ordered. pt has been ams for 2 days per facility, ua negative.
[2023-08-08 04:57] LABS: Basophils Absolute Auto 0.1 X10*3/uL (0.0-0.2); Basophils Percent Auto 0.7 % (0-2); Eosinophils Percent Auto 4.9 % (0-4); Hematocrit 38.7 % (37.0-47.0); Hemoglobin 12.8 g/dl (12.0-16.0); Imm Gran Abs Auto 0.16 X10*3/uL (0.00-0.03); Imm Gran Pct Auto 0.8 % (0.0-0.4); MANUAL DIFF FLAG SCAN; Mean Corpuscular HGB Conc 33.1 g/dl (31.0-35.0); Mean Corpuscular Volume 93.7 fL (80.0-98.0); Mean Platelet Volume 10.4 fL (9.4-12.3); Monocytes Absolute Auto 2.5 X10*3/uL (0.1-1.2); Monocytes Percent Auto 12.5 % (2-11); Neutrophils Absolute Auto 15.2 x10*3/uL (2.0-8.3); Neutrophils Percent Auto 76.1 % (45-73); Platelet Count 297 X10*3/uL (160-400); Red Blood Count 4.13 X10*6/uL (4.20-5.50); Red Cell Distribution Width 20.8 % (11.0-16.0); SCAN SMEAR FLAG 1
[2023-08-08 04:57] LABS: VBG Base Excess 11.5 mmol/L; VBG HCO3 37 mmol/L (22-26); VBG pCO2 52 mmHg; VBG pH 7.45 (7.32-7.43); VBG pO2 45 mmHg
[2023-08-08] MEDS: cefEPime HCl 1 GM in 0.9 % Sodium Chloride 50 ML IV ×2 (05:01→16:59)
[2023-08-08] MEDS: Acetaminophen 325 MG TABLET 650 MG PO (05:01)
--- NOTE | 2023-08-08 05:02 | ED.SOB ---
HPI - SOB/Dyspnea General Chief Complaint: Dyspnea Stated Complaint: SOB Time Seen by Provider: 08/08/23 04:26 Source: patient and old records reviewed Mode of arrival: EMS Limitations: no limitations History of Present Illness HPI Narrative: 87 yo female with PMH of metastatic left breast carcinoma, afib on Eliquis, HTN, HLD, recurrent L pleural effusion s/p drainage in june by IR who was just admitted here until 07/29 for COVID and increased dyspnea. Tonight on arounds staff noted in RR in 40s and hypoxia to 88% on RA. She was placed on NC and given duoneb. She notes she is a little short of breath. MD elicited complaint: shortness of breath Pertinent past history: other (recurrent L pleural effusion) Onset (ago): hour(s) (few) Context: recent illness Timing: constant Severity: moderate Exacerbating factors: lying flat and exertion Relieving factors: oxygen, rest and upright position Known history of: other (effusion, COVID) Associated symptoms: cough and wheezing Treatment prior to arrival: oxygen and bronchodilator Related Data Home Medications Medication Instructions Recorded Confirmed acetaminophen 325 mg tablet 650 mg PO Q4H PRN pain or fever 07/24/23 07/24/23 aspirin 81 mg chewable tablet 81 mg PO DAILY 07/24/23 07/24/23 bisacodyl 10 mg rectal suppository 10 mg MD DAILY PRN Constipation 07/24/23 07/24/23 magnesium hydroxide 400 mg/5 mL 30 ml PO BEDTIME PRN Constipation 07/24/23 07/24/23 oral suspension (Milk of Magnesia) polyethylene glycol 3350 17 17 g PO DAILY PRN Constipation 07/24/23 07/24/23 gram/dose oral powder (Miralax) sodium phosphates 19 gram-7 118 ml MD DAILY PRN Constipation 07/24/23 07/24/23 gram/118 mL enema (Fleet Enema) Previous Rx's Medication Instructions Recorded atorvastatin 80 mg tablet 80 mg PO BEDTIME #90 tabs 10/15/22 isosorbide mononitrate 60 mg 60 mg PO QAM #90 tabs 01/10/23 tablet,extended release 24 hr metoprolol succinate 25 mg 25 mg PO DAILY 90 days #90 tabs 01/10/23 tablet,extended release 24 hr apixaban 2.5 mg tablet (Eliquis) 2.5 mg PO BID #60 tabs 06/25/23 Allergies Allergy/AdvReac Type Severity Reaction Status Date / Time No Known Allergies Allergy Verified 08/08/23 04:56 [No Known Allergies*] Review of Systems Review of Systems: Constitutional : No Fever, No Chills ENT/Mouth : No sore throat, No Rhinorrhea, No Swallowing Difficulty Eyes: No Eye Pain, No Swelling, No Redness Cardiovascular : No Chest Pain, positive SOB, No Orthopnea, positive Edema Respiratory : pos Cough, No Sputum, pos Wheezing, positive dyspnea Gastrointestinal : No Nausea, No Vomiting, No Diarrhea, No abdominal Pain, No Hematochezia, No Melena Genitourinary : No Dysuria, No Urinary Frequency, No Hematuria Musculoskeletal : No joint pain, No Myalgias Skin : No Skin Lesions, No rash Neuro : No Weakness, No Numbness, No Dizziness, No Headache Psych : No Anxiety/Panic, No Depression Heme/Lymph: No Bruising, No Lymphadenopathy Endocrine : No Polyuria, No Polydipsia All other systems reviewed and are negative PMFSH Past Medical History Attestation statement: The following information was validated with the patient. Source: old records reviewed Medical History Atrial fibrillation Lung mass Carcinoma of left breast Breast mass, left Metaplastic carcinoma of breast Pectus carinatum Increased bilirubin level COVID-19 vaccine administered Arthritis On anticoagulant therapy Elevated cholesterol Hypertension Coronary artery disease Surgical History History of lumpectomy of left breast History of right cataract surgery H/O colonoscopy Hx of cardiac catheterization Family History Family History Mother No problems noted. Father Prostate cancer Social History Social History Household Members: None Housing: Apartment Are you a primary child care leader to a significant other at home: No Do you presently have visiting nurse or other home services: Yes (once a week) Alcohol intake: never Patient Tobacco Use Status: Never used Tobacco Advance Directives: Yes Advance Directives on File: Yes Advance Directives Date on File: 06/26/23 service: No Current occupational status: retired Physical Exam Vital Signs: Vital Signs: Last Vital Signs Temp 100 F 08/08/23 04:52 Pulse 133 H 08/08/23 04:52 Resp 48 H 08/08/23 04:52 BP 124/71 08/08/23 04:52 Pulse Ox 96 08/08/23 04:52 O2 Del Method Nasal Cannula 08/08/23 04:52 Oxygen Flow Rate 2 08/08/23 04:52 BMI result Body Mass Index 19.5 Appearance: Alert. Oriented X2. Mild acute distress. Eyes: Pupils round and reactive to light. R pupil 3mm L pupil 2mm ENT: Pharynx normal. Neck: Normal inspection. Neck supple. CVS: irregular and tachycardic heart rate and rhythm. Pulses normal. Respiratory: mild respiratory distress. Breath sounds coarse and diminished, cannot hear L base Abdomen: Soft and nontender. Skin: Skin warm and dry. Normal skin color. Normal skin turgor. Extremities: No lower extremity edema. No calf ttp Neuro: Oriented X 2. No motor deficit. No sensory deficit. Medications Administered Generic Name Dose Route Start Last Admin Trade Name Freq PRN Reason Stop Dose Admin Sodium Chloride 500 mls @ 500 mls/hr 08/08/23 05:30 08/08/23 05:49 Ns IV 08/08/23 06:29 500 mls/hr .Q1H RADHA Administration Vancomycin HCl 1,250 mg/ 250 mls @ 166.667 mls/hr 08/08/23 05:17 08/08/23 05:49 Sodium Chloride IV 08/08/23 06:46 166.67 mls/hr ONCE ONE Administration Discontinued Medications Generic Name Dose Route Start Last Admin Trade Name Freq PRN Reason Stop Dose Admin Acetaminophen 650 mg 08/08/23 04:40 08/08/23 05:01 Acetaminophen 325 Mg Tablet PO 08/08/23 04:41 650 mg ONCE ONE Administration Cefepime HCl 1 gm/ Sodium 50 mls @ 100 mls/hr 08/08/23 04:40 08/08/23 05:47 Chloride IV 08/08/23 05:09 Infused ONCE ONE Infusion Metoprolol Tartrate 2.5 mg 08/08/23 05:28 08/08/23 05:46 Metoprolol Tartrate 5 Mg/5 Ml Vial IVPUSH 08/08/23 05:29 2.5 mg ONCE ONE Administration Medical Decision Making Medical Decision Making [facility] Narrative: 87 yo female with PMH of metastatic left breast carcinoma, afib on Eliquis, HTN, HLD, recurrent L pleural effusion here with afib with RVR, hypoxia at SNF, temp 100, will need basic labs, CXR, tylenol, empiric cefepime, likely admit given new O2 needs Differential Diagnosis Differential Diagnoses: The differential diagnosis associated with the presentation includes pneumonia, effusion, chf, UTI Admission/Observation Consideration of admission/observation: Escalation of care including admission/observation considered plan to admit for further workup new hypoxia and elevated wbc count Consult Healthcare Provider Management of the patient was discussed with: Hospitalist (will admit) Lab Data [facility] Lab Attestation statement: I reviewed the patient's lab results. 08/08/23 04:44 08/08/23 04:44 Labs: Lab Results 08/08/23 08/08/23 08/08/23 Range/Units 04:44 04:48 05:04 WBC 20.0 H (4.8-10.8) X10*3/uL RBC 4.13 L (4.20-5.50) X10*6/uL Hgb 12.8 (12.0-16.0) g/dl Hct 38.7 (37.0-47.0) % MCV 93.7 (80.0-98.0) fL MCH 31.0 (27.0-33.0) pg MCHC 33.1 (31.0-35.0) g/dl RDW 20.8 H (11.0-16.0) % Plt Count 297 D (160-400) X10*3/uL MPV 10.4 (9.4-12.3) fL Immature Gran % (Auto) 0.8 H (0.0-0.4) % Neut % (Auto) 76.1 H (45-73) % Lymph % (Auto) 5.0 L (20-40) % [place] % (Auto) 12.5 H (2-11) % Eos % (Auto) 4.9 H (0-4) % Baso % (Auto) 0.7 (0-2) % Lymph # (Auto) 1.0 L (1.2-4.9) X10*3/uL [place] # (Auto) 2.5 H (0.1-1.2) X10*3/uL Eos # (Auto) 1.0 H (0.0-0.4) X10*3/uL Baso # (Auto) 0.1 (0.0-0.2) X10*3/uL Abs Immat Gran (auto) 0.16 H (0.00-0.03) X10*3/uL Absolute Neuts (auto) 15.2 H (2.0-8.3) x10*3/uL Absolute Nucleated RBC 0.000 (0.0-0.012) X10*3/uL Nucleated RBC % (auto) 0.0 (0.0-0.2) /100WBC Smear Tech's Comments VERIFIED VBG pH 7.45 H (7.32-7.43) VBG pCO2 52 mmHg VBG pO2 45 mmHg VBG HCO3 37 H (22-26) mmol/L VBG O2 Saturation 68.0 % VBG Base Excess 11.5 mmol/L Sodium 140 (135-145) mmol/L Potassium 4.0 (3.3-5.1) mmol/L Chloride 99 (96-108) mmol/L Carbon Dioxide 29 (22-29) mmol/L Anion Gap 16 (12-20) BUN 18 H (9-16) mg/dL Creatinine 0.57 (0.5-1.4) mg/dL Estim Creat Clear Calc 60.4 Estimated GFR > 60 Random Glucose 103 (60-115) mg/dL Lactic Acid 2.2 H* (0.5-2.0) mmol/L Calcium 9.5 D (8.4-10.2) mg/dL Magnesium 2.2 (1.6-2.6) mg/dL Total Bilirubin 3.8 H (0.0-1.0) mg/dL Direct Bilirubin 1.7 H (0.0-0.5) mg/dL AST 59 H (5-31) U/L ALT 39 H (0-31) U/L Alkaline Phosphatase 109 (39-117) U/L Troponin I High Sens 9.4 (<3.5-17.0) ng/L B-Natriuretic Peptide 586 H (<100) pg/mL Total Protein 6.0 L (6.5-8.0) g/dL Albumin 3.1 L (3.5-5.0) g/dL Lipase 12 (8-78) U/L Procalcitonin 0.08 ng/mL Urine Color Urine Appearance Urine pH (5.0-9.0) Ur Specific [place] (1.005-1.025) Urine Protein (Neg-Trace) mg/dL Urine Glucose (UA) (Negative) mg/dL Urine Ketones (Negative) mg/dL Urine Blood (Negative) Urine Nitrite (Negative) Ur Leukocyte Esterase (Negative) Influenza Type A (PCR) NEGATIVE (Negative) Influenza Type B (PCR) NEGATIVE (Negative) RSV RNA Qual (PCR) NEGATIVE (Negative) SARS-CoV-2 RNA (RT-PCR) POSITIVE A (Negative) 08/08/23 Range/Units 05:54 WBC (4.8-10.8) X10*3/uL RBC (4.20-5.50) X10*6/uL Hgb (12.0-16.0) g/dl Hct (37.0-47.0) % MCV (80.0-98.0) fL MCH (27.0-33.0) pg MCHC (31.0-35.0) g/dl RDW (11.0-16.0) % Plt Count (160-400) X10*3/uL MPV (9.4-12.3) fL Immature Gran % (Auto) (0.0-0.4) % Neut % (Auto) (45-73) % Lymph % (Auto) (20-40) % [place] % (Auto) (2-11) % Eos % (Auto) (0-4) % Baso % (Auto) (0-2) % Lymph # (Auto) (1.2-4.9) X10*3/uL [place] # (Auto) (0.1-1.2) X10*3/uL Eos # (Auto) (0.0-0.4) X10*3/uL Baso # (Auto) (0.0-0.2) X10*3/uL Abs Immat Gran (auto) (0.00-0.03) X10*3/uL Absolute Neuts (auto) (2.0-8.3) x10*3/uL Absolute Nucleated RBC (0.0-0.012) X10*3/uL Nucleated RBC % (auto) (0.0-0.2) /100WBC Smear Tech's Comments VBG pH (7.32-7.43) VBG pCO2 mmHg VBG pO2 mmHg VBG HCO3 (22-26) mmol/L VBG O2 Saturation % VBG Base Excess mmol/L Sodium (135-145) mmol/L Potassium (3.3-5.1) mmol/L Chloride (96-108) mmol/L Carbon Dioxide (22-29) mmol/L Anion Gap (12-20) BUN (9-16) mg/dL Creatinine (0.5-1.4) mg/dL Estim Creat Clear Calc Estimated GFR Random Glucose (60-115) mg/dL Lactic Acid (0.5-2.0) mmol/L Calcium (8.4-10.2) mg/dL Magnesium (1.6-2.6) mg/dL Total Bilirubin (0.0-1.0) mg/dL Direct Bilirubin (0.0-0.5) mg/dL AST (5-31) U/L ALT (0-31) U/L Alkaline Phosphatase (39-117) U/L Troponin I High Sens (<3.5-17.0) ng/L B-Natriuretic Peptide (<100) pg/mL Total Protein (6.5-8.0) g/dL Albumin (3.5-5.0) g/dL Lipase (8-78) U/L Procalcitonin ng/mL Urine Color Dark Yellow Urine Appearance Turbid Urine pH 6.0 (5.0-9.0) Ur Specific [place] 1.020 (1.005-1.025) Urine Protein 100 (2+) H (Neg-Trace) mg/dL Urine Glucose (UA) Negative (Negative) mg/dL Urine Ketones Trace (Negative) mg/dL Urine Blood Large (3+) H (Negative) Urine Nitrite Positive H (Negative) Ur Leukocyte Esterase Large (3+) H (Negative) Influenza Type A (PCR) (Negative) Influenza Type B (PCR) (Negative) RSV RNA Qual (PCR) (Negative) SARS-CoV-2 RNA (RT-PCR) (Negative) Independent Interpretation I performed an independent interpretation of an: EKG and Plain X-Ray (recurrent L effusion) Interpretation: Rate: 123 Rhythm: afib Helix: normal Normal QRS complex. ST T wave : no MISTI, inverated t waves I and aVL qTC: 460 prior studies: hx of afib The study has been interpreted contemporaneously by me. . Radiology Impression Discussion of test interpretation with radiology: I have reviewed the radiologist's reading. Independent Historian Clinical information obtained from an independent historian. History obtained from or confirmed by: EMS External Record Review External record reviewed: Inpatient record Critical Care Time Critical Care Time Critical Care Time: Yes Total Critical Care Time: 60 Attestation: review of records, sepsis protocol, IV lopressor, repeat assessments I attest to this time spent taking care of the patient Discharge Plan Discharge Clinical Impression: Acute UTI, Recurrent left pleural effusion, Hypoxia, Acidosis, lactic, Atrial fibrillation with rapid ventricular response Elevated WBC count Qualifiers: Leukocytosis type: unspecified Qualified Code(s): D72.829 - Elevated white blood cell count, unspecified Patient Disposition: Admitted As Inpatient Prescriptions: No Action atorvastatin 80 mg tablet 80 mg PO BEDTIME Qty: 90 3RF isosorbide mononitrate 60 mg tablet extended release 24 hr 60 mg PO QAM Qty: 90 3RF metoprolol succinate 25 mg tablet extended release 24 hr 25 mg PO DAILY 90 Days Qty: 90 3RF acetaminophen 325 mg Tablet 650 mg PO Q4H PRN (Reason: pain or fever) magnesium hydroxide [Milk of Magnesia] 400 mg/5 mL Suspension 30 ml PO BEDTIME PRN (Reason: Constipation) bisacodyl 10 mg Suppository 10 mg MD DAILY PRN (Reason: Constipation) Fleet Enema 19-7 gram/118 mL Enema 118 ml MD DAILY PRN (Reason: Constipation) polyethylene glycol 3350 [Miralax] 17 gram/dose Powder 17 g PO DAILY PRN (Reason: Constipation) aspirin 81 mg Tablet,Chewable 81 mg PO DAILY Eliquis 2.5 mg Tablet 2.5 mg PO BID Qty: 60 0RF
[2023-08-08 05:13] LABS: Venous Blood Gas Refer to POC result
[2023-08-08 05:13] LABS: Troponin-I High Sensitivity 9.4 ng/L (<3.5-17.0)
[2023-08-08 05:14] LABS: SLIDE REVIEW VERIFIED
[2023-08-08 05:16] LABS: Lactic Acid 2.2 mmol/L (0.5-2.0)
[2023-08-08 05:21] LABS: Alanine Aminotransferase 39 U/L (0-31); Albumin Level 3.1 g/dL (3.5-5.0); Alkaline Phosphatase 109 U/L (39-117); Anion Gap 16 (12-20); Aspartate Amino Transferase 59 U/L (5-31); Bilirubin Direct 1.7 mg/dL (0.0-0.5); Bilirubin Total 3.8 mg/dL (0.0-1.0); Blood Urea Nitrogen 18 mg/dL (9-16); Calcium 9.5 mg/dL (8.4-10.2); Carbon Dioxide 29 mmol/L (22-29); Chloride 99 mmol/L (96-108); Creatinine Clr Calc Pharmacy 60.4; Estimated Glomerular Filt Rate > 60; Glucose Random 103 mg/dL (60-115); Lipase 12 U/L (8-78); Magnesium 2.2 mg/dL (1.6-2.6); Sodium 140 mmol/L (135-145)
[2023-08-08 05:24] LABS: B Type Natriuretic Peptide 586 pg/mL (<100)
[2023-08-08] MEDS: Metoprolol Tartrate 5 MG/5 ML VIAL 2.5 MG IVPUSH (05:46)
[2023-08-08 05:47] LABS: Influenza A PCR NEGATIVE (Negative); Influenza B PCR NEGATIVE (Negative); Resp Syncy Virus RNA Qual PCR NEGATIVE (Negative); SARS COV2 PCR INHOUSE POSITIVE (Negative)
[2023-08-08] MEDS: vancomycin HCL 1,250 MG in 0.9 % Sodium Chloride 250 ML 166.67 MG IV (05:49)
[2023-08-08] MEDS: 0.9 % Sodium Chloride 500 ML IV (05:49)
[2023-08-08 05:50] LABS: Procalcitonin 0.08 ng/mL
[2023-08-08 06:07] LABS: Appearance Urine Turbid; Color Urine Dark Yellow; Glucose Urine UA Negative (Negative); Leukocyte Esterase Urine Large (3+) (Negative); Nitrite Urine Positive (Negative); UMIC TRIGGER UACC YES; Urine Blood Large (3+) (Negative); Urine Ketones Trace mg/dL (Negative); Urine Protein 100 (2+) mg/dL (Neg-Trace)
[2023-08-08 06:22] LABS: Bacteria Urine 4+ (None Seen); RBC Urine >20 /HPF (0-2); UACC Culture Trigger YES; WBC Urine >50 /HPF (0-5)
[2023-08-08 06:50] LABS: Reflex Lactate? Lactic Acid Added
--- NOTE | 2023-08-08 07:41 | P.HPHOSP_ITS ---
History of Present Illness Date of Service: 08/08/23 Chief Complaint: Shortness of breath An 87-year-old female with a pertinent history of metastatic left breast carcinoma, atrial fibrillation on Eliquis, mixed hyperlipidemia, essential hypertension, and recurrent pleural effusion. She was recently admitted from July 17 to July 29 for COVID-19 and pleural effusion. COVID-19 was asymptomatic, and the pleural effusion was assessed at that time as thoracic and needing no intervention. Her hospital stay was prolonged due to placement issues from being COVID-positive. She was eventually discharged to rehab on July 29. She presents back today due to dyspnea and hypoxia. She reportedly was breathing at 40 breaths per minute with an oxygen saturation of 88%. Upon evaluation in the ED, she is found to be in AFIB with RVR and given IV Metoprolol. Lab work has revealed a WBC count of 20,000. COVID-19 by PCR is still positive. CT and X- ray of the chest show persistent left moderate pleural effusion with size unchanged but the appearance of loculation. She is given Vancomycin and Cefepime, and admission is requested. At the time of my evaluation, her respiratory status has improved, and her heart rate is just above 100. Review of Systems 2 Review of Systems: Gen: no fever Resp: + sob, no cough CV: no chest, no CAMACHO, no leg edema GI: No n/v, no abd pain Neuro: No confusion Yes all other systems are reviewed and are negative [facility] Medical History Atrial fibrillation Lung mass Carcinoma of left breast Breast mass, left Metaplastic carcinoma of breast Pectus carinatum Increased bilirubin level COVID-19 vaccine administered Arthritis On anticoagulant therapy Elevated cholesterol Hypertension Coronary artery disease Family History Mother No problems noted. Father Prostate cancer Surgical History History of lumpectomy of left breast History of right cataract surgery H/O colonoscopy Hx of cardiac catheterization Social History Household Members: None Housing: Care Home Are you a primary medicare insurance specialist to a significant other at home: No Do you presently have visiting nurse or other home services: No Alcohol intake: never Patient Tobacco Use Status: Never used Tobacco Advance Directives Date on File: 06/26/23 service: No Current occupational status: retired [employer] Allergies Allergy/AdvReac Type Severity Reaction Status Date / Time No Known Allergies Allergy Verified 08/08/23 04:56 [No Known Allergies*] Active Medications: Current Medications Pharmacy Consult (Consult Rx Vancomycin Dosing) 1 each MISCELLANE DAILY PRN PRN Reason: Consult order Home Medications Medication Instructions Recorded Confirmed Last Taken Type acetaminophen 325 mg tablet 650 mg PO Q4H PRN pain or fever 07/24/23 08/08/23 Unknown History bisacodyl 10 mg rectal suppository 10 mg DE DAILY PRN Constipation 07/24/23 08/08/23 Unknown History magnesium hydroxide 400 mg/5 mL 30 ml PO BEDTIME PRN Constipation 07/24/23 08/08/23 Unknown History oral suspension (Milk of Magnesia) polyethylene glycol 3350 17 17 g PO DAILY PRN Constipation 07/24/23 08/08/23 Unknown History gram/dose oral powder (Miralax) sodium phosphates 19 gram-7 118 ml DE DAILY PRN Constipation 07/24/23 08/08/23 Unknown History gram/118 mL enema (Fleet Enema) Physical Exam 2 Vital Signs and Narrative: Vital Signs: Last Vital Signs Temp 99.0 F 08/08/23 07:10 Pulse 107 H 08/08/23 07:10 Resp 26 H 08/08/23 07:10 BP 110/60 08/08/23 07:10 Pulse Ox 97 08/08/23 07:10 O2 Del Method Room Air 08/08/23 07:10 O2 Flow Rate 2 08/08/23 06:10 Oxygen Flow Rate 2 08/08/23 04:52 BMI result Body Mass Index 19.5 Eyes: Other: Constitutional: Alert, in no distress, cachecticx Mental Status: Oriented to person, place and time. Eyes: Pupils are equal, round and reactive to light. Ear, Nose and Throat: Oropharynx clear, mucous membranes moist. Ears and nose without deformities. Trachea midline. Respiratory: Decdrease breath sound at left base, normal effort. Cardiovascular: S1 S2 regular. No murmurs, rubs or gallops. Gastrointestinal: Abdomen soft, non-tender, non-distended. Normal bowel sounds.? Neurologic: Cranial nerves II-XII grossly intact. No focal neurological deficits. Moves all extremities spontaneously.? Skin: No rashes or lesions.? Musculoskeletal: No cyanosis or clubbing. Psychiatric: Normal mood and affect? Results Labs 08/08/23 04:44 08/09/23 07:32 Imaging Radiologist's Impressions: Impressions Chest X-Ray 08/08/23 05:30 IMPRESSION: No significant change in pulmonary abnormalities or left pleural effusion compared to 07/24/2023. Head CT 08/08/23 05:34 IMPRESSION: 1. No acute territorial infarction, hemorrhage or space-occupying lesion. 2. There is cerebral volume loss with prominence of the lateral and third ventricles. 3. 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 Chest CT 08/08/23 06:30 IMPRESSION: Mild interstitial pulmonary edema, new small right pleural effusion and moderate left pleural effusion which has a loculated appearance. Although left pleural effusion is overall decreased in size compared to prior chest CT from 06/14/2023, there is increased loculated fluid along the left major fissure. There is overall worsening of the neoplastic disease as manifest by enlargement of some of the nodules, enlargement of the mass involving pleura and mediastinum in the anterior left upper lobe, and increased pleural-based opacities in the left hemithorax. Also, mild worsening of some of the rib destructive changes from metastatic disease. Assessment and Plan (1) Atrial fibrillation with rapid ventricular response: Status: Acute (2) Elevated WBC count: Qualifiers: Leukocytosis type: unspecified Qualified Code(s): D72.829 - Elevated white blood cell count, unspecified Status: Acute (3) Acidosis, lactic: Status: Acute (4) Recurrent left pleural effusion: Status: Acute Plan 87-year-old female with pertinent history of metastatic left breast carcinoma, atrial fibrillation on Eliquis, mixed hyperlipidemia, essential hypertension, recurrent pleural effusion. She was recently admitted from Jul 17 to july 29 for covid and pleural. Here with AFIB with RVR, loculated pleural effusion with acute hypoxic respiratory failure and remains covid + Sepsis d/t Parapneumonic effusion with Acute hypoxic respiratory failure likely -Continue Cefepime and Vanco, follow cultures Permanent AFIB with RVR--improved after IV metoprolol -change Toprolol 25 mg daiy to metoprolol tartrate 25 q6, -if not improving get cardiology cdonsult -hold eliquis in the event that thoracentesis will be needed Acute lactic acidosis d/t Hypoxia not sepsis Left P. effusion, previously no malignant cells identified on cytology but very high likelyhood of malignant effusion -thoracic surgery consut to see if need to tap, size not worse Elevated LFTS with Hyperbilirubinemia--chronic not due sepsis h/o Breast CA with pulmonary, pleural and mediastinal met--worse on CT -Oncology consult for ? treatment option vs hospice HTN: metoprolol as above moderate Protein calorie malnutrition: ensure DVT prophylaxis: SCDs. resume Eliquis if not procedure plan Do not resuscitate. MOLST in the record admission for at least 2 midnights for management acute hypoxic resp failure d/t loculated P. effusion need IV Abx and possible pleural tap Quality Stroke Does the patient have a stroke diagnosis?: No VTE Prior VTE?: No VTE Risk Level:: Medical - moderate - high VTE Device Contraindication: N/A - Device Ordered VTE Drug Contraindication: N/A - Med Ordered
--- NOTE | 2023-08-08 07:44 | MHC.EDTECH ---
patient refused to have a purewick placed. she stated that her son would be bringing depends for her to use. will attempt again.
[2023-08-08 07:51] LABS: ~Lactic Acid-LAB USE ONLY 1.7 mmol/L (0.5-2.0)
--- NOTE | 2023-08-08 07:55 | PC.NURSE ---
PT IS A/O X 4 NO SOB/KRISSY NOTED SPEAKS IN FULL SENTENCES. PT DENIES ANY PAIN/DISC. NO EDEMA NOTED. PT AWARE OF PLAN OF CARE. WILL CONTINUE TO MONITOR.
--- NOTE | 2023-08-08 08:09 | MHC.EDTECH ---
patient washed up and repositioned. fresh lashanda and blankets. patient tolerated well. this tech approached the purewick again with the patient and patient stated that she did ot want it, and her son would be bringing depends
--- NOTE | 2023-08-08 08:16 | PHA.MEDREC ---
Pharmacy Consult ? Medication Reconciliation Pharmacy has completed the medication reconciliation. Confirmed medications with list from facility ([facility]) Claim history does show an Aspirin 81mg was prescribed recently but is not on the medication list.
--- NOTE | 2023-08-08 09:22 | PC.NURSE ---
DIRECTOR OF RN AT PT'S FACILITY ([phone]
--- NOTE | 2023-08-08 09:23 | PC.NURSE ---
[facility] DELIVERY PROFESSIONAL ([phone]) CALLED AND WAS UPDATED ON PT STATUS.
--- NOTE | 2023-08-08 10:17 | PHA.PROG ---
Admission Date/Time: August 08, 2023 08:43 Indication: RESPIRATORY INFECTION Weight in k.07 kg Adjusted body weight in K.428 Serum Creatinine - Last 168 Hours 08/08/23 04:44 Creatinine 0.57 Estimated CrCl and GFR - Last 168 Hours 08/08/23 04:44 Estim Creat Clear Calc 60.4 Estimated GFR > 60 Vancomycin Loading Dose: 1250 Current Vancomycin Dosing Regimen: 750 q12H Vancomycin Monitoring using AUC goal of 400 - 600 range with trough as surrogate marker 566: Date and Time for next Vancomycin Level to be drawn 08/08 @1600: Pharmacist Comments on Vancomycin Plan: Vancomycin dosing will take advantage of [employer] as a clinical decision support tool that uses Bayesian modeling to calculate individual patient's pharmacokinetic parameters and forecast the patient's drug concentration time course with the target goal AUC 24 range of 400 - 600 mg/L/hr.
[2023-08-08] MEDS: Isosorbide Mononitrate 60 MG TAB.ER.24H PO (10:19)
[2023-08-08] MEDS: Metoprolol Tartrate 25 MG TABLET PO ×3 (10:19→22:16)
--- NOTE | 2023-08-08 10:29 | PC.NURSE ---
DR. HUNG AT BEDSIDE, PT/SON(LEXII) AWARE OF PLAN OF CARE.
--- NOTE | 2023-08-08 10:43 | HO.THORCONS ---
History of Present Illness Consult details Consult date: 08/08/23 Requesting physician: Antolin Kc Narrative: An 87-year-old female with PMH significant for metastatic left breast carcinoma, atrial fibrillation on Eliquis, mixed hyperlipidemia, essential hypertension. She was recently admitted from 07/17 for COVID-19 and pleural effusion and underwent left thoracentesis at that time. She was discharged to rehab however presents today due to dyspnea and hypoxia. Work up significant for a WBC count of 20,000 and COVID-19 PCR is still positive[address] CT and X-ray of the chest showed left moderate pleural effusion with appearance of loculation. She was admitted to medicine and given Vancomycin and Cefepime. Son is at bedside who reports she is supposed to start treatment for her metastatic breast CA next week. Review of Systems Constitutional: Constitutional: Denies chills and Denies fever(s) Cardiovascular: Cardiovascular: Denies chest pain and Reports dyspnea Respiratory: Respiratory: Reports dyspnea Gastrointestinal: Gastrointestinal: Denies abdominal pain and Denies vomiting Integumentary/Breasts: Skin/Breast: Denies rash PMFSH Past Medical History Medical History Atrial fibrillation Lung mass Carcinoma of left breast Breast mass, left Metaplastic carcinoma of breast Pectus carinatum Increased bilirubin level COVID-19 vaccine administered Arthritis On anticoagulant therapy Elevated cholesterol Hypertension Coronary artery disease Family History Family History Mother No problems noted. Father Prostate cancer Surgical History Surgical History History of lumpectomy of left breast History of right cataract surgery H/O colonoscopy Hx of cardiac catheterization Social History Social History Household Members: None Housing: Shelter Are you a primary pediatric acute care unit nurse to a significant other at home: No Do you presently have visiting nurse or other home services: No Alcohol intake: never Patient Tobacco Use Status: Never used Tobacco Advance Directives Date on File: 06/26/23 service: No Current occupational status: retired Meds Allergies Allergy/AdvReac Type Severity Reaction Status Date / Time No Known Allergies Allergy Verified 08/08/23 04:56 [No Known Allergies*] Active Medications: Current Medications Acetaminophen (Acetaminophen 325 Mg Tablet) 650 mg PO Q6H PRN PRN Reason: Pain, Mild (Pain Scale 1-3) Al Hydroxide/Mg Hydroxide (Magnesium Hydrox/Alum Hydrox 30 Ml Oral.Susp) 30 ml PO Q4H PRN PRN Reason: Heartburn/Nausea Atorvastatin Calcium (Atorvastatin Calcium 80 Mg Tablet) 80 mg PO BEDTIME RADHA Bisacodyl (Bisacodyl 10 Mg Supp.Rect) 10 mg NC DAILY PRN PRN Reason: Constipation Cefepime HCl 1 gm/ Sodium (Chloride) 50 mls @ 100 mls/hr IV Q12H RADHA Vancomycin HCl 750 mg/ Sodium (Chloride) 265 mls @ 265 mls/hr IV Q12H [facility] Isosorbide Mononitrate (Isosorbide Mononitrate 60 Mg Tab.Er.24h) 60 mg PO DAILY [facility]; Protocol Last Admin: 08/08/23 10:19 Dose: 60 mg Magnesium Hydroxide (Milk Of Magnesia 30 Ml Oral.Susp) 30 ml PO DAILY PRN PRN Reason: Constipation Melatonin (Melatonin 3 Mg Tablet) 3 mg PO BEDTIME PRN PRN Reason: Insomnia Metoprolol Tartrate (Metoprolol Tartrate 25 Mg Tablet) 25 mg PO QID [facility]; Protocol Last Admin: 08/08/23 10:19 Dose: 25 mg Ondansetron HCl (Ondansetron Hcl 4 Mg/2 Ml Vial) 4 mg IVPUSH Q8H PRN PRN Reason: Nausea and Vomiting Pharmacy Consult (Consult Rx Vancomycin Dosing) 1 each MISCELLANE DAILY PRN PRN Reason: Consult order Polyethylene Glycol (Polyethylene Glycol 3350 17 Gm Powd.Pack) 17 gm PO DAILY PRN PRN Reason: Constipation Sodium Biphosphate/Sodium Phosphate (Sodium Phosphate,[place]-Dibasic 133 Ml Enema) 118 ml NC DAILY PRN PRN Reason: Constipation Sodium Chloride (0.9 % Sodium Chloride Flush 3 Ml Syringe) [facility] Medications Medication Instructions Recorded Confirmed Last Taken Type acetaminophen 325 mg tablet 650 mg PO Q4H PRN pain or fever 07/24/23 08/08/23 Unknown History bisacodyl 10 mg rectal suppository 10 mg NC DAILY PRN Constipation 07/24/23 08/08/23 Unknown History magnesium hydroxide 400 mg/5 mL 30 ml PO BEDTIME PRN Constipation 07/24/23 08/08/23 Unknown History oral suspension (Milk of Magnesia) polyethylene glycol 3350 17 17 g PO DAILY PRN Constipation 07/24/23 08/08/23 Unknown History gram/dose oral powder (Miralax) sodium phosphates 19 gram-7 118 ml NC DAILY PRN Constipation 07/24/23 08/08/23 Unknown History gram/118 mL enema (Fleet Enema) Physical Exam Vital Signs: Vital Signs: Last Vital Signs Temp 97.5 F 08/08/23 09:48 Pulse 112 H 08/08/23 09:48 Resp 29 H 08/08/23 09:48 BP 144/81 H 08/08/23 09:48 Pulse Ox 93 08/08/23 09:48 O2 Del Method Nasal Cannula 08/08/23 09:48 O2 Flow Rate 2 08/08/23 09:48 Oxygen Flow Rate 2 08/08/23 04:52 BMI result Body Mass Index 19.5 Const: General: comfortable, no acute distress and alert Resp: Effort & Inspection: normal respiratory effort, able to speak in complete sentences, no respiratory distress and no use of accessory muscles Skin: General skin exam: no rashes or lesions noted Neuro: General: moves all extremities Results Labs 08/10/23 06:40 08/11/23 06:11 Labs: Abnormal lab results 08/08/23 08/08/23 08/08/23 Range/Units 04:44 04:48 05:04 WBC 20.0 H (4.8-10.8) X10*3/uL RBC 4.13 L (4.20-5.50) X10*6/uL RDW 20.8 H (11.0-16.0) % Immature Gran % (Auto) 0.8 H (0.0-0.4) % Neut % (Auto) 76.1 H (45-73) % Lymph % (Auto) 5.0 L (20-40) % [place] % (Auto) 12.5 H (2-11) % Eos % (Auto) 4.9 H (0-4) % Lymph # (Auto) 1.0 L (1.2-4.9) X10*3/uL [place] # (Auto) 2.5 H (0.1-1.2) X10*3/uL Eos # (Auto) 1.0 H (0.0-0.4) X10*3/uL Abs Immat Gran (auto) 0.16 H (0.00-0.03) X10*3/uL Absolute Neuts (auto) 15.2 H (2.0-8.3) x10*3/uL VBG pH 7.45 H (7.32-7.43) VBG HCO3 37 H (22-26) mmol/L BUN 18 H (9-16) mg/dL Lactic Acid 2.2 H* (0.5-2.0) mmol/L Total Bilirubin 3.8 H (0.0-1.0) mg/dL Direct Bilirubin 1.7 H (0.0-0.5) mg/dL AST 59 H (5-31) U/L ALT 39 H (0-31) U/L B-Natriuretic Peptide 586 H (<100) pg/mL Total Protein 6.0 L (6.5-8.0) g/dL Albumin 3.1 L (3.5-5.0) g/dL Urine Protein (Neg-Trace) mg/dL Urine Blood (Negative) Urine Nitrite (Negative) Ur Leukocyte Esterase (Negative) Urine RBC (0-2) /HPF Urine WBC (0-5) /HPF SARS-CoV-2 RNA (RT-PCR) POSITIVE A (Negative) 08/08/23 Range/Units 05:54 WBC (4.8-10.8) X10*3/uL RBC (4.20-5.50) X10*6/uL RDW (11.0-16.0) % Immature Gran % (Auto) (0.0-0.4) % Neut % (Auto) (45-73) % Lymph % (Auto) (20-40) % [place] % (Auto) (2-11) % Eos % (Auto) (0-4) % Lymph # (Auto) (1.2-4.9) X10*3/uL [place] # (Auto) (0.1-1.2) X10*3/uL Eos # (Auto) (0.0-0.4) X10*3/uL Abs Immat Gran (auto) (0.00-0.03) X10*3/uL Absolute Neuts (auto) (2.0-8.3) x10*3/uL VBG pH (7.32-7.43) VBG HCO3 (22-26) mmol/L BUN (9-16) mg/dL Lactic Acid (0.5-2.0) mmol/L Total Bilirubin (0.0-1.0) mg/dL Direct Bilirubin (0.0-0.5) mg/dL AST (5-31) U/L ALT (0-31) U/L B-Natriuretic Peptide (<100) pg/mL Total Protein (6.5-8.0) g/dL Albumin (3.5-5.0) g/dL Urine Protein 100 (2+) H (Neg-Trace) mg/dL Urine Blood Large (3+) H (Negative) Urine Nitrite Positive H (Negative) Ur Leukocyte Esterase Large (3+) H (Negative) Urine RBC >20 H (0-2) /HPF Urine WBC >50 H (0-5) /HPF SARS-CoV-2 RNA (RT-PCR) (Negative) Short CBC 08/08/23 Range/Units 04:44 WBC 20.0 H (4.8-10.8) X10*3/uL Hgb 12.8 (12.0-16.0) g/dl Hct 38.7 (37.0-47.0) % Plt Count 297 D (160-400) X10*3/uL BMP 08/08/23 04:44 Sodium 140 Potassium 4.0 Chloride 99 Carbon Dioxide 29 BUN 18 H Creatinine 0.57 Calcium 9.5 D Liver Function 08/08/23 Range/Units 04:44 Total Bilirubin 3.8 H (0.0-1.0) mg/dL Direct Bilirubin 1.7 H (0.0-0.5) mg/dL AST 59 H (5-31) U/L ALT 39 H (0-31) U/L Alkaline Phosphatase 109 (39-117) U/L Albumin 3.1 L (3.5-5.0) g/dL Urine 08/08/23 Range/Units 05:54 Urine Color Dark Yellow Urine Appearance Turbid Urine pH 6.0 (5.0-9.0) Ur Specific [place] 1.020 (1.005-1.025) Urine Protein 100 (2+) H (Neg-Trace) mg/dL Urine Glucose (UA) Negative (Negative) mg/dL All other labs normal. Imaging Chest x-ray: report reviewed and image reviewed CT scan - chest: report reviewed and image reviewed Assessment and Plan (1) Recurrent left pleural effusion: Status: Acute (2) COVID-19: Status: Acute Plan 87-year-old female with PMH of metastatic left breast carcinoma, atrial fibrillation on Eliquis, mixed hyperlipidemia, essential hypertension with left pleural effusion 07/17 requiring thoracentesis now presenting with dyspnea and hypoxia with CXR showing recurrent left pleural effusion. Imaging shows loculation of effusion however patient would not likely be able to tolerate a decortication. Discussed current options with son at bedside including thoracentesis, chest tube placement, chest tube placement with sclerosis or pleurx catheter placement. The patient is supposed to begin treatment for her metastatic cancer next week which hopefully would help prevent recurrence of the pleural effusion once treatment is underway. Will obtain IR chest tube given loculations and decide on possible sclerosis during this stay. Procedures Date of Service Date of Service: 08/11/23
--- NOTE | 2023-08-08 11:17 | MHC.EDTECH ---
patient refused a purewick, she adamantly states that she wants to wear her briefs from home RN AWARE
[2023-08-08 11:24] LABS: Appearance Urine Cloudy; Glucose Urine UA Negative (Negative); Leukocyte Esterase Urine Moderate (2+) (Negative); Nitrite Urine Positive (Negative); PH 5.5 (5.0-9.0); UMIC TRIGGER UACC YES; Urine Blood Large (3+) (Negative); Urine Protein 100 (2+) mg/dL (Neg-Trace)
[2023-08-08 11:39] LABS: Bacteria Urine 4+ (None Seen); RBC Urine >20 /HPF (0-2); UACC Culture Trigger YES; WBC Urine >50 /HPF (0-5)
--- NOTE | 2023-08-08 13:42 | PM.EVENT ---
Event Note Date of Service: 08/08/23 Event Note: Procedure Note: US left chest tube Moderate to large severely loculated left pleural effusion. 10 fr drain placed into left pleural space. Cloudy serous fluid removed. No immediate complications Chad SILVERIO Interventional Radiology Time Spent With Patient Time: Total time managing care of this patient today ____ minutes.
--- NOTE | 2023-08-08 14:00 | PC.NURSE ---
PT RETURNED FROM IR WITH CHEST TUBE/PLEURA VAC WITH DSD WITH TEGADERM TO GRAVITY. PER RN (CORNELIO) 60ML OF CLEAR YELLOW FLUID WAS WITHDRAWN BY SYRINGE FROM LUNGS.
[2023-08-08] MEDS: Lidocaine HCl 1 % MPF 5 ML VIAL 10 ML SUBCUT (14:08)
--- NOTE | 2023-08-08 15:00 | PC.NURSE ---
CHEST TUBE OUTPUT AT THIS TIME IS 225 ML
--- NOTE | 2023-08-08 16:07 | P.CNHO_ITS ---
Subjective - Subjective Chief complaint: Shortness of breath/progressive weakness Patient: known to practice within the last 3 years Consult date: 08/08/23 Primary Care Provider: Alejo Dao MD Medical Summary: Diagnosis: Metastatic breast cancer HPI - Consult Narrative Reason for consult: Metastatic breast cancer, progressive weakness, failure to thrive Narrative: Clara Jordan is a 87 year old female with recently diagnosed metastatic left breast cancer who is admitted again for failure to thrive, shortness of breath and persistent positivity for COVID-19 infection. She is coming from long term facility where she was discharged end of June. Patient was treated for recurrent left pleural effusion in June, she underwent thoracentesis back then. She was noted to be tachypneic either senior care and sent to the emergency room for further evaluation. Patient is unable to provide any history, son who is at the bedside is the main historian. Oncology Screenings - ECOG Performance Status ECOG Performance Status: 4 [facility] Medical History: Medical History (Last Reviewed 08/08/23 @ 07:49 by Antolin Kc MD) Arthritis Atrial fibrillation Breast mass, left Carcinoma of left breast Coronary artery disease COVID-19 vaccine administered Elevated cholesterol Hypertension Increased bilirubin level Lung mass Metaplastic carcinoma of breast On anticoagulant therapy Pectus carinatum Family History: Family History (Last Reviewed 08/08/23 @ 07:49 by Antolin Kc MD) Mother No problems noted. Father Prostate cancer Surgical History: Surgical History (Last Reviewed 08/08/23 @ 07:49 by Antolin Kc MD) H/O colonoscopy History of lumpectomy of left breast History of right cataract surgery Hx of cardiac catheterization Social History: Social History (Last Reviewed 08/08/23 @ 07:49 by Antolin Kc MD) Living Situation History: Household Members: None Housing: Apartment Are you a primary gericare aide teacher to a significant other at home: No Do you presently have visiting nurse or other home services: Yes Do you presently have visiting nurse or other home services comment: once a week Alcohol History Details: 1. How often do you have a drink containing alcohol?: a. Never Tobacco History: Patient Tobacco Use Status: Never used Tobacco Smoked in Last 30 Days: No Substance Use History: Use of substances other than those prescribed or required for medical reasons : No Advance Directives: Advance Directives: Yes Advance Directives on File: Yes Advance Directives Date on File: 06/26/23 Occupation Assessmet: service: No Current occupational status: retired Home Medications and Allergies Current Medications: Current Medications Acetaminophen (Acetaminophen 325 Mg Tablet) 650 mg PO Q6H PRN PRN Reason: Pain, Mild (Pain Scale 1-3) Al Hydroxide/Mg Hydroxide (Magnesium Hydrox/Alum Hydrox 30 Ml Oral.Susp) 30 ml PO Q4H PRN PRN Reason: Heartburn/Nausea Atorvastatin Calcium (Atorvastatin Calcium 80 Mg Tablet) 80 mg PO BEDTIME RADHA Bisacodyl (Bisacodyl 10 Mg Supp.Rect) 10 mg DE DAILY PRN PRN Reason: Constipation Cefepime HCl 1 gm/ Sodium (Chloride) 50 mls @ 100 mls/hr IV Q12H ARDHA Vancomycin HCl 750 mg/ Sodium (Chloride) 265 mls @ 265 mls/hr IV Q12H COUNTS INCLUDE 234 BEDS AT THE [facility] Isosorbide Mononitrate (Isosorbide Mononitrate 60 Mg Tab.Er.24h) 60 mg PO DAILY COUNTS INCLUDE 234 BEDS AT THE [facility]; Protocol Last Admin: 08/08/23 10:19 Dose: 60 mg Magnesium Hydroxide (Milk Of Magnesia 30 Ml Oral.Susp) 30 ml PO DAILY PRN PRN Reason: Constipation Melatonin (Melatonin 3 Mg Tablet) 3 mg PO BEDTIME PRN PRN Reason: Insomnia Metoprolol Tartrate (Metoprolol Tartrate 25 Mg Tablet) 25 mg PO QID COUNTS INCLUDE 234 BEDS AT THE [facility]; Protocol Last Admin: 08/08/23 15:13 Dose: 25 mg Ondansetron HCl (Ondansetron Hcl 4 Mg/2 Ml Vial) 4 mg IVPUSH Q8H PRN PRN Reason: Nausea and Vomiting Pharmacy Consult (Consult Rx Vancomycin Dosing) 1 each MISCELLANE DAILY PRN PRN Reason: Consult order Polyethylene Glycol (Polyethylene Glycol 3350 17 Gm Powd.Pack) 17 gm PO DAILY PRN PRN Reason: Constipation Sodium Biphosphate/Sodium Phosphate (Sodium Phosphate,Latimer-Dibasic 133 Ml Enema) 118 ml DE DAILY PRN PRN Reason: Constipation Sodium Chloride (0.9 % Sodium Chloride Flush 3 Ml Syringe) 3 ml IVFLUSH QSHIFT COUNTS INCLUDE 234 BEDS AT THE [facility] Home Medications Medication Instructions Recorded Confirmed Type acetaminophen 325 mg tablet 650 mg PO Q4H PRN pain or fever 07/24/23 08/08/23 History bisacodyl 10 mg rectal suppository 10 mg DE DAILY PRN Constipation 07/24/23 08/08/23 History magnesium hydroxide 400 mg/5 mL 30 ml PO BEDTIME PRN Constipation 07/24/23 08/08/23 History oral suspension (Milk of Magnesia) polyethylene glycol 3350 17 17 g PO DAILY PRN Constipation 07/24/23 08/08/23 History gram/dose oral powder (Miralax) sodium phosphates 19 gram-7 118 ml DE DAILY PRN Constipation 07/24/23 08/08/23 History gram/118 mL enema (Fleet Enema) Allergies Allergy/AdvReac Type Severity Reaction Status Date / Time No Known Allergies Allergy Verified 08/08/23 04:56 [No Known Allergies*] Physical Exam Vital signs: Vital Signs Temp 97.5 F 08/08/23 09:48 Pulse 101 H 08/08/23 15:11 Resp 34 H 08/08/23 15:11 BP 133/69 08/08/23 15:11 Pulse Ox 98 08/08/23 15:11 O2 Del Method Nasal Cannula 08/08/23 15:11 O2 Flow Rate 2 08/08/23 15:11 Intake & Output 08/07/23 08/08/23 08/08/23 18:59 06:59 18:59 Intake Total 550 / 550 250 / 250 Balance 550 / 550 250 / 250 Intake: Intake, IV Amount 550 / 550 250 / 250 0.9 % Sodium Chloride 500 ml @ 500 / 500 500 mls/hr IV .Q1H RADHA Rx#: [id number] cefEPime HCl 1 gm In 0.9 % 50 / 50 Sodium Chloride 50 ml @ 100 mls /hr IV ONCE ONE Rx#:[id number] vancomycin HCL 1,250 mg In 0.9 250 / 250 % Sodium Chloride 250 ml @ 166. 667 mls/hr IV ONCE ONE Rx#: [id number] Other: Weight 53.07 kg Weight 53.07 kg - Constitutional Present: mild distress, chronically ill appearing - Routine HEENT Exam Eye: Present: conjunctivae pale - Routine Respiratory Exam Present: decreased breath sounds - Routine Cardiovascular Exam Cardiovascular: Present: S1, S2 Hem/Onc Consult Result - Labs CBC & Chem 7: 08/08/23 04:44 08/08/23 04:44 Labs: Short CBC 08/08/23 Range/Units 04:44 WBC 20.0 H (4.8-10.8) X10*3/uL Hgb 12.8 (12.0-16.0) g/dl Hct 38.7 (37.0-47.0) % Plt Count 297 D (160-400) X10*3/uL BMP 08/08/23 04:44 Sodium 140 Potassium 4.0 Chloride 99 Carbon Dioxide 29 BUN 18 H Creatinine 0.57 Calcium 9.5 D Liver Function 08/08/23 Range/Units 04:44 Total Bilirubin 3.8 H (0.0-1.0) mg/dL Direct Bilirubin 1.7 H (0.0-0.5) mg/dL AST 59 H (5-31) U/L ALT 39 H (0-31) U/L Alkaline Phosphatase 109 (39-117) U/L Albumin 3.1 L (3.5-5.0) g/dL Urine 08/08/23 08/08/23 Range/Units 05:54 10:54 Urine Color Dark Yellow Dk Yellow Urine Appearance Turbid Cloudy Urine pH 6.0 5.5 (5.0-9.0) Ur Specific [place] 1.020 1.020 (1.005-1.025) Urine Protein 100 (2+) H 100 (2+) H (Neg-Trace) mg/dL Urine Glucose (UA) Negative Negative (Negative) mg/dL Assessment and Plan Patient Active problem list reviewed?: Yes (1) 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 This is 87-year-old woman with left breast cancer diagnosed in August 2020. She was diagnosed with metastatic breast cancer in May 2023 when she presented with new left pleural effusion and right hilar mass. CT angiogram revealed right hilar mass with extension to right lower lobe, right perihilar, subcarinal and infrahilar matted lymphadenopathy as well as large left pleural effusion. Right axillary and upper retroperitoneal adenopathy found. Pleural fluid cytology was negative for malignant cells. Right axillary lymph node biopsy was performed on 07/24/2023. 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 Estrogen receptor-0% DE-0% and HER2-0. Proliferation index high 25% by Ki 67 immunostain. Concurrent flow cytometry revealed a small population of light chain restricted B cells with CD10 coexpression. We discussed palliative systemic therapy in June. However patient has declined quite rapidly since COVID-19 infection a few weeks ago. Her performance status is very poor at this time is not a candidate for any systemic therapy. I discussed this with the patient's son who is also her healthcare proxy. I have encouraged him to meet our social service liaison for hospice care discussion. He wants to have a discussion with hospice care, he is hoping to take her home with hospice services if possible. - Time Spent With Patient Time Spent with Patient (in minutes): 15
[2023-08-08] MEDS: 0.9 % Sodium Chloride Flush 3 ML SYRINGE IVFLUSH (16:59)
[2023-08-08] MEDS: Morphine Sulfate 2 MG/ML CARTRIDGE IVPUSH (18:48)
--- NOTE | 2023-08-08 19:31 | PC.NURSE ---
Back charting: This RN resumed care of patient at 1530, chest tube was found to not be functioning correctly, this RN assessed tube, no kinks present, no air leak present, this RN hooked suction up and received correct suction. Pt reporting pain at site, son at bedside and is very anxious, has come out of room multiple times to staff, or pressed call campos multiple times. Pt son stating he wants the tube removed, this RN assessed if they had received education in regards to the chest tube and placement, the son stated they didn't really. RN messaged at this time to express sons concerns. This RN also asked if something stronger than APAP could be ordered to help with comfort, IV morphine ordered and given. Pt is a/ox4, is refusing purewic at this time, son requesting staff place brief on, education given about pain, and having to move her around if brief placed. pt remains just on sera pad at this time with bedpan placed if bathroom needs are needed. Pt has been placed on bedpan multiple times throughout shift with pain noted with movement.
[2023-08-08] MEDS: vancomycin HCL 750 MG in 0.9 % Sodium Chloride 250 ML 265 MG IV (19:32)
--- NOTE | 2023-08-08 19:38 | PC.NURSE ---
assumed care of pt. IV was found to be ripped out upon entry to room. new iv placed 22g R. forearm. vanco infusing per jul. metoprolol held per dr. desir as bp 96/49. dr. desir aware of vitals.
--- NOTE | 2023-08-08 20:47 | PC.NURSE ---
pt transported without difficulty with this rn and pako transporter. pt handover to Marissa LENTZ.
[2023-08-08] MEDS: Atorvastatin Calcium 80 MG TABLET PO (22:16)
[2023-08-09] VITALS (7 sets, daily range): BP systolic 93–140; BP diastolic 55–76; PULSE 75–89; RESP 16–18; TEMP 36–37.1; O2SAT 96–100
[2023-08-09] MEDS: 0.9 % Sodium Chloride Flush 3 ML SYRINGE IVFLUSH ×4 (00:55→20:48)
[2023-08-09] MEDS: cefEPime HCl 1 GM in 0.9 % Sodium Chloride 50 ML IV ×2 (03:01→13:37)
[2023-08-09] MEDS: vancomycin HCL 750 MG in 0.9 % Sodium Chloride 250 ML 265 MG IV (06:43)
[2023-08-09 07:57] LABS: Creatinine Clr Calc Pharmacy 74.9; Estimated Glomerular Filt Rate > 60
[2023-08-09] MEDS: Metoprolol Tartrate 25 MG TABLET PO ×3 (08:39→20:47)
[2023-08-09] MEDS: Isosorbide Mononitrate 60 MG TAB.ER.24H PO (08:39)
[2023-08-09] MEDS: Acetaminophen 325 MG TABLET 650 MG PO ×2 (08:40→20:45)
[2023-08-09 08:45] LABS: Anion Gap 14 (12-20); Blood Urea Nitrogen 19 mg/dL (9-16); Calcium 8.5 mg/dL (8.4-10.2); Carbon Dioxide 26 mmol/L (22-29); Chloride 107 mmol/L (96-108); Glucose Random 83 mg/dL (60-115); Sodium 143 mmol/L (135-145)
--- NOTE | 2023-08-09 13:51 | P.PNIM_ITS ---
Subjective Subjective Date of Service: 08/09/23 Interval History: f/u on pleural effuion, loculated effusion, had chest tube inserted yesterday, seems somnolent this mornig but easily aroused Physical Exam 2 Vital Signs: Vital Signs: Last Vital Signs Temp 96.8 F 08/09/23 11:39 Pulse 77 08/09/23 11:39 Resp 18 08/09/23 11:39 BP 93/60 08/09/23 11:39 Pulse Ox 100 08/09/23 11:39 O2 Del Method Nasal Cannula 08/09/23 11:39 O2 Flow Rate 2 08/09/23 11:39 Oxygen Flow Rate 2 08/08/23 04:52 BMI result Body Mass Index 19.5 General: AO X 3, no acute distress Resp: rhochi bilater, left sided chest tube CVS: S1,S2,RRR GI: +BS, NT, no distention Skin: No rash Neuro: motor grossly intact Psych: appropriate affect Objective Data Active Medications Acetaminophen (Acetaminophen 325 Mg Tablet) 650 mg PO Q6H PRN PRN Reason: Pain, Mild (Pain Scale 1-3) Last Admin: 08/09/23 08:40 Dose: 650 mg Documented By: DAFNE Al Hydroxide/Mg Hydroxide (Magnesium Hydrox/Alum Hydrox 30 Ml Oral.Susp) 30 ml PO Q4H PRN PRN Reason: Heartburn/Nausea Apixaban (Apixaban 5 Mg Tablet) 5 mg PO BID [facility] Atorvastatin Calcium (Atorvastatin Calcium 80 Mg Tablet) 80 mg PO BEDTIME [facility] Last Admin: 08/08/23 22:16 Dose: 80 mg Documented By: RADHA Bisacodyl (Bisacodyl 10 Mg Supp.Rect) 10 mg [place] DAILY PRN PRN Reason: Constipation Cefepime HCl 1 gm/ Sodium (Chloride) 50 mls @ 100 mls/hr IV Q12H [facility] Last Admin: 08/09/23 13:37 Dose: 100 mls/hr Documented By: DAFNE Vancomycin HCl 750 mg/ Sodium (Chloride) 265 mls @ 265 mls/hr IV Q12H [facility] Last Infusion: 08/09/23 08:12 Dose: Infused Documented By: DAFNE Isosorbide Mononitrate (Isosorbide Mononitrate 60 Mg Tab.Er.24h) 60 mg PO DAILY [facility]; Protocol Last Admin: 08/09/23 08:39 Dose: 60 mg Documented By: DAFNE Magnesium Hydroxide (Milk Of Magnesia 30 Ml Oral.Susp) 30 ml PO DAILY PRN PRN Reason: Constipation Melatonin (Melatonin 3 Mg Tablet) 3 mg PO BEDTIME PRN PRN Reason: Insomnia Metoprolol Tartrate (Metoprolol Tartrate 25 Mg Tablet) 25 mg PO QID [facility]; Protocol Last Admin: 08/09/23 13:37 Dose: 25 mg Documented By: DAFNE Morphine Sulfate (Morphine Sulfate 2 Mg/Ml Cartridge) 2 mg IVPUSH Q6H PRN; Protocol PRN Reason: Pain, Severe (Pain Scale 7-10) Last Admin: 08/08/23 18:48 Dose: 2 mg Documented By: LEN Ondansetron HCl (Ondansetron Hcl 4 Mg/2 Ml Vial) 4 mg IVPUSH Q8H PRN PRN Reason: Nausea and Vomiting Pharmacy Consult (Consult Rx Vancomycin Dosing) 1 each MISCELLANE DAILY PRN PRN Reason: Consult order Polyethylene Glycol (Polyethylene Glycol 3350 17 Gm Powd.Pack) 17 gm PO DAILY PRN PRN Reason: Constipation Sodium Biphosphate/Sodium Phosphate (Sodium Phosphate,[place]-Dibasic 133 Ml Enema) 118 ml [place] DAILY PRN PRN Reason: Constipation Sodium Chloride (0.9 % Sodium Chloride Flush 3 Ml Syringe) 3 ml IVFLUSH [facility] Last Admin: 08/09/23 13:38 Dose: 3 ml Documented By: DAFNE Labs 08/08/23 04:44 08/09/23 07:32 Labs: Laboratory Results - last 24 hr 08/09/23 07:32 Anion Gap 14 Estim Creat Clear Calc 74.9 Estimated GFR > 60 Random Glucose 83 Calcium 8.5 D Microbiology Microbiology Results: Microbiology 08/08/23 10:54 Urine Culture - Final Urine clean catch - Urine regan top 08/08/23 13:30 Gram Stain - Final Thoracentesis Fluid Anaerobic Culture - Preliminary No growth to date. Body Fluid Culture - Preliminary No growth to date. 08/08/23 05:04 Blood Culture - Preliminary Blood - Venous No growth after 24 hours. 08/08/23 04:44 Blood Culture - Preliminary Blood - Venous No growth after 24 hours. Assessment and Plan (1) Atrial fibrillation with rapid ventricular response: Status: Acute (2) Elevated WBC count: Status: Acute (3) Recurrent left pleural effusion: Status: Acute Plan 87-year-old female with pertinent history of metastatic left breast carcinoma, atrial fibrillation on Eliquis, mixed hyperlipidemia, essential hypertension, recurrent pleural effusion. She was recently admitted from Jul 17 to july 29 for covid and pleural. Here with AFIB with RVR, loculated pleural effusion with acute hypoxic respiratory failure and remains covid + Sepsis d/t Parapneumonic effusion with Acute hypoxic respiratory failure likely s/p chest tube yellow fluid -Continue Cefepime and Vanco, follow cultures Permanent AFIB with RVR--improved after IV metoprolol -change metoprolol to 25 bid -if not improving get cardiology cdonsult -resume eliquis Acute lactic acidosis d/t Hypoxia not sepsis Left P. effusion, previously no malignant cells identified on cytology but very high likelyhood of malignant effusion -chest tube as above Elevated LFTS with Hyperbilirubinemia--chronic not due sepsis h/o Breast CA with pulmonary, pleural and mediastinal met--worse on CT -Oncology consult for ? treatment option vs hospice HTN: metoprolol as above moderate Protein calorie malnutrition: ensure DVT prophylaxis: SCDs. resume Eliquis Do not resuscitate. MOLST in the record need for inaptient:acute hypoxic resp failure d/t loculated P. effusion need IV Abx and possible pleural tap Quality Stroke Does the patient have a stroke diagnosis?: No VTE Prior VTE?: No VTE Risk Level:: Medical - moderate - high VTE Device Contraindication: N/A - Device Ordered VTE Drug Contraindication: N/A - Med Ordered
--- NOTE | 2023-08-09 14:35 | PM.HEMONCPN ---
Medical Summary - Medical Summary Date of Service: 08/09/23 Chief complaint: Follow-up for: Metastatic breast cancer with malignant pleural effusion. Primary Care Provider: Alejo Dao MD Medical Summary: Diagnosis: Metastatic breast cancer Interval History Interval history: Clara Jordan is a 87 year old lady with recently diagnosed metastatic left breast cancer. She is [facility] from [facility], after discharge end of June. Patient was treated for recurrent left pleural effusion in June, she underwent thoracentesis back then. She was noted to be tachypneic either longterm and sent to the emergency room for further evaluation. She was admitted again for failure to thrive, shortness of breath and persistent positivity for COVID-19 infection. Patient is answering questions today. She feels very weak. She had chest tube placed yesterday. He says she is comfortable without any pain. Does not have an appetite. Only had applesauce this morning, nothing else all day. Her son is at the bedside. Review of Systems - Constitutional Reports system reviewed and no additional complaints, except as documented, Reports anorexia, Reports daytime sleepiness, Reports fatigue, Reports lack of energy, Reports malaise, Reports weakness, Reports weight loss - Eyes Reports system reviewed and no additional complaints, except as documented - ENT Reports system reviewed and no additional complaints, except as documented - Cardiovascular Reports system reviewed and no additional complaints, except as documented - Respiratory Reports no additional respiratory complaints, Reports dyspnea - Gastrointestinal Reports system reviewed and no additional complaints, except as documented - Genitourinary Reports no additional female genitourinary complaints - Musculoskeletal Reports system reviewed and no additional complaints, except as documented - Integumentary/Breasts Skin/Breast: Reports no additional skin complaints - Neurologic Reports system reviewed and no additional complaints, except as documented - Psychiatric Reports system reviewed and no additional complaints, except as documented - Endocrine Reports no additional endocrine complaints - Hematologic/Lymphatic Reports system reviewed and no additional complaints, except as documented - Allergic/Immunologic Reports system reviewed and no additional complaints, except as documented PMFSH Medical History: Medical History (Last Reviewed 08/08/23 @ 07:49 by Antolin Kc MD) Arthritis Atrial fibrillation Breast mass, left Carcinoma of left breast Coronary artery disease COVID-19 vaccine administered Elevated cholesterol Hypertension Increased bilirubin level Lung mass Metaplastic carcinoma of breast On anticoagulant therapy Pectus carinatum Functional capacity: bed bound Patient : No Family History: Family History (Last Reviewed 08/08/23 @ 07:49 by Antolin Kc MD) Mother No problems noted. Father Prostate cancer Surgical History: Surgical History (Last Reviewed 08/08/23 @ 07:49 by Antolin Kc MD) H/O colonoscopy History of lumpectomy of left breast History of right cataract surgery Hx of cardiac catheterization Social History: Social History (Last Reviewed 08/08/23 @ 07:49 by Antolin Kc MD) Living Situation History: Household Members: None Housing: Custodial Are you a primary healthcare administration internship to a significant other at home: No Do you presently have visiting nurse or other home services: No Tobacco History: Patient Tobacco Use Status: Never used Tobacco Advance Directives: Advance Directives Date on File: 06/26/23 Occupation Assessmet: [employer] service: No Current occupational status: retired Oncology Screenings - ECOG Performance Status ECOG Performance Status: 3 Home Medications and Allergies Current Medications: Current Medications Acetaminophen (Acetaminophen 325 Mg Tablet) 650 mg PO Q6H PRN PRN Reason: Pain, Mild (Pain Scale 1-3) Last Admin: 08/09/23 08:40 Dose: 650 mg Al Hydroxide/Mg Hydroxide (Magnesium Hydrox/Alum Hydrox 30 Ml Oral.Susp) 30 ml PO Q4H PRN PRN Reason: Heartburn/Nausea Apixaban (Apixaban 2.5 Mg Tablet) 2.5 mg PO BID [facility] Atorvastatin Calcium (Atorvastatin Calcium 80 Mg Tablet) 80 mg PO BEDTIME [facility] Last Admin: 08/08/23 22:16 Dose: 80 mg Bisacodyl (Bisacodyl 10 Mg Supp.Rect) 10 mg [place] DAILY PRN PRN Reason: Constipation Cefepime HCl 1 gm/ Sodium (Chloride) 50 mls @ 100 mls/hr IV Q12H [facility] Last Infusion: 08/09/23 14:09 Dose: Infused Vancomycin HCl 750 mg/ Sodium (Chloride) 265 mls @ 265 mls/hr IV Q12H [facility] Last Infusion: 08/09/23 08:12 Dose: Infused Isosorbide Mononitrate (Isosorbide Mononitrate 60 Mg Tab.Er.24h) 60 mg PO DAILY [facility]; Protocol Last Admin: 08/09/23 08:39 Dose: 60 mg Magnesium Hydroxide (Milk Of Magnesia 30 Ml Oral.Susp) 30 ml PO DAILY PRN PRN Reason: Constipation Melatonin (Melatonin 3 Mg Tablet) 3 mg PO BEDTIME PRN PRN Reason: Insomnia Metoprolol Tartrate (Metoprolol Tartrate 25 Mg Tablet) 25 mg PO BID [facility]; Protocol Morphine Sulfate (Morphine Sulfate 2 Mg/Ml Cartridge) 2 mg IVPUSH Q6H PRN; Protocol PRN Reason: Pain, Severe (Pain Scale 7-10) Last Admin: 08/08/23 18:48 Dose: 2 mg Ondansetron HCl (Ondansetron Hcl 4 Mg/2 Ml Vial) 4 mg IVPUSH Q8H PRN PRN Reason: Nausea and Vomiting Pharmacy Consult (Consult Rx Vancomycin Dosing) 1 each MISCELLANE DAILY PRN PRN Reason: Consult order Polyethylene Glycol (Polyethylene Glycol 3350 17 Gm Powd.Pack) 17 gm PO DAILY PRN PRN Reason: Constipation Sodium Biphosphate/Sodium Phosphate (Sodium Phosphate,[place]-Dibasic 133 Ml Enema) 118 ml [place] DAILY PRN PRN Reason: Constipation Sodium Chloride (0.9 % Sodium Chloride Flush 3 Ml Syringe) 3 ml IVFLUSH [facility] Last Admin: 08/09/23 13:38 Dose: 3 ml Allergies Allergy/AdvReac Type Severity Reaction Status Date / Time No Known Allergies Allergy Verified 08/08/23 04:56 [No Known Allergies*] Exam Vital signs: Vital Signs Temp 96.8 F 08/09/23 11:39 Pulse 77 08/09/23 11:39 Resp 18 08/09/23 11:39 BP 93/60 08/09/23 11:39 Pulse Ox 100 08/09/23 11:39 O2 Del Method Nasal Cannula 08/09/23 11:39 O2 Flow Rate 2 08/09/23 11:39 Intake & Output 08/08/23 08/09/23 08/09/23 18:59 06:59 18:59 Intake Total 250 / 615 365 / 615 315 / 315 Output Total 200 / 200 Balance 250 / 415 165 / 415 315 / 315 Intake: Intake, IV Amount 250 / 615 365 / 615 315 / 315 cefEPime HCl 1 gm In 0.9 % 100 / 100 50 / 50 Sodium Chloride 50 ml @ 100 mls /hr IV Q12H [facility] Rx#:[id number] vancomycin HCL 1,250 mg In 0.9 250 / 250 % Sodium Chloride 250 ml @ 166. 667 mls/hr IV ONCE ONE Rx#: [id number] vancomycin HCL 750 mg In 0.9 % 265 / 265 265 / 265 Sodium Chloride 250 ml @ 265 mls/hr IV Q12H [facility] Rx#: [id number] Output: Output, Chest Tube Drainage 200 / 200 Amount Left Upper Posterior Chest 200 / 200 Other: Number of Incontinent Voids 1 Urine brief Weight 53.07 kg BMI result Body Mass Index 19.5 - Constitutional Present: mild distress, chronically ill appearing - Routine HEENT Exam Head: Present: normal inspection Eye: Present: normal appearance ENT: Present: mucous membranes moist - Routine Neck Exam Present: full ROM - Routine Respiratory Exam Present: decreased breath sounds - Routine Cardiovascular Exam Cardiovascular: Present: S1, S2 - Routine Abdominal Exam Present: soft, nontender - Routine Rectal Exam Patient deferred: digital exam - Routine Extremities Exam Present: nontender - Routine Back/Spine/Pelvis Exam Back/Spine: Present: full ROM - Routine Skin Exam Present: intact - Routine Neurological Exam Present: alert, oriented X3 - Routine Psychiatric Exam Present: normal affect Data - Labs CBC & Chem 7: 08/10/23 06:40 08/12/23 05:40 Labs: Laboratory Last Values WBC 20.0 X10*3/uL (4.8-10.8) H 08/08/23 04:44 RBC 4.13 X10*6/uL (4.20-5.50) L 08/08/23 04:44 Hgb 12.8 g/dl (12.0-16.0) 08/08/23 04:44 Hct 38.7 % (37.0-47.0) 08/08/23 04:44 MCV 93.7 fL (80.0-98.0) 08/08/23 04:44 MCH 31.0 pg (27.0-33.0) 08/08/23 04:44 MCHC 33.1 g/dl (31.0-35.0) 08/08/23 04:44 RDW 20.8 % (11.0-16.0) H 08/08/23 04:44 Plt Count 297 X10*3/uL (160-400) D 08/08/23 04:44 MPV 10.4 fL (9.4-12.3) 08/08/23 04:44 Immature Gran % (Auto) 0.8 % (0.0-0.4) H 08/08/23 04:44 Neut % (Auto) 76.1 % (45-73) H 08/08/23 04:44 Lymph % (Auto) 5.0 % (20-40) L 08/08/23 04:44 [place] % (Auto) 12.5 % (2-11) H 08/08/23 04:44 Eos % (Auto) 4.9 % (0-4) H 08/08/23 04:44 Baso % (Auto) 0.7 % (0-2) 08/08/23 04:44 Lymph # (Auto) 1.0 X10*3/uL (1.2-4.9) L 08/08/23 04:44 [place] # (Auto) 2.5 X10*3/uL (0.1-1.2) H 08/08/23 04:44 Eos # (Auto) 1.0 X10*3/uL (0.0-0.4) H 08/08/23 04:44 Baso # (Auto) 0.1 X10*3/uL (0.0-0.2) 08/08/23 04:44 Abs Immat Gran (auto) 0.16 X10*3/uL (0.00-0.03) H 08/08/23 04:44 Absolute Neuts (auto) 15.2 x10*3/uL (2.0-8.3) H 08/08/23 04:44 Absolute Nucleated RBC 0.000 X10*3/uL (0.0-0.012) 08/08/23 04:44 Nucleated RBC % (auto) 0.0 /100WBC (0.0-0.2) 08/08/23 04:44 Smear Tech's Comments VERIFIED 08/08/23 04:44 Hold Blue Top SEE NOTE 08/08/23 04:44 VBG pH 7.45 (7.32-7.43) H 08/08/23 04:48 VBG pCO2 52 mmHg 08/08/23 04:48 VBG pO2 45 mmHg 08/08/23 04:48 VBG HCO3 37 mmol/L (22-26) H 08/08/23 04:48 VBG O2 Saturation 68.0 % 08/08/23 04:48 VBG Base Excess 11.5 mmol/L 08/08/23 04:48 Sodium 143 mmol/L (135-145) 08/09/23 07:32 Potassium 4.0 mmol/L (3.3-5.1) 08/09/23 07:32 Chloride 107 mmol/L (96-108) 08/09/23 07:32 Carbon Dioxide 26 mmol/L (22-29) 08/09/23 07:32 Anion Gap 14 (12-20) 08/09/23 07:32 BUN 19 mg/dL (9-16) H 08/09/23 07:32 Creatinine 0.46 mg/dL (0.5-1.4) L 08/09/23 07:32 Estim Creat Clear Calc 74.9 08/09/23 07:32 Estimated GFR > 60 08/09/23 07:32 Random Glucose 83 mg/dL (60-115) 08/09/23 07:32 Lactic Acid 2.2 mmol/L (0.5-2.0) H* 08/08/23 04:44 Lactic Acid F/U @ 2Hr 1.7 mmol/L (0.5-2.0) 08/08/23 07:36 Calcium 8.5 mg/dL (8.4-10.2) D 08/09/23 07:32 Magnesium 2.2 mg/dL (1.6-2.6) 08/08/23 04:44 Total Bilirubin 3.8 mg/dL (0.0-1.0) H 08/08/23 04:44 Direct Bilirubin 1.7 mg/dL (0.0-0.5) H 08/08/23 04:44 AST 59 U/L (5-31) H 08/08/23 04:44 ALT 39 U/L (0-31) H 08/08/23 04:44 Alkaline Phosphatase 109 U/L (39-117) 08/08/23 04:44 Troponin I High Sens 9.4 ng/L (<3.5-17.0) 08/08/23 04:44 B-Natriuretic Peptide 586 pg/mL (<100) H 08/08/23 04:44 Total Protein 6.0 g/dL (6.5-8.0) L 08/08/23 04:44 Albumin 3.1 g/dL (3.5-5.0) L 08/08/23 04:44 Lipase 12 U/L (8-78) 08/08/23 04:44 Procalcitonin 0.08 ng/mL 08/08/23 04:44 Urine Color Dk Yellow 08/08/23 10:54 Urine Appearance Cloudy 08/08/23 10:54 Urine pH 5.5 (5.0-9.0) 08/08/23 10:54 Ur Specific [place] 1.020 (1.005-1.025) 08/08/23 10:54 Urine Protein 100 (2+) mg/dL (Neg-Trace) H 08/08/23 10:54 Urine Glucose (UA) Negative mg/dL (Negative) 08/08/23 10:54 Urine Ketones See Note mg/dL (Negative) 08/08/23 10:54 Urine Blood Large (3+) (Negative) H 08/08/23 10:54 Urine Nitrite Positive (Negative) H 08/08/23 10:54 Ur Leukocyte Esterase Moderate (2+) (Negative) H 08/08/23 10:54 Urine RBC >20 /HPF (0-2) H 08/08/23 10:54 Urine WBC >50 /HPF (0-5) H 08/08/23 10:54 Ur Squamous Epith Cells 6-10 /HPF (0-2) 08/08/23 10:54 Urine Bacteria 4+ (None Seen) 08/08/23 10:54 Hyaline Casts 3-5 /LPF (0-2) 08/08/23 10:54 Influenza Type A (PCR) NEGATIVE (Negative) 08/08/23 05:04 Influenza Type B (PCR) NEGATIVE (Negative) 08/08/23 05:04 RSV RNA Qual (PCR) NEGATIVE (Negative) 08/08/23 05:04 SARS-CoV-2 RNA (RT-PCR) POSITIVE (Negative) A 08/08/23 05:04 - Imaging Radiologist's impression: ITS Impressions Chest X-Ray 08/08/23 05:30 IMPRESSION: No significant change in pulmonary abnormalities or left pleural effusion compared to 07/24/2023. Head CT 08/08/23 05:34 IMPRESSION: 1. No acute territorial infarction, hemorrhage or space-occupying lesion. 2. There is cerebral volume loss with prominence of the lateral and third ventricles. 3. 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 Chest CT 08/08/23 06:30 IMPRESSION: Mild interstitial pulmonary edema, new small right pleural effusion and moderate left pleural effusion which has a loculated appearance. Although left pleural effusion is overall decreased in size compared to prior chest CT from 06/14/2023, there is increased loculated fluid along the left major fissure. There is overall worsening of the neoplastic disease as manifest by enlargement of some of the nodules, enlargement of the mass involving pleura and mediastinum in the anterior left upper lobe, and increased pleural-based opacities in the left hemithorax. Also, mild worsening of some of the rib destructive changes from metastatic disease. Thoracentesis/Paracentesis US 08/08/23 14:00 IMPRESSION: Ultrasound-guided left chest tube placement yielding yellow fluid. This procedures performed by Chad Lr PA-C and supervised by Dr. Benavides. 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 She was diagnosed with metastatic breast cancer in May 2023 when she presented with new left pleural effusion and right hilar mass. CT angiogram revealed right hilar mass with extension to right lower lobe, right perihilar, subcarinal and infrahilar matted lymphadenopathy as well as large left pleural effusion. Right axillary and upper retroperitoneal adenopathy found. Pleural fluid cytology was negative for malignant cells. Right axillary lymph node biopsy was performed on 07/24/2023. 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 Estrogen receptor-0% IA-0% and HER2-0. Proliferation index high 25% by Ki 67 immunostain. Concurrent flow cytometry revealed a small population of light chain restricted B cells with CD10 coexpression. Palliative systemic therapy was discussed with her in June. However she has declined quite rapidly since COVID-19 infection few weeks ago. Her performance status is very poor at this time is not a candidate for any systemic therapy. I discussed palliative care with her and her son, who is also her healthcare proxy. They would like more information about hospice services. I arranged for them to meet our employment evaluator/case manager. PLAN: Will request the hospice intake person to make an informational visit today, regarding hospice care, and the services that they would be able to provide to help meet their needs at home. Meantime hopefully the thoracentesis will help improve her pulmonary symptoms. Will arrange for Ensure to help keep her strength up. Thank you, CC: Sylwia Dhillon. - Time Spent With Patient Time Spent with Patient (in minutes): 25
--- NOTE | 2023-08-09 14:54 | MHC.CM.PN ---
Addendum entered by Hanna Zhou RN 08/09/23 15:16: [facility] SPOKE W/ELASTIC ATTACHER ZIGZAG OVER PHONE, PT'S SON ASKING FOR MORE TIME TO THINK ABOUT HOSPICE AND DISCUSS W/FAMILY, [facility] UNABLE TO DO INTAKE OVER W/E AND HAVE REQUESTED CM PREBOOK PT FOR TRANSPORT HOME 12:30-1PM AND THEY WILL SCHEDULE FOR HOSPICE SOC, PT WAS ACTIVE W/[facility] ALREADY IF SON DECIDES AGAINST SHE WILL RESUME [facility] CARE, CM WILL CLARIFY CHEST TUBE INFO W/HOSPITALIST. Original Note: IMM 08/09/23 DELIVERED TO PT/SON AT BEDSIDE, CM RECEIVED MESSAGE FROM DR KRAUSE WHO IS COVERING ONCOLOGY AND PT HAS DR GARCIA WHO HAS MET W/PT AND SON LEXII AND PLAN WILL BE FOR HOME W/HOSPICE, CM MET W/PT AND SON AT BEDSIDE AND PT'S SON REPORTS PT WOULD BE HAPPIER AT HOME AND HE WILL PLAN ON STAYING W/PT AT HER APT/HOME. PT WAS PREVIOUSLY ACTIVE W/[facility] AND [facility] WOULD LIKE PT TO HAVE [facility]. PER LIAISON PT CAN BE HOME W/CHEST TUBE LONG IT IS A PLEUREX OR ASPIRA DRAIN, PT WILL ALSO NEED HOSPITAL BED, COMMODE, O2 FOR COMFORT. PER [facility] THEY WILL DO INFORMATIONAL OVER PHONE TODAY 08/08 AND INTAKE WOULD NEED TO DO INTAKE ON THURSDAY 08/10. CM WILL CONT TO FOLLOW HOSPICE/DC NEEDS FOR PT.
--- NOTE | 2023-08-09 15:28 | PM.PNTS ---
Subjective Subjective Date of Service: 08/09/23 Interval history: Patient was evaluated with son present. She states her respiratory symptoms are markedly improved status post chest tube placement. Pleur-evac with a few 100 cc of serous output. Physical Exam Vital Signs: Vital Signs: Last Vital Signs Temp 96.8 F 08/09/23 11:39 Pulse 77 08/09/23 11:39 Resp 18 08/09/23 11:39 BP 93/60 08/09/23 11:39 Pulse Ox 100 08/09/23 11:39 O2 Del Method Nasal Cannula 08/09/23 11:39 O2 Flow Rate 2 08/09/23 11:39 Oxygen Flow Rate 2 08/08/23 04:52 BMI result Body Mass Index 19.5 Chest: Other: Dressing clean dry and intact. Chest x-ray demonstrates marked improvement of left pleural effusion. Procedures Date of Service Date of Service: 08/09/23 Progress Note: A&P Assessment and plan (1) Recurrent left pleural effusion: Status: Acute Plan Continue current plan. Incentive spirometry, follow chest tube outputs Time Spent With Patient Time: Total time managing care of this patient today ____ minutes. Quality Stroke Does the patient have a stroke diagnosis?: No VTE Prior VTE?: No VTE Risk Level:: Medical - moderate - high VTE Device Contraindication: N/A - Device Ordered VTE Drug Contraindication: N/A - Med Ordered
[2023-08-09 16:53] LABS: Vancomycin Random 21.6 mcg/mL (15-20)
--- NOTE | 2023-08-09 17:02 | HE.PHANOTE ---
RE: vanco Trough on 08/08 came back at 21.6; changed dose to 1000mg Q24H to start 08/09 @0800. Predicted trough of 11.8 mg/L, AUC of 449. Next level to be drawn 08/10 @0600
[2023-08-09] MEDS: Apixaban 2.5 MG TABLET PO (20:45)
[2023-08-09] MEDS: Atorvastatin Calcium 80 MG TABLET PO (20:45)
[2023-08-10] MEDS: cefEPime HCl 1 GM in 0.9 % Sodium Chloride 50 ML IV ×2 (03:42→14:31)
[2023-08-10 04:00] VITALS: BP 122/61; PULSE 90; RESP 16; TEMP 36.8; O2SAT 93
[2023-08-10] MEDS: Acetaminophen 325 MG TABLET 650 MG PO ×2 (04:45→10:47)
[2023-08-10 07:05] LABS: Hematocrit 35.7 % (37.0-47.0); Hemoglobin 11.6 g/dl (12.0-16.0); Mean Corpuscular HGB Conc 32.5 g/dl (31.0-35.0); Mean Corpuscular Hemoglobin 31.1 pg (27.0-33.0); Mean Corpuscular Volume 95.7 fL (80.0-98.0); Mean Platelet Volume 10.3 fL (9.4-12.3); Platelet Count 244 X10*3/uL (160-400); Red Blood Count 3.73 X10*6/uL (4.20-5.50); Red Cell Distribution Width 19.8 % (11.0-16.0); White Blood Count 12.9 X10*3/uL (4.8-10.8)
[2023-08-10 07:10] LABS: Creatinine Clr Calc Pharmacy 64.9; Estimated Glomerular Filt Rate > 60
--- NOTE | 2023-08-10 07:16 | HE.PHANOTE ---
Vancomycin Dosing Renal function stable, continue current regimen. Predicted AUC 488 with a trough of 13.4.
[2023-08-10 08:00] VITALS: BP 104/55; PULSE 105; RESP 20; TEMP 36.1; O2SAT 95
[2023-08-10] MEDS: Apixaban 2.5 MG TABLET PO ×2 (08:56→22:14)
[2023-08-10] MEDS: Isosorbide Mononitrate 60 MG TAB.ER.24H PO (08:56)
[2023-08-10] MEDS: Metoprolol Tartrate 25 MG TABLET PO ×2 (08:56→22:14)
[2023-08-10] MEDS: 0.9 % Sodium Chloride Flush 3 ML SYRINGE IVFLUSH ×3 (09:00→22:14)
--- NOTE | 2023-08-10 09:09 | P.PNIM_ITS ---
Subjective Subjective Date of Service: 08/10/23 Interval History: f/u on pleural effuion, loculated effusion, had chest tube inserted yesterday, more alert, she feels more comfortable Physical Exam 2 Vital Signs: Vital Signs: Last Vital Signs Temp 97 F 08/10/23 08:00 Pulse 105 H 08/10/23 08:00 Resp 20 08/10/23 08:00 BP 104/55 L 08/10/23 08:00 Pulse Ox 95 08/10/23 08:00 O2 Del Method Room Air 08/10/23 08:00 O2 Flow Rate 2 08/09/23 23:13 Oxygen Flow Rate 2 08/08/23 04:52 BMI result Body Mass Index 19.5 General: AO X 3, no acute distress Resp: rhochi bilater, left sided chest tube CVS: S1,S2,RRR GI: +BS, NT, no distention Skin: No rash Neuro: motor grossly intact Psych: appropriate affect Objective Data Active Medications Acetaminophen (Acetaminophen 325 Mg Tablet) 650 mg PO Q6H PRN PRN Reason: Pain, Mild (Pain Scale 1-3) Last Admin: 08/10/23 04:45 Dose: 650 mg Documented By: KAITLIN Al Hydroxide/Mg Hydroxide (Magnesium Hydrox/Alum Hydrox 30 Ml Oral.Susp) 30 ml PO Q4H PRN PRN Reason: Heartburn/Nausea Apixaban (Apixaban 2.5 Mg Tablet) 2.5 mg PO BID [facility] Last Admin: 08/09/23 20:45 Dose: 2.5 mg Documented By: KAITLIN Atorvastatin Calcium (Atorvastatin Calcium 80 Mg Tablet) 80 mg PO BEDTIME [facility] Last Admin: 08/09/23 20:45 Dose: 80 mg Documented By: KAITLIN Bisacodyl (Bisacodyl 10 Mg Supp.Rect) 10 mg [place] DAILY PRN PRN Reason: Constipation Cefepime HCl 1 gm/ Sodium (Chloride) 50 mls @ 100 mls/hr IV Q12H [facility] Last Infusion: 08/10/23 04:31 Dose: Infused Documented By: KAITLIN Vancomycin HCl 1,000 mg/ (Sodium Chloride) 270 mls @ 270 mls/hr IV Q24H [facility] Isosorbide Mononitrate (Isosorbide Mononitrate 60 Mg Tab.Er.24h) 60 mg PO DAILY [facility]; Protocol Last Admin: 08/09/23 08:39 Dose: 60 mg Documented By: DAFNE Magnesium Hydroxide (Milk Of Magnesia 30 Ml Oral.Susp) 30 ml PO DAILY PRN PRN Reason: Constipation Melatonin (Melatonin 3 Mg Tablet) 3 mg PO BEDTIME PRN PRN Reason: Insomnia Metoprolol Tartrate (Metoprolol Tartrate 25 Mg Tablet) 25 mg PO BID [facility]; Protocol Last Admin: 08/09/23 20:47 Dose: 25 mg Documented By: KAITLIN Morphine Sulfate (Morphine Sulfate 2 Mg/Ml Cartridge) 2 mg IVPUSH Q6H PRN; Protocol PRN Reason: Pain, Severe (Pain Scale 7-10) Last Admin: 08/08/23 18:48 Dose: 2 mg Documented By: LEN Ondansetron HCl (Ondansetron Hcl 4 Mg/2 Ml Vial) 4 mg IVPUSH Q8H PRN PRN Reason: Nausea and Vomiting Pharmacy Consult (Consult Rx Vancomycin Dosing) 1 each MISCELLANE DAILY PRN PRN Reason: Consult order Polyethylene Glycol (Polyethylene Glycol 3350 17 Gm Powd.Pack) 17 gm PO DAILY PRN PRN Reason: Constipation Sodium Biphosphate/Sodium Phosphate (Sodium Phosphate,[place]-Dibasic 133 Ml Enema) 118 ml [place] DAILY PRN PRN Reason: Constipation Sodium Chloride (0.9 % Sodium Chloride Flush 3 Ml Syringe) 3 ml IVFLUSH [facility] Last Admin: 08/09/23 20:48 Dose: 3 ml Documented By: KAITLIN Labs 08/10/23 06:40 08/10/23 06:40 Labs: Laboratory Results - last 24 hr 08/09/23 08/10/23 16:25 06:40 MCV 95.7 MCH 31.1 MCHC 32.5 RDW 19.8 H Plt Count 244 MPV 10.3 Absolute Nucleated RBC 0.000 Nucleated RBC % (auto) 0.0 Estim Creat Clear Calc 64.9 Estimated GFR > 60 Random Vancomycin 21.6 H Microbiology Microbiology Results: Microbiology 08/08/23 13:30 Gram Stain - Final Thoracentesis Fluid Anaerobic Culture - Preliminary No growth to date. Body Fluid Culture - Final No growth after 2 days 08/08/23 05:04 Blood Culture - Preliminary Blood - Venous No growth after 48 hours. 08/08/23 04:44 Blood Culture - Preliminary Blood - Venous No growth after 48 hours. 08/08/23 10:54 Urine Culture - Final Urine clean catch - Urine regan top Assessment and Plan (1) Atrial fibrillation with rapid ventricular response: Status: Acute (2) Elevated WBC count: Status: Acute (3) Recurrent left pleural effusion: Status: Acute Plan 87-year-old female with pertinent history of metastatic left breast carcinoma, atrial fibrillation on Eliquis, mixed hyperlipidemia, essential hypertension, recurrent pleural effusion. She was recently admitted from Jul 17 to july 29 for covid and pleural. Here with AFIB with RVR, loculated pleural effusion with acute hypoxic respiratory failure and remains covid + Sepsis d/t Parapneumonic effusion with Acute hypoxic respiratory failure likely s/p chest tube yellow fluid, she feels more comfortable -Continue Cefepime, DC Vanco if cultures negative for MRSa Permanent AFIB with RVR--improved after IV metoprolol -continue metoprolol to 25 bid -if not improving get cardiology cdonsult -continue eliquis Acute lactic acidosis d/t Hypoxia not sepsis Left P. effusion, previously no malignant cells identified on cytology but very high likelyhood of malignant effusion -chest tube as above Elevated LFTS with Hyperbilirubinemia--chronic not due sepsis h/o Breast CA with pulmonary, pleural and mediastinal met--worse on CT -Oncology consult recommends hospice consult HTN: metoprolol as above moderate Protein calorie malnutrition: ensure DVT prophylaxis: SCDs. resume Eliquis Do not resuscitate. MOLST in the record need for inaptient:acute hypoxic resp failure d/t loculated P. effusion need IV Abx and possible pleural tap Quality Stroke Does the patient have a stroke diagnosis?: No VTE Prior VTE?: No VTE Risk Level:: Medical - moderate - high VTE Device Contraindication: N/A - Device Ordered VTE Drug Contraindication: N/A - Med Ordered
[2023-08-10 11:33] VITALS: BP 126/75; PULSE 97; RESP 16; TEMP 36.8; O2SAT 96
[2023-08-10] MEDS: vancomycin HCL 1,000 MG in 0.9 % Sodium Chloride 250 ML 270 MG IV (12:11)
--- NOTE | 2023-08-10 14:33 | MHC.CM.PN ---
CM MET W/[facility] LEX[facility] AT BEDSIDE, LEXII REPORTS THEY ARE AGREEABLE TO HOSPICE, PER KATHLEEN CAMARGO OF [facility] SOMEONE WILL REACH OUT TO [facility] FRIDAY MORNING TO VERIFY EQUIPMENT THAT NEEDS TO BE DELIVERED, SON LEXII IS AWARE AND AGREEABLE TO 1PM PREBOOKED TIME AND WILL BE AT PTS APT [employer]ING FURNITURE AND SETTING UP. LEXII REQUESTING TO SPEAK TO HOSITALIST WHO IS AWARE VIA [facility] AND WILL MEET W/LEXII.
[2023-08-10 15:43] VITALS: BP 113/67; PULSE 96; RESP 16; TEMP 37.1; O2SAT 95
[2023-08-10 20:00] VITALS: BP 127/80; PULSE 99; TEMP 36.8; O2SAT 96
[2023-08-10] MEDS: Atorvastatin Calcium 80 MG TABLET PO (22:14)
[2023-08-10 23:54] VITALS: BP 114/67; PULSE 97; RESP 18; TEMP 37.2; O2SAT 96
[2023-08-11] VITALS (7 sets, daily range): BP systolic 100–133; BP diastolic 57–86; PULSE 88–125; RESP 18–20; TEMP 37–37.3; O2SAT 93–98
[2023-08-11] MEDS: cefEPime HCl 1 GM in 0.9 % Sodium Chloride 50 ML IV (02:37)
[2023-08-11 06:59] LABS: Vancomycin Random 17.9 mcg/mL (15-20)
[2023-08-11 07:00] LABS: Creatinine Clr Calc Pharmacy 60.4; Estimated Glomerular Filt Rate > 60
--- NOTE | 2023-08-11 07:09 | HE.PHANOTE ---
RE [facility] Patients level came back at 17.9. Continue 1000 mg Q12H. Next level to be taken 08/12 @0600. PRedicted AUC 524
[2023-08-11] MEDS: Isosorbide Mononitrate 60 MG TAB.ER.24H PO (08:46)
[2023-08-11] MEDS: Apixaban 2.5 MG TABLET PO ×2 (08:46→20:31)
[2023-08-11] MEDS: 0.9 % Sodium Chloride Flush 3 ML SYRINGE IVFLUSH ×2 (08:46→15:49)
[2023-08-11] MEDS: Metoprolol Tartrate 25 MG TABLET PO ×2 (08:46→20:31)
[2023-08-11] MEDS: vancomycin HCL 1,000 MG in 0.9 % Sodium Chloride 250 ML 270 MG IV (08:48)
--- NOTE | 2023-08-11 08:52 | P.DS_ITS ---
DS: Providers Provider Date of Service: 08/12/23 Date of admission: 08/08/23 08:43 Primary care physician: Alejo Dao MD Consults: 08/08/23 07:46 Consult to Thoracic Surgery Routine Consulting Provider: Esau Xiao Reason for consultation: loculated left pleural effusion Has provider been notified: No 08/08/23 12:36 Consult to Hematology / Oncology Routine Consulting Provider: Corey Barrios Reason for consultation: Worsening disease, assess need for hospice DS: Diagnosis Discharge Diagnosis (1) Atrial fibrillation with rapid ventricular response: Status: Acute (2) Elevated WBC count: Status: Acute (3) Recurrent left pleural effusion: Status: Acute DS: Summary Hospital Course Hospital Course: Admission hpi Chief Complaint: Shortness of breath An 87-year-old female with a pertinent history of metastatic left breast carcinoma, atrial fibrillation on Eliquis, mixed hyperlipidemia, essential hypertension, and recurrent pleural effusion. She was recently admitted from July 17 to July 29 for COVID-19 and pleural effusion. COVID-19 was asymptomatic, and the pleural effusion was assessed at that time as thoracic and needing no intervention. Her hospital stay was prolonged due to placement issues from being COVID-positive. She was eventually discharged to rehab on July 29. She presents back today due to dyspnea and hypoxia. She reportedly was breathing at 40 breaths per minute with an oxygen saturation of 88%. Upon evaluation in the ED, she is found to be in AFIB with RVR and given IV Metoprolol. Lab work has revealed a WBC count of 20,000. COVID-19 by PCR is still positive. CT and X- ray of the chest show persistent left moderate pleural effusion with size unchanged but the appearance of loculation. She is given Vancomycin and Cefepime, and admission is requested. At the time of my evaluation, her respiratory status has improved, and her heart rate is just above 100. Hospitalc course: This patient with known history breast cancer with pulmonary lymphadenopathy and recurrent pleural effusion presented with shortness of breath and found to have AFIB with RVR and persistent left sided pleural effusion with possible loculation. She was recently admitted with covid and pleural effusion and discharged to rehab only to retunr. Work up revealed recurrent Pleural effuion with likely loculation,WBC 20K, covid positive likly residual from [facility] hospitalization. She was admitted and initiated on Vancomycina nd Cefepime, Thoracic surger inserted a left sided chest tube and hadpleurodisis done to minimize fluid build up. AFIB improved with IV metoprolol and is back on oral Metoprolol. Patient was also assess by Oncoloyg and her can cer is deemed not treatable and overall her condition continues to decline, more cachetic. Oncology has recommended hospice and patient and son are agreeable. Sepsis d/t Parapneumonic effusion with Acute hypoxic respiratory failure likely--hypoxia resolved. Treted with vanco and cefepime. She has no fever O2 98 on room air. WBC has gone from 20 to 12, will discharge with Augmnentin Permanent AFIB with RVR--improved after IV metoprolol, -continue metoprolol to 25 bid Acute lactic acidosis d/t Hypoxia not sepsis Left P. effusion, previously no malignant cells identified on cytology but very high likelyhood of malignant effusion -chest tube inserted by thoracic surgery and will have pleurodesis Elevated LFTS with Hyperbilirubinemia--chronic not due sepsis h/o Breast CA with pulmonary, pleural and mediastinal met--worse on CT -Oncology consult recommends hospice consult HTN: metoprolol as above moderate Protein calorie malnutrition: ensure Home with hospice Time Attestation Discharge Coordination Time (in mins): 45 Quality: Safe Use of Opioids Does Pt have an Active Cancer Diagnosis on the Problem List?: Yes Opioid Measure Date for [facility] Report: 07/13/23 Opioid Measure Time for [facility] Report: 11:49 Quality: Stroke Does the patient have a stroke diagnosis?: No Physical Exam Vital Signs: Vital Signs: Last Vital Signs Temp 98.8 F 08/11/23 07:50 Pulse 125 H 08/11/23 07:50 Resp 20 08/11/23 07:50 BP 127/68 08/11/23 07:50 Pulse Ox 98 08/11/23 07:50 O2 Del Method Room Air 08/11/23 07:50 O2 Flow Rate 2 08/09/23 23:13 Oxygen Flow Rate 2 08/08/23 04:52 BMI result Body Mass Index 19.5 General: AO X 3, no acute distress Resp: rhochi bilater, left sided chest tube CVS: S1,S2,RRR GI: +BS, NT, no distention Skin: No rash Neuro: motor grossly intact Psych: appropriate affect DS: Data Data Completed and Pending Completed studies during hospitalization [Text1]: Procedures Drainage of Left Pleural Cavity, Percutaneous Approach (07/17/23) Pending studies at discharge: Pending at discharge 08/08/23 12:57 Cytology [PTH] Routine Labs on day of discharge: Laboratory Results - last 24 hr 08/11/23 06:11 Hold Purple Top SEE NOTE Creatinine 0.57 Estim Creat Clear Calc 60.4 Estimated GFR > 60 Random Vancomycin 17.9 Preliminary micro results at discharge 08/08/23 13:30 Anaerobic Culture - Preliminary Thoracentesis Fluid No growth to date. 08/08/23 05:04 Blood Culture - Preliminary Blood - Venous No growth after 48 hours. 08/08/23 04:44 Blood Culture - Preliminary Blood - Venous No growth after 48 hours. Discharge Plan Discharge Anticipated Discharge Date/Time: 08/12/23 11:51 Patient Disposition: Hospice - Home Discharge Diagnosis: Recurrent pleural effusion, breast cancer with metastases, atrial fibrillation with rapid ventricular response Referrals: Alejo Dao MD [Primary Care Provider] - 1 Week Discharge Medications: New amoxicillin-pot clavulanate [Augmentin] 500-125 mg tablet 1 tab PO BID Qty: 10 0RF morphine concentrate 100 mg/5 mL (20 mg/mL) solution 5 mg PO Q3H PRN (Reason: pain/comfort) 15 Days Qty: 30 0RF Rx Instructions: Partial Fill upon patient request. lorazepam [Lorazepam Intensol] 2 mg/mL concentrate 0.5 mg PO Q4H PRN (Reason: anxiety/restlessness) Qty: 30 0RF Continued atorvastatin 80 mg tablet 80 mg PO BEDTIME Qty: 90 3RF acetaminophen 325 mg Tablet 650 mg PO Q4H PRN (Reason: pain or fever) Qty: 30 0RF isosorbide mononitrate 60 mg tablet extended release 24 hr 60 mg PO QAM Qty: 90 3RF magnesium hydroxide [Milk of Magnesia] 400 mg/5 mL Suspension 30 ml PO BEDTIME PRN (Reason: Constipation) Qty: 3780 0RF bisacodyl 10 mg Suppository 10 mg [place] DAILY PRN (Reason: Constipation) Qty: 30 0RF Fleet Enema 19-7 gram/118 mL Enema 118 ml [place] DAILY PRN (Reason: Constipation) Qty: 266 0RF metoprolol succinate 25 mg tablet extended release 24 hr 25 mg PO DAILY 90 Days Qty: 90 3RF polyethylene glycol 3350 [Miralax] 17 gram/dose Powder 17 g PO DAILY PRN (Reason: Constipation) Qty: 238 0RF Eliquis 2.5 mg Tablet 2.5 mg PO BID Qty: 60 0RF Discharge Orders: Discharge Order (Routine); Ordered 08/12/23 Ordered By: Antolin Kc Diet: Advance to usual diet Activity on Discharge: As tolerated Stand Alone Forms: Patient Portal Discharge page Care Plan Goals: Comfort, hospice care Health Concerns: Recurrent pleural effusion, breast cancer with metastasis, afib, pneumona Plan of Treatment: home with hospice Assessment: see above
--- NOTE | 2023-08-11 08:52 | MHC.CM.PN ---
Addendum entered by Davida Crowley 08/11/23 12:49: Discharge is on hold today. The Surgical team is doing procedure today for CT removal tomorrow. NA has been notified. Plan is to discharge patient with Hospice tomorrow. Original Note: IMM 08/11/23 Patient discharged to home with [facility] hospice. She is booked to transport home via BLS.
[2023-08-11] MEDS: Morphine Sulfate 2 MG/ML CARTRIDGE IVPUSH (12:38)
--- NOTE | 2023-08-11 12:46 | P.PNIM_ITS ---
Subjective Subjective Date of Service: 08/11/23 Interval History: f/u on pleural effuion, loculated effusion, had chest tube inserted yesterday, comfortable. Physical Exam 2 Vital Signs: Vital Signs: Last Vital Signs Temp 98.7 F 08/11/23 11:52 Pulse 91 08/11/23 11:52 Resp 20 08/11/23 11:52 BP 118/58 L 08/11/23 11:52 Pulse Ox 96 08/11/23 11:52 O2 Del Method Room Air 08/11/23 11:52 O2 Flow Rate 2 08/09/23 23:13 Oxygen Flow Rate 2 08/08/23 04:52 BMI result Body Mass Index 19.5 General: AO X 3, no acute distress Resp: rhochi bilater, left sided chest tube in place CVS: S1,S2,RRR GI: +BS, NT, no distention Skin: No rash Neuro: motor grossly intact Psych: appropriate affect Objective Data Active Medications Acetaminophen (Acetaminophen 325 Mg Tablet) 650 mg PO Q6H PRN PRN Reason: Pain, Mild (Pain Scale 1-3) Last Admin: 08/10/23 10:47 Dose: 650 mg Documented By: BRAD Al Hydroxide/Mg Hydroxide (Magnesium Hydrox/Alum Hydrox 30 Ml Oral.Susp) 30 ml PO Q4H PRN PRN Reason: Heartburn/Nausea Apixaban (Apixaban 2.5 Mg Tablet) 2.5 mg PO BID [facility] Last Admin: 08/11/23 08:46 Dose: 2.5 mg Documented By: NITHYA Atorvastatin Calcium (Atorvastatin Calcium 80 Mg Tablet) 80 mg PO BEDTIME [facility] Last Admin: 08/10/23 22:14 Dose: 80 mg Documented By: GABRIELLE Bisacodyl (Bisacodyl 10 Mg Supp.Rect) 10 mg [place] DAILY PRN PRN Reason: Constipation Cefepime HCl 1 gm/ Sodium (Chloride) 50 mls @ 100 mls/hr IV Q12H [facility] Last Infusion: 08/11/23 03:11 Dose: Infused Documented By: GABRIELEL Vancomycin HCl 1,000 mg/ (Sodium Chloride) 270 mls @ 270 mls/hr IV Q24H [facility] Last Infusion: 08/11/23 09:49 Dose: Infused Documented By: NITHYA Isosorbide Mononitrate (Isosorbide Mononitrate 60 Mg Tab.Er.24h) 60 mg PO DAILY [facility]; Protocol Last Admin: 08/11/23 08:46 Dose: 60 mg Documented By: NITHYA Magnesium Hydroxide (Milk Of Magnesia 30 Ml Oral.Susp) 30 ml PO DAILY PRN PRN Reason: Constipation Melatonin (Melatonin 3 Mg Tablet) 3 mg PO BEDTIME PRN PRN Reason: Insomnia Metoprolol Tartrate (Metoprolol Tartrate 25 Mg Tablet) 25 mg PO BID [facility]; Protocol Last Admin: 08/11/23 08:46 Dose: 25 mg Documented By: NITHYA Morphine Sulfate (Morphine Sulfate 2 Mg/Ml Cartridge) 2 mg IVPUSH Q6H PRN; Protocol PRN Reason: Pain, Severe (Pain Scale 7-10) Last Admin: 08/11/23 12:38 Dose: 2 mg Documented By: NITHYA Ondansetron HCl (Ondansetron Hcl 4 Mg/2 Ml Vial) 4 mg IVPUSH Q8H PRN PRN Reason: Nausea and Vomiting Pharmacy Consult (Consult Rx Vancomycin Dosing) 1 each MISCELLANE DAILY PRN PRN Reason: Consult order Polyethylene Glycol (Polyethylene Glycol 3350 17 Gm Powd.Pack) 17 gm PO DAILY PRN PRN Reason: Constipation Sodium Biphosphate/Sodium Phosphate (Sodium Phosphate,[place]-Dibasic 133 Ml Enema) 118 ml [place] DAILY PRN PRN Reason: Constipation Sodium Chloride (0.9 % Sodium Chloride Flush 3 Ml Syringe) 3 ml IVFLUSH QSHIFT [facility] Last Admin: 08/11/23 08:46 Dose: 3 ml Documented By: NITHYA Labs 08/10/23 06:40 08/11/23 06:11 Labs: Laboratory Results - last 24 hr 08/11/23 06:11 Hold Purple Top SEE NOTE Estim Creat Clear Calc 60.4 Estimated GFR > 60 Random Vancomycin 17.9 Microbiology Microbiology Results: Microbiology 08/08/23 13:30 Gram Stain - Final Thoracentesis Fluid Anaerobic Culture - Preliminary No growth to date. Body Fluid Culture - Final No growth after 2 days Assessment and Plan (1) Atrial fibrillation with rapid ventricular response: Status: Acute (2) Elevated WBC count: Status: Acute (3) Recurrent left pleural effusion: Status: Acute Plan This patient with known history breast cancer with pulmonary lymphadenopathy and recurrent pleural effusion presented with shortness of breath and found to have AFIB with RVR and persistent left sided pleural effusion with possible loculation. She was recently admitted with covid and pleural effusion and discharged to rehab only to retunr. Work up revealed recurrent Pleural effuion with likely loculation,WBC 20K, covid positive likly residual from [facility] hospitalization. She was admitted and initiated on Vancomycina nd Cefepime, Thoracic surger inserted a left sided chest tube and will have pleuridisis done. AFIB improved with IV metoprolol and is back on oral Metoprolol. Patient was also assess by Oncoloyg and her cancer is deemed not treatable and overall her condition continues to decline, more cachetic. Oncology has recommended hospice and patient and son are agreeable. Sepsis d/t Parapneumonic effusion with Acute hypoxic respiratory failure likely--hypoxia resolved. She has no fever O2 98 on room air. WBC has gone from 20 to 12. Stop Vanco and Cefepime and add PO Augmentin Permanent AFIB with RVR--improved after IV metoprolol, -continue metoprolol to 25 bid Acute lactic acidosis d/t Hypoxia not sepsis Left P. effusion, previously no malignant cells identified on cytology but very high likelyhood of malignant effusion -chest tube inserted by thoracic surgery and will havepleurodesis today Elevated LFTS with Hyperbilirubinemia--chronic not due sepsis h/o Breast CA with pulmonary, pleural and mediastinal met--worse on CT -Oncology consult recommends hospice consult, patient and son agreeable and will go home with hosice tomorrow HTN: metoprolol as above moderate Protein calorie malnutrition: ensure Home with hospice dvt --eliquis dnr/dni need for inpatient: home tomorrow following pleurodesis Quality Stroke Does the patient have a stroke diagnosis?: No VTE Prior VTE?: No VTE Risk Level:: Medical - moderate - high VTE Device Contraindication: N/A - Device Ordered VTE Drug Contraindication: N/A - Med Ordered
[2023-08-11] MEDS: Doxycycline Hyclate 400 MG in Syringe 60 ML 60 MG INTRAPLEUR (12:52)
[2023-08-11] MEDS: Lidocaine HCl 1 % 20 ML VIAL INFILTRATI (12:52)
[2023-08-11] MEDS: Amoxicillin/Potassium Clav 500 MG TABLET PO (12:57)
--- NOTE | 2023-08-11 13:30 | PM.PNTS ---
Subjective Subjective Date of Service: 08/11/23 Interval history: Shortness of breath improved over the weekend. Scant drainage from chest tube. Patient anxious. Physical Exam Vital Signs: Vital Signs: Last Vital Signs Temp 98.7 F 08/11/23 11:52 Pulse 91 08/11/23 11:52 Resp 20 08/11/23 11:52 BP 118/58 L 08/11/23 11:52 Pulse Ox 96 08/11/23 11:52 O2 Del Method Room Air 08/11/23 11:52 O2 Flow Rate 2 08/09/23 23:13 Oxygen Flow Rate 2 08/08/23 04:52 BMI result Body Mass Index 19.5 Const: General: comfortable, no acute distress and alert Nutritional Appearance: thin Chest: Other: chest tube in place left posterior chest serosang output in pleurvac, no air leak Resp: Effort & Inspection: normal respiratory effort, able to speak in complete sentences and no respiratory distress Skin: General skin exam: no rashes or lesions noted Neuro: General: moves all extremities Procedures Date of Service Date of Service: 08/11/23 Progress Note: A&P Assessment and plan (1) Recurrent left pleural effusion: Status: Acute Plan Effusion improved on f/u imaging. Scant drainage from chest tube over the weekend. Sclerosis performed at bedside today. Chest tube clamped and 20cc lidocaine followed by 60cc doxycycline injected into chest tube. Patient tolerated well. Unclamp chest tube in 1 hr. Repeat CXR tomorrow, and if effusion minimal, can remove chest tube. Time Spent With Patient Time: Total time managing care of this patient today ____ minutes. Quality Stroke Does the patient have a stroke diagnosis?: No VTE Prior VTE?: No VTE Risk Level:: Medical - moderate - high VTE Device Contraindication: N/A - Device Ordered VTE Drug Contraindication: N/A - Med Ordered
[2023-08-11] MEDS: Atorvastatin Calcium 80 MG TABLET PO (20:31)
[2023-08-11] MEDS: Acetaminophen 325 MG TABLET 650 MG PO (20:31)
[2023-08-12] MEDS: 0.9 % Sodium Chloride Flush 3 ML SYRINGE IVFLUSH ×2 (02:25→11:05)
[2023-08-12] MEDS: Amoxicillin/Potassium Clav 500 MG TABLET PO ×2 (02:25→13:00)
[2023-08-12 04:00] VITALS: BP 113/53; PULSE 98; RESP 18; TEMP 37.2; O2SAT 93
[2023-08-12 06:27] LABS: Creatinine Clr Calc Pharmacy 71.7; Estimated Glomerular Filt Rate > 60
[2023-08-12 07:44] VITALS: BP 120/67; PULSE 95; RESP 18; TEMP 36.4; O2SAT 93
--- NOTE | 2023-08-12 07:48 | P.PNTS_ITS ---
Subjective Subjective Date of Service: 08/12/23 <Ximena De La Paz PA-C - Last Filed: 08/12/23 07:51> 08/12/23 <Esau Xiao MD - Last Filed: 08/12/23 10:38> Interval history: No complaints this morning, more alert. Chest tube in subq on this AM CXR. <Ximena De La Paz PA-C - Last Filed: 08/12/23 07:51> Physical Exam Vital Signs: Vital Signs: Last Vital Signs Temp 97.6 F 08/12/23 07:44 Pulse 95 08/12/23 07:44 Resp 18 08/12/23 07:44 BP 120/67 08/12/23 07:44 Pulse Ox 93 08/12/23 07:44 O2 Del Method Room Air 08/12/23 07:44 O2 Flow Rate 2 08/09/23 23:13 Oxygen Flow Rate 2 08/08/23 04:52 BMI result Body Mass Index 19.5 <Ximena De La Paz PA-C - Last Filed: 08/12/23 07:51> Const: General: comfortable, no acute distress and alert <Ximena De La Paz PA-C - Last Filed: 08/12/23 07:51> Chest: Other: chest tube almost out of chest cavity <Ximena De La Paz PA-C - Last Filed: 08/12/23 07:51> Resp: Effort & Inspection: normal respiratory effort and no respiratory distress <Ximena De La Paz PA-C - Last Filed: 08/12/23 07:51> Skin: General skin exam: no rashes or lesions noted <Ximena De La Paz PA-C - Last Filed: 08/12/23 07:51> Procedures Date of Service Date of Service: 08/12/23 <Ximena De La Paz PA-C - Last Filed: 08/12/23 07:51> 08/12/23 <Esau Xiao MD - Last Filed: 08/12/23 10:38> Progress Note: A&P Assessment and plan (1) Recurrent left pleural effusion: Status: Acute <Ximena De La Paz PA-C - Last Filed: 08/12/23 07:51> Assessment and Plan: Sclerosis performed yesterday. AM CXR performed this morning shows chest tube in subq. Removed at bedside uneventfully and occlusive dressing placed. Can change every other day with xeroform, 4x4 and tape. Stable for dc from thoracic standpoint. <Ximena De La Paz PA-C - Last Filed: 08/12/23 07:51> Time Spent With Patient Time: Total time managing care of this patient today ____ minutes. <Ximena De La Paz PA-C - Last Filed: 08/12/23 07:51> Quality Stroke Does the patient have a stroke diagnosis?: No <Ximena De La Paz PA-C - Last Filed: 08/12/23 07:51> VTE Prior VTE?: No <Ximena De La Paz PA-C - Last Filed: 08/12/23 07:51> VTE Risk Level:: Medical - moderate - high <Ximena De La Paz PA-C - Last Filed: 08/12/23 07:51> VTE Device Contraindication: N/A - Device Ordered <Ximena De La Paz PA-C - Last Filed: 08/12/23 07: 51> VTE Drug Contraindication: N/A - Med Ordered <Ximena De La Paz PA-C - Last Filed: 08/12/23 07:51>
[2023-08-12 09:04] LABS: Total Protein Pleural Fluid 2.2
[2023-08-12 09:05] LABS: LDH Pleural Fluid 386
--- NOTE | 2023-08-12 10:36 | HO.PM.IMPN ---
Subjective Subjective Date of Service: 08/12/23 Interval History: f/u on pleural effuion, loculated effusion. Had Pleurodesis yesterday and chest tube removed today no new issues Physical Exam Vital Signs: Vital Signs: Last Vital Signs Temp 97.6 F 08/12/23 07:44 Pulse 95 08/12/23 07:44 Resp 18 08/12/23 07:44 BP 120/67 08/12/23 07:44 Pulse Ox 93 08/12/23 07:44 O2 Del Method Room Air 08/12/23 07:44 O2 Flow Rate 2 08/09/23 23:13 Oxygen Flow Rate 2 08/08/23 04:52 BMI result Body Mass Index 19.5 General: AO X 3, no acute distress Resp: rhochi bilater, left sided chest tube in place CVS: S1,S2,RRR GI: +BS, NT, no distention Skin: No rash Neuro: motor grossly intact Psych: appropriate affect Objective Data Active Medications Acetaminophen (Acetaminophen 325 Mg Tablet) 650 mg PO Q6H PRN PRN Reason: Pain, Mild (Pain Scale 1-3) Last Admin: 08/11/23 20:31 Dose: 650 mg Documented By: LAVINIA Al Hydroxide/Mg Hydroxide (Magnesium Hydrox/Alum Hydrox 30 Ml Oral.Susp) 30 ml PO Q4H PRN PRN Reason: Heartburn/Nausea Amoxicillin/Clavulanate Potassium (Amoxicillin/Potassium Clav 500 Mg Tablet) 500 mg PO Q12H [facility] Last Admin: 08/12/23 02:25 Dose: 500 mg Documented By: LAVINIA Apixaban (Apixaban 2.5 Mg Tablet) 2.5 mg PO BID [facility] Last Admin: 08/11/23 20:31 Dose: 2.5 mg Documented By: LAVINIA Atorvastatin Calcium (Atorvastatin Calcium 80 Mg Tablet) 80 mg PO BEDTIME [facility] Last Admin: 08/11/23 20:31 Dose: 80 mg Documented By: LAVINIA Bisacodyl (Bisacodyl 10 Mg Supp.Rect) 10 mg [place] DAILY PRN PRN Reason: Constipation Isosorbide Mononitrate (Isosorbide Mononitrate 60 Mg Tab.Er.24h) 60 mg PO DAILY [facility]; Protocol Last Admin: 08/11/23 08:46 Dose: 60 mg Documented By: NITHYA Magnesium Hydroxide (Milk Of Magnesia 30 Ml Oral.Susp) 30 ml PO DAILY PRN PRN Reason: Constipation Melatonin (Melatonin 3 Mg Tablet) 3 mg PO BEDTIME PRN PRN Reason: Insomnia Metoprolol Tartrate (Metoprolol Tartrate 25 Mg Tablet) 25 mg PO BID [facility]; Protocol Last Admin: 08/11/23 20:31 Dose: 25 mg Documented By: LAVINIA Morphine Sulfate (Morphine Sulfate 2 Mg/Ml Cartridge) 2 mg IVPUSH Q6H PRN; Protocol PRN Reason: Pain, Severe (Pain Scale 7-10) Last Admin: 08/11/23 12:38 Dose: 2 mg Documented By: NITHYA Ondansetron HCl (Ondansetron Hcl 4 Mg/2 Ml Vial) 4 mg IVPUSH Q8H PRN PRN Reason: Nausea and Vomiting Polyethylene Glycol (Polyethylene Glycol 3350 17 Gm Powd.Pack) 17 gm PO DAILY PRN PRN Reason: Constipation Sodium Biphosphate/Sodium Phosphate (Sodium Phosphate,[place]-Dibasic 133 Ml Enema) 118 ml [place] DAILY PRN PRN Reason: Constipation Sodium Chloride (0.9 % Sodium Chloride Flush 3 Ml Syringe) 3 ml IVFLUSH QSHIFT [facility] Last Admin: 08/12/23 02:25 Dose: 3 ml Documented By: LAVINIA Labs 08/10/23 06:40 08/12/23 05:40 Labs: Laboratory Results - last 24 hr 08/08/23 08/12/23 13:30 05:40 Estim Creat Clear Calc 71.7 Estimated GFR > 60 Pleural Total Protein 2.2 Pleural LDH 386 Microbiology Microbiology Results: Microbiology 08/08/23 13:30 Gram Stain - Final Thoracentesis Fluid Anaerobic Culture - Preliminary No growth to date. Body Fluid Culture - Final No growth after 2 days Assessment and Plan (1) Atrial fibrillation with rapid ventricular response: Status: Acute (2) Elevated WBC count: Status: Acute (3) Recurrent left pleural effusion: Status: Acute Plan This patient with known history breast cancer with pulmonary lymphadenopathy and recurrent pleural effusion presented with shortness of breath and found to have AFIB with RVR and persistent left sided pleural effusion with possible loculation. She was recently admitted with covid and pleural effusion and discharged to rehab only to retunr. Work up revealed recurrent Pleural effuion with likely loculation,WBC 20K, covid positive likly residual from hlast hospitalization. She was admitted and initiated on Vancomycina nd Cefepime, Thoracic surger inserted a left sided chest tube and will have pleuridisis done. AFIB improved with IV metoprolol and is back on oral Metoprolol. Patient was also assess by Oncoloyg and her cancer is deemed not treatable and overall her condition continues to decline, more cachetic. Oncology has recommended hospice and patient and son are agreeable. Sepsis d/t Parapneumonic effusion with Acute hypoxic respiratory failure likely--hypoxia resolved. She has no fever O2 93 on room air. WBC has gone from 20 to 12. Stop Vanco and Cefepime and added PO Augmentin Permanent AFIB with RVR--improved after IV metoprolol, -continue metoprolol to 25 bid, rate is cotrolled Acute lactic acidosis d/t Hypoxia not sepsis Left P. effusion, previously no malignant cells identified on cytology but very high likelyhood of malignant effusion -chest tube inserted by thoracic surgery and will havepleurodesis yesterday, chest tube removed today Elevated LFTS with Hyperbilirubinemia--chronic not due sepsis h/o Breast CA with pulmonary, pleural and mediastinal met--worse on CT -Oncology consult recommends hospice consult, patient and son agreeable and will go home with hosice tomorrow HTN: metoprolol as above moderate Protein calorie malnutrition: ensure Home with hospice dvt --eliquis dnr/dni need for inpatient: home tomorrow following pleurodesis. Home with hospice tomorrow. Quality Stroke Does the patient have a stroke diagnosis?: No VTE Prior VTE?: No VTE Risk Level:: Medical - moderate - high VTE Device Contraindication: N/A - Device Ordered VTE Drug Contraindication: N/A - Med Ordered
[2023-08-12] MEDS: Isosorbide Mononitrate 60 MG TAB.ER.24H PO (11:04)
[2023-08-12] MEDS: Metoprolol Tartrate 25 MG TABLET PO (11:04)
[2023-08-12] MEDS: Apixaban 2.5 MG TABLET PO (11:05)
[2023-08-12 11:36] VITALS: BP 123/61; PULSE 98; RESP 20; TEMP 36.7; O2SAT 95
--- NOTE | 2023-08-12 11:42 | MHC.CM.PN ---
Addendum entered by Davida Crowley 08/12/23 11:51: IMM 08/11/23 Original Note: Patient is discharged to home with [facility] ([facility] Transport is booked for 1pm case picker. Patients son has been notified of the discharge today. NA will start services today.
[2023-08-13 15:27] LABS: pH Pleural Fluid 7.5
== END 2023-08-12 13:30 | disposition hospice, home (50) | DRG 871 ==
LOC: HO.ED 06:15 → HO.EDOVER 08:57 → HO.IMC 19:30
PROVIDERS: Physician Assistant Surgical; Radiology Vascular & Interventional Radiology; Admitting Provider Internal Medicine; Emergency Provider Emergency Medicine; PCP Family Medicine Geriatric Medicine; Visit Provider Internal Medicine
PROC: (CPT 32551; principal; 2023-08-08 12:30)
DX: A41.9 Sepsis, unspecified organism (principal); J96.01 Acute respiratory failure with hypoxia; U07.1 COVID-19; C77.3 Secondary and unspecified malignant neoplasm of axilla and upper limb lymph nodes; I48.19 Other persistent atrial fibrillation; C78.1 Secondary malignant neoplasm of mediastinum; C78.01 Secondary malignant neoplasm of right lung; J91.0 Malignant pleural effusion; E87.21 Acute metabolic acidosis; E44.0 Moderate protein-calorie malnutrition; Z68.1 Body mass index [BMI] 19.9 or less, adult; C50.912 Malignant neoplasm of unspecified site of left female breast; Z66 Do not resuscitate; Z17.1 Estrogen receptor negative status [ER-]; Q67.7 Pectus carinatum; I10 Essential (primary) hypertension; E78.2 Mixed hyperlipidemia; Z79.01 Long term (current) use of anticoagulants; Z79.899 Other long term (current) drug therapy
CPT/HCPCS: 0241U; 32557; 36415; 70450; 71045; 71250; 80048; 80076; 80202; 81001; 82565; 82803; 83605; 83615; 83690; 83735; 83880; 83986; 84145; 84157; 84484; 85025; 85027; 87040; 87070; 87073; 87086; 87205; 88112; 88305; 93005; 99285; A7041; J0692; J2270; J3370; J3371; Q4186

== ENCOUNTER → 2023-08-08 04:43 | Outpatient (BNV) | payer MEDICARE, SELFPAY | PROVIDERS: Admitting Provider Internal Medicine; Emergency Provider Emergency Medicine; PCP Family Medicine Geriatric Medicine; Visit Provider Internal Medicine Cardiovascular Disease | DX: R00.0 Tachycardia, unspecified (principal) | CPT/HCPCS: 93010 ==

== ENCOUNTER → 2023-08-08 08:43 | Outpatient (BNV) | payer MEDICARE, SELFPAY | PROVIDERS: Admitting Provider Internal Medicine; Emergency Provider Emergency Medicine; PCP Family Medicine Geriatric Medicine; Visit Provider Internal Medicine | DX: I48.21 Permanent atrial fibrillation (principal); D72.829 Elevated white blood cell count, unspecified; J90 Pleural effusion, not elsewhere classified | CPT/HCPCS: 99223; 99232; 99233; 99239 ==

== ENCOUNTER → 2023-08-08 08:43 | Outpatient (BNV) | payer MEDICARE, SELFPAY | PROVIDERS: Admitting Provider Internal Medicine; Emergency Provider Emergency Medicine; PCP Family Medicine Geriatric Medicine; Visit Provider Internal Medicine | DX: C50.911 Malignant neoplasm of unspecified site of right female breast (principal) | CPT/HCPCS: 99222; 99232 ==

== ENCOUNTER → 2023-08-08 08:43 | Outpatient (BNV) | payer MEDICARE, SELFPAY | PROVIDERS: Admitting Provider Internal Medicine; Emergency Provider Emergency Medicine; PCP Family Medicine Geriatric Medicine; Visit Provider Physician Assistant Surgical | DX: J90 Pleural effusion, not elsewhere classified (principal) | CPT/HCPCS: 32557; 99499 ==

== ENCOUNTER → 2023-08-08 08:43 | Outpatient (BNV) | payer MEDICARE, SELFPAY | PROVIDERS: Admitting Provider Internal Medicine; Emergency Provider Emergency Medicine; PCP Family Medicine Geriatric Medicine; Visit Provider Surgery | DX: J90 Pleural effusion, not elsewhere classified (principal) | CPT/HCPCS: 99222; 99232 ==